=== PATIENT | female | born 1975 | race American Indian/Alaskan Native ===

== ENCOUNTER 2017-07-06 15:21 | Inpatient (IN) | payer OTHER ==
[2017-07-06] MEDS ORDERED: ZOFRAN IV ONE (17:05)
[2017-07-06] MEDS ORDERED: SUBLIMAZE IV ONE (17:05)
--- NOTE | 2017-07-06 17:13 | Emergency Department Report ---
HPI - General Chief Complaint: Chest Pain Time Seen by Provider: 07/06/17 16:54 - HPI HPI: Room 17 The patient is a 42-year-old female presenting with chief complaint chest pain. The patient states her symptoms began approximately 3 days ago with shortness of breath and dyspnea on exertion that has been worsening. The patient states yesterday she developed some anterior chest pain greatest in the left side feels as though she is being punched in the chest and is radiating to her back. Patient states she also developed pain. The patient states her chest pain is constant. Patient denies nausea/vomiting or diaphoresis. The patient does admit to pleuritic component. The patient gives her pain score 9-10/10. The patient was diagnosed with a PE in May 2016 states she only took her xarelto 3 months because she could not afford more medication. The patient states she's never had a stress test or cardiac catheterization Location: Chest Duration: 2-3 Days Quality: Punching pain Severity: 9-10/10 Modifying factors: [see above] Context: [see above] Mode of transportation: Unknown ED Past Medical Hx - Past Medical History Hx Deep Vein Thrombosis: Yes (PE 2017) Additional medical history: poor circulation to lower extremities CELLULITITS. anemia - Surgical History Past Surgical History?: No - Family History Family history: no significant - Social History Smoking Status: Never Smoker Substance Use Type: None (denies illicit drug use) - Medications Home Medications: Home Medications Medication Instructions Recorded Confirmed Last Taken Type Cephalexin [Keflex] 500 mg PO QID #40 capsule 11/19/13 Unknown Rx HYDROcodone/APAP 10-325 [[place] 1 each PO Q6HR PRN #14 tablet 11/19/13 Unknown Rx 10-325 mg TAB] Sulfamethoxazole/Trimethoprim 1 each PO BID #20 tablet 11/19/13 Unknown Rx [Bactrim DS TAB] Acetaminophen/Codeine 1 tab PO Q6H PRN #10 tab 04/05/14 Unknown Rx [Acetaminophen-Codeine #3 TAB] Cephalexin [Keflex] 500 mg PO BID #20 capsule 04/05/14 Unknown Rx Mupirocin [Bactroban 2% Oint] 1 applic TP TID #22 gram 04/05/14 Unknown Rx Sulfamethoxazole/Trimethoprim 1 each PO BID #20 tablet 04/05/14 Unknown Rx [Bactrim Ds] Tramadol HCl [traMADol] 50 mg PO Q8H PRN #10 tablet 04/05/14 Unknown Rx Acetaminophen with Codeine 1 tab PO Q6HR PRN #15 tab 03/08/15 Unknown Rx [Acetaminophen-Codeine #4 TAB] Cephalexin [Keflex] 500 mg PO Q12HR #20 cap 03/08/15 Unknown Rx Sulfamethoxazole/Trimethoprim 1 each PO BID #20 tablet 03/08/15 Unknown Rx [Bactrim DS TAB] Acetaminophen/Codeine [Tylenol #3] 1 tab PO Q6H PRN #12 tab 09/02/15 Unknown Rx Sulfamethoxazole/Trimethoprim 1 each PO BID #20 tablet 09/02/15 Unknown Rx [Bactrim DS TAB] ED Review of Systems ROS: Stated complaint: CP/SOB Other details as noted in HPI Constitutional: denies: diaphoresis Respiratory: shortness of breath, SOB with exertion Cardiovascular: chest pain Gastrointestinal: denies: nausea, vomiting Physical Exam - Physical Exam Vital Signs: Vital Signs 07/06/17 07/06/17 15:42 16:53 Temperature 98.2 F Pulse Rate 108 H 108 H Respiratory 26 H 22 Rate Blood Pressure 121/76 Blood Pressure 121/76 [Left] O2 Sat by Pulse 97 Oximetry Physical Exam: GENERAL: The patient is well-developed well-nourished female sitting on stretcher not appearing to be in acute distress. [] HEENT: Normocephalic. Atraumatic. Extraocular motions are intact. Patient has moist mucous membranes. NECK: Supple. Trachea midline CHEST/LUNGS: Clear to auscultation. There is no respiratory distress noted. HEART/CARDIOVASCULAR: Regular. There is no tachycardia. There is no gallop rub or murmur. ABDOMEN: Abdomen is soft, nontender. Patient has normal bowel sounds. There is no abdominal distention. SKIN: There is no rash. There is no diaphoresis. NEURO: The patient is awake, alert, and oriented. The patient is cooperative. The patient has normal speech MUSCULOSKELETAL: There is no evidence of acute injury. ED Course Vital Signs 07/06/17 07/06/17 15:42 16:53 Temperature 98.2 F Pulse Rate 108 H 108 H Respiratory 26 H 22 Rate Blood Pressure 121/76 Blood Pressure 121/76 [Left] O2 Sat by Pulse 97 Oximetry ED Medical Decision Making - Lab Data Result diagrams: 07/06/17 17:05 07/06/17 17:05 - EKG Data -: EKG Interpreted by Me EKG shows normal: sinus rhythm Rate: tachycardia (112 bpm) - EKG Data When compared to previous EKG there are: previous EKG unavailable Interpretation: other (no ischemic changes seen) - Differential Diagnosis PE, ACS, GERD, pericarditis Critical care attestation.: If time is entered above; I have spent that time in minutes in the direct care of this critically ill patient, excluding procedure time. ED Disposition Clinical Impression: Chest pain, Bilateral pulmonary embolism, Shortness of breath Disposition: OP ADMIT IP TO THIS HOSP Is pt being admited?: Yes Does the pt Need Aspirin: No Condition: Fair Instructions: Chest Pain (ED) Time of Disposition: 20:03 (hospitalist paged )
[2017-07-06 17:37] LABS: Basophils # (Auto) 0.1 K/mm3 (0.0-0.1); Basophils % (Auto) 0.5 % (0.0-1.8); Eosinophils # (Auto) 0.2 K/mm3 (0.0-0.4); Eosinophils % (Auto) 1.1 % (0.0-4.3); Hematocrit 38.9 % (30.3-42.9); Hemoglobin 12.2 gm/dl (10.1-14.3); Lymphocytes # (Auto) 3.6 K/mm3 (1.2-5.4); Mean Corpuscular HGB Conc 31 % (30-34); Mean Corpuscular Volume 80 fl (79-97); Monocytes # (Auto) 0.9 K/mm3 (0.0-0.8); Monocytes % (Auto) 6.9 % (0.0-7.3); Platelet Count 235 K/mm3 (140-440); Red Blood Count 4.85 M/mm3 (3.65-5.03); Red Cell Distribution Width 15.4 % (13.2-15.2)
[2017-07-06 17:44] LABS: Mean Corpuscular Hemoglobin 25 pg (28-32)
[2017-07-06 17:46] LABS: BUN/Creatinine Ratio 11; Blood Urea Nitrogen 9 mg/dL (7-17); Hemolysis Index 6
[2017-07-06 17:47] LABS: Creatine Kinase MB 1.4 ng/mL (0.0-4.0); INR 0.98 (0.87-1.13)
[2017-07-06] MEDS ORDERED: MORPHINE IV ONE (19:39)
[2017-07-06] MEDS ORDERED: NITRO-BID 2% TP ONE ×2 (19:39→19:41)
[2017-07-06] MEDS ORDERED: MORPHINE ONE ×2 (19:42→19:49)
--- NOTE | 2017-07-06 19:59 | Cat Scan Report ---
FINAL REPORT PROCEDURE: CT angiogram chest with contrast. TECHNIQUE: Computerized tomographic angiography of the chest was performed after the IV injection of iodinated nonionic contrast including image processing. The image data was postprocessed using 2-dimensional multiplanar reformatted (MPR) and 3-dimensional (MIP and/or volume rendered) techniques. HISTORY: chest pain, shortness of breath COMPARISON: No prior studies are available for comparison. FINDINGS: The trachea and central bronchi appear normal. The lungs are clear except for calcified granulomas. The thoracic aorta has a normal caliber without evidence of dissection. There are filling defects in the pulmonary arterial branches supplying both lower lobes. This represents pulmonary embolism. There is no mediastinal adenopathy. The heart size is mildly enlarged. There are no pleural effusions. The thoracic skeleton appears intact. IMPRESSION: Acute pulmonary emboli in both lower lobes.
[2017-07-06] MEDS ORDERED: HEPARIN 10,000 UNITS/10 ML IV ONE (20:00)
[2017-07-06] MEDS: HEPARIN/ 0.45% NACL-25,000 UNIT/500 ML 25,000 UNIT/500 ML BAG IV SCH (21:32)
[2017-07-06] MEDS ORDERED: TYLENOL PO PRN (22:37)
[2017-07-06] MEDS ORDERED: MILK OF MAGNESIA PO PRN (22:37)
[2017-07-06] MEDS ORDERED: DULCOLAX PR PRN (22:37)
[2017-07-06] MEDS ORDERED: ZOFRAN IV PRN (22:37)
--- NOTE | 2017-07-06 22:40 | History and Physical Report ---
History of Present Illness Date of examination: 07/06/17 History of present illness: Fluids 2-year-old man with a history of morbid obesity, rheumatoid arthritis, peripheral vascular disease comes emergency room with complaints of shortness of breath for 5 days. Also complaining of chest pain across her chest which she described as someone punched her in the chest, intermittent in nature, radiating to the back, intensity 4/10, radiating to the left arm worse with breathing. She denies alcohol or vomiting, diaphoresis or palpitation. She was diagnosed with pulmonary emboli on prior admission, she only took 3 months of xarelto due to financial constraints Review Of Systems: Constitutional: no weight loss Ears, eyes, nose, mouth and throat: no nasal congestion, no nasal discharge, no sinus pressure, blurry vision, diplopia Neck: No neck pain or rigidity. Cardiovascular: No palpitations Respiratory: No cough Gastrointestinal: No abdominal pain, hematochezia Genitourinary : no dysuria, frequency , hematuria Musculoskeletal: no muscle ache Integumentary: no rash, no pruritis Neurological: no parathesias, focal weakness Endocrine: no cold or heat intolerance, no polyuria or polydipsia Hematologic/Lymphatic: no easy bruising, no easy bleeding, no gland swelling Allergic/Immunologic: no urticaria, no angioedema. PAST MEDICAL HISTORY:morbid obesity, rheumatoid arthritis, peripheral vascular disease PAST SURGICAL HISTORY: None FAMILY HISTORY: Hypertension SOCIAL HISTORY: Denies alcohol, tobacco, drugs Medications and Allergies Allergies Allergy/AdvReac Type Severity Reaction Status Date / Time aspirin Allergy Mild Rash Verified 03/23/13 15:23 Home Medications Medication Instructions Recorded Confirmed Last Taken Type Acetaminophen [Tylenol Arthritis] 650 mg PO QDAY 07/07/17 07/07/17 Unknown History Morphine ER [Ms Contin ER] 30 mg PO BID 07/07/17 07/07/17 07/06/17 08:00 History Oxycodone HCl [Roxicodone] 5 mg PO TID 07/07/17 07/07/17 07/06/17 12:00 History Active Meds: Active Medications Heparin Sodium/Sodium Chloride (Heparin/ 0.45% Nacl-25,000 Unit/500 Ml) 25,000 unit in 500 mls @ 30 mls/hr IV TITR JOSE; 1,500 UNITS/HR PRN Reason: Protocol Last Admin: 07/06/17 21:32 Dose: 1,500 units/hr, 30 mls/hr Exam - Physical Exam Narrative exam: Gen. appearance: Patient lying in bed in no acute distress HEENT: Normocephalic/atraumatic, pupils equal round reactive to light, extra occular movement intact, no scleral icterus, no JVD or thyromegaly or nodule, neck is supple, mucous membrane moist, no erythema or exudate Heart: S1-S2, regular rate and rhythm Lungs: Clear to auscultation bilateral breathing comfortable Abdomen: Positive bowel sounds, nontender, nondistended, no organomegaly Extremities: No edema, cyanosis, clubbing Neuro:: Oriented 3 , cranial nerves II-12 intact, speech, motor intact Skin: No rash, nodules, warm dry - Constitutional Vitals: Temp Pulse Resp BP Pulse Ox 98.0 F 105 H 29 H 121/76 83 L 07/06/17 22:15 07/06/17 22:15 07/06/17 22:15 07/06/17 22:15 07/06/17 20:00 Results - Labs CBC & Chem 7: 07/07/17 04:28 07/07/17 04:28 Labs: Abnormal lab results 07/06/17 07/06/17 Range/Units 17:05 17:05 WBC 13.3 H (4.5-11.0) K/mm3 MCH 25 L (28-32) pg RDW 15.4 H (13.2-15.2) % [place] # 0.9 H (0.0-0.8) K/mm3 Seg Neutrophils # 8.5 H (1.8-7.7) K/mm3 Glucose 108 H (65-100) mg/dL NT-Pro-B Natriuret Pep 2787 H (0-450) pg/mL - Imaging and Cardiology EKG: image reviewed Chest x-ray: image reviewed CT scan - chest: report reviewed Assessment and Plan Assessment Bilateral pulmonary emboli Rheumatoid arthritis Peripheral vascular disease Morbid obesity Plan Admit to medicine Continue heparin drip, may need to switch to Coumadin due to financial constraints Check serial hemoglobin start IV morphin, Check Doppler of the lower extremity Continue appropriate outpatient medications DVT prophylaxis
[2017-07-07 05:00] LABS: Basophils # (Auto) 0.1 K/mm3 (0.0-0.1); Basophils % (Auto) 0.5 % (0.0-1.8); Eosinophils # (Auto) 0.2 K/mm3 (0.0-0.4); Eosinophils % (Auto) 1.8 % (0.0-4.3); Hematocrit 35.2 % (30.3-42.9); Hemoglobin 11.2 gm/dl (10.1-14.3); Lymphocytes # (Auto) 3.2 K/mm3 (1.2-5.4); Lymphocytes % (Auto) 28.2 % (13.4-35.0); Mean Corpuscular HGB Conc 32 % (30-34); Mean Corpuscular Volume 79 fl (79-97); Monocytes # (Auto) 0.9 K/mm3 (0.0-0.8); Monocytes % (Auto) 7.9 % (0.0-7.3); Platelet Count 205 K/mm3 (140-440); Red Blood Count 4.45 M/mm3 (3.65-5.03); Red Cell Distribution Width 15.4 % (13.2-15.2)
[2017-07-07 05:03] LABS: Mean Corpuscular Hemoglobin 25 pg (28-32)
[2017-07-07] MEDS: MORPHINE IV PRN ×3 (05:18→16:10)
[2017-07-07 05:38] LABS: BUN/Creatinine Ratio 11; Blood Urea Nitrogen 9 mg/dL (7-17); Calcium 8.5 mg/dL (8.4-10.2); Hemolysis Index 2
--- NOTE | 2017-07-07 11:44 | Progress Note ---
Assessment and Plan Assessment and plan: Bilateral pulmonary emboli. Check echocardiogram to evaluate right heart function. Vascular surgery consultation. Continue anticoagulation. Start Coumadin. Doppler ultrasound was negative. Rheumatoid arthritis. Supportive care. Peripheral vascular disease. Vesicle surgery consultation pending. Morbid obesity. History Interval history: No new issues overnight. Hospitalist Physical - Constitutional Vitals: Temp Pulse Resp BP Pulse Ox 97.9 F 91 H 16 129/75 98 07/07/17 09:00 07/07/17 10:15 07/07/17 10:21 07/07/17 10:15 07/07/17 09:00 General appearance: Present: no acute distress, well-nourished - EENT Eyes: Present: PERRL, EOM intact ENT: hearing intact, clear oral mucosa, dentition normal - Neck Neck: Present: supple, normal ROM - Respiratory Respiratory effort: normal Respiratory: bilateral: CTA - Cardiovascular Rhythm: regular Heart Sounds: Present: S1 & S2. Absent: gallop, rub - Extremities Extremities: no ischemia, No edema, Full ROM - Abdominal General gastrointestinal: soft, non-tender, non-distended, normal bowel sounds - Integumentary Integumentary: Present: clear, warm, dry - Neurologic Neurologic: CNII-XII intact, moves all extremities Results - Labs CBC & Chem 7: 07/07/17 04:28 07/07/17 04:28 Labs: Laboratory Last Values WBC 11.3 K/mm3 (4.5-11.0) H 07/07/17 04:28 RBC 4.45 M/mm3 (3.65-5.03) 07/07/17 04:28 Hgb 11.2 gm/dl (10.1-14.3) 07/07/17 04:28 Hct 35.2 % (30.3-42.9) 07/07/17 04:28 MCV 79 fl (79-97) 07/07/17 04:28 MCH 25 pg (28-32) L 07/07/17 04:28 MCHC 32 % (30-34) 07/07/17 04:28 RDW 15.4 % (13.2-15.2) H 07/07/17 04:28 Plt Count 205 K/mm3 (140-440) 07/07/17 04:28 Lymph % (Auto) 28.2 % (13.4-35.0) 07/07/17 04:28 [place] % (Auto) 7.9 % (0.0-7.3) H 07/07/17 04:28 Eos % (Auto) 1.8 % (0.0-4.3) 07/07/17 04:28 Baso % (Auto) 0.5 % (0.0-1.8) 07/07/17 04:28 Lymph # 3.2 K/mm3 (1.2-5.4) 07/07/17 04:28 [place] # 0.9 K/mm3 (0.0-0.8) H 07/07/17 04:28 Eos # 0.2 K/mm3 (0.0-0.4) 07/07/17 04:28 Baso # 0.1 K/mm3 (0.0-0.1) 07/07/17 04:28 Seg Neutrophils % 61.6 % (40.0-70.0) 07/07/17 04:28 Seg Neutrophils # 6.9 K/mm3 (1.8-7.7) 07/07/17 04:28 PT 13.5 Sec. (12.2-14.9) 07/06/17 17:05 INR 0.98 (0.87-1.13) 07/06/17 17:05 APTT 31.0 Sec. (24.2-36.6) 07/06/17 17:05 Heparin Anti-Xa Level 0.24 U.I./ml (0.3-0.7) L 07/07/17 10:48 Sodium 141 mmol/L (137-145) 07/07/17 04:28 Potassium 4.5 mmol/L (3.6-5.0) 07/07/17 04:28 Chloride 103.9 mmol/L (98-107) 07/07/17 04:28 Carbon Dioxide 23 mmol/L (22-30) 07/07/17 04:28 Anion Gap 19 mmol/L 07/07/17 04:28 BUN 9 mg/dL (7-17) 07/07/17 04:28 Creatinine 0.8 mg/dL (0.7-1.2) 07/07/17 04:28 Estimated GFR > 60 ml/min 07/07/17 04:28 BUN/Creatinine Ratio 11 % 02/10/18 04:28 Glucose 103 mg/dL (65-100) H 07/07/17 04:28 Calcium 8.5 mg/dL (8.4-10.2) 07/07/17 04:28 Total Creatine Kinase 52 units/L (30-135) 07/06/17 17:05 CK-MB (CK-2) 1.4 ng/mL (0.0-4.0) 07/06/17 17:05 CK-MB (CK-2) Rel Index 2.6 (0-4) 07/06/17 17:05 Troponin T 0.013 ng/mL (0.00-0.029) 07/06/17 17:05 NT-Pro-B Natriuret Pep 2787 pg/mL (0-450) H 07/06/17 17:05
--- NOTE | 2017-07-07 16:07 | Consultation ---
History of Present Illness - Reason for Consult Consult date: 07/07/17 Pulmonary embolism - History of Present Illness 42-year-old female who presented to the hospital with chief complaint of chest pain with past medical history of morbid obesity, rheumatoid arthritis, venous insufficiency, and right lower extremity lymphedema. The patient states yesterday she developed some anterior chest pain greatest in the left side feels as though she is being punched in the chest and is radiating to her back. Patient states she also developed pain. The patient states her chest pain is constant. The patient was diagnosed with a pulmonary embolism in May 2016 which was her first thromboembolic events, and appropriately had 3 months of anticoagulation therapy with Xarelto. She now presents with new pulmonary embolism in her bilateral lower lobe lobar pulmonary arteries with segmental extension. Although she does have some right heart strain on her CT scan (RV to LV ratio greater than 1.6), she has minimal symptoms on examination. She can converse without issue, she is not tachycardic, and I turned off her supplementary oxygen and her O2 sat was 95%. Her main pulmonary artery measures [address] scan which is CT criteria for pulmonary hypertension. She is incredibly morbidly obese, and I wonder if her right-sided heart strain on CT is secondary to chronic issues, such as sleep apnea. The patient was also telling me that she has boils under her armpits in her groin and has findings in her left axilla of hidradenitis suppurativa. She reports this is a chronic problem that she's had for many years. She also tells me that her right second digit sometimes turns blue and then returns back to normal and the suspect occurring in the last 2 months. I suspect this represents Reynaud's that she has palpable pulses in the right upper extremity. No ulcers of the digit. Past History Past Medical History: pulmonary embolism (06/13), other (venous insuffiency, morbid obesity, RLE lymphedema, ) Past Surgical History: No surgical history Social history: denies: smoking, alcohol abuse, IV drug use Family history: hypertension Medications and Allergies Allergies Allergy/AdvReac Type Severity Reaction Status Date / Time aspirin Allergy Mild Rash Verified 03/23/13 15:23 Home Medications Medication Instructions Recorded Confirmed Last Taken Type Acetaminophen [Tylenol Arthritis] 650 mg PO QDAY 07/07/17 07/07/17 Unknown History Morphine ER [Ms Contin ER] 30 mg PO BID 07/07/17 07/07/17 07/06/17 08:00 History Oxycodone HCl [Roxicodone] 5 mg PO TID 07/07/17 07/07/17 07/06/17 12:00 History Active Meds: Active Medications Acetaminophen (Tylenol) 650 mg PO Q4H PRN PRN Reason: Pain MILD(1-3)/Fever >100.5/CARTAGENA Bisacodyl (Dulcolax) 10 mg NC QDAY PRN PRN Reason: Constipation unrelieved by MOM Heparin Sodium/Sodium Chloride (Heparin/ 0.45% Nacl-25,000 Unit/500 Ml) 25,000 unit in 500 mls @ 30 mls/hr IV TITR JOSE; 1,500 UNITS/HR PRN Reason: Protocol Last Titration: 07/07/17 10:48 Dose: 1,650 units/hr, 33 mls/hr Magnesium Hydroxide (Milk Of Magnesia) 30 ml PO Q4H PRN PRN Reason: Constipation Morphine Sulfate (Morphine) 2 mg IV Q4H PRN PRN Reason: Pain, Moderate (4-6) Last Admin: 07/07/17 10:21 Dose: 2 mg Ondansetron HCl (Zofran) 4 mg IV Q8H PRN PRN Reason: N/V unrelieved by Reglan Review of Systems All systems: negative (see HPI) Exam - Constitutional Vitals: Temp Pulse Resp BP Pulse Ox 98.1 F 90 19 133/76 98 07/07/17 14:55 07/07/17 14:55 07/07/17 14:55 07/07/17 14:55 07/07/17 14:55 General appearance: Present: no acute distress - EENT Eyes: Present: EOM intact ENT: hearing intact - Respiratory Respiratory effort: normal - Extremities Extremities: pulses intact (RUE), normal temperature (RUE), normal color (RUE) Extremity abnormal: edema (RLE THIGH LYMPHEDEMA, stigmata of venous insuffiency with healed ulcers of her LE (lipodermatosclerosis)), other (ulcers draining of the LUE axilla) - Psychiatric Psychiatric: cooperative Results - Labs CBC & Chem 7: 07/07/17 04:28 07/07/17 04:28 Labs: Abnormal lab results 18 18 07/07/17 Range/Units 17:05 17:05 04:28 WBC 13.3 H (4.5-11.0) K/mm3 MCH 25 L (28-32) pg RDW 15.4 H (13.2-15.2) % [place] % (Auto) (0.0-7.3) % [place] # 0.9 H (0.0-0.8) K/mm3 Seg Neutrophils # 8.5 H (1.8-7.7) K/mm3 Heparin Anti-Xa Level < 0.10 L (0.3-0.7) U.I./ml Glucose 108 H (65-100) mg/dL NT-Pro-B Natriuret Pep 2787 H (0-450) pg/mL 07/07/1718 07/07/17 Range/Units 04:28 04:28 08:04 WBC 11.3 H (4.5-11.0) K/mm3 MCH 25 L (28-32) pg RDW 15.4 H (13.2-15.2) % [place] % (Auto) 7.9 H (0.0-7.3) % [place] # 0.9 H (0.0-0.8) K/mm3 Seg Neutrophils # (1.8-7.7) K/mm3 Heparin Anti-Xa Level 0.15 L (0.3-0.7) U.I./ml Glucose 103 H (65-100) mg/dL NT-Pro-B Natriuret Pep (0-450) pg/mL 07/07/17 Range/Units 10:48 WBC (4.5-11.0) K/mm3 MCH (28-32) pg RDW (13.2-15.2) % [place] % (Auto) (0.0-7.3) % [place] # (0.0-0.8) K/mm3 Seg Neutrophils # (1.8-7.7) K/mm3 Heparin Anti-Xa Level 0.24 L (0.3-0.7) U.I./ml Glucose (65-100) mg/dL NT-Pro-B Natriuret Pep (0-450) pg/mL - Imaging and Cardiology CT scan - chest: report reviewed, image reviewed Assessment and Plan 42-year-old female with severe morbid obesity, history of thromboembolic issues , rheumatoid arthritis, who presents with bilateral pulmonary embolism. The patient has bilateral lower lobe lobar pulmonary embolism with segmental extension. Although her BNP is elevated and she has CT evidence of right heart strain, I suspect this secondary to chronic issues as her physical exam and vital signs are not consistent with right heart strain. Her heart rate is normal and her O2 sat is normal off of supplementary oxygen. She can talk and laugh without issue. Given her severe morbid obesity, I'm concerned this may represent sequelae from sleep apnea. Echocardiogram pending, but recommend pulmonology consult. No need for thrombolytics. This is the patient's second thromboembolic event. She'll need to be anticoagulated for life. She is low risk of bleeding denying any bleeding issues such as GI, , or ENT issues. If patient will require Coumadin, then she will need a hematology oncology consult for follow-up of her Coumadin when she is discharged. The patient has hidradenitis suppurativa and will require wound care consult for management. The patient describes right second digit turning blue in the last few months. She has palpable pulses of the right upper extremity. I suspect this represents Raynaud phenomenon possibly secondary to her underlying rheumatoid arthritis. No tissue loss. Arterial ultrasound will be obtained to exclude blue digit syndrome given that she denies this occurring to her other hand or feet, but the events were short term in duration (a few hours) which is not compatible with embolism.
[2017-07-07] MEDS: HEPARIN/ 0.45% NACL-25,000 UNIT/500 ML 25,000 UNIT/500 ML BAG IV SCH (19:59)
[2017-07-08] MEDS: MORPHINE IV PRN ×3 (03:00→23:21)
[2017-07-08 06:53] LABS: Hematocrit 33.6 % (30.3-42.9); Hemoglobin 10.8 gm/dl (10.1-14.3)
[2017-07-08] MEDS: HEPARIN/ 0.45% NACL-25,000 UNIT/500 ML 25,000 UNIT/500 ML BAG IV SCH (10:57)
--- NOTE | 2017-07-08 12:28 | Progress Note ---
Assessment and Plan Assessment and plan: Bilateral pulmonary emboli. This is the patient's second thromboembolic event. Therefore, patient will need anticoagulation for life. Check echocardiogram to evaluate right heart function. Vascular surgery following. Continue heparin IV. Start Coumadin. Doppler ultrasound was negative. Hematology consultation. Rheumatoid arthritis. ? Raynaud's phenomenon. Follow-up lower extremity arterial Dopplers. Supportive care. Peripheral vascular disease. ? Raynaud's phenomenon. As above. Morbid obesity. hidradenitis suppurativa. Wound care consultation History Interval history: No new issues overnight. Hospitalist Physical - Constitutional Vitals: Temp Pulse Resp BP Pulse Ox 97.5 F L 76 16 114/56 97 07/08/17 09:44 07/08/17 09:51 07/08/17 09:44 07/08/17 09:44 07/08/17 09:44 General appearance: Present: no acute distress - EENT Eyes: Present: PERRL, EOM intact ENT: hearing intact, clear oral mucosa, dentition normal - Neck Neck: Present: supple, normal ROM - Respiratory Respiratory effort: normal Respiratory: bilateral: CTA - Cardiovascular Rhythm: regular Heart Sounds: Present: S1 & S2. Absent: gallop, rub - Extremities Extremities: no ischemia, No edema, Full ROM - Abdominal General gastrointestinal: soft, non-tender, non-distended, normal bowel sounds - Integumentary Integumentary: Present: clear, warm, dry - Neurologic Neurologic: CNII-XII intact, moves all extremities Results - Labs CBC & Chem 7: 07/08/17 05:18 07/07/17 04:28 Labs: Laboratory Last Values WBC 11.3 K/mm3 (4.5-11.0) H 07/07/17 04:28 RBC 4.45 M/mm3 (3.65-5.03) 07/07/17 04:28 Hgb 10.8 gm/dl (10.1-14.3) 07/08/17 05:18 Hct 33.6 % (30.3-42.9) 07/08/17 05:18 MCV 79 fl (79-97) 07/07/17 04:28 MCH 25 pg (28-32) L 07/07/17 04:28 MCHC 32 % (30-34) 07/07/17 04:28 RDW 15.4 % (13.2-15.2) H 07/07/17 04:28 Plt Count 192 K/mm3 (140-440) 07/08/17 05:18 Lymph % (Auto) 28.2 % (13.4-35.0) 07/07/17 04:28 [place] % (Auto) 7.9 % (0.0-7.3) H 07/07/17 04:28 Eos % (Auto) 1.8 % (0.0-4.3) 07/07/17 04:28 Baso % (Auto) 0.5 % (0.0-1.8) 07/07/17 04:28 Lymph # 3.2 K/mm3 (1.2-5.4) 07/07/17 04:28 [place] # 0.9 K/mm3 (0.0-0.8) H 07/07/17 04:28 Eos # 0.2 K/mm3 (0.0-0.4) 07/07/17 04:28 Baso # 0.1 K/mm3 (0.0-0.1) 07/07/17 04:28 Seg Neutrophils % 61.6 % (40.0-70.0) 07/07/17 04:28 Seg Neutrophils # 6.9 K/mm3 (1.8-7.7) 07/07/17 04:28 PT 13.5 Sec. (12.2-14.9) 07/06/17 17:05 INR 0.98 (0.87-1.13) 07/06/17 17:05 APTT 31.0 Sec. (24.2-36.6) 07/06/17 17:05 Heparin Anti-Xa Level 0.35 U.I./ml (0.3-0.7) 07/07/17 15:25 Sodium 141 mmol/L (137-145) 07/07/17 04:28 Potassium 4.5 mmol/L (3.6-5.0) 07/07/17 04:28 Chloride 103.9 mmol/L (98-107) 07/07/17 04:28 Carbon Dioxide 23 mmol/L (22-30) 07/07/17 04:28 Anion Gap 19 mmol/L 07/07/17 04:28 BUN 9 mg/dL (7-17) 07/07/17 04:28 Creatinine 0.8 mg/dL (0.7-1.2) 07/07/17 04:28 Estimated GFR > 60 ml/min 07/07/17 04:28 BUN/Creatinine Ratio 11 % 07/07/17 04:28 Glucose 103 mg/dL (65-100) H 07/07/17 04:28 Calcium 8.5 mg/dL (8.4-10.2) 07/07/17 04:28 Total Creatine Kinase 52 units/L (30-135) 07/06/17 17:05 CK-MB (CK-2) 1.4 ng/mL (0.0-4.0) 07/06/17 17:05 CK-MB (CK-2) Rel Index 2.6 (0-4) 07/06/17 17:05 Troponin T 0.013 ng/mL (0.00-0.029) 07/06/17 17:05 NT-Pro-B Natriuret Pep 2787 pg/mL (0-450) H 07/06/17 17:05
--- NOTE | 2017-07-08 12:44 | Event Note ---
Date: 07/08/17 No new recommendations. Awaiting RUE arterial ultrasound and echocardiography.
--- NOTE | 2017-07-08 17:21 | Consultation ---
History of Present Illness - Reason for Consult Consult date: 07/08/17 PE, recurrent. Requesting physician: GRECIA MARCUM - History of Present Illness Thank you for this consult, patient seen/examined, record reviewed, case d/w patient, and family.Patients account revealed hx of PE last year , in the hospital, given samples of xeralto at home, and once finished, patient became non compliant with her care.She is now back with another PE. She has other med issues including RA, Peripheral vas dz, and morbid obesity, and gross immobility due to rheumatoid pain, and body habitus. She denies any family hx of coag dz, her mom had Dvt, but it was following a major surgery.Will do a full w/up before coumadin is started.Also, upon, d/c ,she should be sent home with coumadin ,because it is cheaper.she reports what may have been a miscarriage in the past. Past History Past Medical History: pulmonary embolism (06/13), other (venous insuffiency, morbid obesity, RLE lymphedema, ) Past Surgical History: No surgical history Social history: single. denies: smoking, alcohol abuse, IV drug use Family history: hypertension Medications and Allergies Allergies Allergy/AdvReac Type Severity Reaction Status Date / Time aspirin Allergy Mild Rash Verified 03/23/13 15:23 Home Medications Medication Instructions Recorded Confirmed Last Taken Type Acetaminophen [Tylenol Arthritis] 650 mg PO QDAY 07/07/17 07/07/17 Unknown History Morphine ER [Ms Contin ER] 30 mg PO BID 07/07/17 07/07/17 07/06/17 08:00 History Oxycodone HCl [Roxicodone] 5 mg PO TID 07/07/17 07/07/17 07/06/17 12:00 History Active Meds: Active Medications Acetaminophen (Tylenol) 650 mg PO Q4H PRN PRN Reason: Pain MILD(1-3)/Fever >100.5/CARTAGENA Bisacodyl (Dulcolax) [address] QDAY PRN PRN Reason: Constipation unrelieved by MOM Heparin Sodium/Sodium Chloride (Heparin/ 0.45% Nacl-25,000 Unit/500 Ml) 25,000 unit in 500 mls @ 30 mls/hr IV TITR JOSE; 1,500 UNITS/HR PRN Reason: Protocol Last Admin: 07/08/17 10:57 Dose: 1,650 units/hr, 33 mls/hr Magnesium Hydroxide (Milk Of Magnesia) 30 ml PO Q4H PRN PRN Reason: Constipation Morphine Sulfate (Morphine) 2 mg IV Q4H PRN PRN Reason: Pain, Moderate (4-6) Last Admin: 07/08/17 10:56 Dose: 2 mg Ondansetron HCl (Zofran) 4 mg IV Q8H PRN PRN Reason: N/V unrelieved by Reglan Warfarin Sodium (Coumadin Pharmacy To Dose) 1 each PO PKCONSULT [facility] PRN Reason: Protocol Warfarin Sodium (Coumadin) 10 mg PO DAILY@1700 [facility] Review of Systems Constitutional: weight gain, chronic pain Breasts: deferred Exam - Constitutional Vitals: Temp Pulse Resp BP Pulse Ox 97.5 F L 76 16 114/56 97 07/08/17 09:44 07/08/17 09:51 07/08/17 09:44 07/08/17 09:44 07/08/17 09:44 General appearance: Present: no acute distress, well-nourished - EENT Eyes: Present: PERRL ENT: hearing intact, clear oral mucosa - Neck Neck: Present: supple, normal ROM - Respiratory Respiratory: bilateral: other (sob) - Cardiovascular Heart Sounds: Present: S1 & S2. Absent: rub, click - Extremities Extremities: pulses symmetrical, No edema Peripheral Pulses: within normal limits - Abdominal General gastrointestinal: Present: soft, non-tender, non-distended, normal bowel sounds Female genitourinary: Present: deferred - Rectal Rectal Exam: deferred - Integumentary Integumentary: Present: clear, warm, dry - Musculoskeletal Musculoskeletal: gait normal, strength equal bilaterally - Psychiatric Psychiatric: appropriate mood/affect, intact judgment & insight - Neurologic Neurologic: CNII-XII intact, moves all extremities Results - Labs CBC & Chem 7: 07/08/17 05:18 07/07/17 04:28 Assessment and Plan - Patient Problems (1) Bilateral pulmonary embolism Current Visit: Yes Status: Acute Plan to address problem: see below. (2) Shortness of breath Current Visit: Yes Status: Acute Plan to address problem: continue with anti coagulation (3) Cellulitis Current Visit: No Status: Acute Qualifiers: Site of cellulitis: extremity Site of cellulitis of extremity: lower extremity Laterality: right Qualified Code(s): L03.115 - Cellulitis of right lower limb Plan to address problem: complicated by stasis dermatitis. deffer to vasc. (4) Obesity Current Visit: Yes Status: Acute Plan to address problem: encourage wt loss.
[2017-07-08] MEDS: COUMADIN PO SCH (18:45)
--- NOTE | 2017-07-08 22:56 | Consultation ---
History of Present Illness Consult date: 07/08/17 Reason for consult: pulmonary embolism History of present illness: Dr. Caldera thank you for asking us to participate in the care of this patient. This 42 year old female , Morbidly Obese, came to the emergency room with shortness of breath and chest pain. Denies cough, fever or diaphoresis. Angio CT of chest obtained reported bilateral acute pulmonary emboli. Patient started on I/V Heparin . Patient has history of PE in the Past about a year ago. Patient did not complete her course of treatment at that time.Patient has history of rheumatoid arthritis and lymph edema. Denies other medical problems.Denies sleep problems at this time. No history of smoking, alcohol or drug abuse. Not . No children. Worked in [employer] service before stopped working.Allergic to aspirin. Past History Past Medical History: pulmonary embolism (06/13), other (venous insuffiency, morbid obesity, RLE lymphedema, ) Past Surgical History: No surgical history Social history: single. denies: smoking, alcohol abuse, IV drug use Family history: hypertension Medications and Allergies Allergies Allergy/AdvReac Type Severity Reaction Status Date / Time aspirin Allergy Mild Rash Verified 03/23/13 15:23 Home Medications Medication Instructions Recorded Confirmed Last Taken Type Acetaminophen [Tylenol Arthritis] 650 mg PO QDAY 07/07/17 07/07/17 Unknown History Morphine ER [Ms Contin ER] 30 mg PO BID 07/07/17 07/07/17 07/06/17 08:00 History Oxycodone HCl [Roxicodone] 5 mg PO TID 07/07/17 07/07/17 07/06/17 12:00 History Active Meds: Active Medications Acetaminophen (Tylenol) 650 mg PO Q4H PRN PRN Reason: Pain MILD(1-3)/Fever >100.5/CARTAGENA Bisacodyl (Dulcolax) 10 mg [place] QDAY PRN PRN Reason: Constipation unrelieved by MOM Heparin Sodium/Sodium Chloride (Heparin/ 0.45% Nacl-25,000 Unit/500 Ml) 25,000 unit in 500 mls @ 30 mls/hr IV TITR JOSE; 1,500 UNITS/HR PRN Reason: Protocol Last Titration: 07/08/17 18:44 Dose: 1,650 units/hr, 33 mls/hr Magnesium Hydroxide (Milk Of Magnesia) 30 ml PO Q4H PRN PRN Reason: Constipation Morphine Sulfate (Morphine) 2 mg IV Q4H PRN PRN Reason: Pain, Moderate (4-6) Last Admin: 07/08/17 10:56 Dose: 2 mg Ondansetron HCl (Zofran) 4 mg IV Q8H PRN PRN Reason: N/V unrelieved by Reglan Warfarin Sodium (Coumadin Pharmacy To Dose) 1 each PO PKCONSULT [facility] PRN Reason: Protocol Warfarin Sodium (Coumadin) 10 mg PO DAILY@1700 [facility] Last Admin: 07/08/17 18:45 Dose: 10 mg Review of Systems All systems: negative Physical Examination Vital signs: Vital Signs Temp Pulse Resp BP Pulse Ox 98.2 F 108 H 26 H 121/76 97 07/06/17 15:42 07/06/17 15:42 07/06/17 15:42 07/06/17 15:42 07/06/17 15:42 General appearance: no acute distress, alert, other (Morbidly obese.) Eyes: non-icteric ENT: oropharynx moist Neck: supple, no JVD Ascultation: Bilateral: diminished breath sounds Cardiovascular: regular rate and rhythm Gastrointestinal: normoactive bowel sounds, soft, non-tender Integumentary: other (stasis dermatitis and lymphedema.) Extremities: no cyanosis, edema Musculoskeletal: other (Patient morbidly obese,) Gait: other (Morbidly obese.) normal mental status, non-focal exam, pupils equal and round, CN II-XII normal mood appropriate Results - Laboratory Findings CBC and BMP: 07/08/17 05:18 07/07/17 04:28 PT/INR, D-dimer PT 13.5 Sec. (12.2-14.9) 07/06/17 17:05 INR 0.98 (0.87-1.13) 07/06/17 17:05 Abnormal lab findings: Abnormal Labs 07/06/17 07/06/17 07/07/17 17:05 17:05 04:28 WBC 13.3 H MCH 25 L RDW 15.4 H Powell % (Auto) Powell # 0.9 H Seg Neutrophils # 8.5 H Heparin Anti-Xa Level < 0.10 L Glucose 108 H NT-Pro-B Natriuret Pep 2787 H 07/07/17 07/07/17 07/07/17 04:28 04:28 08:04 WBC 11.3 H MCH 25 L RDW 15.4 H [place] % (Auto) 7.9 H Powell # 0.9 H Seg Neutrophils # Heparin Anti-Xa Level 0.15 L Glucose 103 H NT-Pro-B Natriuret Pep 07/07/17 10:48 WBC MCH RDW [place] % (Auto) Powell # Seg Neutrophils # Heparin Anti-Xa Level 0.24 L Glucose NT-Pro-B Natriuret Pep - Diagnostic Findings CT scan - chest: report reviewed (Bilateral acute pulmonary emboli.), image reviewed Assessment and Plan his 42 year old female , Morbidly Obese, came to the emergency room with shortness of breath and chest pain. Denies cough, fever or diaphoresis. Angio CT of chest obtained reported bilateral acute pulmonary emboli. Patient started on I/V Heparin . Patient has history of PE in the Past about a year ago. Patient did not complete her course of treatment at that time.Patient has history of rheumatoid arthritis and lymph edema. Denies other medical problems.Denies sleep problems at this time. No history of smoking, alcohol or drug abuse. Not . No children. Worked in [employer] service before stopped working.Allergic to aspirin. - Patient Problems (1) Bilateral pulmonary embolism Current Visit: Yes Status: Acute Plan to address problem: Patient started on I/V heparin and PO coumadin Recommend Protien C, Protein S and Anti thrombin levels. (2) Obesity Current Visit: Yes Status: Acute Plan to address problem: Counselled to loose weight. (3) Shortness of breath Current Visit: Yes Status: Acute Plan to address problem: Likely from pulmonary emboli. Continue O2 supplementation. Patient is on I/V Heparin and coumadin.
[2017-07-09] MEDS: HEPARIN/ 0.45% NACL-25,000 UNIT/500 ML 25,000 UNIT/500 ML BAG IV SCH ×2 (03:55→21:21)
[2017-07-09 06:10] LABS: Basophils % (Auto) 0.3 % (0.0-1.8); Eosinophils # (Auto) 0.2 K/mm3 (0.0-0.4); Eosinophils % (Auto) 1.9 % (0.0-4.3); Hemoglobin 10.5 gm/dl (10.1-14.3); Lymphocytes # (Auto) 2.8 K/mm3 (1.2-5.4); Lymphocytes % (Auto) 30.6 % (13.4-35.0); Mean Corpuscular HGB Conc 32 % (30-34); Mean Corpuscular Hemoglobin 25 pg (28-32); Mean Corpuscular Volume 80 fl (79-97); Monocytes # (Auto) 0.8 K/mm3 (0.0-0.8); Monocytes % (Auto) 8.3 % (0.0-7.3); Platelet Count 200 K/mm3 (140-440); Red Blood Count 4.12 M/mm3 (3.65-5.03); Red Cell Distribution Width 15.5 % (13.2-15.2)
[2017-07-09 06:21] LABS: INR 1.21 (0.87-1.13)
[2017-07-09 06:26] LABS: BUN/Creatinine Ratio 10; Blood Urea Nitrogen 7 mg/dL (7-17); Calcium 8.3 mg/dL (8.4-10.2); Hemolysis Index 10
--- NOTE | 2017-07-09 08:02 | Progress Note ---
Assessment and Plan Assessment and plan: Bilateral pulmonary emboli. This is the patient's second thromboembolic event. Therefore, patient will need anticoagulation for life. Check echocardiogram to evaluate right heart function. Vascular surgery following. Continue heparin IV. Start Coumadin. Doppler ultrasound was negative. Hematology consultation. Rheumatoid arthritis. ? Raynaud's phenomenon. Follow-up lower extremity arterial Dopplers. Supportive care. Peripheral vascular disease. ? Raynaud's phenomenon. As above. Morbid obesity. hidradenitis suppurativa. Wound care consultation History Interval history: No new issues overnight. Hospitalist Physical - Constitutional Vitals: Temp Pulse Resp BP Pulse Ox 98.1 F 82 16 112/56 100 07/09/17 05:38 07/09/17 05:38 07/09/17 05:38 07/09/17 05:38 07/09/17 05:38 General appearance: Present: no acute distress, well-nourished - EENT Eyes: Present: PERRL, EOM intact ENT: hearing intact, clear oral mucosa, dentition normal - Neck Neck: Present: supple, normal ROM - Respiratory Respiratory effort: normal Respiratory: bilateral: CTA - Cardiovascular Rhythm: regular Heart Sounds: Present: S1 & S2. Absent: gallop, rub - Extremities Extremities: no ischemia, No edema, Full ROM - Abdominal General gastrointestinal: soft, non-tender, non-distended, normal bowel sounds - Integumentary Integumentary: Present: clear, warm, dry - Neurologic Neurologic: CNII-XII intact, moves all extremities Results - Labs CBC & Chem 7: 07/09/17 05:27 07/09/17 05:27 Labs: Laboratory Last Values WBC 9.2 K/mm3 (4.5-11.0) 07/09/17 05:27 RBC 4.12 M/mm3 (3.65-5.03) 07/09/17 05:27 Hgb 10.5 gm/dl (10.1-14.3) 07/09/17 05:27 Hct 33.0 % (30.3-42.9) 07/09/17 05:27 MCV 80 fl (79-97) 07/09/17 05:27 MCH 25 pg (28-32) L 07/09/17 05:27 MCHC 32 % (30-34) 07/09/17 05:27 RDW 15.5 % (13.2-15.2) H 07/09/17 05:27 Plt Count 200 K/mm3 (140-440) 07/09/17 05:27 Lymph % (Auto) 30.6 % (13.4-35.0) 07/09/17 05:27 [place] % (Auto) 8.3 % (0.0-7.3) H 07/09/17 05:27 Eos % (Auto) 1.9 % (0.0-4.3) 07/09/17 05:27 Baso % (Auto) 0.3 % (0.0-1.8) 07/09/17 05:27 Lymph # 2.8 K/mm3 (1.2-5.4) 07/09/17 05:27 [place]bert # 0.8 K/mm3 (0.0-0.8) 07/09/17 05:27 Eos # 0.2 K/mm3 (0.0-0.4) 07/09/17 05:27 Baso # 0.0 K/mm3 (0.0-0.1) 07/09/17 05:27 Seg Neutrophils % 58.9 % (40.0-70.0) 07/09/17 05:27 Seg Neutrophils # 5.4 K/mm3 (1.8-7.7) 07/09/17 05:27 PT 16.0 Sec. (12.2-14.9) H 07/09/17 05:27 INR 1.21 (0.87-1.13) H 07/09/17 05:27 APTT 31.0 Sec. (24.2-36.6) 07/06/17 17:05 Heparin Anti-Xa Level 0.43 U.I./ml (0.3-0.7) 07/08/17 17:52 Sodium 139 mmol/L (137-145) 07/09/17 05:27 Potassium 3.7 mmol/L (3.6-5.0) 07/09/17 05:27 Chloride 102.4 mmol/L (98-107) 07/09/17 05:27 Carbon Dioxide 24 mmol/L (22-30) 07/09/17 05:27 Anion Gap 16 mmol/L 07/09/17 05:27 BUN 7 mg/dL (7-17) 07/09/17 05:27 Creatinine 0.7 mg/dL (0.7-1.2) 07/09/17 05:27 Estimated GFR > 60 ml/min 07/09/17 05:27 BUN/Creatinine Ratio 10 % 07/09/17 05:27 Glucose 104 mg/dL (65-100) H 07/09/17 05:27 Calcium 8.3 mg/dL (8.4-10.2) L 07/09/17 05:27 Total Creatine Kinase 52 units/L (30-135) 07/06/17 17:05 CK-MB (CK-2) 1.4 ng/mL (0.0-4.0) 07/06/17 17:05 CK-MB (CK-2) Rel Index 2.6 (0-4) 07/06/17 17:05 Troponin T 0.013 ng/mL (0.00-0.029) 07/06/17 17:05 NT-Pro-B Natriuret Pep 2787 pg/mL (0-450) H 07/06/17 17:05 Rheumatoid Factor < 10 IU/ml (0-13) 07/08/17 19:17
--- NOTE | 2017-07-09 09:09 | Progress Note ---
Assessment and Plan Arterial duplex of RUE was performed. There is phasic flow in the distal radial artery. The pulse is palpable as well. The rt index finger is currently not blue, and the pt is not complaining of pain. This could be related to Raynaud's disease. The patient is already being treating for RA, so a further rheumatology workup may be of value. In general, medications such as calcium channel blockers can be helpful; these can be given at the discretion of the primary medical team. No acute vascular intervention is required at this time. Please call with questions. Thank you. Subjective Date of service: 07/09/17 Interval history: Patient is complaining of "pain in every joint", related to RA. No SOB currently, although patient is lying in bed. No acute events otherwise Objective - Constitutional Vitals: Vital Signs - 12hr 07/08/17 07/09/17 07/09/17 22:00 01:35 05:38 Temperature 98.3 F 98.1 F Pulse Rate 86 82 Respiratory 18 16 Rate Blood Pressure 109/61 112/56 O2 Sat by Pulse 99 95 100 Oximetry 07/09/17 08:13 Temperature 98.2 F Pulse Rate 87 Respiratory 18 Rate Blood Pressure 119/66 O2 Sat by Pulse 97 Oximetry General appearance: Present: no acute distress - EENT Eyes: PERRL, EOM intact ENT: hearing intact, clear oral mucosa - Neck Neck: supple, normal ROM - Respiratory Respiratory effort: normal Extremities: no ischemia Extremity abnormal: other (Right rad pulse palpable. Normal color and temp right index finger) - Labs CBC & Chem 7: 07/09/17 05:27 07/09/17 05:27 Labs: Abnormal lab results 07/09/17 07/09/17 07/09/17 Range/Units 05:27 05:27 05:27 MCH 25 L (28-32) pg RDW 15.5 H (13.2-15.2) % [place] % (Auto) 8.3 H (0.0-7.3) % PT 16.0 H (12.2-14.9) Sec. INR 1.21 H (0.87-1.13) Glucose 104 H (65-100) mg/dL Calcium 8.3 L (8.4-10.2) mg/dL
[2017-07-09] MEDS: MORPHINE IV PRN (11:22)
--- NOTE | 2017-07-09 14:19 | Progress Note ---
Assessment and Plan Acute VTE (Bilateral P.E.'s) Morbid Obesity Shortness of Breath H/O Rheumatoid Athritis PVD Hidradenitis suppurativa - continue IV heparin - transition to p.o. anticoagulation (coumadin target INR 2.0 to 3.0) - supplemental oxygen to keep sats > 90% - weight loss counselled - prn analgesia - outpatient sleep clinic evaluation for DONNY - GI prophylaxis Subjective Date of service: 07/09/17 Principal diagnosis: VTE (Acute Pulmonary Embolism); Obesity Interval history: Patient is seen today for: Acute Bilateral Pulmonary Embolii Seen and examined at bedside; 24hour events reviewed; nursing and respiratory care staff consulted; no adverse overnight events reported to me; resting peacefully in bed; denies acute chest pains or increased SOB; no hemoptysis or other bleeding; Objective Vital Signs - 12hr 07/09/17 07/09/17 07/09/17 05:38 08:13 10:00 Temperature 98.1 F 98.2 F Pulse Rate 82 87 86 Respiratory 16 18 Rate Blood Pressure 112/56 119/66 O2 Sat by Pulse 100 97 97 Oximetry 07/09/17 07/09/17 11:22 12:11 Temperature 97.9 F Pulse Rate 86 Respiratory 20 18 Rate Blood Pressure 123/60 O2 Sat by Pulse 97 Oximetry Constitutional: no acute distress, alert, other (Morbidly obese.) Eyes: non-icteric ENT: oropharynx moist Neck: supple, no lymphadenopathy, no JVD Effort: normal Ascultation: Bilateral: clear, diminished breath sounds Percussion: Bilateral: not dull Cardiovascular: regular rate and rhythm Gastrointestinal: normoactive bowel sounds, soft, non-tender, non-distended Integumentary: other (stasis dermatitis and lymphedema.) Extremities: no cyanosis, pulses normal, no ischemia or petechiae, edema Neurologic: normal mental status, non-focal exam, pupils equal and round, CN II- XII normal Psychiatric: mood appropriate, affect normal CBC and BMP: 07/11/17 04:57 07/11/17 04:57 ABG, PT/INR, D-dimer: PT/INR, D-dimer PT 16.0 Sec. (12.2-14.9) H 07/09/17 05:27 INR 1.21 (0.87-1.13) H 07/09/17 05:27 Abnormal lab findings: Abnormal Labs 07/06/17 07/06/17 07/07/17 17:05 17:05 04:28 WBC 13.3 H MCH 25 L RDW 15.4 H Tyrrell % (Auto) Tyrrell # 0.9 H Seg Neutrophils # 8.5 H PT INR Heparin Anti-Xa Level < 0.10 L Glucose 108 H Calcium NT-Pro-B Natriuret Pep 2787 H 07/07/17 07/07/17 07/07/17 04:28 04:28 08:04 WBC 11.3 H MCH 25 L RDW 15.4 H [place] % (Auto) 7.9 H Tyrrell # 0.9 H Seg Neutrophils # PT INR Heparin Anti-Xa Level 0.15 L Glucose 103 H Calcium NT-Pro-B Natriuret Pep 07/07/17 07/09/17 07/09/17 10:48 05:27 05:27 WBC MCH 25 L RDW 15.5 H [place]rell % (Auto) 8.3 H Tyrrell # Seg Neutrophils # PT INR Heparin Anti-Xa Level 0.24 L Glucose 104 H Calcium 8.3 L NT-Pro-B Natriuret Pep 07/09/17 05:27 WBC MCH RDW [place] % (Auto) Tyrrell # Seg Neutrophils # PT 16.0 H INR 1.21 H Heparin Anti-Xa Level Glucose Calcium NT-Pro-B Natriuret Pep CT scan - chest: image reviewed
[2017-07-09] MEDS: COUMADIN PO SCH (17:23)
--- NOTE | 2017-07-09 20:37 | Progress Note ---
Assessment and Plan - Patient Problems (1) Bilateral pulmonary embolism Current Visit: Yes Status: Acute Plan to address problem: see below. (2) Shortness of breath Current Visit: Yes Status: Acute Plan to address problem: continue with anti coagulation (3) Cellulitis Current Visit: No Status: Acute Qualifiers: Site of cellulitis: extremity Site of cellulitis of extremity: lower extremity Laterality: right Qualified Code(s): L03.115 - Cellulitis of right lower limb Plan to address problem: complicated by stasis dermatitis. deffer to [facility]. (4) Obesity Current Visit: Yes Status: Acute Plan to address problem: encourage wt loss. Subjective Date of service: 07/09/17 Principal diagnosis: VTE (Acute Pulmonary Embolism) Interval history: patient seen/examined, resting in bed, notes reviewed, case d/w patient.labs reviewed. INR 1.22 on coumaDIN Objective - Constitutional Vitals: Vital Signs - 12hr 07/09/17 07/09/17 07/09/17 10:00 11:22 12:11 Temperature 97.9 F Pulse Rate 86 86 Respiratory 20 18 Rate Blood Pressure 123/60 O2 Sat by Pulse 97 97 Oximetry 07/09/17 07/09/17 15:25 19:51 Temperature 98.1 F Pulse Rate 89 Respiratory 18 Rate Blood Pressure 135/66 O2 Sat by Pulse 100 100 Oximetry General appearance: Present: mild distress, well-nourished - EENT Eyes: PERRL, EOM intact ENT: hearing intact, clear oral mucosa Ears: bilateral: normal - Neck Neck: supple, normal ROM - Respiratory Respiratory: bilateral: diminished - Breasts Breasts: deferred - Cardiovascular Rhythm: regular Heart Sounds: Present: S1 & S2. Absent: gallop, rub Extremities: pulses intact, No edema, normal color, Full ROM - Gastrointestinal General gastrointestinal: Present: soft, non-tender, non-distended, normal bowel sounds Rectal Exam: deferred - Genitourinary Female genitourinary: deferred - Integumentary Integumentary: clear, warm, dry - Musculoskeletal Musculoskeletal: 1, strength equal bilaterally - Neurologic Neurologic: moves all extremities - Psychiatric Psychiatric: memory intact, appropriate mood/affect, intact judgment & insight - Labs CBC & Chem 7: 07/09/17 05:27 07/09/17 05:27 Labs: Abnormal lab results 02/05/1407/09/17 07/09/17 Range/Units 05:27 05:27 05:27 MCH 25 L (28-32) pg RDW 15.5 H (13.2-15.2) % [place] % (Auto) 8.3 H (0.0-7.3) % PT 16.0 H (12.2-14.9) Sec. INR 1.21 H (0.87-1.13) Glucose 104 H (65-100) mg/dL Calcium 8.3 L (8.4-10.2) mg/dL
[2017-07-10] MEDS: MORPHINE IV PRN ×2 (00:22→20:01)
[2017-07-10 06:17] LABS: Hematocrit 32.7 % (30.3-42.9); Hemoglobin 10.6 gm/dl (10.1-14.3)
[2017-07-10 06:34] LABS: INR 1.28 (0.87-1.13)
--- NOTE | 2017-07-10 18:07 | Progress Note ---
Assessment and Plan Assessment and plan: Bilateral pulmonary emboli - Patient is heparin drip and Coumadin, patient didn't have insurance and is not able to afford Eliquis - Echo showed no thrombus, normal ejection fraction Rheumatoid arthritis. - ? Raynaud's phenomenon, patient is advised to have follow-up with dermatology as an outpatient - Lower extremity Doppler ultrasound negative for DVT Peripheral vascular disease. Morbid obesity. - Patient is counseled about weight loss and exercise hidradenitis suppurativa - Wound care consult Disposition - We'll discharge the patient went INR is between 2 and 3, current INR is 1.48. History Interval history: Patient was seen and evaluated this morning, complains right knee pain. No shortness of breath. Hospitalist Physical - Physical exam Narrative exam: Not in cardiopulmonary distress. The patient is morbidly obese. Vital signs as documented. Head exam is unremarkable. No scleral icterus . Neck is without jugular venous distension, thyromegaly, or carotid bruits. Lungs are clear to auscultation. Cardiac exam reveals regular rate and Rhythm. First and second heart sounds normal. No murmurs, rubs or gallops. Abdominal exam reveals normal bowel sounds, no masses, no organomegaly and no aortic enlargement. Extremities lymphedema. HEALTH SPECIALIST: Alert and oriented 3. No focal weakness. - Constitutional Vitals: Temp Pulse Resp BP Pulse Ox 98.6 F 86 20 134/58 98 07/10/17 06:12 07/10/17 10:00 07/10/17 06:12 07/10/17 06:12 07/10/17 17:16 General appearance: Present: mild distress, well-nourished Results - Labs CBC & Chem 7: 07/11/17 04:57 07/11/17 04:57 Labs: Laboratory Last Values WBC 9.2 K/mm3 (4.5-11.0) 07/09/17 05:27 RBC 4.12 M/mm3 (3.65-5.03) 07/09/17 05:27 Hgb 10.6 gm/dl (10.1-14.3) 07/10/17 05:49 Hct 32.7 % (30.3-42.9) 07/10/17 05:49 MCV 80 fl (79-97) 07/09/17 05:27 MCH 25 pg (28-32) L 07/09/17 05:27 MCHC 32 % (30-34) 07/09/17 05:27 RDW 15.5 % (13.2-15.2) H 07/09/17 05:27 Plt Count 192 K/mm3 (140-440) 07/10/17 05:49 Lymph % (Auto) 30.6 % (13.4-35.0) 07/09/17 05:27 [place] % (Auto) 8.3 % (0.0-7.3) H 07/09/17 05:27 Eos % (Auto) 1.9 % (0.0-4.3) 07/09/17 05:27 Baso % (Auto) 0.3 % (0.0-1.8) 07/09/17 05:27 Lymph # 2.8 K/mm3 (1.2-5.4) 07/09/17 05:27 [place] # 0.8 K/mm3 (0.0-0.8) 07/09/17 05:27 Eos # 0.2 K/mm3 (0.0-0.4) 07/09/17 05:27 Baso # 0.0 K/mm3 (0.0-0.1) 07/09/17 05:27 Seg Neutrophils % 58.9 % (40.0-70.0) 07/09/17 05:27 Seg Neutrophils # 5.4 K/mm3 (1.8-7.7) 07/09/17 05:27 PT 16.7 Sec. (12.2-14.9) H 07/10/17 05:47 INR 1.28 (0.87-1.13) H 07/10/17 05:47 APTT 31.0 Sec. (24.2-36.6) 07/06/17 17:05 Heparin Anti-Xa Level 0.64 U.I./ml (0.3-0.7) 07/09/17 17:17 Sodium 139 mmol/L (137-145) 07/09/17 05:27 Potassium 3.7 mmol/L (3.6-5.0) 07/09/17 05:27 Chloride 102.4 mmol/L (98-107) 07/09/17 05:27 Carbon Dioxide 24 mmol/L (22-30) 07/09/17 05:27 Anion Gap 16 mmol/L 07/09/17 05:27 BUN 7 mg/dL (7-17) 07/09/17 05:27 Creatinine 0.7 mg/dL (0.7-1.2) 07/09/17 05:27 Estimated GFR > 60 ml/min 07/09/17 05:27 BUN/Creatinine Ratio 10 % 07/09/17 05:27 Glucose 104 mg/dL (65-100) H 07/09/17 05:27 Calcium 8.3 mg/dL (8.4-10.2) L 07/09/17 05:27 Total Creatine Kinase 52 units/L (30-135) 07/06/17 17:05 CK-MB (CK-2) 1.4 ng/mL (0.0-4.0) 07/06/17 17:05 CK-MB (CK-2) Rel Index 2.6 (0-4) 07/06/17 17:05 Troponin T 0.013 ng/mL (0.00-0.029) 07/06/17 17:05 NT-Pro-B Natriuret Pep 2787 pg/mL (0-450) H 07/06/17 17:05 Rheumatoid Factor < 10 IU/ml (0-13) 07/08/17 19:17
[2017-07-10] MEDS: COUMADIN PO SCH (18:28)
--- NOTE | 2017-07-10 20:27 | Progress Note ---
Assessment and Plan - Patient Problems (1) Bilateral pulmonary embolism Current Visit: Yes Status: Acute Plan to address problem: see below. (2) Shortness of breath Current Visit: Yes Status: Acute Plan to address problem: continue with anti coagulation (3) Cellulitis Current Visit: No Status: Acute Qualifiers: Site of cellulitis: extremity Site of cellulitis of extremity: lower extremity Laterality: right Qualified Code(s): L03.115 - Cellulitis of right lower limb Plan to address problem: complicated by stasis dermatitis. deffer to vasc. (4) Obesity Current Visit: Yes Status: Acute Plan to address problem: encourage wt loss. Subjective Date of service: 07/10/17 Principal diagnosis: VTE (Acute Pulmonary Embolism) Interval history: patient seen/examined, resting in bed, notes reviewed, case d/w patient.labs reviewed. INR 1.22 on coumadin Patient resting in bed, labs reviewed, She is antithrombin 3 deff syndrome, still awaiting other w.up labs.inr 1.28, and once 2-3, disposition will be as per you. Objective - Constitutional Vitals: Vital Signs - 12hr 07/10/17 07/10/17 10:00 17:16 Pulse Rate 86 O2 Sat by Pulse 98 98 Oximetry General appearance: Present: mild distress, well-nourished - EENT Eyes: PERRL, EOM intact ENT: hearing intact, clear oral mucosa Ears: bilateral: normal - Neck Neck: supple, normal ROM - Respiratory Respiratory: bilateral: diminished - Breasts Breasts: deferred - Cardiovascular Rhythm: regular Heart Sounds: Present: S1 & S2. Absent: gallop, rub Extremities: pulses intact, No edema, normal color, Full ROM - Gastrointestinal General gastrointestinal: Present: soft, non-tender, non-distended, normal bowel sounds - Genitourinary Female genitourinary: deferred - Integumentary Integumentary: clear, warm, dry - Musculoskeletal Musculoskeletal: 1, strength equal bilaterally - Neurologic Neurologic: moves all extremities - Psychiatric Psychiatric: memory intact, appropriate mood/affect, intact judgment & insight - Labs CBC & Chem 7: 07/10/17 05:49 07/09/17 05:27 Labs: Abnormal lab results 07/08/17 07/10/17 07/10/17 Range/Units 19:17 05:47 17:55 PT 16.7 H (12.2-14.9) Sec. INR 1.28 H (0.87-1.13) Antithrombin III Ag 64 L (80-120) % Heparin Anti-Xa Level 0.10 L (0.3-0.7) U.I./ml
[2017-07-10] MEDS: BENADRYL IV SCH (23:35)
[2017-07-11 05:48] LABS: Basophils % (Auto) 0.4 % (0.0-1.8); Eosinophils # (Auto) 0.2 K/mm3 (0.0-0.4); Eosinophils % (Auto) 2.3 % (0.0-4.3); Hematocrit 34.2 % (30.3-42.9); Hemoglobin 10.7 gm/dl (10.1-14.3); Lymphocytes # (Auto) 2.7 K/mm3 (1.2-5.4); Lymphocytes % (Auto) 30.6 % (13.4-35.0); Mean Corpuscular HGB Conc 32 % (30-34); Mean Corpuscular Volume 80 fl (79-97); Monocytes # (Auto) 0.8 K/mm3 (0.0-0.8); Monocytes % (Auto) 9.3 % (0.0-7.3); Platelet Count 229 K/mm3 (140-440); Red Blood Count 4.29 M/mm3 (3.65-5.03); Red Cell Distribution Width 15.4 % (13.2-15.2)
[2017-07-11 05:55] LABS: Mean Corpuscular Hemoglobin 25 pg (28-32)
[2017-07-11 05:59] LABS: BUN/Creatinine Ratio 7; Blood Urea Nitrogen 5 mg/dL (7-17); Calcium 8.4 mg/dL (8.4-10.2); Hemolysis Index 17
[2017-07-11 06:00] LABS: INR 1.48 (0.87-1.13)
[2017-07-11] MEDS: MORPHINE IV PRN ×3 (09:04→19:04)
--- NOTE | 2017-07-11 09:42 | Vascular Lab Report ---
LOWER EXTREMITY VENOUS DUPLEX: REASON FOR EXAM: Pulmonary embolism and shortness of breath. COMMENTS ON THE RIGHT: All veins visualized are freely compressible without evidence of internal echogenicity. Flow is spontaneous and phasic throughout. COMMENTS ON THE LEFT: All veins visualized are freely compressible without evidence of internal echogenicity. Flow is spontaneous and phasic throughout. IMPRESSION: No evidence of acute or chronic deep venous thrombosis in either lower extremity.
--- NOTE | 2017-07-11 09:49 | Vascular Lab Report ---
Upper extremity arterial duplex Reason for exam: Cyanosis of the upper extremity digits on the right Comments on the right: All arterial vessels are patent. Mild elevations are noted in the subclavian artery. Flow velocities are adequate throughout the right upper extremity. Flow velocity in the palmar arch is 26 cm/s. Comments on the left: Limited study shows normal arterial flow at the level of the wrist. Impression: No evidence of significant arterial occlusive disease in the right upper extremity. No evidence of significant arterial occlusive disease in the left upper extremity.
[2017-07-11 11:57] LABS: Protein S, Free 97 % normal (50-147); Protein S, Total 135 % (70-140)
--- NOTE | 2017-07-11 12:52 | Progress Note ---
Assessment and Plan Acute VTE (Bilateral P.E.'s) Morbid Obesity Shortness of Breath H/O Rheumatoid Athritis PVD Hidradenitis suppurativa - continue IV heparin - transition to p.o. anticoagulation (coumadin target INR 2.0 to 3.0) - supplemental oxygen to keep sats > 90% - weight loss counselled - prn analgesia - outpatient sleep clinic evaluation for DONNY - GI prophylaxis Subjective Date of service: 07/11/17 Principal diagnosis: VTE (Acute Pulmonary Embolism); Obesity Interval history: Patient is seen today for: Acute Bilateral Pulmonary Embolii Seen and examined at bedside; 24hour events reviewed; nursing and respiratory care staff consulted; no adverse overnight events reported to me; resting peacefully in bed; denies acute chest pains or increased SOB; no hemoptysis or other bleeding; Objective - Exam Narrative Exam: Not in cardiopulmonary distress. The patient is morbidly obese. Vital signs as documented. Head exam is unremarkable. No scleral icterus . Neck is without jugular venous distension, thyromegaly, or carotid bruits. Lungs are clear to auscultation. Cardiac exam reveals regular rate and Rhythm. First and second heart sounds normal. No murmurs, rubs or gallops. Abdominal exam reveals normal bowel sounds, no masses, no organomegaly and no aortic enlargement. Extremities lymphedema. 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 No focal weakness. Vital Signs - 12hr 07/11/17 07/11/17 07/11/17 04:50 08:42 10:00 Temperature 98.2 F 98.6 F Pulse Rate 85 78 83 Respiratory 22 18 18 Rate Blood Pressure 128/74 Blood Pressure 140/80 [Left] O2 Sat by Pulse 95 100 98 Oximetry 07/11/17 07/11/17 10:51 11:28 Temperature 98.3 F Pulse Rate 86 75 Respiratory 18 Rate Blood Pressure 137/85 Blood Pressure [Left] O2 Sat by Pulse 99 Oximetry Constitutional: no acute distress, alert, other (Morbidly obese.) Eyes: non-icteric ENT: oropharynx moist Neck: supple, no lymphadenopathy, no JVD Effort: normal Ascultation: Bilateral: clear, diminished breath sounds Percussion: Bilateral: not dull Cardiovascular: regular rate and rhythm Gastrointestinal: normoactive bowel sounds, soft, non-tender, non-distended Integumentary: other (stasis dermatitis and lymphedema.) Extremities: no cyanosis, pulses normal, no ischemia or petechiae, edema Neurologic: normal mental status, non-focal exam, pupils equal and round, CN II- XII normal Psychiatric: mood appropriate, affect normal CBC and BMP: 07/11/17 04:57 07/11/17 04:57 ABG, PT/INR, D-dimer: PT/INR, D-dimer PT 18.8 Sec. (12.2-14.9) H 07/11/17 04:57 INR 1.48 (0.87-1.13) H 07/11/17 04:57 Abnormal lab findings: Abnormal Labs 07/06/17 07/06/17 07/07/17 17:05 17:05 04:28 WBC 13.3 H MCH 25 L RDW 15.4 H [place] % (Auto) [place] # 0.9 H Seg Neutrophils # 8.5 H PT INR LA PTT Baseline Antithrombin III Ag Heparin Anti-Xa Level < 0.10 L BUN Glucose 108 H Calcium NT-Pro-B Natriuret Pep 2787 H 07/07/17 07/07/17 07/07/17 04:28 04:28 08:04 WBC 11.3 H MCH 25 L RDW 15.4 H [place] % (Auto) 7.9 H [place] # 0.9 H Seg Neutrophils # PT INR LA PTT Baseline Antithrombin III Ag Heparin Anti-Xa Level 0.15 L BUN Glucose 103 H Calcium NT-Pro-B Natriuret Pep 07/07/17 07/08/17 07/08/17 10:48 19:17 19:17 WBC MCH RDW [place] % (Auto) [place] # Seg Neutrophils # PT INR LA PTT Baseline 113 H Antithrombin III Ag 64 L Heparin Anti-Xa Level 0.24 L BUN Glucose Calcium NT-Pro-B Natriuret Pep 07/09/17 07/09/17 07/09/17 05:27 05:27 05:27 WBC MCH 25 L RDW 15.5 H [place] % (Auto) 8.3 H [place] # Seg Neutrophils # PT 16.0 H INR 1.21 H LA PTT Baseline Antithrombin III Ag Heparin Anti-Xa Level BUN Glucose 104 H Calcium 8.3 L NT-Pro-B Natriuret Pep 07/10/17 07/10/17 07/11/17 05:47 17:55 04:57 WBC MCH RDW [place] % (Auto) [place] # Seg Neutrophils # PT 16.7 H 18.8 H INR 1.28 H 1.48 H LA PTT Baseline Antithrombin III Ag Heparin Anti-Xa Level 0.10 L BUN Glucose Calcium NT-Pro-B Natriuret Pep 07/11/17 07/11/17 04:57 04:57 WBC MCH 25 L RDW 15.4 H [place] % (Auto) 9.3 H [place] # Seg Neutrophils # PT INR LA PTT Baseline Antithrombin III Ag Heparin Anti-Xa Level BUN 5 L Glucose Calcium NT-Pro-B Natriuret Pep
[2017-07-11] MEDS: HEPARIN/ 0.45% NACL-25,000 UNIT/500 ML 25,000 UNIT/500 ML BAG IV SCH (13:25)
[2017-07-11] MEDS: PEPCID PO SCH (13:29)
[2017-07-11] MEDS: COUMADIN PO SCH (17:35)
--- NOTE | 2017-07-11 18:37 | Progress Note ---
Assessment and Plan Assessment and plan: Bilateral pulmonary emboli - Patient is heparin drip and Coumadin, patient didn't have insurance and is not able to afford Eliquis - Echo showed no thrombus, normal ejection fraction Rheumatoid arthritis. - ? Raynaud's phenomenon, patient is advised to have follow-up with dermatology as an outpatient - Lower extremity Doppler ultrasound negative for DVT Peripheral vascular disease. Morbid obesity. - Patient is counseled about weight loss and exercise hidradenitis suppurativa - Wound care consult Obstructive sleep apnea - Patient needs a sleep study as an outpatient Disposition - We'll discharge the patient went INR is between 2 and 3, current INR is 1.48. History Interval history: Patient was seen and evaluated this morning, complains right knee pain. No shortness of breath. Hospitalist Physical - Physical exam Narrative exam: Not in cardiopulmonary distress. The patient is morbidly obese. Vital signs as documented. Head exam is unremarkable. No scleral icterus . Neck is without jugular venous distension, thyromegaly, or carotid bruits. Lungs are clear to auscultation. Cardiac exam reveals regular rate and Rhythm. First and second heart sounds normal. No murmurs, rubs or gallops. Abdominal exam reveals normal bowel sounds, no masses, no organomegaly and no aortic enlargement. Extremities lymphedema. 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 No focal weakness. - Constitutional Vitals: Temp Pulse Resp BP Pulse Ox 98.3 F 79 18 138/83 99 07/11/17 17:40 07/11/17 17:40 07/11/17 17:40 07/11/17 17:40 07/11/17 17:40 General appearance: Present: mild distress, well-nourished Results - Labs CBC & Chem 7: 07/11/17 04:57 07/11/17 04:57 Labs: Laboratory Last Values WBC 8.9 K/mm3 (4.5-11.0) 07/11/17 04:57 RBC 4.29 M/mm3 (3.65-5.03) 07/11/17 04:57 Hgb 10.7 gm/dl (10.1-14.3) 07/11/17 04:57 Hct 34.2 % (30.3-42.9) 07/11/17 04:57 MCV 80 fl (79-97) 07/11/17 04:57 MCH 25 pg (28-32) L 07/11/17 04:57 MCHC 32 % (30-34) 07/11/17 04:57 RDW 15.4 % (13.2-15.2) H 07/11/17 04:57 Plt Count 229 K/mm3 (140-440) 07/11/17 04:57 Lymph % (Auto) 30.6 % (13.4-35.0) 07/11/17 04:57 [place] % (Auto) 9.3 % (0.0-7.3) H 07/11/17 04:57 Eos % (Auto) 2.3 % (0.0-4.3) 07/11/17 04:57 Baso % (Auto) 0.4 % (0.0-1.8) 07/11/17 04:57 Lymph # 2.7 K/mm3 (1.2-5.4) 07/11/17 04:57 [place] # 0.8 K/mm3 (0.0-0.8) 07/11/17 04:57 Eos # 0.2 K/mm3 (0.0-0.4) 07/11/17 04:57 Baso # 0.0 K/mm3 (0.0-0.1) 07/11/17 04:57 Seg Neutrophils % 57.4 % (40.0-70.0) 07/11/17 04:57 Seg Neutrophils # 5.1 K/mm3 (1.8-7.7) 07/11/17 04:57 PT 18.8 Sec. (12.2-14.9) H 07/11/17 04:57 INR 1.48 (0.87-1.13) H 07/11/17 04:57 APTT 31.0 Sec. (24.2-36.6) 07/06/17 17:05 Lupus Anticoagulant see below 07/08/17 19:17 LA PTT Baseline 113 sec (<=40) H 07/08/17 19:17 APC Resistance 4.3 ratio (>=2.1) 07/08/17 19:17 Free Protein S 97 % normal (50-147) 07/08/17 19:17 Total Protein S 135 % (70-140) 07/08/17 19:17 Antithrombin III Ag 64 % (80-120) L 07/08/17 19:17 Heparin Anti-Xa Level 0.31 U.I./ml (0.3-0.7) 07/11/17 01:36 Sodium 141 mmol/L (137-145) 07/11/17 04:57 Potassium 4.2 mmol/L (3.6-5.0) 07/11/17 04:57 Chloride 105.1 mmol/L (98-107) 07/11/17 04:57 Carbon Dioxide 23 mmol/L (22-30) 07/11/17 04:57 Anion Gap 17 mmol/L 07/11/17 04:57 BUN 5 mg/dL (7-17) L 07/11/17 04:57 Creatinine 0.7 mg/dL (0.7-1.2) 07/11/17 04:57 Estimated GFR > 60 ml/min 07/11/17 04:57 BUN/Creatinine Ratio 7 % 07/11/17 04:57 Glucose 99 mg/dL (65-100) 07/11/17 04:57 Calcium 8.4 mg/dL (8.4-10.2) 07/11/17 04:57 Total Creatine Kinase 52 units/L (30-135) 07/06/17 17:05 CK-MB (CK-2) 1.4 ng/mL (0.0-4.0) 07/06/17 17:05 CK-MB (CK-2) Rel Index 2.6 (0-4) 07/06/17 17:05 Troponin T 0.013 ng/mL (0.00-0.029) 07/06/17 17:05 NT-Pro-B Natriuret Pep 2787 pg/mL (0-450) H 07/06/17 17:05 Rheumatoid Factor < 10 IU/ml (0-13) 07/08/17 19:17
[2017-07-11] MEDS: BENADRYL IV SCH (21:41)
[2017-07-12] MEDS: HEPARIN/ 0.45% NACL-25,000 UNIT/500 ML 25,000 UNIT/500 ML BAG IV SCH ×2 (03:01→15:55)
[2017-07-12] MEDS: MORPHINE IV PRN ×3 (03:02→19:02)
[2017-07-12 06:10] LABS: Hematocrit 34.4 % (30.3-42.9); Hemoglobin 11.2 gm/dl (10.1-14.3)
[2017-07-12 06:35] LABS: INR 1.66 (0.87-1.13)
[2017-07-12] MEDS: PEPCID PO SCH (10:07)
[2017-07-12] MEDS: COUMADIN PO SCH (16:00)
[2017-07-12] MEDS ORDERED: COUMADIN PO SCH (17:00)
--- NOTE | 2017-07-12 17:41 | Progress Note ---
Assessment and Plan Assessment and plan: Bilateral pulmonary emboli - Patient is heparin drip and Coumadin, patient didn't have insurance and is not able to afford Eliquis - Echo showed no thrombus, normal ejection fraction Rheumatoid arthritis. - ? Raynaud's phenomenon, patient is advised to have follow-up with dermatology as an outpatient - Lower extremity Doppler ultrasound negative for DVT Peripheral vascular disease. Morbid obesity. - Patient is counseled about weight loss and exercise hidradenitis suppurativa - Wound care consult Obstructive sleep apnea - Patient needs a sleep study as an outpatient Disposition - We'll discharge the patient went INR is between 2 and 3, current INR is 1.68. History Interval history: Patient was seen and evaluated this morning, complains right knee pain. No shortness of breath. Hospitalist Physical - Physical exam Narrative exam: Not in cardiopulmonary distress. The patient is morbidly obese. Vital signs as documented. Head exam is unremarkable. No scleral icterus . Neck is without jugular venous distension, thyromegaly, or carotid bruits. Lungs are clear to auscultation. Cardiac exam reveals regular rate and Rhythm. First and second heart sounds normal. No murmurs, rubs or gallops. Abdominal exam reveals normal bowel sounds, no masses, no organomegaly and no aortic enlargement. Extremities lymphedema. 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 - Constitutional Vitals: Temp Pulse Resp BP Pulse Ox 98.6 F 77 20 132/59 97 07/12/17 16:34 07/12/17 16:34 07/12/17 16:34 07/12/17 16:34 07/12/17 16:34 General appearance: Present: mild distress, well-nourished Results - Labs CBC & Chem 7: 07/12/17 05:07 07/11/17 04:57 Labs: Laboratory Last Values WBC 8.9 K/mm3 (4.5-11.0) 07/11/17 04:57 RBC 4.29 M/mm3 (3.65-5.03) 07/11/17 04:57 Hgb 11.2 gm/dl (10.1-14.3) 07/12/17 05:07 Hct 34.4 % (30.3-42.9) 07/12/17 05:07 MCV 80 fl (79-97) 07/11/17 04:57 MCH 25 pg (28-32) L 07/11/17 04:57 MCHC 32 % (30-34) 07/11/17 04:57 RDW 15.4 % (13.2-15.2) H 07/11/17 04:57 Plt Count 218 K/mm3 (140-440) 07/12/17 05:07 Lymph % (Auto) 30.6 % (13.4-35.0) 07/11/17 04:57 [place] % (Auto) 9.3 % (0.0-7.3) H 07/11/17 04:57 Eos % (Auto) 2.3 % (0.0-4.3) 07/11/17 04:57 Baso % (Auto) 0.4 % (0.0-1.8) 07/11/17 04:57 Lymph # 2.7 K/mm3 (1.2-5.4) 07/11/17 04:57 [place] # 0.8 K/mm3 (0.0-0.8) 07/11/17 04:57 Eos # 0.2 K/mm3 (0.0-0.4) 07/11/17 04:57 Baso # 0.0 K/mm3 (0.0-0.1) 07/11/17 04:57 Seg Neutrophils % 57.4 % (40.0-70.0) 07/11/17 04:57 Seg Neutrophils # 5.1 K/mm3 (1.8-7.7) 07/11/17 04:57 PT 20.6 Sec. (12.2-14.9) H 07/12/17 05:05 INR 1.66 (0.87-1.13) H 07/12/17 05:05 APTT 31.0 Sec. (24.2-36.6) 07/06/17 17:05 Lupus Anticoagulant see below 07/08/17 19:17 LA PTT Baseline 113 sec (<=40) H 07/08/17 19:17 APC Resistance 4.3 ratio (>=2.1) 07/08/17 19:17 Free Protein S 97 % normal (50-147) 07/08/17 19:17 Total Protein S 135 % (70-140) 07/08/17 19:17 Antithrombin III Ag 64 % (80-120) L 07/08/17 19:17 Heparin Anti-Xa Level 0.59 U.I./ml (0.3-0.7) 07/12/17 01:53 Sodium 141 mmol/L (137-145) 07/11/17 04:57 Potassium 4.2 mmol/L (3.6-5.0) 07/11/17 04:57 Chloride 105.1 mmol/L (98-107) 07/11/17 04:57 Carbon Dioxide 23 mmol/L (22-30) 07/11/17 04:57 Anion Gap 17 mmol/L 07/11/17 04:57 BUN 5 mg/dL (7-17) L 07/11/17 04:57 Creatinine 0.7 mg/dL (0.7-1.2) 07/11/17 04:57 Estimated GFR > 60 ml/min 07/11/17 04:57 BUN/Creatinine Ratio 7 % 07/11/17 04:57 Glucose 99 mg/dL (65-100) 07/11/17 04:57 Calcium 8.4 mg/dL (8.4-10.2) 07/11/17 04:57 Total Creatine Kinase 52 units/L (30-135) 07/06/17 17:05 CK-MB (CK-2) 1.4 ng/mL (0.0-4.0) 07/06/17 17:05 CK-MB (CK-2) Rel Index 2.6 (0-4) 07/06/17 17:05 Troponin T 0.013 ng/mL (0.00-0.029) 07/06/17 17:05 NT-Pro-B Natriuret Pep 2787 pg/mL (0-450) H 07/06/17 17:05 Rheumatoid Factor < 10 IU/ml (0-13) 07/08/17 19:17 Miscellaneous Test Flexitest 1 07/09/17 08:40
[2017-07-12] MEDS: BENADRYL IV SCH (21:37)
--- NOTE | 2017-07-12 21:38 | Progress Note ---
Assessment and Plan his 42 year old female , Morbidly Obese, came to the emergency room with shortness of breath and chest pain. Denies cough, fever or diaphoresis. Angio CT of chest obtained reported bilateral acute pulmonary emboli. Patient started on I/V Heparin . Patient has history of PE in the Past about a year ago. Patient did not complete her course of treatment at that time.Patient has history of rheumatoid arthritis and lymph edema. Denies other medical problems.Denies sleep problems at this time. No history of smoking, alcohol or drug abuse. Not . No children. Worked in [employer] service before stopped working.Allergic to aspirin. 07/12/17 Patient alert, awake. Resting on room air. O2 saturation 100%. No complaint of chest pain or shortness of breath. - Patient Problems (1) Bilateral pulmonary embolism Current Visit: Yes Status: Acute Plan to address problem: Patient started on I/V heparin and PO coumadin Recommend Protien C, Protein S and Anti thrombin levels. (2) Obesity Current Visit: Yes Status: Acute Plan to address problem: Counselled to loose weight. (3) Shortness of breath Current Visit: Yes Status: Acute Plan to address problem: Improved.. Patient is on I/V Heparin and PO coumadin. Subjective Date of service: 07/12/17 Principal diagnosis: VTE (Acute Pulmonary Embolism); Obesity Interval history: Patient alert, awake. Resting on room air. O2 saturation 100%. No complaint of chest pain or shortness of breath. Objective Vital Signs - 12hr 07/12/17 07/12/17 07/12/17 11:30 16:34 19:39 Temperature 98.3 F 98.6 F 97.8 F Pulse Rate 83 77 75 Respiratory 20 20 18 Rate Blood Pressure 134/70 132/59 128/74 O2 Sat by Pulse 97 97 100 Oximetry Constitutional: no acute distress, alert, other (Morbidly obese.) Eyes: non-icteric ENT: oropharynx moist Neck: supple, no lymphadenopathy, no JVD Effort: normal Ascultation: Bilateral: diminished breath sounds Percussion: Bilateral: not dull Cardiovascular: regular rate and rhythm Gastrointestinal: normoactive bowel sounds, soft, non-tender, non-distended Integumentary: other (stasis dermatitis and lymphedema.) Extremities: no cyanosis, pulses normal, no ischemia or petechiae, edema Neurologic: normal mental status, non-focal exam, pupils equal and round, CN II- XII normal Psychiatric: mood appropriate, affect normal CBC and BMP: 07/12/17 05:07 07/11/17 04:57 ABG, PT/INR, D-dimer: PT/INR, D-dimer PT 20.6 Sec. (12.2-14.9) H 07/12/17 05:05 INR 1.66 (0.87-1.13) H 07/12/17 05:05 Abnormal lab findings: Abnormal Labs 07/06/17 07/06/17 07/07/17 17:05 17:05 04:28 WBC 13.3 H MCH 25 L RDW 15.4 H [place] % (Auto) [place] # 0.9 H Seg Neutrophils # 8.5 H PT INR LA PTT Baseline Antithrombin III Ag Heparin Anti-Xa Level < 0.10 L BUN Glucose 108 H Calcium NT-Pro-B Natriuret Pep 2787 H 07/07/17 07/07/17 07/07/17 04:28 04:28 08:04 WBC 11.3 H MCH 25 L RDW 15.4 H [place] % (Auto) 7.9 H [place] # 0.9 H Seg Neutrophils # PT INR LA PTT Baseline Antithrombin III Ag Heparin Anti-Xa Level 0.15 L BUN Glucose 103 H Calcium NT-Pro-B Natriuret Pep 07/07/17 07/08/17 07/08/17 10:48 19:17 19:17 WBC MCH RDW [place] % (Auto) [place] # Seg Neutrophils # PT INR LA PTT Baseline 113 H Antithrombin III Ag 64 L Heparin Anti-Xa Level 0.24 L BUN Glucose Calcium NT-Pro-B Natriuret Pep 07/09/17 07/09/17 07/09/17 05:27 05:27 05:27 WBC MCH 25 L RDW 15.5 H [place] % (Auto) 8.3 H [place] # Seg Neutrophils # PT 16.0 H INR 1.21 H LA PTT Baseline Antithrombin III Ag Heparin Anti-Xa Level BUN Glucose 104 H Calcium 8.3 L NT-Pro-B Natriuret Pep 07/10/17 07/10/17 07/11/17 05:47 17:55 04:57 WBC MCH RDW [place] % (Auto) [place] # Seg Neutrophils # PT 16.7 H 18.8 H INR 1.28 H 1.48 H LA PTT Baseline Antithrombin III Ag Heparin Anti-Xa Level 0.10 L BUN Glucose Calcium NT-Pro-B Natriuret Pep 07/11/17 07/11/17 07/12/17 04:57 04:57 05:05 WBC MCH 25 L RDW 15.4 H [place] % (Auto) 9.3 H [place] # Seg Neutrophils # PT 20.6 H INR 1.66 H LA PTT Baseline Antithrombin III Ag Heparin Anti-Xa Level BUN 5 L Glucose Calcium NT-Pro-B Natriuret Pep CT scan - chest: report reviewed (Acute pulmonary emboli both lungs.), image reviewed Additional Studies: Venous doppler studies reported negative.
[2017-07-13] MEDS: MORPHINE IV PRN ×2 (05:19→09:21)
[2017-07-13 06:02] LABS: INR 2.22 (0.87-1.13)
[2017-07-13] MEDS: HEPARIN/ 0.45% NACL-25,000 UNIT/500 ML 25,000 UNIT/500 ML BAG IV SCH (07:33)
[2017-07-13] MEDS: PEPCID PO SCH (09:16)
--- NOTE | 2017-07-13 11:06 | Discharge Summary ---
Providers - Providers Date of Admission: 07/06/17 22:37 Date of discharge: 07/13/17 Attending physician: TRENT VILLANUEVA MD 07/07/17 09:36 Consult to Physician [CONS] Routine Consulting Provider: SALIMA SHETH Reason For Exam: Allan PE Place consult to:: [facility]ASC SURG Notified:: Y If yes, spoke with:: Jadon/S YAMILE Time called:: 09:45 07/07/17 16:28 Consult to Wound/ET Nurse [CONS] Routine Reason For Exam: LUE axilla hiradenitis suppurativa 07/08/17 08:35 Consult to Physician [CONS] Routine Consulting Provider: SHAWNA FLORES Reason For Exam: PE Place consult to:: Dr. Flores Notified:: Danya RN Phone number called:: Was contact made?: Yes If yes, spoke with:: Dr. Flores Time called:: 10:21 07/08/17 08:36 Consult to Physician [CONS] Routine Consulting Provider: KAYLYNN FALLON Reason For Exam: PE Place consult to:: Dr. Fallon Notified:: Danya RN Phone number called:: Was contact made?: Yes If yes, spoke with:: Emely-answering service Time called:: 10:17 Primary care physician: LEATHER TANNER Hospitalization Reason for admission: bilateral PE Condition: Fair Pertinent studies: CTA bilateral PE Hospital course: 42-year-old female who presented to the hospital with chief complaint of chest pain with past medical history of morbid obesity, rheumatoid arthritis, venous insufficiency, and right lower extremity lymphedema. The patient states yesterday she developed some anterior chest pain greatest in the left side feels as though she is being punched in the chest and is radiating to her back. Patient states she also developed pain. The patient states her chest pain is constant. The patient was diagnosed with a pulmonary embolism in May 2016 which was her first thromboembolic events, and appropriately had 3 months of anticoagulation therapy with Xarelto. She now presents with new pulmonary embolism in her bilateral lower lobe lobar pulmonary arteries with segmental extension. Although she does have some right heart strain on her CT scan (RV to LV ratio greater than 1.6), she has minimal symptoms on examination. She can converse without issue, she is not tachycardic. Her main pulmonary artery measures [address] scan which is CT criteria for pulmonary hypertension. She is incredibly morbidly obese, and I wonder if her right-sided heart strain on CT is secondary to chronic issues, such as sleep apnea. Patient was treated with heparin drip and warfarin until INR is greater than 2. INR of 2.6 at the time of discharge and discharged home to follow-up with his [place] [facility] within 1 week to check INR and adjust warfarin. Patient was given a prescription for warfarin. Patient is advised to have follow-up with pulmonary to have sleep study test. Patient was hemodynamically stable at the time discharge and saturating in the mid 90s. Disposition: DC-01 TO HOME OR SELFCARE Time spent for discharge: 31 minutes - Discharge Diagnoses (1) Bilateral pulmonary embolism Status: Acute (2) Chest pain Status: Acute (3) Obesity Status: Acute (4) Shortness of breath Status: Acute Core Measure Documentation - Palliative Care Palliative Care/ Comfort Measures: Not Applicable - Core Measures Any of the following diagnoses?: DVT/PE - VTE Discharge Requirements Deep Vein Thrombosis/Pulmonary Embolism Present on Admission: Yes Has pt received <5 days of overlap therapy or INR<2.0: No Anticoagulant overlap therapy prescribed at discharge: Yes Exam - Physical Exam Narrative exam: Not in cardiopulmonary distress. The patient is morbidly obese. Vital signs as documented. Head exam is unremarkable. No scleral icterus . Neck is without jugular venous distension, thyromegaly, or carotid bruits. Lungs are clear to auscultation. Cardiac exam reveals regular rate and Rhythm. First and second heart sounds normal. No murmurs, rubs or gallops. Abdominal exam reveals normal bowel sounds, no masses, no organomegaly and no aortic enlargement. Extremities lymphedema. TECHNICAL REPORT WRITER: Alert and oriented 3. No focal weakness. - Constitutional Vitals: Temp Pulse Resp BP Pulse Ox 98.3 F 79 20 118/64 98 07/13/17 09:19 07/13/17 09:19 07/13/17 09:19 07/13/17 09:19 07/13/17 09:19 Plan Activity: no restrictions Weight Bearing Status: Full Weight Bearing Diet: low fat, low cholesterol, low salt Additional Instructions: Patient is scheduled with [facility] for follow up of her INR. Patient needs O/p sleep study and bariatric surgery evaluation. Follow up with: PRIMARY CARE, [Primary Care Provider] - 7 Days Forms: Warfarin Discharge Instruction Prescriptions: traMADol [Ultram 50 MG tab] 50 mg PO Q6HR PRN #20 tablet PRN Reason: Pain Warfarin [Coumadin] 10 mg PO DAILY@1700 #30 tablet Warfarin [Coumadin] 2.5 mg PO DAILY@1700 #30 tablet
[2017-07-13 12:23] VITALS: BP 138/77
== END 2017-07-13 14:32 | disposition home or self-care (01) | DRG 176 ==
LOC: ED 15:21 → 4A 22:37
PROVIDERS: ADMIT Internal Medicine; ATTEND Internal Medicine
DX: I26.99 Other pulmonary embolism without acute cor pulmonale (principal); Z68.44 Body mass index [BMI] 60.0-69.9, adult; L03.90 Cellulitis, unspecified; E66.01 Morbid (severe) obesity due to excess calories; M06.9 Rheumatoid arthritis, unspecified; I73.9 Peripheral vascular disease, unspecified; I87.2 Venous insufficiency (chronic) (peripheral); L73.2 Hidradenitis suppurativa; G47.33 Obstructive sleep apnea (adult) (pediatric); Z86.711 Personal history of pulmonary embolism; Z86.718 Personal history of other venous thrombosis and embolism; Z79.899 Other long term (current) drug therapy; Z79.1 Long term (current) use of non-steroidal anti-inflammatories (NSAID); Z82.49 Family history of ischemic heart disease and other diseases of the circulatory system; Z88.6 Allergy status to analgesic agent
CPT/HCPCS: 36415; 71275; 80048; 82550; 82553; 83516; 83880; 84484; 85014; 85018; 85025; 85049; 85220; 85301; 85305; 85307; 85520; 85610; 85613; 85730; 86618; 93005; 93010; 93306; 93970; 94760; 96374; 96375; J1200; J1644; J2270; J2405; J3010; Q9967

== ENCOUNTER 2017-09-11 21:35 | Emergency (ER) | payer SELFPAY | END 2017-09-12 00:49 | disposition left against medical advice (07) | LOC: ED 21:35 | DX: R21 Rash and other nonspecific skin eruption (principal); Z53.21 Procedure and treatment not carried out due to patient leaving prior to being seen by health care provider ==

== ENCOUNTER 2017-09-12 16:56 | Emergency (ER) | payer SELFPAY ==
[2017-09-12 17:08] VITALS: BP 120/53
--- NOTE | 2017-09-12 19:25 | Emergency Department Report ---
ED Rash HPI - HPI Chief Complaint: Skin Rash Stated Complaint: ANXIETY, RASH Time Seen by Provider: 09/12/17 19:17 Duration: 2 Days Location: Chest, Back, Upper Extremities, Lower Extremities Suspected Cause: Unknown Rash Symptoms: Yes Itching, No Facial Swelling, No Tongue/Oral Swelling, No Breathing Difficulties, No Choking Sensation, No Wheezing/Dyspnea, No Peeling, No Blistering, No Fever, No Lightheaded, No Malaise, No Myalgias Severity: mild Other History: This is a 42-year-old female nontoxic, well nourished in appearance, no acute signs of distress presents to the ED with c/o of acute on chronic anxiety x1 week. Patient stated that recently she lost her job and started to have anxiety again. Patient denies following with a PCP as she has no insurance but stated that right now she does not have it. Patient denies any suicidal or homicidal medications. Patient stated that anxiety cause her to have a rash. Patient stated the rash developed 2 days ago and is itching. Patient deneis any contact with allergen. PAtient denies any chest pain, shortness of breathe, fever, chills, headache, nausea, vomiting, numbness or tingling. Patient stated allergies to aspirin. PMH includes anxiety and DVT, and artheritis. ED Review of Systems ROS: Stated complaint: ANXIETY, RASH Other details as noted in HPI Constitutional: denies: chills, fever Eyes: denies: eye pain, eye discharge, vision change ENT: denies: ear pain, throat pain Respiratory: denies: cough, shortness of breath, wheezing Cardiovascular: denies: chest pain, palpitations Endocrine: no symptoms reported Gastrointestinal: denies: abdominal pain, nausea, diarrhea Genitourinary: denies: urgency, dysuria, discharge Musculoskeletal: denies: back pain, joint swelling, arthralgia Skin: rash. denies: lesions Neurological: denies: headache, weakness, paresthesias Psychiatric: denies: anxiety, depression Hematological/Lymphatic: denies: easy bleeding, easy bruising ED Past Medical Hx - Past Medical History Hx Deep Vein Thrombosis: Yes (PE 2017) Hx Arthritis: Yes (RA) Additional medical history: poor circulation to lower extremities CELLULITITS. anemia - Social History Smoking Status: Never Smoker Substance Use Type: None - Medications Home Medications: Home Medications Medication Instructions Recorded Confirmed Last Taken Type Acetaminophen [Tylenol Arthritis] 650 mg PO QDAY 07/07/17 07/07/17 Unknown History Morphine ER [Ms Contin ER] 30 mg PO BID 07/07/17 07/07/17 07/06/17 08:00 History Oxycodone HCl [Roxicodone] 5 mg PO TID 07/07/17 07/07/17 07/06/17 12:00 History Warfarin [Coumadin] 2.5 mg PO DAILY@1700 #30 tablet 07/13/17 Unknown Rx Warfarin [Coumadin] 10 mg PO DAILY@1700 #30 tablet 07/13/17 Unknown Rx traMADol [Ultram 50 MG tab] 50 mg PO Q6HR PRN #20 tablet 07/13/17 Unknown Rx Prednisone [predniSONE 10 mg 10 mg PO .TAPER #1 tab.ds.pk 09/12/17 Unknown Rx (6-Day Pack, 21 Tabs)] diphenhydrAMINE [Benadryl CAP] 25 mg PO Q6HR PRN #20 capsule 09/12/17 Unknown Rx Rash Exam - Exam General: Vital signs noted. No distress. Alert and acting appropriately. GENERAL: The patient is a well-developed, well-nourished in no apparent distress. Patient is alert and acting appropriately for age. Alert and oriented 3, no apparent distress, normal gait, atraumatic. HEENT: Head is normocephalic and atraumatic. PERRL, Extraocular muscles are intact. Pupils are equal, round, and reactive to light and accommodation. Nares appeared normal. Mouth is well hydrated and without lesions. Mucous membranes are moist. Posterior pharynx clear of any exudate or lesions. Mouth is well hydrated and without lesions. Tonsils not erythematous or swollen. Uvula midline. Tongue elevated. Mucous members are moist. Posterior pharynx clear, no exudate or lesions. Patent airways. NECK: Supple. No carotid bruits. No lymphadenopathy or thyromegaly.nontender. No meningitic signs are noted. LUNGS: Clear to auscultation. Non labor breathing. No intercostal retractions. Symmetrical with respiration, no wheezing, no rales, or crackles. HEART: Regular rate and rhythm without murmur, rubs or gallops. No reproducible. S1, S2 present, regular rate and rhythm without murmur, no rubs, no gallops. ABDOMEN: Soft, nontender, and nondistended. Positive bowel sounds. No hepatosplenomegaly was noted. No guarding or rebound tenderness, negative epigastric bruit. Negative psoas sign, negative abel sign, negative McBurneys sign EXTREMITIES: Without any cyanosis, clubbing, rash, lesions or edema. Peripheral pulses intact. Capillary refill less than 2 seconds. Full range of motion bilaterally. NEUROLOGIC: Cranial nerves II through XII are grossly intact. Alert and oriented x 3. Normal gait. Symmetrical strength and sensation. Reflexes 2+ throughout. Cerebellar testing normal. GCS score of 15. PSYCHIATRIC: Normal affect with no suicidal or homicidal ideations. HEENT: No Periorbital Edema, No Conjuctival Injection, No Chemosis, No Perioral Edema, No Tongue Edema, No Uvular Edema, No Compromised Airway, No Drooling Lungs: Yes Good Air Exchange (Normal Breath Sounds), No Wheezes, No Ronchi, No Stridor, No Cough, No Labored Respirations, No Retractions, No Use of Accessory Muscles, No Other Abnormal Lung Sounds Heart: Yes Regular, No Murmur Skin: Yes Urticarial Rash, No Maculopapular Rash, No Morbilliform rash, No Bulla (e), No Excoriations, No Weeping, No Tenderness, No Erythema, No Edema, No Encrustations Other: Positive: Abdomen Normal, Neurologic Normal, Musculoskeletal Normal ED Course Vital Signs 09/12/17 17:05 Temperature 98.5 F Pulse Rate 97 H Respiratory 18 Rate Blood Pressure 120/53 O2 Sat by Pulse 97 Oximetry - Reevaluation(s) Reevaluation #1: 09/12/17 19:25 Patient is speaking in full sentences with no signs of distress noted. ED Medical Decision Making - Medical Decision Making this is a 42-year-old female who presents with allergic reaction. Patient is febrile and was was examined by me. There is no angioedema. No facial swelling or tongue swelling. No drooling or difficulty breathing. Patient is discharged with prednisone and Benadryl. Patient currently denies any anxiety but I referred her to primary care, and [facility]. At time of discharge, the patient does not seem toxic or ill in appearance. No acute signs of distress noted. Patient agrees to discharge treatment plan of care. No further questions noted by the patient. Critical care attestation.: If time is entered above; I have spent that time in minutes in the direct care of this critically ill patient, excluding procedure time. ED Disposition Clinical Impression: Allergic reaction Qualifiers: Encounter type: initial encounter Qualified Code(s): T78.40XA - Allergy, unspecified, initial encounter Disposition: TO HOME OR SELFCARE Is pt being admited?: No Does the pt Need Aspirin: No Condition: Stable Instructions: Prednisone (By mouth), Diphenhydramine (By mouth) Additional Instructions: Follow-up with a primary care doctor in 3-5 days or if symptoms worsen and continue return to emergency room as soon as possible. Prescriptions: diphenhydrAMINE [Benadryl CAP] 25 mg PO Q6HR PRN #20 capsule PRN Reason: Itching Prednisone [predniSONE 10 mg (6-Day Pack, 21 Tabs)] 10 mg PO .TAPER #1 tab.ds.pk Referrals: PRIMARY CAREMD [Referring] - 3-5 Days RK WALSH MD [Staff Physician] - 3-5 Days [facility] [Outside] - 3-[address] [facility] [Outside] - 3-5 Days Forms: Work/School Release Form(ED)
== END 2017-09-12 19:30 | disposition home or self-care (01) ==
LOC: ED 16:56
DX: T78.40XA Allergy, unspecified, initial encounter (principal); M06.9 Rheumatoid arthritis, unspecified; Z86.718 Personal history of other venous thrombosis and embolism
CPT/HCPCS: 99282

== ENCOUNTER 2017-10-27 20:39 | Inpatient (IN) | payer OTHER ==
[2017-10-27 22:34] LABS: Basophils % (Auto) 0.4 % (0.0-1.8); Eosinophils # (Auto) 0.2 K/mm3 (0.0-0.4); Eosinophils % (Auto) 1.4 % (0.0-4.3); Hematocrit 33.6 % (30.3-42.9); Hemoglobin 10.3 gm/dl (10.1-14.3); Lymphocytes # (Auto) 3.3 K/mm3 (1.2-5.4); Lymphocytes % (Auto) 29.4 % (13.4-35.0); Mean Corpuscular HGB Conc 31 % (30-34); Mean Corpuscular Volume 75 fl (79-97); Monocytes # (Auto) 0.6 K/mm3 (0.0-0.8); Monocytes % (Auto) 5.6 % (0.0-7.3); Platelet Count 283 K/mm3 (140-440); Red Blood Count 4.47 M/mm3 (3.65-5.03); Red Cell Distribution Width 17.3 % (13.2-15.2)
[2017-10-27 22:38] LABS: Mean Corpuscular Hemoglobin 23 pg (28-32)
[2017-10-27 22:48] LABS: BUN/Creatinine Ratio 8; Blood Urea Nitrogen 7 mg/dL (7-17); Calcium 8.5 mg/dL (8.4-10.2); Hemolysis Index 96
[2017-10-27] MEDS ORDERED: SUBLIMAZE IV ONE (22:51)
[2017-10-27] MEDS ORDERED: ZOFRAN IV ONE (22:51)
--- NOTE | 2017-10-27 22:56 | Emergency Department Report ---
HPI - General Chief Complaint: Dyspnea/Respdistress Time Seen by Provider: 10/27/17 22:37 - HPI HPI: Room 18 The patient is a 42-year-old female presenting with chief complaint of chest pain and shortness of breath. The patient states she was diagnosed with a PE last year but states she did not complete her course of anticoagulation with Xarelto secondary to cost. The patient states in June of this year she was again diagnosed with a PE and started on Coumadin. The patient states she stopped taking the Coumadin in August and never got it refilled. The patient stated for the past 5 days she's had similar symptoms to her previous presentation of PE which included dyspnea on exertion and left-sided chest pain. The patient states for the past 5 days she's had constant and worsening left-sided chest and back pain. Patient describes the pain as dull and punching in nature. Patient admits to some shortness of breath at rest. Patient denies nausea/vomiting or diaphoresis. The patient does admit to pleurisy. The patient currently gets her pain score of 10/10. The patient states she's never had a stress test or cardiac catheterization Location: [See above] Duration: [See above] Quality: Dull/punching Severity: 10/10 Modifying factors: [see above] Context: [see above] Mode of transportation: [not driving] ED Past Medical Hx - Past Medical History Hx Deep Vein Thrombosis: Yes (PE 2017) Hx Arthritis: Yes (RA) Additional medical history: poor circulation to lower extremities CELLULITIS. anemia - Surgical History Past Surgical History?: No - Family History Family history: no significant - Social History Smoking Status: Never Smoker Substance Use Type: None (denies illicit drug use) - Medications Home Medications: Home Medications Medication Instructions Recorded Confirmed Last Taken Type Acetaminophen [Tylenol Arthritis] 650 mg PO QDAY 07/07/17 07/07/17 Unknown History Morphine ER [Ms Contin ER] 30 mg PO BID 07/07/17 07/07/17 07/06/17 08:00 History Oxycodone HCl [Roxicodone] 5 mg PO TID 07/07/17 07/07/17 07/06/17 12:00 History Warfarin [Coumadin] 2.5 mg PO DAILY@1700 #30 tablet 07/13/17 Unknown Rx Warfarin [Coumadin] 10 mg PO DAILY@1700 #30 tablet 07/13/17 Unknown Rx traMADol [Ultram 50 MG tab] 50 mg PO Q6HR PRN #20 tablet 07/13/17 Unknown Rx Prednisone [predniSONE 10 mg 10 mg PO .TAPER #1 tab.ds.pk 09/12/17 Unknown Rx (6-Day Pack, 21 Tabs)] diphenhydrAMINE [Benadryl CAP] 25 mg PO Q6HR PRN #20 capsule 09/12/17 Unknown Rx ED Review of Systems ROS: Stated complaint: SHORTNESS OF BREATH Other details as noted in HPI Constitutional: denies: diaphoresis Eyes: denies: eye pain ENT: denies: throat pain Respiratory: shortness of breath, SOB with exertion Cardiovascular: chest pain Gastrointestinal: denies: abdominal pain, nausea, vomiting Genitourinary: denies: dysuria Musculoskeletal: back pain Neurological: denies: headache Physical Exam - Physical Exam Vital Signs: Vital Signs 10/27/17 10/27/17 10/27/17 21:40 22:12 22:15 Temperature 98.2 F Pulse Rate 111 H 102 H 100 H Respiratory 26 H 22 Rate Blood Pressure 159/92 139/88 O2 Sat by Pulse 96 97 Oximetry 10/27/17 10/27/17 10/27/17 22:21 22:25 22:30 Temperature Pulse Rate 99 H 97 H 97 H Respiratory 16 33 H 29 H Rate Blood Pressure 139/88 139/88 146/85 O2 Sat by Pulse 96 92 97 Oximetry 10/27/17 22:34 Temperature 97.8 F Pulse Rate Respiratory 16 Rate Blood Pressure O2 Sat by Pulse 98 Oximetry Physical Exam: GENERAL: The patient is well-developed well-nourished female lying on stretcher appearing to be in mild discomfort. [] HEENT: Normocephalic. Atraumatic. Extraocular motions are intact. Patient has moist mucous membranes. NECK: Supple. Trachea midline CHEST/LUNGS: Clear to auscultation. There is no respiratory distress noted. HEART/CARDIOVASCULAR: Regular. There is no tachycardia. There is no gallop rub or murmur. ABDOMEN: Abdomen is soft, nontender. Patient has normal bowel sounds. There is no abdominal distention. SKIN: There is no rash. There is no diaphoresis. NEURO: The patient is awake, alert, and oriented. The patient is cooperative. The patient has normal speech MUSCULOSKELETAL: There is no evidence of acute injury. ED Course Vital Signs 10/27/17 10/27/17 10/27/17 21:40 22:12 22:15 Temperature 98.2 F Pulse Rate 111 H 102 H 100 H Respiratory 26 H 22 Rate Blood Pressure 159/92 139/88 O2 Sat by Pulse 96 97 Oximetry 10/27/17 10/27/17 10/27/17 22:21 22:25 22:30 Temperature Pulse Rate 99 H 97 H 97 H Respiratory 16 33 H 29 H Rate Blood Pressure 139/88 139/88 146/85 O2 Sat by Pulse 96 92 97 Oximetry 10/27/17 22:34 Temperature 97.8 F Pulse Rate Respiratory 16 Rate Blood Pressure O2 Sat by Pulse 98 Oximetry ED Medical Decision Making - Lab Data Result diagrams: 10/27/17 22:15 10/27/17 22:15 Laboratory Tests 10/27/17 10/27/17 10/27/17 22:15 22:15 22:15 WBC 11.4 H RBC 4.47 Hgb 10.3 Hct 33.6 MCV 75 L MCH 23 L MCHC 31 RDW 17.3 H Plt Count 283 Lymph % (Auto) 29.4 [place] % (Auto) 5.6 Eos % (Auto) 1.4 Baso % (Auto) 0.4 Lymph # 3.3 [place] # 0.6 Eos # 0.2 Baso # 0.0 Seg Neutrophils % 63.2 Seg Neutrophils # 7.2 D-Dimer Sodium 137 Potassium 4.8 Chloride 96.3 L Carbon Dioxide 25 Anion Gap 21 BUN 7 Creatinine 0.9 Estimated GFR > 60 BUN/Creatinine Ratio 8 Glucose 90 Calcium 8.5 Troponin T < 0.010 HCG, Qual Negative 10/27/17 22:15 WBC RBC Hgb Hct MCV MCH MCHC RDW Plt Count Lymph % (Auto) [place] % (Auto) Eos % (Auto) Baso % (Auto) Lymph # [place] # Eos # Baso # Seg Neutrophils % Seg Neutrophils # D-Dimer 775.04 H Sodium Potassium Chloride Carbon Dioxide Anion Gap BUN Creatinine Estimated GFR BUN/Creatinine Ratio Glucose Calcium Troponin T HCG, Qual - EKG Data -: EKG Interpreted by Nh EKG shows normal: sinus rhythm Rate: tachycardia (104 bpm) - EKG Data When compared to previous EKG there are: changes noted Interpretation: no acute changes (chest x-ray), nonspecific ST-T wave jayne (new T -wave inversions in leads V3, V4 when compared to previous EKG dated 07/06/2017) - Radiology Data Radiology results: report reviewed (chest x-ray, CT chest), image reviewed ( chest x-ray) interpreted by me: Chest x-ray-no focal infiltrates, no pneumothorax CT chest (read by radiologist)- majority pulmonary emboli are stable to slightly improved from prior study. There is nonocclusive emboli involving the bilateral lower lobes, right upper lobe and right middle lobe. There appears to be a new primary emboli involving segmental branches at the medial margin of the left upper lobe. No evidence of right ventricular strain. Lungs remain clear - Differential Diagnosis PE, ACS, pericarditis, GERD Critical care attestation.: If time is entered above; I have spent that time in minutes in the direct care of this critically ill patient, excluding procedure time. ED Disposition Clinical Impression: Chest pain, Pulmonary emboli, Shortness of breath Disposition: -09 OP ADMIT IP TO THIS HOSP Is pt being admited?: Yes Does the pt Need Aspirin: No Condition: Fair Instructions: Chest Pain (ED) Referrals: PRIMARY CARE, [Primary Care Provider] - 3-5 Days Time of Disposition: 01:29 (hospitalist paged (Dr. Evonne Mejia))
[2017-10-28] MEDS ORDERED: HEPARIN 10,000 UNITS/10 ML IV ONE (01:20)
[2017-10-28] MEDS ORDERED: SUBLIMAZE IV ONE (01:21)
[2017-10-28] MEDS: HEPARIN/ 0.45% NACL-25,000 UNIT/500 ML 25,000 UNIT/500 ML BAG IV SCH ×2 (01:50→18:25)
[2017-10-28 02:06] LABS: Hematocrit 35.4 % (30.3-42.9); Hemoglobin 11.4 gm/dl (10.1-14.3)
[2017-10-28 02:20] LABS: INR 1.22 (0.87-1.13)
[2017-10-28 02:40] LABS: Partial Thromboplastin Time 123.7 Sec. (24.2-36.6)
[2017-10-28] MEDS ORDERED: TYLENOL PO PRN (02:50)
[2017-10-28] MEDS ORDERED: ZOFRAN IV PRN (02:50)
[2017-10-28] MEDS ORDERED: SODIUM CHLORIDE FLUSH SYRINGE 10 ML IV PRN (02:50)
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
[2017-10-28] MEDS: MORPHINE IV PRN ×3 (06:40→18:19)
[2017-10-28] MEDS: SODIUM CHLORIDE FLUSH SYRINGE 10 ML IV SCH ×2 (09:41→22:00)
--- NOTE | 2017-10-28 12:06 | Event Note ---
Date: 10/28/17 Patient seen and examined, remains with mild respiratory distress but reports improvement in chest pain. Continue current management, will add Hematology eval and also advised patient about weight loss. Age appropriate cancer screening also discussed with the patient and she verbalized understanding.
[2017-10-29] MEDS: MORPHINE IV PRN ×4 (00:28→23:26)
[2017-10-29] MEDS ORDERED: MORPHINE IV PRN (04:07)
[2017-10-29 06:17] LABS: Basophils % (Auto) 0.3 % (0.0-1.8); Eosinophils # (Auto) 0.2 K/mm3 (0.0-0.4); Eosinophils % (Auto) 1.8 % (0.0-4.3); Hematocrit 32.8 % (30.3-42.9); Hemoglobin 10.1 gm/dl (10.1-14.3); Lymphocytes # (Auto) 3.8 K/mm3 (1.2-5.4); Lymphocytes % (Auto) 36.7 % (13.4-35.0); Mean Corpuscular HGB Conc 31 % (30-34); Mean Corpuscular Volume 76 fl (79-97); Monocytes # (Auto) 0.8 K/mm3 (0.0-0.8); Platelet Count 297 K/mm3 (140-440); Red Blood Count 4.32 M/mm3 (3.65-5.03)
[2017-10-29 06:18] LABS: Mean Corpuscular Hemoglobin 24 pg (28-32)
[2017-10-29 06:37] LABS: BUN/Creatinine Ratio 7; Blood Urea Nitrogen 7 mg/dL (7-17); Hemolysis Index 6
[2017-10-29] MEDS: HEPARIN/ 0.45% NACL-25,000 UNIT/500 ML 25,000 UNIT/500 ML BAG IV SCH (10:55)
[2017-10-29] MEDS: SODIUM CHLORIDE FLUSH SYRINGE 10 ML IV SCH ×2 (10:58→21:36)
--- NOTE | 2017-10-29 14:28 | XRay Report ---
FINAL REPORT EXAM: XR CHEST ROUTINE 2V HISTORY: Shortness of breath COMPARISON: Chest CT from June 2017. FINDINGS: Frontal view(s) of the chest obtained. Stable mild cardiac enlargement. Shallow inspiration.. No gross consolidation or effusion. No pneumothorax. IMPRESSION: Mild cardiac enlargement. Shallow inspiration. Lungs are grossly clear.
--- NOTE | 2017-10-29 14:29 | Cat Scan Report ---
FINAL REPORT EXAM: CT ANGIO CHEST HISTORY: left chest pain, shortness of breath COMPARISON: CT chest June 2017. Chest x-ray from today. TECHNIQUE: Contiguous axial images were obtained. Additional sagittal and coronal reformatted images were obtained. Administration of IV contrast given per institution protocol. Images submitted for interpretation. FINDINGS: Appear to be new pulmonary emboli involving the segmental branches at the medial margin of the left upper lobe. (Series 3, images 354 through 372). There nonocclusive emboli involving the segmental branches of the bilateral lower lobes as well as the lobar branches. Nonocclusive embolus right upper lobe appears to be stable. Heart borderline enlarged. Thoracic aorta normal in caliber. Right ventricle measures 5.8 centimeters in thickness in the left ventricle 6.4 centimeters. No pathologically enlarged intrathoracic or axillary lymph nodes. Mild linear atelectasis or scarring at the lung bases. No large consolidation or pleural effusion. IMPRESSION: Majority pulmonary emboli are stable to slightly improved from prior study. There nonocclusive emboli involving the bilateral lower lobes, right upper lobe and right middle lobe. There appear to be new pulmonary emboli involving segmental branches at the medial margin of the left upper lobe. No evidence of right ventricular strain. Lungs remain clear.
[2017-10-29] MEDS ORDERED: COUMADIN 10 MG, COUMADIN 2.5 MG PO SCH (17:00)
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
--- NOTE | 2017-10-29 21:15 | Consultation ---
History of Present Illness - Reason for Consult Consult date: 10/29/17 acute/chronic DVT, hx of PE. Requesting physician: GRECIA MARCUM - History of Present Illness Thank you for this consult, patient seen/examined, record reviewed, case d/w patient. This patient was here few months ago for same thing d/c home on oral anticoagulation. She was grossly non compliant with both her treatment, and office follow up.I gave her my card before.Full w/up was done the last hospital visit, does not need repeating again.I have spoken to her again the importance of compliance, and the seriousness of her disease.will follow you. REc is anticoag as you are doing, and again out patient oral therapy .She will need some help with out patient management. Medications and Allergies Allergies Allergy/AdvReac Type Severity Reaction Status Date / Time aspirin Allergy Mild Rash Verified 09/12/17 17:05 Home Medications Medication Instructions Recorded Confirmed Last Taken Type Acetaminophen [Tylenol Arthritis] 650 mg PO PRN 10/28/17 10/28/17 10/27/17 History diphenhydrAMINE [Benadryl CAP] 25 mg PO QHS PRN 10/28/17 10/28/17 10/26/17 History Active Meds: Active Medications Acetaminophen (Tylenol) 650 mg PO Q4H PRN PRN Reason: Pain MILD(1-3)/Fever >100.5/CARTAGENA Heparin Sodium/Sodium Chloride (Heparin/ 0.45% Nacl-25,000 Unit/500 Ml) 25,000 unit in 500 mls @ 30 mls/hr IV TITR JOSE; Protocol Last Titration: 10/29/17 20:52 Dose: 1,500 units/hr, 30 mls/hr Morphine Sulfate (Morphine) 2 mg IV Q4H PRN PRN Reason: Pain, Moderate (4-6) Last Admin: 10/29/17 13:01 Dose: 2 mg Ondansetron HCl (Zofran) 4 mg IV Q4H PRN PRN Reason: Nausea And Vomiting Sodium Chloride (Sodium Chloride Flush Syringe 10 Ml) 10 ml IV BID JOSE Last Admin: 10/29/17 10:58 Dose: 10 ml Sodium Chloride (Sodium Chloride Flush Syringe 10 Ml) 10 ml IV PRN PRN PRN Reason: LINE FLUSH Warfarin Sodium 10 mg/ (Warfarin Sodium 2.5 mg) 12.5 mg PO 1700 [facility]; Protocol Last Admin: 10/29/17 17:53 Dose: 12.5 mg Warfarin Sodium (Coumadin Pharmacy To Dose) 1 each PO PKCONSULT [facility]; Protocol Exam - Constitutional Vitals: Temp Pulse Resp BP Pulse Ox 97.8 F 89 18 124/74 98 10/29/17 19:43 10/29/17 19:43 10/29/17 19:43 10/29/17 19:43 10/29/17 19:43 General appearance: Present: no acute distress, well-nourished - EENT Eyes: Present: PERRL ENT: hearing intact, clear oral mucosa - Neck Neck: Present: supple, normal ROM - Respiratory Respiratory effort: normal Respiratory: bilateral: CTA - Cardiovascular Heart Sounds: Present: S1 & S2. Absent: rub, click - Extremities Extremities: pulses symmetrical, No edema Peripheral Pulses: within normal limits - Abdominal General gastrointestinal: Present: soft, non-tender, non-distended, normal bowel sounds Female genitourinary: Present: deferred - Rectal Rectal Exam: deferred - Integumentary Integumentary: Present: clear, warm, dry - Musculoskeletal Musculoskeletal: gait normal, strength equal bilaterally - Psychiatric Psychiatric: appropriate mood/affect, intact judgment & insight - Neurologic Neurologic: CNII-XII intact, moves all extremities Results - Labs CBC & Chem 7: 10/29/17 05:45 10/29/17 05:46 Labs: Abnormal lab results 10/29/17 10/29/17 Range/Units 05:45 05:46 MCV 76 L (79-97) fl MCH 24 L (28-32) pg RDW 17.0 H (13.2-15.2) % Lymph % (Auto) 36.7 H (13.4-35.0) % Andrew % (Auto) 8.0 H (0.0-7.3) % Calcium 8.0 L (8.4-10.2) mg/dL Assessment and Plan - Patient Problems (1) Pulmonary emboli Current Visit: Yes Status: Acute Plan to address problem: See notes. (2) Shortness of breath Current Visit: Yes Status: Acute Plan to address problem: supportive care. (3) Bilateral pulmonary embolism Current Visit: No Status: Acute Plan to address problem: See notes. (4) Obesity Current Visit: No Status: Acute Plan to address problem: encourage wt loss.
[2017-10-30] MEDS: HEPARIN/ 0.45% NACL-25,000 UNIT/500 ML 25,000 UNIT/500 ML BAG IV SCH (05:42)
[2017-10-30 08:43] LABS: INR 1.07 (0.87-1.13)
[2017-10-30] MEDS: MORPHINE IV PRN (10:47)
[2017-10-30] MEDS: SODIUM CHLORIDE FLUSH SYRINGE 10 ML IV SCH (10:47)
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
[2017-10-30 13:18] VITALS: BP 116/65
[2017-10-30] MEDS ORDERED: LOVENOX SUB-Q SCH (16:00)
[2017-10-30] MEDS ORDERED: COUMADIN PO SCH ×2 (17:00)
--- NOTE | 2017-10-30 17:57 | Vascular Lab Report ---
LOWER EXTREMITY VENOUS DUPLEX: REASON FOR EXAM: Deep venous thrombosis. COMMENTS ON THE RIGHT: All veins visualized are freely compressible without evidence of internal echogenicity. Flow is spontaneous and phasic throughout. COMMENTS ON THE LEFT: All veins visualized are freely compressible without evidence of internal echogenicity. Flow is spontaneous and phasic throughout. IMPRESSION: No evidence of acute or chronic deep venous thrombosis in either lower extremity.
== END 2017-10-30 15:28 | disposition home or self-care (01) | DRG 176 ==
LOC: ED 20:39 → 4A 10-28 02:50
PROVIDERS: ADMIT Internal Medicine; ATTEND Internal Medicine
DX: I26.99 Other pulmonary embolism without acute cor pulmonale (principal); Z68.44 Body mass index [BMI] 60.0-69.9, adult; D68.59 Other primary thrombophilia; Z88.6 Allergy status to analgesic agent; M06.9 Rheumatoid arthritis, unspecified; I73.9 Peripheral vascular disease, unspecified; E66.01 Morbid (severe) obesity due to excess calories; Z82.49 Family history of ischemic heart disease and other diseases of the circulatory system
CPT/HCPCS: 36415; 71046; 71275; 80048; 84484; 84703; 85014; 85018; 85025; 85049; 85379; 85520; 85610; 85730; 87116; 93005; 93010; 93970; 94760; 96374; 96375; 96376; J1644; J2270; J2405; J3010; Q9967

== ENCOUNTER 2017-11-17 18:49 | Inpatient (IN) | payer OTHER ==
[2017-11-17] MEDS ORDERED: NACL 0.9% 1000 ML 1,000 ML IV ONE (19:12)
--- NOTE | 2017-11-17 19:22 | Emergency Department Report ---
ED Chest Pain HPI - General Chief Complaint: Dyspnea/Respdistress Stated Complaint: RINKU Time Seen by Provider: 11/17/17 19:03 Source: EMS Mode of arrival: Stretcher Limitations: Physical Limitation - History of Present Illness Initial Comments: Ms Ortiz is a 42 year-old woman with hx of antithomrbin III deficiency and recurrent PEs who presents from home with chest pain, shortness of breath. has had two PEs in the last few months. Was just discharged from the hospital on 10/30 aafter PE and sent home on warfarin and lovenox. has not been taking either due to cost. Onset of shortness of breath and left sided chest pain that radiates to her back this morning. Severe. No relieving symptoms. Worse with breathing. MD Complaint: chest pain -: Sudden, days(s) Onset: during rest Pain Location: left chest Pain Radiation: back Severity: severe Severity scale (0 -10): 10 Consistency: constant Improves With: nothing Worsens With: inspiration Context: other (previous PEs) Treatments Prior to Arrival: aspirin - Related Data Home Medications Medication Instructions Recorded Confirmed Last Taken Acetaminophen [Tylenol Arthritis] 650 mg PO PRN 10/28/17 10/28/17 10/27/17 diphenhydrAMINE [Benadryl CAP] 25 mg PO QHS PRN 10/28/17 10/28/17 10/26/17 Previous Rx's Medication Instructions Recorded Last Taken Type Enoxaparin [Lovenox] 120 mg SQ Q12HR #10 syringe 10/30/17 Unknown Rx Warfarin Sodium [Coumadin] 12 mg PO DAILY #60 tablet 10/30/17 Unknown Rx Allergies Allergy/AdvReac Type Severity Reaction Status Date / Time aspirin Allergy Mild Rash Verified 09/12/17 17:05 Heart Score - HEART Score History: Moderately suspicious EKG: Non-specific Age: < 45 Risk factors: > 3 risk factors or hx of atherosclerotic disease Troponin: 1-3x normal limit HEART Score: 5 ED Review of Systems ROS: Stated complaint: RINKU Other details as noted in HPI Comment: All other systems reviewed and negative Respiratory: no symptoms reported, shortness of breath Cardiovascular: as per HPI, chest pain Hematological/Lymphatic: as per HPI ED Past Medical Hx - Past Medical History Hx Deep Vein Thrombosis: Yes (PE 2016) Hx Pulmonary Embolism: Yes Hx Arthritis: Yes (RA) Additional medical history: poor circulation to lower extremities CELLULITIS. anemia - Social History Smoking Status: Never Smoker Substance Use Type: None - Medications Home Medications: Home Medications Medication Instructions Recorded Confirmed Last Taken Type Acetaminophen [Tylenol Arthritis] 650 mg PO PRN 10/28/17 10/28/17 10/27/17 History diphenhydrAMINE [Benadryl CAP] 25 mg PO QHS PRN 10/28/17 10/28/17 10/26/17 History Enoxaparin [Lovenox] 120 mg SQ Q12HR #10 syringe 10/30/17 Unknown Rx Warfarin Sodium [Coumadin] 12 mg PO DAILY #60 tablet 10/30/17 Unknown Rx ED Physical Exam - General Limitations: Physical Limitation (dyspnea) General appearance: alert, other (dyspnea) - Head Head exam: Present: atraumatic, normal inspection - Eye Eye exam: Present: normal appearance, PERRL. Absent: scleral icterus, conjunctival injection - ENT ENT exam: Present: normal exam - Neck Neck exam: Present: normal inspection. Absent: tenderness, lymphadenopathy - Respiratory Respiratory exam: Present: normal lung sounds bilaterally, accessory muscle use , other (increased work of breathing). Absent: wheezes, rales - Cardiovascular Cardiovascular Exam: Present: normal rhythm, tachycardia, other (warm well perfused extremities) - GI/Abdominal GI/Abdominal exam: Present: soft, other (obese). Absent: tenderness, guarding - Rectal Rectal exam: Present: deferred - Extremities Exam Extremities exam: Present: normal inspection. Absent: tenderness - Neurological Exam Neurological exam: Present: alert, oriented X3. Absent: motor sensory deficit - Skin Skin exam: Present: warm, dry, intact ED Course Vital Signs 11/17/17 11/17/17 11/17/17 19:06 19:14 19:19 Temperature 97.9 F Pulse Rate 126 H 126 H 119 H Respiratory 39 H 45 H 35 H Rate Blood Pressure 137/79 137/79 Blood Pressure 137/79 [Right] O2 Sat by Pulse 89 84 100 Oximetry 11/17/17 11/17/17 11/17/17 19:41 19:45 20:10 Temperature Pulse Rate 117 H 122 H 114 H Respiratory 31 H 43 H 38 H Rate Blood Pressure 189/107 189/109 Blood Pressure [Right] O2 Sat by Pulse 100 99 100 Oximetry 11/17/17 11/17/17 11/17/17 20:14 20:15 20:31 Temperature Pulse Rate 112 H 112 H 113 H Respiratory 30 H 27 H 33 H Rate Blood Pressure 133/86 138/93 Blood Pressure 133/86 [Right] O2 Sat by Pulse 100 100 100 Oximetry 11/17/17 11/17/17 11/17/17 21:01 21:31 22:01 Temperature Pulse Rate 113 H 108 H 107 H Respiratory 31 H 24 21 Rate Blood Pressure 146/87 144/82 144/82 Blood Pressure [Right] O2 Sat by Pulse 100 100 100 Oximetry ED Medical Decision Making - Lab Data Result diagrams: 11/17/17 19:34 11/17/17 19:34 - EKG Data -: EKG Interpreted by [facility] EKG shows normal: sinus rhythm, axis (right), intervals (wnl), ST-T waves (TWI III) Rate: tachycardia - Radiology Data Radiology results: report reviewed FINAL REPORT EXAM: XR CHEST 1V AP HISTORY: Chest Pain COMPARISON: October 27, 2017. FINDINGS: Frontal view(s) of the chest obtained. Stable borderline to mild cardiac enlargement. No gross consolidation or effusion. No pneumothorax. IMPRESSION: No grossly acute findings. 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 Has been non-compliant with lovenox and warfarin. Exam with increased work of breathing. Decent air movement in all [place]. Initial SpO2 low 80s on non-rebreather. Placed on BiPAP. HR elevated in 120s. BP normal. Suspect this is PE. Will eval for ACS, PNA. Labs reveal normal WBC, mildly elevated troponin. EKG S1Q3T3 without STEMI. CXR without mediastinal widening. Ordering low intensity heparin drip. CTA reveals persistent PE in all lung lobes but with increase in RLL. ABG on BiPAP wnl. Admit to inpatient for PE Critical Care Time: Yes Critical care time in (mins) excluding proc time.: 30 Critical care attestation.: If time is entered above; I have spent that time in minutes in the direct care of this critically ill patient, excluding procedure time. ED Disposition Clinical Impression: Pulmonary emboli Qualifiers: Pulmonary embolism type: other Chronicity: acute Acute cor pulmonale presence: without acute cor pulmonale Qualified Code(s): I26.99 - Other pulmonary embolism without acute cor pulmonale Disposition: -09 OP ADMIT IP TO THIS HOSP Is pt being admited?: Yes Does the pt Need Aspirin: No Condition: Fair Referrals: PRIMARY CARE, [Primary Care Provider] - 3-5 Days
--- NOTE | 2017-11-17 19:41 | XRay Report ---
FINAL REPORT EXAM: XR CHEST 1V AP HISTORY: Chest Pain COMPARISON: October 27, 2017. FINDINGS: Frontal view(s) of the chest obtained. Stable borderline to mild cardiac enlargement. No gross consolidation or effusion. No pneumothorax. IMPRESSION: No grossly acute findings.
[2017-11-17 19:49] LABS: Basophils # (Auto) 0.1 K/mm3 (0.0-0.1); Basophils % (Auto) 0.5 % (0.0-1.8); Eosinophils % (Auto) 0.4 % (0.0-4.3); Hematocrit 36.4 % (30.3-42.9); Hemoglobin 11.5 gm/dl (10.1-14.3); Lymphocytes # (Auto) 2.6 K/mm3 (1.2-5.4); Lymphocytes % (Auto) 22.5 % (13.4-35.0); Mean Corpuscular HGB Conc 32 % (30-34); Mean Corpuscular Volume 74 fl (79-97); Monocytes # (Auto) 0.7 K/mm3 (0.0-0.8); Monocytes % (Auto) 5.9 % (0.0-7.3); Platelet Count 302 K/mm3 (140-440); Red Blood Count 4.91 M/mm3 (3.65-5.03); Red Cell Distribution Width 17.6 % (13.2-15.2)
[2017-11-17 19:58] LABS: Mean Corpuscular Hemoglobin 23 pg (28-32)
[2017-11-17 20:03] LABS: Alanine Aminotransferase 10 units/L (7-56); Albumin 3.4 g/dL (3.9-5); BUN/Creatinine Ratio 13; Blood Urea Nitrogen 12 mg/dL (7-17); Calcium 9.2 mg/dL (8.4-10.2); Hemolysis Index 2
[2017-11-17 20:04] LABS: INR 1.03 (0.87-1.13); Partial Thromboplastin Time 31.7 Sec. (24.2-36.6)
[2017-11-17 20:19] LABS: Bilirubin,Urine NEG (Negative); Color,Urine Straw (Yellow)
[2017-11-17 20:20] LABS: Blood,Urine MOD (Negative); Protein,Urine <15 mg/dL mg/dL (Negative); Urobilinogen,Urine < 2.0 mg/dL (<2.0)
[2017-11-17 20:22] LABS: Amphetamine Screen,Urine PRESUMPTIVE NEGATIVE; Cannabinoid Screen,Urine PRESUMPTIVE NEGATIVE; Cocaine Screen,Urine PRESUMPTIVE NEGATIVE; Methadone Screen,Urine PRESUMPTIVE NEGATIVE
[2017-11-17] MEDS ORDERED: HEPARIN 10,000 UNITS/10 ML IV ONE (20:32)
[2017-11-17 20:41] LABS: Benzodiazepines Screen,Urine PRESUMPTIVE POSITIVE; Opiate Screen,Urine PRESUMPTIVE POSITIVE
[2017-11-17 20:44] LABS: Chol/HDL Ratio 2.9 %
[2017-11-17] MEDS: HEPARIN/ 0.45% NACL-25,000 UNIT/500 ML 25,000 UNIT/500 ML BAG IV SCH (20:51)
[2017-11-17 21:13] LABS: INR 1.03 (0.87-1.13)
[2017-11-17 21:14] LABS: Partial Thromboplastin Time 33.9 Sec. (24.2-36.6)
[2017-11-17] MEDS ORDERED: SUBLIMAZE IV ONE (21:38)
--- NOTE | 2017-11-17 22:08 | Cat Scan Report ---
FINAL REPORT PROCEDURE: CT ANGIO CHEST TECHNIQUE: Computerized tomographic angiography of the chest was performed after the IV injection of iodinated nonionic contrast including image processing. The image data was postprocessed using 2-dimensional multiplanar reformatted (MPR) and 3-dimensional (MIP and/or volume rendered) techniques. HISTORY: Chest Pain COMPARISON: 10/28/2017 FINDINGS: Heart and pericardium: Normal. Thoracic aorta: Normal. Pulmonary vasculature: There is no significant interval change in the pulmonary arterial filling defects involving left upper lobe and left lower lobe. There is interval increase in the filling defects of right lower lobe pulmonary artery and its branches. Filling defects involving right middle lobe pulmonary arterial branches and right upper lobe pulmonary arterial branches are not significantly changed.. Lymph nodes: No enlarged thoracic lymph nodes. Lungs: Clear. Pleural space: No effusion, thickening, or pneumothorax. Musculoskeletal structures: Large marginal osteophyte formation is noted involving the lower thoracic spine.. Upper abdominal structures: No significant abnormality. IMPRESSION: Interval increase in right lower lobe pulmonary emboli and stable appearance of a emboli and a remaining lobes. No acute pulmonary infiltrates.
[2017-11-17] MEDS ORDERED: ZOFRAN IV PRN (22:53)
[2017-11-17] MEDS ORDERED: TYLENOL PO PRN (22:53)
[2017-11-17] MEDS ORDERED: SODIUM CHLORIDE FLUSH SYRINGE 10 ML IV PRN (22:53)
--- NOTE | 2017-11-17 22:53 | History and Physical Report ---
History of Present Illness Date of examination: 11/17/17 History of present illness: 42-year-old man with a history of recurrent PEs, anti-thrombin 3 deficiency comes emergency room for evaluation of shortness of breath and chest pain that started this morning. chest pain is in the epigastric area, described as someone punched her in the chest, constant, radiating to the back, intensity 10/ 10, she cannot identify exacerbating or relieving factors. She was discharged on October 30, diagnosed with he 2nd pulmonary emboli. Her INR was subtherapeutic and she was discharged on lovenox and coumadin. She stated that she developed vaginal bleed on coumadin, discontinued the medication. She could not afford the lovenox. She also vaginal bleed on xarelto Review Of Systems: Constitutional: no weight loss Ears, eyes, nose, mouth and throat: no nasal congestion, no nasal discharge, no sinus pressure, blurry vision, diplopia Neck: No neck pain or rigidity. Cardiovascular: No palpitations Respiratory: No cough Gastrointestinal: No abdominal pain, hematochezia Genitourinary : no dysuria, frequency , hematuria Musculoskeletal: no muscle ache Integumentary: no rash, no pruritis Neurological: no parathesias, focal weakness Endocrine: no cold or heat intolerance, no polyuria or polydipsia Hematologic/Lymphatic: no easy bruising, no easy bleeding, no gland swelling Allergic/Immunologic: no urticaria, no angioedema. PAST MEDICAL HISTORY:morbid obesity, rheumatoid arthritis, peripheral vascular disease PAST SURGICAL HISTORY: None FAMILY HISTORY: Hypertension Medications and Allergies Allergies Allergy/AdvReac Type Severity Reaction Status Date / Time aspirin Allergy Mild Rash Verified 09/12/17 17:05 Home Medications Medication Instructions Recorded Confirmed Last Taken Type Acetaminophen [Tylenol Arthritis] 650 mg PO PRN 10/28/17 11/18/17 11/16/17 History diphenhydrAMINE [Benadryl CAP] 25 mg PO QHS PRN 10/28/17 11/18/17 11/16/17 History Enoxaparin [Lovenox] 120 mg SQ Q12HR #10 syringe 10/30/17 11/18/17 Unknown Rx Warfarin Sodium [Coumadin] 12 mg PO DAILY #60 tablet 10/30/17 11/18/17 Unknown Rx Active Meds: Active Medications Heparin Sodium/Sodium Chloride (Heparin/ 0.45% Nacl-25,000 Unit/500 Ml) 25,000 unit in 500 mls @ 30 mls/hr IV TITR JOSE; Protocol Last Admin: 11/17/17 20:51 Dose: 1,500 units/hr, 30 mls/hr Exam - Physical Exam Narrative exam: Gen. appearance: Patient lying in bed, no apparent distress HEENT: Normocephalic, atraumatic, pupils equally round and reactive to light, extraocular movement intact, and no sclericterus,. No JVD or thyromegaly or nodule,neck supple, no carotid bruit ,mucous membranes moist, no exudate or erythema Heart: S1, S2, regular rate and rhythm Lungs: Clear to auscultation bilaterally, breathing comfortable Abdomen: Positive bowel sounds, nontender, nondistended, no organomegaly Extremity: No edema, cyanosis, clubbing Skin: No rash, nodules, warm, dry Neuro: Oriented 3, cranial nerves II-12 intact, speech is fluent, motor and sensory intact - Constitutional Vitals: Temp Pulse Resp BP Pulse Ox 97.9 F 105 H 16 146/87 100 11/17/17 19:14 11/17/17 22:31 11/17/17 22:31 11/17/17 22:31 11/17/17 22:31 Results - Labs CBC & Chem 7: 11/21/17 05:44 11/19/17 04:42 Labs: Abnormal lab results 11/17/17 11/17/17 11/17/17 Range/Units 19:34 19:34 19:34 WBC 11.7 H (4.5-11.0) K/mm3 MCV 74 L (79-97) fl MCH 23 L (28-32) pg RDW 17.6 H (13.2-15.2) % Seg Neutrophils % 70.7 H (40.0-70.0) % Seg Neutrophils # 8.2 H (1.8-7.7) K/mm3 Glucose 108 H (65-100) mg/dL Troponin T 0.078 H (0.00-0.029) ng/mL Albumin 3.4 L (3.9-5) g/dL HDL Cholesterol 62 H (40-59) mg/dL Assessment and Plan Assessment Acute respiratory Failure Bilateral pulmonary emboli, acute on chronic Antithrombin III deficiency Rheumatoid arthritis Peripheral vascular disease Morbid obesity Plan Admit to medicine Continue heparin drip,consult hematology, continue BIPAP Consult case management Check serial hemoglobin start IV morphin, DVT prophylaxis
[2017-11-18] MEDS: MORPHINE IV PRN ×3 (01:51→17:35)
[2017-11-18] MEDS: SODIUM CHLORIDE FLUSH SYRINGE 10 ML IV SCH ×3 (01:51→22:55)
[2017-11-18 02:21] LABS: Basophils # (Auto) 0.1 K/mm3 (0.0-0.1); Basophils % (Auto) 0.6 % (0.0-1.8); Eosinophils # (Auto) 0.1 K/mm3 (0.0-0.4); Eosinophils % (Auto) 0.7 % (0.0-4.3); Hematocrit 33.9 % (30.3-42.9); Hemoglobin 10.8 gm/dl (10.1-14.3); Lymphocytes # (Auto) 2.4 K/mm3 (1.2-5.4); Lymphocytes % (Auto) 22.2 % (13.4-35.0); Mean Corpuscular HGB Conc 32 % (30-34); Mean Corpuscular Volume 74 fl (79-97); Monocytes # (Auto) 0.8 K/mm3 (0.0-0.8); Monocytes % (Auto) 7.3 % (0.0-7.3); Platelet Count 273 K/mm3 (140-440); Red Blood Count 4.56 M/mm3 (3.65-5.03); Red Cell Distribution Width 17.5 % (13.2-15.2)
[2017-11-18 02:22] LABS: Mean Corpuscular Hemoglobin 24 pg (28-32)
[2017-11-18 03:10] LABS: BUN/Creatinine Ratio 13; Blood Urea Nitrogen 9 mg/dL (7-17); Calcium 8.3 mg/dL (8.4-10.2); Hemolysis Index 4
[2017-11-18] MEDS ORDERED: XANAX PO ONE (04:31)
--- NOTE | 2017-11-18 08:52 | Progress Note ---
Assessment and Plan Assessment and plan: Patient is 42 yo woman with a history of recurrent PE, Antithrombin III deficiency, Morbid obese, RA and PVD who was discharged on 10/30/17 with lovenox ( she did not get because of cost) and warfarin, who now pw SOB after not taking her Coumadin due to vaginal bleeding, Xarelto also caused vaginal bleeding. Regarding Last pap smear; pt states, "it's been awhile." * CTA chest IMPRESSION: Interval increase in right lower lobe pulmonary emboli and stable appearance of a emboli and a remaining lobes. No acute pulmonary infiltrates. -Acute hypoxic respiratory Failure on fio2 100% NRB mask: continue o2 therapy -Bilateral pulmonary emboli, acute on chronic, worsening due to noncompliance: i sat down w/patient, explained the risk, benefits and seriousness of her noncompliance; her main excuses are no health insurance and no income, continue heparin drip -Antithrombin III deficiency: treat with a/c, consult heme/onc for management -Rheumatoid arthritis: supportative care -Peripheral vascular disease; a/c -Morbid obesity, bmi 61.4: consult [employer] -DVT prophylaxis: on heparin drip -Noncompliance: counseling done. -Vaginal bleeding with anticoagulation: consult commodity specialist History Interval history: Patient was seen and examined. Follow-up on current diagnosis of sob and cp, slightly better. Overnight uneventful. Patient denies any nausea/vomiting or severe headaches. Imaging, nursing note, chart, labs and old chart reviewed. Discussed with patient. Hospitalist Physical - Physical exam Narrative exam: GEN: WDWN, NAD, Awake, Alert, Orientated x 3, morbid obese bmi 61.4 HEENT: NCAT, EOMI, PERRL, OP Clear NECK: supple, no adenopathy, no thyromegaly, no JVD CVS/HEART: RRR, normal S1S2, pulses present bilaterally CHEST/LUNGS: diminished bilateral, Symmetrical chest expansion, good air entry bilaterally GI/Abdomen: soft, NTND, good bowel sounds, no guarding or rebound /Bladder: no suprapubic tenderness, no CVA or paraspinal tenderness EXT/Skin: no c/c/e, no obvious rash MSK: FROM x 4 Neuro: CN 2-12 grossly intact, no new focal deficits Psych: calm - Constitutional Vitals: Temp Pulse Resp BP Pulse Ox 97.4 F L 98 H 24 147/87 92 11/18/17 04:17 11/18/17 08:30 11/18/17 04:17 11/18/17 04:17 11/18/17 04:17 Results - Labs CBC & Chem 7: 11/18/17 02:06 11/18/17 02:06 Labs: Laboratory Last Values WBC 10.9 K/mm3 (4.5-11.0) 11/18/17 02:06 RBC 4.56 M/mm3 (3.65-5.03) 11/18/17 02:06 Hgb 10.8 gm/dl (10.1-14.3) 11/18/17 02:06 Hct 33.9 % (30.3-42.9) 11/18/17 02:06 MCV 74 fl (79-97) L 11/18/17 02:06 MCH 24 pg (28-32) L 11/18/17 02:06 MCHC 32 % (30-34) 11/18/17 02:06 RDW 17.5 % (13.2-15.2) H 11/18/17 02:06 Plt Count 273 K/mm3 (140-440) 11/18/17 02:06 Lymph % (Auto) 22.2 % (13.4-35.0) 11/18/17 02:06 [place] % (Auto) 7.3 % (0.0-7.3) 11/18/17 02:06 Eos % (Auto) 0.7 % (0.0-4.3) 11/18/17 02:06 Baso % (Auto) 0.6 % (0.0-1.8) 11/18/17 02:06 Lymph # 2.4 K/mm3 (1.2-5.4) 11/18/17 02:06 [place] # 0.8 K/mm3 (0.0-0.8) 11/18/17 02:06 Eos # 0.1 K/mm3 (0.0-0.4) 11/18/17 02:06 Baso # 0.1 K/mm3 (0.0-0.1) 11/18/17 02:06 Seg Neutrophils % 69.2 % (40.0-70.0) 11/18/17 02:06 Seg Neutrophils # 7.5 K/mm3 (1.8-7.7) 11/18/17 02:06 PT 14.0 Sec. (12.2-14.9) 11/17/17 20:51 INR 1.03 (0.87-1.13) 11/17/17 20:51 APTT 33.9 Sec. (24.2-36.6) 11/17/17 20:51 Heparin Anti-Xa Level 0.93 U.I./ml (0.3-0.7) H 11/18/17 02:06 POC ABG pH 7.412 (7.35-7.45) 11/17/17 20:10 POC ABG pCO2 36.3 (35-45) 11/17/17 20:10 POC ABG pO2 86 (80-105) 11/17/17 20:10 POC ABG HCO3 23.2 11/17/17 20:10 POC ABG Total CO2 24 11/17/17 20:10 POC ABG O2 Sat 97 11/17/17 20:10 POC ABG Base Excess -1 11/17/17 20:10 FiO2 60 % 11/17/17 20:10 Sodium 141 mmol/L (137-145) 11/18/17 02:06 Potassium 4.0 mmol/L (3.6-5.0) 11/18/17 02:06 Chloride 105.9 mmol/L (98-107) 11/18/17 02:06 Carbon Dioxide 24 mmol/L (22-30) 11/18/17 02:06 Anion Gap 15 mmol/L 11/18/17 02:06 BUN 9 mg/dL (7-17) 11/18/17 02:06 Creatinine 0.7 mg/dL (0.7-1.2) 11/18/17 02:06 Estimated GFR > 60 ml/min 11/18/17 02:06 BUN/Creatinine Ratio 13 % 11/18/17 02:06 Glucose 106 mg/dL (65-100) H 11/18/17 02:06 Calcium 8.3 mg/dL (8.4-10.2) L 11/18/17 02:06 Total Bilirubin 0.30 mg/dL (0.1-1.2) 11/17/17 19:34 AST 18 units/L (5-40) 11/17/17 19:34 ALT 10 units/L (7-56) 11/17/17 19:34 Alkaline Phosphatase 73 units/L (35-129) 11/17/17 19:34 Troponin T 0.078 ng/mL (0.00-0.029) H 11/17/17 19:34 Total Protein 7.7 g/dL (6.3-8.2) 11/17/17 19:34 Albumin 3.4 g/dL (3.9-5) L 11/17/17 19:34 Albumin/Globulin Ratio 0.8 % 11/17/17 19:34 Triglycerides 88 mg/dL (2-149) 11/17/17 19:34 Cholesterol 180 mg/dL (50-199) 11/17/17 19:34 LDL Cholesterol Direct 124 mg/dL (50-130) 11/17/17 19:34 HDL Cholesterol 62 mg/dL (40-59) H 11/17/17 19:34 Cholesterol/HDL Ratio 2.90 % 11/17/17 19:34 HCG, Qual Negative (Negative) 11/17/17 19:34 Urine Color Straw (Yellow) 11/17/17 19:45 Urine Turbidity Clear (Clear) 11/17/17 19:45 Urine pH 6.0 (5.0-7.0) 11/17/17 19:45 Ur Specific [place] 1.004 (1.003-1.030) 11/17/17 19:45 Urine Protein <15 mg/dl mg/dL (Negative) 11/17/17 19:45 Urine Glucose (UA) Neg mg/dL (Negative) 11/17/17 19:45 Urine Ketones Neg mg/dL (Negative) 11/17/17 19:45 Urine Blood Mod (Negative) 11/17/17 19:45 Urine Nitrite Neg (Negative) 11/17/17 19:45 Urine Bilirubin Neg (Negative) 11/17/17 19:45 Urine Urobilinogen < 2.0 mg/dL (<2.0) 11/17/17 19:45 Ur Leukocyte Esterase Neg (Negative) 11/17/17 19:45 Urine WBC (Auto) 0.0 /HPF (0.0-6.0) 11/17/17 19:45 Urine RBC (Auto) 3.0 /HPF (0.0-6.0) 11/17/17 19:45 Urine Opiates Screen Presumptive positive 11/17/17 19:45 Urine Methadone Screen Presumptive negative 11/17/17 19:45 Ur Barbiturates Screen Presumptive negative 11/17/17 19:45 Ur Phencyclidine Scrn Presumptive negative 11/17/17 19:45 Ur Amphetamines Screen Presumptive negative 11/17/17 19:45 U Benzodiazepines Scrn Presumptive positive 11/17/17 19:45 Urine Cocaine Screen Presumptive negative 11/17/17 19:45 U Marijuana (THC) Screen Presumptive negative 11/17/17 19:45 Drugs of Abuse Note Disclamer 11/17/17 19:45 Blood Type O POSITIVE 11/17/17 19:26 Antibody Screen Negative 11/17/17 19:26
[2017-11-18] MEDS: NORCO 5/325 PO PRN (14:16)
--- NOTE | 2017-11-18 15:45 | Hem/Onc Consultation ---
History of Present Illness - Reason for Consult Consult date: 11/18/17 - History of Present Illness Ms Ortiz is a very pleasant 42 yof with a history of obesity and multiple VTE who presents with progression of pulmonary embolism. She states that her first PE was in 2016, treated at [facility], she was discharged with samples for Xarelto but could not afford the prescription and did not follow up. She had heavy periods while on Xarelto. She was hospitalized in June with PE and discharged on coumadin but did not have transportation to have INR checked so she stopped taking. She has menorrhagia on Coumadin as well. In October she was hospitalized a 3rd time for PE and discharged on lovenox and coumadin but due to financial issues she did not take them. Recently she was admitted again with severe chest pain and SOB and found to have progression of RLL PE. She is on heparin. She also has rheumatoid arthritis, not on and DMARDs. Denies recent travel. Has a history of LE lymphedema and vascular disease. No exogenous estrogen. Past History Past Medical History: other (lymphedema, peripheral arterial disease, rheumatoid arthritis) Social history: denies: smoking, alcohol abuse Family history: other (mother with DVT, cousin with "blood clot in brain") Medications and Allergies Allergies Allergy/AdvReac Type Severity Reaction Status Date / Time aspirin Allergy Mild Rash Verified 09/12/17 17:05 Home Medications Medication Instructions Recorded Confirmed Last Taken Type Acetaminophen [Tylenol Arthritis] 650 mg PO PRN 10/28/17 11/18/17 11/16/17 History diphenhydrAMINE [Benadryl CAP] 25 mg PO QHS PRN 10/28/17 11/18/17 11/16/17 History Enoxaparin [Lovenox] 120 mg SQ Q12HR #10 syringe 10/30/17 11/18/17 Unknown Rx Warfarin Sodium [Coumadin] 12 mg PO DAILY #60 tablet 10/30/17 11/18/17 Unknown Rx Active Meds: Active Medications Acetaminophen (Tylenol) 650 mg PO Q4H PRN PRN Reason: Pain MILD(1-3)/Fever >100.5/CARTAGENA Acetaminophen/Hydrocodone Bitart ([place] 5/325) 1 each PO Q4H PRN PRN Reason: Pain, Moderate (4-6) Last Admin: 11/18/17 14:16 Dose: 1 each Albuterol/Ipratropium (Duoneb *Not For Prn Use*) 1 ampul IH BIDRT [facility] Heparin Sodium/Sodium Chloride (Heparin/ 0.45% Nacl-25,000 Unit/500 Ml) 25,000 unit in 500 mls @ 30 mls/hr IV TITR [facility]SE; Protocol Last Titration: 11/18/17 14:50 Dose: 1,000 units/hr, 20 mls/hr Morphine Sulfate (Morphine) 2 mg IV Q4H PRN PRN Reason: Pain, Moderate (4-6) Last Admin: 11/18/17 10:57 Dose: 2 mg Ondansetron HCl (Zofran) 4 mg IV Q8H PRN PRN Reason: Nausea And Vomiting Sodium Chloride (Sodium Chloride Flush Syringe 10 Ml) 10 ml IV BID [facility] Last Admin: 11/18/17 10:57 Dose: 10 ml Sodium Chloride (Sodium Chloride Flush Syringe 10 Ml) 10 ml IV PRN PRN PRN Reason: LINE FLUSH Review of Systems Constitutional: weakness Ears, nose, mouth and throat: no ear pain Cardiovascular: chest pain Respiratory: shortness of breath Gastrointestinal: no abdominal pain Menstruation: period heavy Musculoskeletal: no neck pain Integumentary: no rash Hematologic/Lymphatic: thrombophilia Exam - Constitutional Vitals: Last Vital Signs Temp 97.5 F L 11/18/17 08:14 Pulse 98 H 11/18/17 08:30 Resp 22 11/18/17 10:00 BP 142/77 11/18/17 08:14 Pulse Ox 100 11/18/17 09:47 General appearance: no acute distress - Neck Neck: supple - Respiratory Respiratory effort: Positive: normal Respiratory: bilateral: CTA - Cardiovascular Rhythm: regular - Gastrointestinal General gastrointestinal: Present: soft - Integumentary Integumentary: warm, dry Results - Labs lab Results: Laboratory Results - last 24 hr 11/17/17 11/17/17 11/17/17 19:26 19:34 19:34 WBC 11.7 H RBC 4.91 Hgb 11.5 Hct 36.4 MCV 74 L MCH 23 L MCHC 32 RDW 17.6 H Plt Count 302 Lymph % (Auto) 22.5 [place] % (Auto) 5.9 Eos % (Auto) 0.4 Baso % (Auto) 0.5 Lymph # 2.6 [place] # 0.7 Eos # 0.0 Baso # 0.1 Seg Neutrophils % 70.7 H Seg Neutrophils # 8.2 H PT INR APTT Heparin Anti-Xa Level POC ABG pH POC ABG pCO2 POC ABG pO2 POC ABG HCO3 POC ABG Total CO2 POC ABG O2 Sat POC ABG Base Excess FiO2 Sodium 142 Potassium 4.2 Chloride 104.3 Carbon Dioxide 25 Anion Gap 17 BUN 12 Creatinine 0.9 Estimated GFR > 60 BUN/Creatinine Ratio 13 Glucose 108 H Calcium 9.2 Total Bilirubin 0.30 AST 18 ALT 10 Alkaline Phosphatase 73 Troponin T Total Protein 7.7 Albumin 3.4 L Albumin/Globulin Ratio 0.8 Triglycerides Cholesterol LDL Cholesterol Direct HDL Cholesterol Cholesterol/HDL Ratio HCG, Qual Urine Color Urine Turbidity Urine pH Ur Specific Mart Urine Protein Urine Glucose (UA) Urine Ketones Urine Blood Urine Nitrite Urine Bilirubin Urine Urobilinogen Ur Leukocyte Esterase Urine WBC (Auto) Urine RBC (Auto) Urine Opiates Screen Urine Methadone Screen Ur Barbiturates Screen Ur Phencyclidine Scrn Ur Amphetamines Screen U Benzodiazepines Scrn Urine Cocaine Screen U Marijuana (THC) Screen Drugs of Abuse Note Blood Type O POSITIVE Antibody Screen Negative 11/17/17 11/17/17 11/17/17 19:34 19:34 19:34 WBC RBC Hgb Hct MCV MCH MCHC RDW Plt Count Lymph % (Auto) [place] % (Auto) Eos % (Auto) Baso % (Auto) Lymph # [place] # Eos # Baso # Seg Neutrophils % Seg Neutrophils # PT 14.0 INR 1.03 APTT 31.7 Heparin Anti-Xa Level POC ABG pH POC ABG pCO2 POC ABG pO2 POC ABG HCO3 POC ABG Total CO2 POC ABG O2 Sat POC ABG Base Excess FiO2 Sodium Potassium Chloride Carbon Dioxide Anion Gap BUN Creatinine Estimated GFR BUN/Creatinine Ratio Glucose Calcium Total Bilirubin AST ALT Alkaline Phosphatase Troponin T 0.078 H Total Protein Albumin Albumin/Globulin Ratio Triglycerides 88 Cholesterol 180 LDL Cholesterol Direct 124 HDL Cholesterol 62 H Cholesterol/HDL Ratio 2.90 HCG, Qual Negative Urine Color Urine Turbidity Urine pH Ur Specific Mart Urine Protein Urine Glucose (UA) Urine Ketones Urine Blood Urine Nitrite Urine Bilirubin Urine Urobilinogen Ur Leukocyte Esterase Urine WBC (Auto) Urine RBC (Auto) Urine Opiates Screen Urine Methadone Screen Ur Barbiturates Screen Ur Phencyclidine Scrn Ur Amphetamines Screen U Benzodiazepines Scrn Urine Cocaine Screen U Marijuana (THC) Screen Drugs of Abuse Note Blood Type Antibody Screen 11/17/17 11/17/17 11/17/17 19:45 19:45 20:10 WBC RBC Hgb Hct MCV MCH MCHC RDW Plt Count Lymph % (Auto) [place] % (Auto) Eos % (Auto) Baso % (Auto) Lymph # [place] # Eos # Baso # Seg Neutrophils % Seg Neutrophils # PT INR APTT Heparin Anti-Xa Level POC ABG pH 7.412 POC ABG pCO2 36.3 POC ABG pO2 86 POC ABG HCO3 23.2 POC ABG Total CO2 24 POC ABG O2 Sat 97 POC ABG Base Excess -1 FiO2 60 Sodium Potassium Chloride Carbon Dioxide Anion Gap BUN Creatinine Estimated GFR BUN/Creatinine Ratio Glucose Calcium Total Bilirubin AST ALT Alkaline Phosphatase Troponin T Total Protein Albumin Albumin/Globulin Ratio Triglycerides Cholesterol LDL Cholesterol Direct HDL Cholesterol Cholesterol/HDL Ratio HCG, Qual Urine Color Straw Urine Turbidity Clear Urine pH 6.0 Ur Specific Mart 1.004 Urine Protein <15 mg/dl Urine Glucose (UA) Neg Urine Ketones Neg Urine Blood Mod Urine Nitrite Neg Urine Bilirubin Neg Urine Urobilinogen < 2.0 Ur Leukocyte Esterase Neg Urine WBC (Auto) 0.0 Urine RBC (Auto) 3.0 Urine Opiates Screen Presumptive positive Urine Methadone Screen Presumptive negative Ur Barbiturates Screen Presumptive negative Ur Phencyclidine Scrn Presumptive negative Ur Amphetamines Screen Presumptive negative U Benzodiazepines Scrn Presumptive positive Urine Cocaine Screen Presumptive negative U Marijuana (THC) Screen Presumptive negative Drugs of Abuse Note Disclamer Blood Type Antibody Screen 11/17/17 11/18/17 11/18/17 20:51 02:06 02:06 WBC 10.9 RBC 4.56 Hgb 10.8 Hct 33.9 MCV 74 L MCH 24 L MCHC 32 RDW 17.5 H Plt Count 273 Lymph % (Auto) 22.2 [place] % (Auto) 7.3 Eos % (Auto) 0.7 Baso % (Auto) 0.6 Lymph # 2.4 [place] # 0.8 Eos # 0.1 Baso # 0.1 Seg Neutrophils % 69.2 Seg Neutrophils # 7.5 PT 14.0 INR 1.03 APTT 33.9 Heparin Anti-Xa Level POC ABG pH POC ABG pCO2 POC ABG pO2 POC ABG HCO3 POC ABG Total CO2 POC ABG O2 Sat POC ABG Base Excess FiO2 Sodium 141 Potassium 4.0 Chloride 105.9 Carbon Dioxide 24 Anion Gap 15 BUN 9 Creatinine 0.7 Estimated GFR > 60 BUN/Creatinine Ratio 13 Glucose 106 H Calcium 8.3 L Total Bilirubin AST ALT Alkaline Phosphatase Troponin T Total Protein Albumin Albumin/Globulin Ratio Triglycerides Cholesterol LDL Cholesterol Direct HDL Cholesterol Cholesterol/HDL Ratio HCG, Qual Urine Color Urine Turbidity Urine pH Ur Specific Mart Urine Protein Urine Glucose (UA) Urine Ketones Urine Blood Urine Nitrite Urine Bilirubin Urine Urobilinogen Ur Leukocyte Esterase Urine WBC (Auto) Urine RBC (Auto) Urine Opiates Screen Urine Methadone Screen Ur Barbiturates Screen Ur Phencyclidine Scrn Ur Amphetamines Screen U Benzodiazepines Scrn Urine Cocaine Screen U Marijuana (THC) Screen Drugs of Abuse Note Blood Type Antibody Screen 11/18/17 11/18/17 02:06 12:19 WBC RBC Hgb Hct MCV MCH MCHC RDW Plt Count Lymph % (Auto) [place] % (Auto) Eos % (Auto) Baso % (Auto) Lymph # [place] # Eos # Baso # Seg Neutrophils % Seg Neutrophils # PT INR APTT Heparin Anti-Xa Level 0.93 H 0.24 L POC ABG pH POC ABG pCO2 POC ABG pO2 POC ABG HCO3 POC ABG Total CO2 POC ABG O2 Sat POC ABG Base Excess FiO2 Sodium Potassium Chloride Carbon Dioxide Anion Gap BUN Creatinine Estimated GFR BUN/Creatinine Ratio Glucose Calcium Total Bilirubin AST ALT Alkaline Phosphatase Troponin T Total Protein Albumin Albumin/Globulin Ratio Triglycerides Cholesterol LDL Cholesterol Direct HDL Cholesterol Cholesterol/HDL Ratio HCG, Qual Urine Color Urine Turbidity Urine pH Ur Specific Mart Urine Protein Urine Glucose (UA) Urine Ketones Urine Blood Urine Nitrite Urine Bilirubin Urine Urobilinogen Ur Leukocyte Esterase Urine WBC (Auto) Urine RBC (Auto) Urine Opiates Screen Urine Methadone Screen Ur Barbiturates Screen Ur Phencyclidine Scrn Ur Amphetamines Screen U Benzodiazepines Scrn Urine Cocaine Screen U Marijuana (THC) Screen Drugs of Abuse Note Blood Type Antibody Screen - Imaging and cardiology CT scan - chest: report reviewed Assessment and Plan 1. recurrent VTE, noncompliant with anticoagulation - stressed the importance of compliance with anticoagulation and life- threatening nature of this disorder - discussed options, she would like to try coumadin again and states she will follow up for INR checks - f/u with Dr Guzman in clinic 2. menorrhagia - will check iron studies 3. low antithrombin level - recheck in clinic when not on heparin
[2017-11-18 16:50] LABS: % Iron Saturation 14.81 %
[2017-11-18] MEDS ORDERED: COUMADIN PO SCH (17:00)
[2017-11-18] MEDS: HEPARIN/ 0.45% NACL-25,000 UNIT/500 ML 25,000 UNIT/500 ML BAG IV SCH (18:09)
[2017-11-18] MEDS: DUONEB *Not for PRN Use IH SCH (20:39)
[2017-11-19 05:32] LABS: Hematocrit 31.3 % (30.3-42.9); Hemoglobin 10.1 gm/dl (10.1-14.3); Mean Corpuscular HGB Conc 32 % (30-34); Mean Corpuscular Volume 74 fl (79-97); Platelet Count 239 K/mm3 (140-440); Red Blood Count 4.26 M/mm3 (3.65-5.03); Red Cell Distribution Width 17.9 % (13.2-15.2)
[2017-11-19 05:33] LABS: Mean Corpuscular Hemoglobin 24 pg (28-32)
[2017-11-19 05:37] LABS: INR 1.08 (0.87-1.13)
[2017-11-19 06:42] LABS: BUN/Creatinine Ratio 10; Blood Urea Nitrogen 8 mg/dL (7-17); Calcium 8.7 mg/dL (8.4-10.2); Hemolysis Index 10
--- NOTE | 2017-11-19 07:47 | Consultation ---
History of Present Illness Consult date: 11/19/17 Requesting physician: RADHA CHEN Reason for consult: menorrhagia History of present illness: 42y/o presents with vaginal bleeding with anti-coagulation therapy. The patient has multiple co-morbidities that is contributing to her current condition. Non-compliance with her anti-coagulation secondary to dysfunctional uterine bleeding. She reports passage of large clots and flooding. Generally the patient is oligomenorrheic and may have 6-12 months without a menses. She has not been evaluated in the past for her amenorrhea. Past History Past Medical History: other (Rheumatoid arthritis, Anti-thrombin III def, pulmonary embolism, peripheral vascular insufficiency, lymphedema, hidradenitis , morbid obesity) Past Surgical History: no surgical history Social history: single - Obstetrical History : 1 Para: 0 Hx # Term Pregnancies: 0 Number of Pregnancies: 0 Spontaneous Abortions: 1 Induced : 0 Number of Living Children: 0 Medications and Allergies Allergies Allergy/AdvReac Type Severity Reaction Status Date / Time aspirin Allergy Mild Rash Verified 09/12/17 17:05 Home Medications Medication Instructions Recorded Confirmed Last Taken Type Acetaminophen [Tylenol Arthritis] 650 mg PO PRN 10/28/17 11/18/17 11/16/17 History diphenhydrAMINE [Benadryl CAP] 25 mg PO QHS PRN 10/28/17 11/18/17 11/16/17 History Enoxaparin [Lovenox] 120 mg SQ Q12HR #10 syringe 10/30/17 11/18/17 Unknown Rx Warfarin Sodium [Coumadin] 12 mg PO DAILY #60 tablet 10/30/17 11/18/17 Unknown Rx Active Meds: Active Medications Acetaminophen (Tylenol) 650 mg PO Q4H PRN PRN Reason: Pain MILD(1-3)/Fever >100.5/CARTAGENA Acetaminophen/Hydrocodone Bitart ([place] 5/325) 1 each PO Q4H PRN PRN Reason: Pain, Moderate (4-6) Last Admin: 11/18/17 14:16 Dose: 1 each Albuterol/Ipratropium (Duoneb *Not For Prn Use*) 1 ampul IH BIDRT JOSE Last Admin: 11/18/17 20:39 Dose: 1 ampul Heparin Sodium/Sodium Chloride (Heparin/ 0.45% Nacl-25,000 Unit/500 Ml) 25,000 unit in 500 mls @ 30 mls/hr IV TITR [facility]; Protocol Last Admin: 11/18/17 18:09 Dose: 1,000 units/hr, 20 mls/hr Morphine Sulfate (Morphine) 2 mg IV Q4H PRN PRN Reason: Pain, Moderate (4-6) Last Admin: 11/19/17 00:00 Dose: 2 mg Ondansetron HCl (Zofran) 4 mg IV Q8H PRN PRN Reason: Nausea And Vomiting Sodium Chloride (Sodium Chloride Flush Syringe 10 Ml) 10 ml IV BID [facility] Last Admin: 11/18/17 22:55 Dose: 10 ml Sodium Chloride (Sodium Chloride Flush Syringe 10 Ml) 10 ml IV PRN PRN PRN Reason: LINE FLUSH Warfarin Sodium (Coumadin Pharmacy To Dose) 1 each PO PKCONSULT [facility]; Protocol Warfarin Sodium (Coumadin) 10 mg PO DAILY@1700 [facility] Last Admin: 11/18/17 17:34 Dose: 10 mg Review of Systems Respiratory: shortness of breath, dyspnea on exertion Genitourinary: vaginal bleeding - Vital Signs Vital signs: Vital Signs Pulse Resp BP Pulse Ox 126 H 39 H 137/79 89 11/17/17 19:06 11/17/17 19:06 11/17/17 19:06 11/17/17 19:06 Temp Pulse Resp BP Pulse Ox 98.5 F 100 H 20 122/78 98 11/19/17 00:40 11/19/17 00:40 11/19/17 00:40 11/19/17 00:40 11/19/17 00:40 Results Result Diagrams: 11/19/17 04:42 11/19/17 04:42 Abnormal lab results 11/18/17 11/18/17 11/19/17 Range/Units 12:19 16:06 04:42 MCV 74 L (79-97) fl MCH 24 L (28-32) pg RDW 17.9 H (13.2-15.2) % Heparin Anti-Xa Level 0.24 L (0.3-0.7) U.I./ml Chloride (98-107) mmol/L Glucose (65-100) mg/dL Iron 36 L (37-170) ug/dL TIBC 243 L (250-450) mcg/dL 11/19/17 Range/Units 04:42 MCV (79-97) fl MCH (28-32) pg RDW (13.2-15.2) % Heparin Anti-Xa Level (0.3-0.7) U.I./ml Chloride 107.2 H (98-107) mmol/L Glucose 116 H (65-100) mg/dL Iron (37-170) ug/dL TIBC (250-450) mcg/dL All other labs normal. Assessment and Plan - Patient Problems (1) Dysfunctional uterine bleeding Current Visit: Yes Status: Acute Plan to address problem: this patient is at considerable risk for endometrial hyperplasia and potentially endometrial carcinoma secondary to anovulation and endogenous estrogen from her morbid obesity discussion held with patient that she is not a candidate for expressed the importance of her continuing her anti-coagulation outpatient will order a pelvic ultrasound Novasure( endometrial ablation) discussed will need to obtain a sampling of the endometrium prior to the procedure (2) Anovulation Current Visit: Yes Status: Acute (3) Bilateral pulmonary embolism Current Visit: No Status: Acute
[2017-11-19] MEDS: SODIUM CHLORIDE FLUSH SYRINGE 10 ML IV SCH ×2 (09:34→22:59)
[2017-11-19] MEDS: NORCO 5/325 PO PRN (09:52)
--- NOTE | 2017-11-19 09:56 | Hem/Onc Progress Note ---
Assessment and Plan At this time patient may need LINING PRINTER procedure/ bx/ ablation and we will hold off Coumadin until all the potential procedures are done. Continue heparin. Patient understands that she will need to be on anticoagulation indefinitely and upon discharge, we will try to help her in any way we can. Discussed with Dr. Garcia Subjective Date of service: 11/19/17 Interval history: Patient feels fair. Appreciate be LINING PRINTER evaluation. 4 ultrasound today. Tolerating heparin. Objective - Constitutional Vitals: Last Vital Signs Temp 98.5 F 11/19/17 08:42 Pulse 99 H 11/19/17 08:54 Resp 22 11/19/17 08:42 BP 154/77 11/19/17 08:42 Pulse Ox 96 11/19/17 08:42 Pain Intensity (0-10): denies any pain General appearance: mild distress Performance status: 3-limited selfcare - Neck Neck: supple - Respiratory Respiratory effort: Positive: other Respiratory: bilateral: diminished (on face mask) - Cardiovascular Rhythm: regular - Gastrointestinal General gastrointestinal: Present: other (obese) - Labs Lab Results: Laboratory Results - last 24 hr 11/18/17 11/18/17 11/18/17 12:19 16:06 16:06 WBC RBC Hgb Hct MCV MCH MCHC RDW Plt Count PT INR Heparin Anti-Xa Level 0.24 L Sodium Potassium Chloride Carbon Dioxide Anion Gap BUN Creatinine Estimated GFR BUN/Creatinine Ratio Glucose Calcium Iron 36 L TIBC 243 L % Saturation 14.81 Transferrin 211 Ferritin 49.1 11/19/17 11/19/17 11/19/17 04:42 04:42 04:42 WBC 10.2 RBC 4.26 Hgb 10.1 Hct 31.3 MCV 74 L MCH 24 L MCHC 32 RDW 17.9 H Plt Count 239 PT 14.6 INR 1.08 Heparin Anti-Xa Level Sodium 145 Potassium 3.7 Chloride 107.2 H Carbon Dioxide 22 Anion Gap 20 BUN 8 Creatinine 0.8 Estimated GFR > 60 BUN/Creatinine Ratio 10 Glucose 116 H Calcium 8.7 Iron TIBC % Saturation Transferrin Ferritin
[2017-11-19] MEDS: MORPHINE IV PRN ×4 (10:02→22:59)
[2017-11-19] MEDS: DUONEB *Not for PRN Use IH SCH ×2 (10:30→19:40)
--- NOTE | 2017-11-19 14:58 | Progress Note ---
Assessment and Plan Assessment and plan: Patient is 42 yo woman with a history of recurrent PE, Antithrombin III deficiency, Morbid obese, RA and PVD who was discharged on 10/30/17 with lovenox ( she did not get because of cost) and warfarin, who now pw SOB after not taking her Coumadin due to vaginal bleeding, Xarelto also caused vaginal bleeding. Regarding Last pap smear; pt states, "it's been awhile." * CTA chest IMPRESSION: Interval increase in right lower lobe pulmonary emboli and stable appearance of a emboli and a remaining lobes. No acute pulmonary infiltrates. -Acute hypoxic respiratory Failure, vm 35% continue o2 therapy -Bilateral pulmonary emboli, acute on chronic, worsening due to noncompliance: i sat down w/patient, explained the risk, benefits and seriousness of her noncompliance; her main excuses are no health insurance and no income, continue heparin drip -Antithrombin III deficiency: treat with a/c, consult heme/onc for management -Rheumatoid arthritis: supportative care -Peripheral vascular disease; a/c -Morbid obesity, bmi 61.4: consult [facility] -DVT prophylaxis: on heparin drip -Noncompliance: counseling done. -Vaginal bleeding with anticoagulation: consult residential mental health worker History Interval history: Patient was seen and examined. Follow-up on current diagnosis of sob and cp, slightly better. Overnight uneventful. Patient denies any nausea/vomiting or severe headaches. Imaging, nursing note, chart, labs and old chart reviewed. Discussed with patient. Hospitalist Physical - Physical exam Narrative exam: GEN: ill appearing, NAD, Awake, Alert, Orientated x 3, morbid obese bmi 61.4 HEENT: NCAT, EOMI, PERRL, OP Clear NECK: supple, no adenopathy, no thyromegaly, no JVD CVS/HEART: RRR, normal S1S2, pulses present bilaterally CHEST/LUNGS: diminished bilateral, Symmetrical chest expansion, good air entry bilaterally GI/Abdomen: soft, NTND, good bowel sounds, no guarding or rebound /Bladder: no suprapubic tenderness, no CVA or paraspinal tenderness EXT/Skin: no c/c/e, no obvious rash MSK: FROM x 4 Neuro: CN 2-12 grossly intact, no new focal deficits Psych: calm - Constitutional Vitals: Temp Pulse Resp BP Pulse Ox 97.5 F L 101 H 20 171/80 98 11/19/17 12:52 11/19/17 12:52 11/19/17 12:52 11/19/17 12:52 11/19/17 12:52 Results - Labs CBC & Chem 7: 11/19/17 04:42 11/19/17 04:42 Labs: Laboratory Last Values WBC 10.2 K/mm3 (4.5-11.0) 11/19/17 04:42 RBC 4.26 M/mm3 (3.65-5.03) 11/19/17 04:42 Hgb 10.1 gm/dl (10.1-14.3) 11/19/17 04:42 Hct 31.3 % (30.3-42.9) 11/19/17 04:42 MCV 74 fl (79-97) L 11/19/17 04:42 MCH 24 pg (28-32) L 11/19/17 04:42 MCHC 32 % (30-34) 11/19/17 04:42 RDW 17.9 % (13.2-15.2) H 11/19/17 04:42 Plt Count 239 K/mm3 (140-440) 11/19/17 04:42 Lymph % (Auto) 22.2 % (13.4-35.0) 11/18/17 02:06 [place] % (Auto) 7.3 % (0.0-7.3) 11/18/17 02:06 Eos % (Auto) 0.7 % (0.0-4.3) 11/18/17 02:06 Baso % (Auto) 0.6 % (0.0-1.8) 11/18/17 02:06 Lymph # 2.4 K/mm3 (1.2-5.4) 11/18/17 02:06 [place] # 0.8 K/mm3 (0.0-0.8) 11/18/17 02:06 Eos # 0.1 K/mm3 (0.0-0.4) 11/18/17 02:06 Baso # 0.1 K/mm3 (0.0-0.1) 11/18/17 02:06 Seg Neutrophils % 69.2 % (40.0-70.0) 11/18/17 02:06 Seg Neutrophils # 7.5 K/mm3 (1.8-7.7) 11/18/17 02:06 PT 14.6 Sec. (12.2-14.9) 11/19/17 04:42 INR 1.08 (0.87-1.13) 11/19/17 04:42 APTT 33.9 Sec. (24.2-36.6) 11/17/17 20:51 Heparin Anti-Xa Level < 0.10 U.I./ml (0.3-0.7) L 11/19/17 13:27 POC ABG pH 7.412 (7.35-7.45) 11/17/17 20:10 POC ABG pCO2 36.3 (35-45) 11/17/17 20:10 POC ABG pO2 86 (80-105) 11/17/17 20:10 POC ABG HCO3 23.2 11/17/17 20:10 POC ABG Total CO2 24 11/17/17 20:10 POC ABG O2 Sat 97 11/17/17 20:10 POC ABG Base Excess -1 11/17/17 20:10 FiO2 60 % 11/17/17 20:10 Sodium 145 mmol/L (137-145) 11/19/17 04:42 Potassium 3.7 mmol/L (3.6-5.0) 11/19/17 04:42 Chloride 107.2 mmol/L (98-107) H 11/19/17 04:42 Carbon Dioxide 22 mmol/L (22-30) 11/19/17 04:42 Anion Gap 20 mmol/L 11/19/17 04:42 BUN 8 mg/dL (7-17) 11/19/17 04:42 Creatinine 0.8 mg/dL (0.7-1.2) 11/19/17 04:42 Estimated GFR > 60 ml/min 11/19/17 04:42 BUN/Creatinine Ratio 10 % 11/19/17 04:42 Glucose 116 mg/dL (65-100) H 11/19/17 04:42 Calcium 8.7 mg/dL (8.4-10.2) 11/19/17 04:42 Iron 36 ug/dL (37-170) L 11/18/17 16:06 TIBC 243 mcg/dL (250-450) L 11/18/17 16:06 % Saturation 14.81 % 11/18/17 16:06 Transferrin 211 mg/dl (192-382) 11/18/17 16:06 Ferritin 49.1 ng/mL (13.0-400.0) 11/18/17 16:06 Total Bilirubin 0.30 mg/dL (0.1-1.2) 11/17/17 19:34 AST 18 units/L (5-40) 11/17/17 19:34 ALT 10 units/L (7-56) 11/17/17 19:34 Alkaline Phosphatase 73 units/L (35-129) 11/17/17 19:34 Troponin T 0.078 ng/mL (0.00-0.029) H 11/17/17 19:34 Total Protein 7.7 g/dL (6.3-8.2) 11/17/17 19:34 Albumin 3.4 g/dL (3.9-5) L 11/17/17 19:34 Albumin/Globulin Ratio 0.8 % 11/17/17 19:34 Triglycerides 88 mg/dL (2-149) 11/17/17 19:34 Cholesterol 180 mg/dL (50-199) 11/17/17 19:34 LDL Cholesterol Direct 124 mg/dL (50-130) 11/17/17 19:34 HDL Cholesterol 62 mg/dL (40-59) H 11/17/17 19:34 Cholesterol/HDL Ratio 2.90 % 11/17/17 19:34 HCG, Qual Negative (Negative) 11/17/17 19:34 Urine Color Straw (Yellow) 11/17/17 19:45 Urine Turbidity Clear (Clear) 11/17/17 19:45 Urine pH 6.0 (5.0-7.0) 11/17/17 19:45 Ur Specific [place] 1.004 (1.003-1.030) 11/17/17 19:45 Urine Protein <15 mg/dl mg/dL (Negative) 11/17/17 19:45 Urine Glucose (UA) Neg mg/dL (Negative) 11/17/17 19:45 Urine Ketones Neg mg/dL (Negative) 11/17/17 19:45 Urine Blood Mod (Negative) 11/17/17 19:45 Urine Nitrite Neg (Negative) 11/17/17 19:45 Urine Bilirubin Neg (Negative) 11/17/17 19:45 Urine Urobilinogen < 2.0 mg/dL (<2.0) 11/17/17 19:45 Ur Leukocyte Esterase Neg (Negative) 11/17/17 19:45 Urine WBC (Auto) 0.0 /HPF (0.0-6.0) 11/17/17 19:45 Urine RBC (Auto) 3.0 /HPF (0.0-6.0) 11/17/17 19:45 Urine Opiates Screen Presumptive positive 11/17/17 19:45 Urine Methadone Screen Presumptive negative 11/17/17 19:45 Ur Barbiturates Screen Presumptive negative 11/17/17 19:45 Ur Phencyclidine Scrn Presumptive negative 11/17/17 19:45 Ur Amphetamines Screen Presumptive negative 11/17/17 19:45 U Benzodiazepines Scrn Presumptive positive 11/17/17 19:45 Urine Cocaine Screen Presumptive negative 11/17/17 19:45 U Marijuana (THC) Screen Presumptive negative 11/17/17 19:45 Drugs of Abuse Note Disclamer 11/17/17 19:45 Blood Type O POSITIVE 11/17/17 19:26 Antibody Screen Negative 11/17/17 19:26
--- NOTE | 2017-11-19 17:51 | Ultrasound Report ---
FINAL REPORT EXAM: US PELVIC COMPLETE HISTORY: abnormal uterine bleeding TECHNIQUE: Ultrasound imaging of the pelvis was performed transabdominally. PRIORS: Pelvic ultrasound from 09/02/2015. FINDINGS: Uterus: The uterus is homogeneous in echogenicity without focal mass. The uterus measures 10.0 x 3.1 x 3.9 centimeters. Endometrium: The endometrium is normal in echogenicity. The endometrium measures 7.8 millimeters. Ovaries: The ovaries were not visualized. Free fluid: None. IMPRESSION: Normal uterus. Ovaries not visualized.
--- NOTE | 2017-11-19 17:53 | Ultrasound Report ---
FINAL REPORT EXAM: US TRANSVAGINAL HISTORY: abd pain TECHNIQUE: Ultrasound imaging of the pelvis was performed transvaginally. PRIORS: 09/02/2015. FINDINGS: Uterus: The uterus is homogeneous in echogenicity without focal mass. The uterus measures 0.0 x 3.1 x 3.9 centimeters. Endometrium: The endometrium is normal in echogenicity. The endometrium measures 7.8 millimeters. Ovaries: The ovaries were not visualized. Free fluid: None. IMPRESSION: Normal uterus. Ovaries not visualized.
[2017-11-19] MEDS: HEPARIN/ 0.45% NACL-25,000 UNIT/500 ML 25,000 UNIT/500 ML BAG IV SCH (22:58)
[2017-11-20 08:03] LABS: Hematocrit 33.3 % (30.3-42.9); Hemoglobin 10.1 gm/dl (10.1-14.3); Mean Corpuscular HGB Conc 31 % (30-34); Mean Corpuscular Volume 74 fl (79-97); Platelet Count 239 K/mm3 (140-440); Red Cell Distribution Width 18.1 % (13.2-15.2)
[2017-11-20 08:07] LABS: Mean Corpuscular Hemoglobin 23 pg (28-32)
[2017-11-20 08:17] LABS: INR 1.11 (0.87-1.13)
[2017-11-20] MEDS: SODIUM CHLORIDE FLUSH SYRINGE 10 ML IV SCH ×2 (09:15→21:44)
[2017-11-20] MEDS: MORPHINE IV PRN ×3 (09:15→23:22)
[2017-11-20] MEDS: DUONEB *Not for PRN Use IH SCH ×2 (09:41→19:27)
--- NOTE | 2017-11-20 09:58 | Hem/Onc Progress Note ---
Assessment and Plan At this time patient may need CORPORATE COMMUNICATIONS ASSOCIATE procedure/ bx/ ablation and we will hold off Coumadin until all the potential procedures are done. Continue heparin. Patient understands that she will need to be on anticoagulation indefinitely and upon discharge, we will try to help her in any way we can. cbc stable Subjective Date of service: 11/20/17 Interval history: Patient feels fair. Appreciate be CORPORATE COMMUNICATIONS ASSOCIATE evaluation. . Tolerating heparin. u/ Sound showing uterus to be normal in size. Ovaries not visualized Objective - Exam Narrative Exam: Feels better - Constitutional Vitals: Last Vital Signs Temp 97.9 F 11/20/17 08:00 Pulse 90 11/20/17 09:50 Resp 18 11/20/17 09:50 BP 138/71 11/20/17 08:01 Pulse Ox 100 11/20/17 09:45 - Respiratory Respiratory effort: Positive: normal Respiratory: bilateral: diminished - Cardiovascular Rhythm: regular - Gastrointestinal General gastrointestinal: Present: soft - Labs Lab Results: Laboratory Results - last 24 hr 11/19/17 11/19/17 11/20/17 13:27 23:00 06:39 WBC 11.2 H RBC 4.50 Hgb 10.1 Hct 33.3 MCV 74 L MCH 23 L MCHC 31 RDW 18.1 H Plt Count 239 PT INR Heparin Anti-Xa Level < 0.10 L 0.18 L 11/20/17 06:43 WBC RBC Hgb Hct MCV MCH MCHC RDW Plt Count PT 14.9 INR 1.11 Heparin Anti-Xa Level
--- NOTE | 2017-11-20 13:09 | Progress Note ---
Assessment and Plan - Patient Problems (1) Dysfunctional uterine bleeding Current Visit: Yes Status: Acute Plan to address problem: Will schedule dilatation and curettage along with endometrial ablation for tomorrow Patient will need to be nothing by mouth after midnight Will prescribe Cytotec for placement in the vagina tonight to facilitate softening of the cervix (2) Anovulation Current Visit: Yes Status: Acute (3) Bilateral pulmonary embolism Current Visit: No Status: Acute Subjective - Subjective Date of service: 11/20/17 Interval history: Ultrasound findings discussed with patient. Ultrasound demonstrated a normal myometrium and endometrium. No uterine masses or adnexal lesions seen. Had an extensive discussion with the patient about proceeding with an endometrial ablation to control her abnormal bleeding while on anticoagulation therapy. As noted by the dispensing optician apprentice the patient will need to remain on anticoagulation indefinitely. The patient was counseled that the endometrial ablation will effect any further childbearing ability in the future. It is highly discouraged for the patient to ever attempt to conceive in the future. The patient has a considerable risk for morbidity and mortality if she attempted to conceive. The NovaSure procedure was explained to the patient. Currently awaiting medical clearance to proceed with surgery. Patient reports: appetite normal, voiding normally, pain well controlled Objective - Vital Signs Latest vital signs: Vital Signs Temp Pulse Pulse Resp Resp BP BP 11/20/17 11:00 95 H 11/20/17 09:50 90 18 11/20/17 09:45 11/20/17 09:41 92 H 18 11/20/17 08:01 95 H 20 138/71 11/20/17 08:00 97.9 F 94 H 20 138/71 11/20/17 06:15 98.0 F 96 H 18 140/73 11/20/17 05:55 20 140/73 11/20/17 00:18 77 11/20/17 00:05 99.0 F 94 H 20 146/95 11/19/17 23:48 94 H 20 146/95 11/19/17 20:35 98.2 F 101 H 20 153/91 11/19/17 20:29 101 H 11/19/17 19:55 100 H 11/19/17 19:50 95 H 15 11/19/17 19:45 11/19/17 19:41 96 H 16 11/19/17 15:30 97.5 F L 100 H 20 156/105 Pulse Ox 11/20/17 11:00 11/20/17 09:50 11/20/17 09:45 100 11/20/17 09:41 11/20/17 08:01 96 11/20/17 08:00 95 11/20/17 06:15 98 11/20/17 05:55 11/20/17 00:18 100 11/20/17 00:05 95 11/19/17 23:48 96 11/19/17 20:35 99 11/19/17 20:29 98 11/19/17 19:55 11/19/17 19:50 11/19/17 19:45 99 11/19/17 19:41 11/19/17 15:30 100 Intake and Output 11/19/17 11/20/17 11/20/17 22:59 06:59 14:59 Intake Total 560.000 24.15 10 Balance 560.000 24.15 10 Intake: IV 510.000 24.15 10 HEPARIN/ 0.45% NACL-25, 500.000 24.15 000 UNIT/500 ML 25,000 unit In 500 ml @ 1,500 UNITS/HR 30 mls/hr IV TITR JSOE Rx#:[id number] Left Antecubital 10 10 Oral 50 Other: Total, Intake Amount 50 Voiding Method Toilet Bedside Commode - Labs Labs: Abnormal lab results 11/19/17 11/19/17 11/20/17 Range/Units 13:27 23:00 06:39 WBC 11.2 H (4.5-11.0) K/mm3 MCV 74 L (79-97) fl MCH 23 L (28-32) pg RDW 18.1 H (13.2-15.2) % Heparin Anti-Xa Level < 0.10 L 0.18 L (0.3-0.7) U.I./ml
--- NOTE | 2017-11-20 13:22 | Progress Note ---
Assessment and Plan -Acute hypoxic respiratory Failure, on oxygen via nasal cannula at 2 L with O2 saturation 100% -Bilateral pulmonary emboli, acute on chronic, worsening due to noncompliance: Patient has not been compliant with her anti-coagulation because of bleeding greater than emesis. Therefore has been having recurrent PE. Discussed at length with the thread roller suggested an agree that the patient will be on heparin so as to go ahead and do an endometrial ablation and prevents menorrhagia thereby assisting the patient compliance with anticoagulation on outpatient basis - -Vaginal bleeding with anticoagulation: consult yard warehouse worker For endometrial ablation tomorrow Screen 2 Units of Blood. 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 Consulted heme/onc for management -Rheumatoid arthritis: supportative care -Peripheral vascular disease; anticoagulation -Morbid obesity, bmi 61.4: consult Manager Financial Reporting -DVT prophylaxis: on heparin drip -Noncompliance: counseling done. Subjective Date of service: 11/20/17 Principal diagnosis: acute hypoxic respiratory failure, acute on chronic DVT Interval history: Patient seen and examined. She denies any shortness of breath. No fever. The vagina bleeding. Reviewed Laboratory and radiological data. Objective - Exam Narrative Exam: Constitutional: On oxygen via nasal cannula Well-nourished well-developed. In no distress Head: Normocephalic atraumatic Eyes: Pupils are equal round and reactive to light Nose: No enlarged turbinates, no septal deviation. Mouth: Moist mucous membranes. Neck: Supple no thyromegaly. No bruit. No JVD Heart: Regular rate and rhythm, S1-S2 abnormal. No rubs murmurs or gallop Lungs: Clear to auscultation bilaterally no rales or rhonchi Abdomen: Soft, nontender. Bowel sound are present. Extremities: No edema no cyanosis and no clubbing. Neuro: Alert oriented Oriented x3. No focal sensory or motor deficit. Skin: No rashes no hyperemic spots Psychiatry: Euthymic. Calm. - Constitutional Vitals: Vital Signs - 12hr 11/20/17 11/20/17 11/20/17 05:55 06:15 08:00 Temperature 98.0 F 97.9 F Pulse Rate 96 H 94 H Pulse Rate [ Anterior Bilateral Throughout] Respiratory 20 18 20 Rate Respiratory Rate [Anterior Bilateral Throughout] Blood Pressure 140/73 Blood Pressure 140/73 138/71 [Right] O2 Sat by Pulse 98 95 Oximetry 11/20/17 11/20/17 11/20/17 08:01 09:41 09:45 Temperature Pulse Rate 95 H Pulse Rate [ 92 H Anterior Bilateral Throughout] Respiratory 20 Rate Respiratory 18 Rate [Anterior Bilateral Throughout] Blood Pressure 138/71 Blood Pressure [Right] O2 Sat by Pulse 96 100 Oximetry 11/20/17 11/20/17 09:50 11:00 Temperature Pulse Rate 95 H Pulse Rate [ 90 Anterior Bilateral Throughout] Respiratory Rate Respiratory 18 Rate [Anterior Bilateral Throughout] Blood Pressure Blood Pressure [Right] O2 Sat by Pulse Oximetry - Labs CBC & Chem 7: 11/20/17 06:39 11/19/17 04:42 Labs: Abnormal lab results 11/19/17 11/19/17 11/20/17 Range/Units 13:27 23:00 06:39 WBC 11.2 H (4.5-11.0) K/mm3 MCV 74 L (79-97) fl MCH 23 L (28-32) pg RDW 18.1 H (13.2-15.2) % Heparin Anti-Xa Level < 0.10 L 0.18 L (0.3-0.7) U.I./ml
[2017-11-20] MEDS ORDERED: CYTOTEC VG ONE (20:00)
[2017-11-20] MEDS: HEPARIN/ 0.45% NACL-25,000 UNIT/500 ML 25,000 UNIT/500 ML BAG IV SCH (20:04)
[2017-11-21] MEDS: MORPHINE IV PRN ×2 (04:10→08:25)
[2017-11-21 06:08] LABS: Hemoglobin 10.6 gm/dl (10.1-14.3); Mean Corpuscular HGB Conc 31 % (30-34); Mean Corpuscular Volume 74 fl (79-97); Platelet Count 252 K/mm3 (140-440); Red Cell Distribution Width 18.5 % (13.2-15.2)
[2017-11-21 06:09] LABS: Mean Corpuscular Hemoglobin 23 pg (28-32)
[2017-11-21 06:19] LABS: INR 1.05 (0.87-1.13)
[2017-11-21] MEDS: DUONEB *Not for PRN Use IH SCH ×2 (08:03→20:53)
[2017-11-21] MEDS: SODIUM CHLORIDE FLUSH SYRINGE 10 ML IV SCH (09:12)
--- NOTE | 2017-11-21 09:17 | Hem/Onc Progress Note ---
Assessment and Plan At this time patient SAAS ARCHITECT to do ablation ablation and we will hold off Coumadin until all the potential procedures are done. Continue heparin. Patient understands that she will need to be on anticoagulation indefinitely and upon discharge, we will try to help her in any way we can. cbc stable Subjective Date of service: 11/21/17 Interval history: Patient feels fair. Appreciate be SAAS ARCHITECT evaluation. . Tolerating heparin. u/ Sound showing uterus to be normal in size. Ovaries not visualized. for ablation Objective - Exam Narrative Exam: on a stretcher - Constitutional Vitals: Last Vital Signs Temp 98.6 F 11/21/17 07:18 Pulse 98 H 11/21/17 08:19 Resp 20 11/21/17 08:25 BP 155/88 11/21/17 07:18 Pulse Ox 96 11/21/17 07:43 - Labs Lab Results: Laboratory Results - last 24 hr 11/20/17 11/21/17 11/21/17 23:38 05:42 05:44 WBC 11.4 H RBC 4.60 Hgb 10.6 Hct 34.0 MCV 74 L MCH 23 L MCHC 31 RDW 18.5 H Plt Count 252 PT 14.2 INR 1.05 Heparin Anti-Xa Level 0.10 L 11/21/17 07:53 WBC RBC Hgb Hct MCV MCH MCHC RDW Plt Count PT INR Heparin Anti-Xa Level 0.14 L
--- NOTE | 2017-11-21 11:30 | Anesthesia Consultation ---
Anesthesia Consult and Med Hx Date of service: 11/21/17 - Airway Anesthetic Teeth Evaluation: Good ROM Head & Neck: Adequate Mental/Hyoid Distance: Adequate Mallampati Class: Class III Intubation Access Assessment: Probably Good - Pulmonary Exam CTA: Yes - Cardiac Exam Cardiac Exam: RRR - Pre-Operative Health Status ASA Pre-Surgery Classification: ASA3 Proposed Anesthetic Plan: General - Pre-Anesthesia Comment Pre-Anesthesia Comments: 42y F with h/o morbid obesity and aTIII deficiency who presented with recurrent PE's with intermittent compliance on anticoagulation. Pt has also noted sig vag bleeding while on anticoagulation, now for hysteroscopy with novasure. She has been on a hep gtt on the floor. 10/2017 EKG - SR, tachycardic, RAD, poss LAE. 06/2017 TTE - LVEF 50-55%, no sig valvular abnormalities - Pulmonary Hx Smoking: No Hx Asthma: No COPD: No Hx Sleep Apnea: No - Cardiovascular System Hx Hypertension: No Hx Coronary Artery Disease: No - Central Nervous System Hx Seizures: No CVA: No - Gastrointestinal Hx Gastroesophageal Reflux Disease: No - Endocrine Hx Renal Disease: No Hx Liver Disease: No Hx Insulin Dependent Diabetes: No Hx Thyroid Disease: No - Hematic Hx Anemia: Yes (per HPI) - Other Systems Hx Alcohol Use: No Hx Cancer: No - Additional Comments Anesthesia Medical History Comments: no prev anes
--- NOTE | 2017-11-21 11:31 | Anesthesia Day of Surgery ---
Anesthesia Day of Surgery - Day of Surgery Patient Examined: Yes Patient H&P Reviewed: Yes Patient is NPO: Yes Beta Blockers: No Cardiac Clearance: Yes Pulmonary Clearance: Yes Dwayne's Test: N/A
[2017-11-21] MEDS ORDERED: XYLOCAINE MPF 2% ONE (11:38)
[2017-11-21] MEDS ORDERED: DIPRIVAN 10 MG/ML IV ONE (11:38)
[2017-11-21] MEDS ORDERED: DILAUDID ONE ×2 (11:39→13:34)
[2017-11-21] MEDS ORDERED: VERSED IV NR (12:00)
[2017-11-21] MEDS ORDERED: LACTATED RINGERS 1,000 ML IV SCH (12:00)
[2017-11-21] MEDS ORDERED: PEPCID PO NR (12:00)
[2017-11-21] MEDS ORDERED: DECADRON ONE (12:36)
[2017-11-21] MEDS ORDERED: ZOFRAN ONE (12:36)
[2017-11-21] MEDS ORDERED: NACL 0.9% IR ONE (13:00)
--- NOTE | 2017-11-21 13:19 | Operative Report ---
Operative Report Operative Report: Date of procedure: 11/21/2017 Pre-operative diagnosis: Dysfunctional uterine bleeding Post-operative diagnosis: Same as above Procedure name(s): Hysteroscopy; endometrial ablation via NovaSure; dilatation and curettage Surgeon: Rubina Fernandez M.D. Bleach Liquor Maker: None Anesthesia: General endotracheal anesthesia Pathology: Endometrial curettings Findings thickened lush endometrium; pathology consistent with proliferative endometrium no evidence of carcinoma Indication: 42-year-old 010 with a history of significant abnormal bleeding secondary to her anticoagulation therapy. Procedure The patient was taken to the operating room and given general tracheal anesthesia without complication. The patient was prepped and draped in a normal sterile fashion. A bivalve speculum was placed in the patient's vagina single-tooth tenaculums placed on the anterior lip of the cervix. The cervical os was dilated with graduated dilators. A uterine sound was inserted. The hysteroscope was then placed. Insufflation of the uterine cavity was performed with normal saline. Gen. survey of the uterine cavity revealed thickened lush endometrium; no intracavitary lesions were identified. The hysteroscope was then removed. A sharp curettage of the endometrial surface was performed. While the patient remained intubated, the endometrial specimen was sent to pathology for review with findings of proliferative endometrium and no evidence of carcinoma. The NovaSure device was then inserted. The endometrial length was 5.0 cm and the uterine width was 3.3 cm. The device was engaged and it passed the surveillance of the uterine cavity. The NovaSure device was then deployed with a energy of 91 W that lasted for 1 minute 15 seconds. The NovaSure device was then removed. The hysteroscope was again reinserted. There was evidence of charring of the endometrial surface. The remainder of the vaginal instruments were then removed atraumatically. The patient was then successfully extubated taken to the recovery room. All sponge laps and needle counts were correct 2.
[2017-11-21] MEDS: DILAUDID IV PRN ×4 (13:32→14:30)
[2017-11-21] MEDS ORDERED: NARCAN 0.4 MG/1 ML IV PRN (13:37)
[2017-11-21] MEDS ORDERED: DEMEROL IV PRN (13:37)
[2017-11-21] MEDS ORDERED: TORADOL IV PRN (13:42)
--- NOTE | 2017-11-21 14:15 | Post Anesthesia Evaluation ---
- Post Anesthesia Evaluation Patient Participated: Yes Airway Patent: Yes Stable Respiratory Function: Yes Nausea/Vomiting: No Temp > 96.8F: Yes Pain Manageable: Yes Adequeate Hydration: Yes Anesthesia Complications: No Block Receding Appropriately: Not Applicable Patient on Ventilator: No
--- NOTE | 2017-11-21 14:18 | Progress Note ---
Assessment and Plan Assessment and plan: Patient is 42 yo woman with a history of recurrent PE, Antithrombin III deficiency, Morbid obese, RA and PVD who was discharged on 10/30/17 with lovenox ( she did not get because of cost) and warfarin, who now pw SOB after not taking her Coumadin due to vaginal bleeding, Xarelto also caused vaginal bleeding. Regarding Last pap smear; pt states, "it's been awhile." * CTA chest IMPRESSION: Interval increase in right lower lobe pulmonary emboli and stable appearance of a emboli and a remaining lobes. No acute pulmonary infiltrates. -Acute hypoxic respiratory Failure, vm 35% continue o2 therapy -Bilateral pulmonary emboli, acute on chronic, worsening due to noncompliance: i sat down w/patient, explained the risk, benefits and seriousness of her noncompliance; her main excuses are no health insurance and no income, continue heparin drip -Antithrombin III deficiency: treat with a/c, consult heme/onc for management -Rheumatoid arthritis: supportative care -Peripheral vascular disease; a/c -Morbid obesity, bmi 61.4: consult Grid Inspector -DVT prophylaxis: on heparin drip -Noncompliance: counseling done. -Vaginal bleeding with anticoagulation: consult copy preparer Going to OR today. Start a/c bridge tomorrow History Interval history: Patient was seen and examined. Follow-up on current diagnosis of sob and cp, slightly better. Overnight uneventful. Patient denies any nausea/vomiting or severe headaches. Imaging, nursing note, chart, labs and old chart reviewed. Discussed with patient. Hospitalist Physical - Physical exam Narrative exam: GEN: ill appearing, NAD, Awake, Alert, Orientated x 3, morbid obese bmi 61.4 HEENT: NCAT, EOMI, PERRL, OP Clear NECK: supple, no adenopathy, no thyromegaly, no JVD CVS/HEART: RRR, normal S1S2, pulses present bilaterally CHEST/LUNGS: diminished bilateral, Symmetrical chest expansion, good air entry bilaterally GI/Abdomen: soft, NTND, good bowel sounds, no guarding or rebound /Bladder: no suprapubic tenderness, no CVA or paraspinal tenderness EXT/Skin: no c/c/e, no obvious rash MSK: FROM x 4 Neuro: CN 2-12 grossly intact, no new focal deficits Psych: calm - Constitutional Vitals: Temp Pulse Resp BP Pulse Ox 97.6 F 91 H 15 128/80 98 11/21/17 13:20 11/21/17 14:00 11/21/17 14:10 11/21/17 14:00 11/21/17 14:00 Results - Labs CBC & Chem 7: 11/21/17 05:44 11/19/17 04:42 Labs: Laboratory Last Values WBC 11.4 K/mm3 (4.5-11.0) H 11/21/17 05:44 RBC 4.60 M/mm3 (3.65-5.03) 11/21/17 05:44 Hgb 10.6 gm/dl (10.1-14.3) 11/21/17 05:44 Hct 34.0 % (30.3-42.9) 11/21/17 05:44 MCV 74 fl (79-97) L 11/21/17 05:44 MCH 23 pg (28-32) L 11/21/17 05:44 MCHC 31 % (30-34) 11/21/17 05:44 RDW 18.5 % (13.2-15.2) H 11/21/17 05:44 Plt Count 252 K/mm3 (140-440) 11/21/17 05:44 Lymph % (Auto) 22.2 % (13.4-35.0) 11/18/17 02:06 [place] % (Auto) 7.3 % (0.0-7.3) 11/18/17 02:06 Eos % (Auto) 0.7 % (0.0-4.3) 11/18/17 02:06 Baso % (Auto) 0.6 % (0.0-1.8) 11/18/17 02:06 Lymph # 2.4 K/mm3 (1.2-5.4) 11/18/17 02:06 [place] # 0.8 K/mm3 (0.0-0.8) 11/18/17 02:06 Eos # 0.1 K/mm3 (0.0-0.4) 11/18/17 02:06 Baso # 0.1 K/mm3 (0.0-0.1) 11/18/17 02:06 Seg Neutrophils % 69.2 % (40.0-70.0) 11/18/17 02:06 Seg Neutrophils # 7.5 K/mm3 (1.8-7.7) 11/18/17 02:06 PT 14.2 Sec. (12.2-14.9) 11/21/17 05:42 INR 1.05 (0.87-1.13) 11/21/17 05:42 APTT 33.9 Sec. (24.2-36.6) 11/17/17 20:51 Heparin Anti-Xa Level 0.14 U.I./ml (0.3-0.7) L 11/21/17 07:53 POC ABG pH 7.412 (7.35-7.45) 11/17/17 20:10 POC ABG pCO2 36.3 (35-45) 11/17/17 20:10 POC ABG pO2 86 (80-105) 11/17/17 20:10 POC ABG HCO3 23.2 11/17/17 20:10 POC ABG Total CO2 24 11/17/17 20:10 POC ABG O2 Sat 97 11/17/17 20:10 POC ABG Base Excess -1 11/17/17 20:10 FiO2 60 % 11/17/17 20:10 Sodium 145 mmol/L (137-145) 11/19/17 04:42 Potassium 3.7 mmol/L (3.6-5.0) 11/19/17 04:42 Chloride 107.2 mmol/L (98-107) H 11/19/17 04:42 Carbon Dioxide 22 mmol/L (22-30) 11/19/17 04:42 Anion Gap 20 mmol/L 11/19/17 04:42 BUN 8 mg/dL (7-17) 11/19/17 04:42 Creatinine 0.8 mg/dL (0.7-1.2) 11/19/17 04:42 Estimated GFR > 60 ml/min 11/19/17 04:42 BUN/Creatinine Ratio 10 % 11/19/17 04:42 Glucose 116 mg/dL (65-100) H 11/19/17 04:42 Calcium 8.7 mg/dL (8.4-10.2) 11/19/17 04:42 Iron 36 ug/dL (37-170) L 11/18/17 16:06 TIBC 243 mcg/dL (250-450) L 11/18/17 16:06 % Saturation 14.81 % 11/18/17 16:06 Transferrin 211 mg/dl (192-382) 11/18/17 16:06 Ferritin 49.1 ng/mL (13.0-400.0) 11/18/17 16:06 Total Bilirubin 0.30 mg/dL (0.1-1.2) 11/17/17 19:34 AST 18 units/L (5-40) 11/17/17 19:34 ALT 10 units/L (7-56) 11/17/17 19:34 Alkaline Phosphatase 73 units/L (35-129) 11/17/17 19:34 Troponin T 0.078 ng/mL (0.00-0.029) H 11/17/17 19:34 Total Protein 7.7 g/dL (6.3-8.2) 11/17/17 19:34 Albumin 3.4 g/dL (3.9-5) L 11/17/17 19:34 Albumin/Globulin Ratio 0.8 % 11/17/17 19:34 Triglycerides 88 mg/dL (2-149) 11/17/17 19:34 Cholesterol 180 mg/dL (50-199) 11/17/17 19:34 LDL Cholesterol Direct 124 mg/dL (50-130) 11/17/17 19:34 HDL Cholesterol 62 mg/dL (40-59) H 11/17/17 19:34 Cholesterol/HDL Ratio 2.90 % 11/17/17 19:34 HCG, Qual Negative (Negative) 11/17/17 19:34 Urine Color Straw (Yellow) 11/17/17 19:45 Urine Turbidity Clear (Clear) 11/17/17 19:45 Urine pH 6.0 (5.0-7.0) 11/17/17 19:45 Ur Specific [place] 1.004 (1.003-1.030) 11/17/17 19:45 Urine Protein <15 mg/dl mg/dL (Negative) 11/17/17 19:45 Urine Glucose (UA) Neg mg/dL (Negative) 11/17/17 19:45 Urine Ketones Neg mg/dL (Negative) 11/17/17 19:45 Urine Blood Mod (Negative) 11/17/17 19:45 Urine Nitrite Neg (Negative) 11/17/17 19:45 Urine Bilirubin Neg (Negative) 11/17/17 19:45 Urine Urobilinogen < 2.0 mg/dL (<2.0) 11/17/17 19:45 Ur Leukocyte Esterase Neg (Negative) 11/17/17 19:45 Urine WBC (Auto) 0.0 /HPF (0.0-6.0) 11/17/17 19:45 Urine RBC (Auto) 3.0 /HPF (0.0-6.0) 11/17/17 19:45 Urine Opiates Screen Presumptive positive 11/17/17 19:45 Urine Methadone Screen Presumptive negative 11/17/17 19:45 Ur Barbiturates Screen Presumptive negative 11/17/17 19:45 Ur Phencyclidine Scrn Presumptive negative 11/17/17 19:45 Ur Amphetamines Screen Presumptive negative 11/17/17 19:45 U Benzodiazepines Scrn Presumptive positive 11/17/17 19:45 Urine Cocaine Screen Presumptive negative 11/17/17 19:45 U Marijuana (THC) Screen Presumptive negative 11/17/17 19:45 Drugs of Abuse Note Disclamer 11/17/17 19:45 Blood Type O POSITIVE 11/21/17 11:50 Antibody Screen Negative 11/21/17 11:50
[2017-11-22] MEDS: HEPARIN/ 0.45% NACL-25,000 UNIT/500 ML 25,000 UNIT/500 ML BAG IV SCH (00:18)
[2017-11-22] MEDS: MORPHINE IV PRN ×2 (00:46→10:04)
[2017-11-22] MEDS: SODIUM CHLORIDE FLUSH SYRINGE 10 ML IV SCH ×3 (00:47→22:33)
[2017-11-22 08:11] LABS: INR 1.11 (0.87-1.13)
--- NOTE | 2017-11-22 08:49 | Progress Note ---
Assessment and Plan - Patient Problems (1) Dysfunctional uterine bleeding Current Visit: Yes Status: Acute Plan to address problem: Status post endometrial ablation Patient is doing well Patient is instructed to follow-up in [address] Sung (2) Anovulation Current Visit: Yes Status: Acute (3) Bilateral pulmonary embolism Current Visit: No Status: Acute Subjective - Subjective Date of service: 11/22/17 Principal diagnosis: acute hypoxic respiratory failure, acute on chronic DVT Interval history: Patient is without any significant complaints. She scars currently postoperative day #1 status post an endometrial ablation and dilatation and curettage. Intraoperative review of the pathology revealed evidence of proliferative endometrium and no evidence of carcinoma. Postoperative expectations were discussed with the patient. Patient reports: appetite normal, voiding normally, pain well controlled Objective - Vital Signs Latest vital signs: Vital Signs Temp Pulse Pulse Pulse Resp Resp Resp 11/22/17 07:29 97.9 F 94 H 22 11/22/17 04:37 92 H 11/22/17 04:35 98.1 F 93 H 20 11/22/17 04:10 90 11/22/17 04:07 90 11/21/17 23:57 97.8 F 92 H 11/21/17 21:00 11/21/17 20:54 91 H 16 11/21/17 19:45 98.7 F 90 20 11/21/17 19:44 90 11/21/17 15:00 98.6 F 82 16 11/21/17 14:45 86 13 11/21/17 14:30 88 12 11/21/17 14:15 88 15 11/21/17 14:10 15 11/21/17 14:00 91 H 14 11/21/17 13:52 15 11/21/17 13:45 92 H 13 11/21/17 13:32 14 11/21/17 13:30 92 H 17 11/21/17 13:25 94 H 23 11/21/17 13:20 97.6 F 92 H 12 11/21/17 11:00 98.6 F 87 16 11/21/17 10:00 99 H 11/21/17 09:58 20 11/21/17 08:55 20 BP BP Pulse Ox 11/22/17 07:29 139/67 94 11/22/17 04:37 95 11/22/17 04:35 127/66 96 11/22/17 04:10 11/22/17 04:07 11/21/17 23:57 105/61 96 11/21/17 21:00 98 11/21/17 20:54 11/21/17 19:45 145/68 93 11/21/17 19:44 94 11/21/17 15:00 118/75 96 11/21/17 14:45 122/76 97 11/21/17 14:30 133/69 98 11/21/17 14:15 138/74 96 11/21/17 14:10 11/21/17 14:00 128/80 98 11/21/17 13:52 11/21/17 13:45 120/79 93 11/21/17 13:32 11/21/17 13:30 135/78 95 11/21/17 13:25 129/63 87 11/21/17 13:20 123/90 88 11/21/17 11:00 123/76 95 11/21/17 10:00 11/21/17 09:58 11/21/17 08:55 Intake and Output 11/21/17 11/22/17 11/22/17 22:59 06:59 14:59 Intake Total 178.95 10 Balance 178.95 10 Intake: IV 178.95 10 HEPARIN/ 0.45% NACL-25, 178.95 000 UNIT/500 ML 25,000 unit In 500 ml @ 1,500 UNITS/HR 30 mls/hr IV TITR JOSE Rx#:[id number] Left Antecubital 10 Other: Voiding Method Toilet # Voids Void 1 - Labs Labs: Abnormal lab results 11/21/17 11/21/17 Range/Units 07:53 21:53 Heparin Anti-Xa Level 0.14 L 0.25 L (0.3-0.7) U.I./ml
[2017-11-22] MEDS: DUONEB *Not for PRN Use IH SCH ×2 (09:07→20:49)
--- NOTE | 2017-11-22 10:25 | Hem/Onc Progress Note ---
Assessment and Plan start coumadin Continue heparin till inr2-3. Patient understands that she will need to be on anticoagulation indefinitely and upon discharge, we will try to help her in any way we can. cbc stable Subjective Date of service: 11/22/17 Interval history: Patient feels fair. Appreciate be WELDING PRODUCTION SUPERVISOR evaluation. . Tolerating heparin. u/ Sound showing uterus to be normal in size. Ovaries not visualized. s/p ablation- tali well Objective - Constitutional Vitals: Last Vital Signs Temp 97.9 F 11/22/17 07:29 Pulse 89 11/22/17 09:18 Resp 18 11/22/17 09:18 BP 139/67 11/22/17 07:29 Pulse Ox 98 11/22/17 09:07 Pain Intensity (0-10): denies any pain General appearance: no acute distress Performance status: 2- selfcare, ambulatory - Neck Neck: supple - Respiratory Respiratory: bilateral: diminished - Cardiovascular Rhythm: regular - Labs Lab Results: Laboratory Results - last 24 hr 11/21/17 11/21/17 11/22/17 11:50 21:53 07:44 PT 14.9 INR 1.11 Heparin Anti-Xa Level 0.25 L Blood Type O POSITIVE Antibody Screen Negative 11/22/17 07:44 PT INR Heparin Anti-Xa Level 0.34 Blood Type Antibody Screen
--- NOTE | 2017-11-22 10:57 | Progress Note ---
Assessment and Plan Assessment and plan: Patient is 42 yo woman with a history of recurrent PE, Antithrombin III deficiency, Morbid obese, RA and PVD who was discharged on 10/30/17 with lovenox ( she did not get because of cost) and warfarin, who now pw SOB after not taking her Coumadin due to vaginal bleeding, Xarelto also caused vaginal bleeding. Regarding Last pap smear; pt states, "it's been awhile." * CTA chest IMPRESSION: Interval increase in right lower lobe pulmonary emboli and stable appearance of a emboli and a remaining lobes. No acute pulmonary infiltrates. -Acute hypoxic respiratory Failure, vm 35% continue o2 therapy -Bilateral pulmonary emboli, acute on chronic, worsening due to noncompliance: i sat down w/patient, explained the risk, benefits and seriousness of her noncompliance; her main excuses are no health insurance and no income, continue heparin drip -Antithrombin III deficiency: treat with a/c, consult heme/onc for management -Rheumatoid arthritis: supportative care -Peripheral vascular disease; a/c -Morbid obesity, bmi 61.4: consult Submarine Advisory Team Watch Officer -DVT prophylaxis: on heparin drip -Noncompliance: counseling done. -Vaginal bleeding with anticoagulation: consult custodial supervisor s/p Hysteroscopy, endometrial ablation via Novasure, d-n-c 11/21/17 Re-start a/c bridge today. She did receive one dose of Warfarin 10mg on . Patient will need to be therapeutic prior to discharge, she should not be sent home on lovenox bridge again. patient asking to resume home morphine er 30mg bid and roxicodone 5mg tid for RA and hidradrentitis History Interval history: Patient was seen and examined. Follow-up on current diagnosis of sob and cp, slightly better. Overnight uneventful. Patient denies any nausea/vomiting or severe headaches. Imaging, nursing note, chart, labs and old chart reviewed. Discussed with patient. Hospitalist Physical - Physical exam Narrative exam: GEN: ill appearing, NAD, Awake, Alert, Orientated x 3, morbid obese bmi 61.4 HEENT: NCAT, EOMI, PERRL, OP Clear NECK: supple, no adenopathy, no thyromegaly, no JVD CVS/HEART: RRR, normal S1S2, pulses present bilaterally CHEST/LUNGS: diminished bilateral, Symmetrical chest expansion, good air entry bilaterally GI/Abdomen: soft, NTND, good bowel sounds, no guarding or rebound /Bladder: no suprapubic tenderness, no CVA or paraspinal tenderness EXT/Skin: no c/c/e, no obvious rash MSK: FROM x 4 Neuro: CN 2-12 grossly intact, no new focal deficits Psych: calm - Constitutional Vitals: Temp Pulse Resp BP Pulse Ox 97.9 F 89 18 139/67 98 11/22/17 07:29 11/22/17 09:18 11/22/17 09:18 11/22/17 07:29 11/22/17 09:07 Results - Labs CBC & Chem 7: 11/21/17 05:44 11/19/17 04:42 Labs: Laboratory Last Values WBC 11.4 K/mm3 (4.5-11.0) H 11/21/17 05:44 RBC 4.60 M/mm3 (3.65-5.03) 11/21/17 05:44 Hgb 10.6 gm/dl (10.1-14.3) 11/21/17 05:44 Hct 34.0 % (30.3-42.9) 11/21/17 05:44 MCV 74 fl (79-97) L 11/21/17 05:44 MCH 23 pg (28-32) L 11/21/17 05:44 MCHC 31 % (30-34) 11/21/17 05:44 RDW 18.5 % (13.2-15.2) H 11/21/17 05:44 Plt Count 252 K/mm3 (140-440) 11/21/17 05:44 Lymph % (Auto) 22.2 % (13.4-35.0) 11/18/17 02:06 [place] % (Auto) 7.3 % (0.0-7.3) 11/18/17 02:06 Eos % (Auto) 0.7 % (0.0-4.3) 11/18/17 02:06 Baso % (Auto) 0.6 % (0.0-1.8) 11/18/17 02:06 Lymph # 2.4 K/mm3 (1.2-5.4) 11/18/17 02:06 [place] # 0.8 K/mm3 (0.0-0.8) 11/18/17 02:06 Eos # 0.1 K/mm3 (0.0-0.4) 11/18/17 02:06 Baso # 0.1 K/mm3 (0.0-0.1) 11/18/17 02:06 Seg Neutrophils % 69.2 % (40.0-70.0) 11/18/17 02:06 Seg Neutrophils # 7.5 K/mm3 (1.8-7.7) 11/18/17 02:06 PT 14.9 Sec. (12.2-14.9) 11/22/17 07:44 INR 1.11 (0.87-1.13) 11/22/17 07:44 APTT 33.9 Sec. (24.2-36.6) 11/17/17 20:51 Heparin Anti-Xa Level 0.34 U.I./ml (0.3-0.7) 11/22/17 07:44 POC ABG pH 7.412 (7.35-7.45) 11/17/17 20:10 POC ABG pCO2 36.3 (35-45) 11/17/17 20:10 POC ABG pO2 86 (80-105) 11/17/17 20:10 POC ABG HCO3 23.2 11/17/17 20:10 POC ABG Total CO2 24 11/17/17 20:10 POC ABG O2 Sat 97 11/17/17 20:10 POC ABG Base Excess -1 11/17/17 20:10 FiO2 60 % 11/17/17 20:10 Sodium 145 mmol/L (137-145) 11/19/17 04:42 Potassium 3.7 mmol/L (3.6-5.0) 11/19/17 04:42 Chloride 107.2 mmol/L (98-107) H 11/19/17 04:42 Carbon Dioxide 22 mmol/L (22-30) 11/19/17 04:42 Anion Gap 20 mmol/L 11/19/17 04:42 BUN 8 mg/dL (7-17) 11/19/17 04:42 Creatinine 0.8 mg/dL (0.7-1.2) 11/19/17 04:42 Estimated GFR > 60 ml/min 11/19/17 04:42 BUN/Creatinine Ratio 10 % 11/19/17 04:42 Glucose 116 mg/dL (65-100) H 11/19/17 04:42 Calcium 8.7 mg/dL (8.4-10.2) 11/19/17 04:42 Iron 36 ug/dL (37-170) L 11/18/17 16:06 TIBC 243 mcg/dL (250-450) L 11/18/17 16:06 % Saturation 14.81 % 11/18/17 16:06 Transferrin 211 mg/dl (192-382) 11/18/17 16:06 Ferritin 49.1 ng/mL (13.0-400.0) 11/18/17 16:06 Total Bilirubin 0.30 mg/dL (0.1-1.2) 11/17/17 19:34 AST 18 units/L (5-40) 11/17/17 19:34 ALT 10 units/L (7-56) 11/17/17 19:34 Alkaline Phosphatase 73 units/L (35-129) 11/17/17 19:34 Troponin T 0.078 ng/mL (0.00-0.029) H 11/17/17 19:34 Total Protein 7.7 g/dL (6.3-8.2) 11/17/17 19:34 Albumin 3.4 g/dL (3.9-5) L 11/17/17 19:34 Albumin/Globulin Ratio 0.8 % 11/17/17 19:34 Triglycerides 88 mg/dL (2-149) 11/17/17 19:34 Cholesterol 180 mg/dL (50-199) 11/17/17 19:34 LDL Cholesterol Direct 124 mg/dL (50-130) 11/17/17 19:34 HDL Cholesterol 62 mg/dL (40-59) H 11/17/17 19:34 Cholesterol/HDL Ratio 2.90 % 11/17/17 19:34 HCG, Qual Negative (Negative) 11/17/17 19:34 Urine Color Straw (Yellow) 11/17/17 19:45 Urine Turbidity Clear (Clear) 11/17/17 19:45 Urine pH 6.0 (5.0-7.0) 11/17/17 19:45 Ur Specific [place] 1.004 (1.003-1.030) 11/17/17 19:45 Urine Protein <15 mg/dl mg/dL (Negative) 11/17/17 19:45 Urine Glucose (UA) Neg mg/dL (Negative) 11/17/17 19:45 Urine Ketones Neg mg/dL (Negative) 11/17/17 19:45 Urine Blood Mod (Negative) 11/17/17 19:45 Urine Nitrite Neg (Negative) 11/17/17 19:45 Urine Bilirubin Neg (Negative) 11/17/17 19:45 Urine Urobilinogen < 2.0 mg/dL (<2.0) 11/17/17 19:45 Ur Leukocyte Esterase Neg (Negative) 11/17/17 19:45 Urine WBC (Auto) 0.0 /HPF (0.0-6.0) 11/17/17 19:45 Urine RBC (Auto) 3.0 /HPF (0.0-6.0) 11/17/17 19:45 Urine Opiates Screen Presumptive positive 11/17/17 19:45 Urine Methadone Screen Presumptive negative 11/17/17 19:45 Ur Barbiturates Screen Presumptive negative 11/17/17 19:45 Ur Phencyclidine Scrn Presumptive negative 11/17/17 19:45 Ur Amphetamines Screen Presumptive negative 11/17/17 19:45 U Benzodiazepines Scrn Presumptive positive 11/17/17 19:45 Urine Cocaine Screen Presumptive negative 11/17/17 19:45 U Marijuana (THC) Screen Presumptive negative 11/17/17 19:45 Drugs of Abuse Note Disclamer 11/17/17 19:45 Blood Type O POSITIVE 11/21/17 11:50 Antibody Screen Negative 11/21/17 11:50
[2017-11-22] MEDS: COUMADIN PO SCH (17:56)
[2017-11-22] MEDS: ROXICODONE PO PRN (17:56)
[2017-11-22] MEDS: MS CONTIN ER PO SCH (22:32)
[2017-11-23 07:33] LABS: Hematocrit 30.9 % (30.3-42.9); Hemoglobin 9.8 gm/dl (10.1-14.3); Mean Corpuscular HGB Conc 32 % (30-34); Mean Corpuscular Volume 74 fl (79-97); Platelet Count 229 K/mm3 (140-440); Red Cell Distribution Width 18.1 % (13.2-15.2)
[2017-11-23 07:39] LABS: BUN/Creatinine Ratio 17; Blood Urea Nitrogen 17 mg/dL (7-17); Calcium 8.4 mg/dL (8.4-10.2); Hemolysis Index 2
[2017-11-23 07:42] LABS: INR 1.11 (0.87-1.13)
[2017-11-23 07:45] LABS: Mean Corpuscular Hemoglobin 23 pg (28-32)
[2017-11-23] MEDS: DUONEB *Not for PRN Use IH SCH ×2 (08:51→19:23)
--- NOTE | 2017-11-23 09:12 | Hem/Onc Progress Note ---
Assessment and Plan on coumadin Continue heparin till inr2-3. Patient understands that she will need to be on anticoagulation indefinitely and upon discharge, we will try to help her in any way we can. cbc stable-slight drop in hemoglobin today Subjective Date of service: 11/23/17 Interval history: Patient feels fair. 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 . Tolerating heparin. u/ Sound showing uterus to be normal in size. Ovaries not visualized. s/p ablation- tali well c/o abd achiness No active bleeding Objective - Constitutional Vitals: Last Vital Signs Temp 98.3 F 11/23/17 04:17 Pulse 84 11/23/17 04:33 Resp 18 11/23/17 04:17 BP 122/65 11/23/17 04:17 Pulse Ox 95 11/23/17 04:17 General appearance: no acute distress Performance status: 2- selfcare, ambulatory - Neck Neck: supple - Respiratory Respiratory effort: Positive: normal - Cardiovascular Rhythm: regular Extremity abnormal: other (SCDs) - Gastrointestinal General gastrointestinal: Present: soft - Labs Lab Results: Laboratory Results - last 24 hr 11/22/17 11/23/17 11/23/17 19:30 07:02 07:02 WBC 11.5 H RBC 4.20 Hgb 9.8 L Hct 30.9 MCV 74 L MCH 23 L MCHC 32 RDW 18.1 H Plt Count 229 PT 14.9 INR 1.11 Heparin Anti-Xa Level 0.26 L Sodium Potassium Chloride Carbon Dioxide Anion Gap BUN Creatinine Estimated GFR BUN/Creatinine Ratio Glucose Calcium 11/23/17 07:02 WBC RBC Hgb Hct MCV MCH MCHC RDW Plt Count PT INR Heparin Anti-Xa Level Sodium 139 Potassium 3.8 Chloride 104.9 Carbon Dioxide 23 Anion Gap 15 BUN 17 Creatinine 1.0 Estimated GFR > 60 BUN/Creatinine Ratio 17 Glucose 99 Calcium 8.4
--- NOTE | 2017-11-23 09:37 | Progress Note ---
Assessment and Plan Assessment and plan: Patient is 42 yo woman with a history of recurrent PE, Antithrombin III deficiency, Morbid obese, RA and PVD who was discharged on 10/30/17 with lovenox ( she did not get because of cost) and warfarin, who now pw SOB after not taking her Coumadin due to vaginal bleeding, Xarelto also caused vaginal bleeding. Regarding Last pap smear; pt states, "it's been awhile." * CTA chest IMPRESSION: Interval increase in right lower lobe pulmonary emboli and stable appearance of a emboli and a remaining lobes. No acute pulmonary infiltrates. -Acute hypoxic respiratory Failure, vm 35% continue o2 therapy -Bilateral pulmonary emboli, acute on chronic, worsening due to noncompliance: i sat down w/patient, explained the risk, benefits and seriousness of her noncompliance; her main excuses are no health insurance and no income, continue heparin drip -Antithrombin III deficiency: treat with a/c, consult heme/onc for management -DUB s/p Hysteroscopy, endometrial ablation via Novasure, d-n-c on 11/21/17 -Rheumatoid arthritis: supportative care -Peripheral vascular disease; a/c -Morbid obesity, bmi 61.4: consult Manager Management -DVT prophylaxis: on heparin drip -Noncompliance: counseling done. Re-started anticoagulation bridge on 11/23/17. She did receive one dose of Warfarin 10mg on 11/18/17. Patient will need to be therapeutic prior to discharge , she should not be sent home on lovenox bridge again. Patient is asking to resume home morphine er 30mg bid and roxicodone 5mg tid for RA and hidradrentitis Day 07/30 anticoagulation overlap History Interval history: Patient was seen and examined. Follow-up on current diagnosis of sob and cp, slightly better. Overnight uneventful. Patient denies any nausea/vomiting or severe headaches. Imaging, nursing note, chart, labs and old chart reviewed. Discussed with patient. Hospitalist Physical - Physical exam Narrative exam: GEN: ill appearing, NAD, Awake, Alert, Orientated x 3, morbid obese bmi 61.4 HEENT: NCAT, EOMI, PERRL, OP Clear NECK: supple, no adenopathy, no thyromegaly, no JVD CVS/HEART: RRR, normal S1S2, pulses present bilaterally CHEST/LUNGS: diminished bilateral, Symmetrical chest expansion, good air entry bilaterally GI/Abdomen: soft, NTND, good bowel sounds, no guarding or rebound /Bladder: no suprapubic tenderness, no CVA or paraspinal tenderness EXT/Skin: no c/c/e, no obvious rash MSK: FROM x 4 Neuro: CN 2-12 grossly intact, no new focal deficits Psych: calm - Constitutional Vitals: Temp Pulse Resp BP Pulse Ox 98.3 F 84 18 122/65 95 11/23/17 04:17 11/23/17 04:33 11/23/17 04:17 11/23/17 04:17 11/23/17 04:17 Results - Labs CBC & Chem 7: 11/23/17 07:02 11/23/17 07:02 Labs: Laboratory Last Values WBC 11.5 K/mm3 (4.5-11.0) H 11/23/17 07:02 RBC 4.20 M/mm3 (3.65-5.03) 11/23/17 07:02 Hgb 9.8 gm/dl (10.1-14.3) L 11/23/17 07:02 Hct 30.9 % (30.3-42.9) 11/23/17 07:02 MCV 74 fl (79-97) L 11/23/17 07:02 MCH 23 pg (28-32) L 11/23/17 07:02 MCHC 32 % (30-34) 11/23/17 07:02 RDW 18.1 % (13.2-15.2) H 11/23/17 07:02 Plt Count 229 K/mm3 (140-440) 11/23/17 07:02 Lymph % (Auto) 22.2 % (13.4-35.0) 11/18/17 02:06 [place] % (Auto) 7.3 % (0.0-7.3) 11/18/17 02:06 Eos % (Auto) 0.7 % (0.0-4.3) 11/18/17 02:06 Baso % (Auto) 0.6 % (0.0-1.8) 11/18/17 02:06 Lymph # 2.4 K/mm3 (1.2-5.4) 11/18/17 02:06 [place] # 0.8 K/mm3 (0.0-0.8) 11/18/17 02:06 Eos # 0.1 K/mm3 (0.0-0.4) 11/18/17 02:06 Baso # 0.1 K/mm3 (0.0-0.1) 11/18/17 02:06 Seg Neutrophils % 69.2 % (40.0-70.0) 11/18/17 02:06 Seg Neutrophils # 7.5 K/mm3 (1.8-7.7) 11/18/17 02:06 PT 14.9 Sec. (12.2-14.9) 11/23/17 07:02 INR 1.11 (0.87-1.13) 11/23/17 07:02 APTT 33.9 Sec. (24.2-36.6) 11/17/17 20:51 Heparin Anti-Xa Level 0.26 U.I./ml (0.3-0.7) L 11/22/17 19:30 POC ABG pH 7.412 (7.35-7.45) 11/17/17 20:10 POC ABG pCO2 36.3 (35-45) 11/17/17 20:10 POC ABG pO2 86 (80-105) 11/17/17 20:10 POC ABG HCO3 23.2 11/17/17 20:10 POC ABG Total CO2 24 11/17/17 20:10 POC ABG O2 Sat 97 11/17/17 20:10 POC ABG Base Excess -1 11/17/17 20:10 FiO2 60 % 11/17/17 20:10 Sodium 139 mmol/L (137-145) 11/23/17 07:02 Potassium 3.8 mmol/L (3.6-5.0) 11/23/17 07:02 Chloride 104.9 mmol/L (98-107) 11/23/17 07:02 Carbon Dioxide 23 mmol/L (22-30) 11/23/17 07:02 Anion Gap 15 mmol/L 11/23/17 07:02 BUN 17 mg/dL (7-17) 11/23/17 07:02 Creatinine 1.0 mg/dL (0.7-1.2) 11/23/17 07:02 Estimated GFR > 60 ml/min 11/23/17 07:02 BUN/Creatinine Ratio 17 % 11/23/17 07:02 Glucose 99 mg/dL (65-100) 11/23/17 07:02 Calcium 8.4 mg/dL (8.4-10.2) 11/23/17 07:02 Iron 36 ug/dL (37-170) L 11/18/17 16:06 TIBC 243 mcg/dL (250-450) L 11/18/17 16:06 % Saturation 14.81 % 11/18/17 16:06 Transferrin 211 mg/dl (192-382) 11/18/17 16:06 Ferritin 49.1 ng/mL (13.0-400.0) 11/18/17 16:06 Total Bilirubin 0.30 mg/dL (0.1-1.2) 11/17/17 19:34 AST 18 units/L (5-40) 11/17/17 19:34 ALT 10 units/L (7-56) 11/17/17 19:34 Alkaline Phosphatase 73 units/L (35-129) 11/17/17 19:34 Troponin T 0.078 ng/mL (0.00-0.029) H 11/17/17 19:34 Total Protein 7.7 g/dL (6.3-8.2) 11/17/17 19:34 Albumin 3.4 g/dL (3.9-5) L 11/17/17 19:34 Albumin/Globulin Ratio 0.8 % 11/17/17 19:34 Triglycerides 88 mg/dL (2-149) 11/17/17 19:34 Cholesterol 180 mg/dL (50-199) 11/17/17 19:34 LDL Cholesterol Direct 124 mg/dL (50-130) 11/17/17 19:34 HDL Cholesterol 62 mg/dL (40-59) H 11/17/17 19:34 Cholesterol/HDL Ratio 2.90 % 11/17/17 19:34 HCG, Qual Negative (Negative) 11/17/17 19:34 Urine Color Straw (Yellow) 11/17/17 19:45 Urine Turbidity Clear (Clear) 11/17/17 19:45 Urine pH 6.0 (5.0-7.0) 11/17/17 19:45 Ur Specific [place] 1.004 (1.003-1.030) 11/17/17 19:45 Urine Protein <15 mg/dl mg/dL (Negative) 11/17/17 19:45 Urine Glucose (UA) Neg mg/dL (Negative) 11/17/17 19:45 Urine Ketones Neg mg/dL (Negative) 11/17/17 19:45 Urine Blood Mod (Negative) 11/17/17 19:45 Urine Nitrite Neg (Negative) 11/17/17 19:45 Urine Bilirubin Neg (Negative) 11/17/17 19:45 Urine Urobilinogen < 2.0 mg/dL (<2.0) 11/17/17 19:45 Ur Leukocyte Esterase Neg (Negative) 11/17/17 19:45 Urine WBC (Auto) 0.0 /HPF (0.0-6.0) 11/17/17 19:45 Urine RBC (Auto) 3.0 /HPF (0.0-6.0) 11/17/17 19:45 Urine Opiates Screen Presumptive positive 11/17/17 19:45 Urine Methadone Screen Presumptive negative 11/17/17 19:45 Ur Barbiturates Screen Presumptive negative 11/17/17 19:45 Ur Phencyclidine Scrn Presumptive negative 11/17/17 19:45 Ur Amphetamines Screen Presumptive negative 11/17/17 19:45 U Benzodiazepines Scrn Presumptive positive 11/17/17 19:45 Urine Cocaine Screen Presumptive negative 11/17/17 19:45 U Marijuana (THC) Screen Presumptive negative 11/17/17 19:45 Drugs of Abuse Note Disclamer 11/17/17 19:45 Blood Type O POSITIVE 11/21/17 11:50 Antibody Screen Negative 11/21/17 11:50
[2017-11-23] MEDS: ROXICODONE PO PRN (14:17)
[2017-11-23] MEDS: MS CONTIN ER PO SCH ×2 (14:19→22:21)
[2017-11-23] MEDS: SODIUM CHLORIDE FLUSH SYRINGE 10 ML IV SCH ×2 (14:20→22:22)
[2017-11-23] MEDS: HEPARIN/ 0.45% NACL-25,000 UNIT/500 ML 25,000 UNIT/500 ML BAG IV SCH (14:26)
[2017-11-23] MEDS: COUMADIN PO SCH (17:50)
[2017-11-24 04:35] LABS: Hematocrit 32.9 % (30.3-42.9); Hemoglobin 10.3 gm/dl (10.1-14.3); Mean Corpuscular HGB Conc 31 % (30-34); Mean Corpuscular Volume 74 fl (79-97); Platelet Count 239 K/mm3 (140-440); Red Blood Count 4.46 M/mm3 (3.65-5.03); Red Cell Distribution Width 18.1 % (13.2-15.2)
[2017-11-24 04:55] LABS: Mean Corpuscular Hemoglobin 23 pg (28-32)
[2017-11-24 04:56] LABS: INR 1.17 (0.87-1.13)
[2017-11-24 04:58] LABS: Heparin anti-factor XA 0.28 U.I./ml (0.3-0.7)
[2017-11-24 04:59] LABS: BUN/Creatinine Ratio 20; Blood Urea Nitrogen 14 mg/dL (7-17); Calcium 8.3 mg/dL (8.4-10.2); Hemolysis Index 0
[2017-11-24] MEDS: ROXICODONE PO PRN ×2 (05:20→16:41)
[2017-11-24] MEDS: DUONEB *Not for PRN Use IH SCH ×2 (07:12→20:06)
--- NOTE | 2017-11-24 08:35 | Progress Note ---
Assessment and Plan Assessment and plan: Patient is 42 yo woman with a history of recurrent PE, Antithrombin III deficiency, Morbid obese, RA and PVD who was discharged on 10/30/17 with lovenox ( she did not get because of cost) and warfarin, who now pw SOB after not taking her Coumadin due to vaginal bleeding, Xarelto also caused vaginal bleeding. Regarding Last pap smear; pt states, "it's been awhile." * CTA chest IMPRESSION: Interval increase in right lower lobe pulmonary emboli and stable appearance of a emboli and a remaining lobes. No acute pulmonary infiltrates. -Acute hypoxic respiratory Failure, vm 35% continue o2 therapy -Bilateral pulmonary emboli, acute on chronic, worsening due to noncompliance: I sat down w/patient, explained the risk, benefits and seriousness of her noncompliance; her main excuses are no health insurance and no income, continue heparin drip -Antithrombin III deficiency: treat with a/c, consult heme/onc for management -DUB s/p Hysteroscopy, endometrial ablation via Novasure, d-n-c on 11/21/17 -Rheumatoid arthritis: supportative care -Peripheral vascular disease; a/c -Morbid obesity, bmi 61.4: consult Radiology Rn -DVT prophylaxis: on heparin drip -Noncompliance: counseling done. Re-started anticoagulation bridge on 11/23/17. She did receive one dose of Warfarin 10mg on 11/18/17. Patient will need to be therapeutic prior to discharge , she should not be sent home on lovenox bridge again. Patient is asking to resume home morphine er 30mg bid and roxicodone 5mg tid for RA and hidradrentitis Day 4/5 anticoagulation overlap- INR still 1.17 May need longer stay to get Therapeutic. History Interval history: Patient seen and examined, in no acute distress at this time. Hospitalist Physical - Physical exam Narrative exam: GEN: ill appearing, NAD, Awake, Alert, Orientated x 3, morbid obese bmi 61.4 HEENT: NCAT, EOMI, PERRL, OP Clear NECK: supple, no adenopathy, no thyromegaly, no JVD CVS/HEART: RRR, normal S1S2, pulses present bilaterally CHEST/LUNGS: diminished bilateral, Symmetrical chest expansion, good air entry bilaterally GI/Abdomen: soft, NTND, good bowel sounds, no guarding or rebound /Bladder: no suprapubic tenderness, no CVA or paraspinal tenderness EXT/Skin: no c/c/e, no obvious rash MSK: FROM x 4 Neuro: CN 2-12 grossly intact, no new focal deficits Psych: calm - Constitutional Vitals: Temp Pulse Resp BP Pulse Ox 97.4 F L 80 19 108/59 97 11/24/17 07:33 11/24/17 07:33 11/24/17 07:33 11/24/17 07:33 11/24/17 07:33 Results - Labs CBC & Chem 7: 11/24/17 03:29 11/24/17 03:29 Labs: Laboratory Last Values WBC 11.2 K/mm3 (4.5-11.0) H 11/24/17 03:29 RBC 4.46 M/mm3 (3.65-5.03) 11/24/17 03:29 Hgb 10.3 gm/dl (10.1-14.3) 11/24/17 03:29 Hct 32.9 % (30.3-42.9) 11/24/17 03:29 MCV 74 fl (79-97) L 11/24/17 03:29 MCH 23 pg (28-32) L 11/24/17 03:29 MCHC 31 % (30-34) 11/24/17 03:29 RDW 18.1 % (13.2-15.2) H 11/24/17 03:29 Plt Count 239 K/mm3 (140-440) 11/24/17 03:29 Lymph % (Auto) 22.2 % (13.4-35.0) 11/18/17 02:06 [place] % (Auto) 7.3 % (0.0-7.3) 11/18/17 02:06 Eos % (Auto) 0.7 % (0.0-4.3) 11/18/17 02:06 Baso % (Auto) 0.6 % (0.0-1.8) 11/18/17 02:06 Lymph # 2.4 K/mm3 (1.2-5.4) 11/18/17 02:06 [place] # 0.8 K/mm3 (0.0-0.8) 11/18/17 02:06 Eos # 0.1 K/mm3 (0.0-0.4) 11/18/17 02:06 Baso # 0.1 K/mm3 (0.0-0.1) 11/18/17 02:06 Seg Neutrophils % 69.2 % (40.0-70.0) 11/18/17 02:06 Seg Neutrophils # 7.5 K/mm3 (1.8-7.7) 11/18/17 02:06 PT 15.5 Sec. (12.2-14.9) H 11/24/17 03:29 INR 1.17 (0.87-1.13) H 11/24/17 03:29 APTT 33.9 Sec. (24.2-36.6) 11/17/17 20:51 Heparin Anti-Xa Level 0.28 U.I./ml (0.3-0.7) L 11/24/17 03:29 POC ABG pH 7.412 (7.35-7.45) 11/17/17 20:10 POC ABG pCO2 36.3 (35-45) 11/17/17 20:10 POC ABG pO2 86 (80-105) 11/17/17 20:10 POC ABG HCO3 23.2 11/17/17 20:10 POC ABG Total CO2 24 11/17/17 20:10 POC ABG O2 Sat 97 11/17/17 20:10 POC ABG Base Excess -1 11/17/17 20:10 FiO2 60 % 11/17/17 20:10 Sodium 141 mmol/L (137-145) 11/24/17 03:29 Potassium 4.0 mmol/L (3.6-5.0) 11/24/17 03:29 Chloride 106.7 mmol/L (98-107) 11/24/17 03:29 Carbon Dioxide 22 mmol/L (22-30) 11/24/17 03:29 Anion Gap 16 mmol/L 11/24/17 03:29 BUN 14 mg/dL (7-17) 11/24/17 03:29 Creatinine 0.7 mg/dL (0.7-1.2) 11/24/17 03:29 Estimated GFR > 60 ml/min 11/24/17 03:29 BUN/Creatinine Ratio 20 % 11/24/17 03:29 Glucose 102 mg/dL (65-100) H 11/24/17 03:29 Calcium 8.3 mg/dL (8.4-10.2) L 11/24/17 03:29 Iron 36 ug/dL (37-170) L 11/18/17 16:06 TIBC 243 mcg/dL (250-450) L 11/18/17 16:06 % Saturation 14.81 % 11/18/17 16:06 Transferrin 211 mg/dl (192-382) 11/18/17 16:06 Ferritin 49.1 ng/mL (13.0-400.0) 11/18/17 16:06 Total Bilirubin 0.30 mg/dL (0.1-1.2) 11/17/17 19:34 AST 18 units/L (5-40) 11/17/17 19:34 ALT 10 units/L (7-56) 11/17/17 19:34 Alkaline Phosphatase 73 units/L (35-129) 11/17/17 19:34 Troponin T 0.078 ng/mL (0.00-0.029) H 11/17/17 19:34 Total Protein 7.7 g/dL (6.3-8.2) 11/17/17 19:34 Albumin 3.4 g/dL (3.9-5) L 11/17/17 19:34 Albumin/Globulin Ratio 0.8 % 11/17/17 19:34 Triglycerides 88 mg/dL (2-149) 11/17/17 19:34 Cholesterol 180 mg/dL (50-199) 11/17/17 19:34 LDL Cholesterol Direct 124 mg/dL (50-130) 11/17/17 19:34 HDL Cholesterol 62 mg/dL (40-59) H 11/17/17 19:34 Cholesterol/HDL Ratio 2.90 % 11/17/17 19:34 HCG, Qual Negative (Negative) 11/17/17 19:34 Urine Color Straw (Yellow) 11/17/17 19:45 Urine Turbidity Clear (Clear) 11/17/17 19:45 Urine pH 6.0 (5.0-7.0) 11/17/17 19:45 Ur Specific [place] 1.004 (1.003-1.030) 11/17/17 19:45 Urine Protein <15 mg/dl mg/dL (Negative) 11/17/17 19:45 Urine Glucose (UA) Neg mg/dL (Negative) 11/17/17 19:45 Urine Ketones Neg mg/dL (Negative) 11/17/17 19:45 Urine Blood Mod (Negative) 11/17/17 19:45 Urine Nitrite Neg (Negative) 11/17/17 19:45 Urine Bilirubin Neg (Negative) 11/17/17 19:45 Urine Urobilinogen < 2.0 mg/dL (<2.0) 11/17/17 19:45 Ur Leukocyte Esterase Neg (Negative) 11/17/17 19:45 Urine WBC (Auto) 0.0 /HPF (0.0-6.0) 11/17/17 19:45 Urine RBC (Auto) 3.0 /HPF (0.0-6.0) 11/17/17 19:45 Urine Opiates Screen Presumptive positive 11/17/17 19:45 Urine Methadone Screen Presumptive negative 11/17/17 19:45 Ur Barbiturates Screen Presumptive negative 11/17/17 19:45 Ur Phencyclidine Scrn Presumptive negative 11/17/17 19:45 Ur Amphetamines Screen Presumptive negative 11/17/17 19:45 U Benzodiazepines Scrn Presumptive positive 11/17/17 19:45 Urine Cocaine Screen Presumptive negative 11/17/17 19:45 U Marijuana (THC) Screen Presumptive negative 11/17/17 19:45 Drugs of Abuse Note Disclamer 11/17/17 19:45 Blood Type O POSITIVE 11/21/17 11:50 Antibody Screen Negative 11/21/17 11:50
[2017-11-24] MEDS: MS CONTIN ER PO SCH ×2 (10:19→21:24)
[2017-11-24] MEDS: SODIUM CHLORIDE FLUSH SYRINGE 10 ML IV SCH ×2 (10:20→21:29)
--- NOTE | 2017-11-24 11:55 | Hem/Onc Progress Note ---
Assessment and Plan on coumadin Continue heparin till inr2-3. Patient understands that she will need to be on anticoagulation indefinitely and upon discharge, we will try to help her in any way we can. will increase coumadin t 12.5. d/w pharmacist cbc stable Subjective Date of service: 11/24/17 Interval history: Patient feels fair. Appreciate be [employer] evaluation. . Tolerating heparin. u/ Sound showing uterus to be normal in size. Ovaries not visualized. s/p ablation- tali well c/o abd achiness on coumadin 10 Objective - Constitutional Vitals: Last Vital Signs Temp 97.4 F L 11/24/17 07:33 Pulse 80 11/24/17 07:33 Resp 19 11/24/17 07:33 BP 108/59 11/24/17 07:33 Pulse Ox 97 11/24/17 07:33 Pain Intensity (0-10): denies any pain General appearance: no acute distress Performance status: 2- selfcare, ambulatory - Neck Neck: supple - Respiratory Respiratory effort: Positive: normal - Labs Lab Results: Laboratory Results - last 24 hr 11/23/17 11/24/17 11/24/17 22:24 03:29 03:29 WBC 11.2 H RBC 4.46 Hgb 10.3 Hct 32.9 MCV 74 L MCH 23 L MCHC 31 RDW 18.1 H Plt Count 239 PT 15.5 H INR 1.17 H Heparin Anti-Xa Level 0.50 0.28 L Sodium Potassium Chloride Carbon Dioxide Anion Gap BUN Creatinine Estimated GFR BUN/Creatinine Ratio Glucose Calcium 11/24/17 03:29 WBC RBC Hgb Hct MCV MCH MCHC RDW Plt Count PT INR Heparin Anti-Xa Level Sodium 141 Potassium 4.0 Chloride 106.7 Carbon Dioxide 22 Anion Gap 16 BUN 14 Creatinine 0.7 Estimated GFR > 60 BUN/Creatinine Ratio 20 Glucose 102 H Calcium 8.3 L
[2017-11-24] MEDS: COUMADIN PO SCH ×2 (16:41)
[2017-11-25 05:27] LABS: Hematocrit 31.9 % (30.3-42.9); Hemoglobin 10.2 gm/dl (10.1-14.3); Mean Corpuscular HGB Conc 32 % (30-34); Mean Corpuscular Volume 73 fl (79-97); Platelet Count 247 K/mm3 (140-440); Red Cell Distribution Width 17.7 % (13.2-15.2)
[2017-11-25 05:28] LABS: Mean Corpuscular Hemoglobin 23 pg (28-32)
[2017-11-25 05:35] LABS: INR 1.43 (0.87-1.13)
[2017-11-25 05:36] LABS: Heparin anti-factor XA 0.15 U.I./ml (0.3-0.7)
[2017-11-25 05:47] LABS: BUN/Creatinine Ratio 17; Blood Urea Nitrogen 12 mg/dL (7-17); Calcium 8.3 mg/dL (8.4-10.2); Hemolysis Index 1
[2017-11-25] MEDS: ROXICODONE PO PRN ×2 (06:01→14:32)
[2017-11-25] MEDS: HEPARIN/ 0.45% NACL-25,000 UNIT/500 ML 25,000 UNIT/500 ML BAG IV SCH (06:02)
[2017-11-25] MEDS: DUONEB *Not for PRN Use IH SCH ×2 (07:43→20:18)
[2017-11-25] MEDS: MS CONTIN ER PO SCH ×2 (09:37→21:44)
[2017-11-25] MEDS: SODIUM CHLORIDE FLUSH SYRINGE 10 ML IV SCH ×2 (09:37→21:37)
--- NOTE | 2017-11-25 11:19 | Hem/Onc Progress Note ---
Assessment and Plan on coumadin Continue heparin till inr2-3. Patient understands that she will need to be on anticoagulation indefinitely and upon discharge, we will try to help her in any way we can. cont coumadin t 12.5. cbc stable inr 1.43 Subjective Date of service: 11/25/17 Interval history: Patient feels fair. Appreciate be CONCRETE PAVEMENT INSTALLER evaluation. . Tolerating heparin. u/ Sound showing uterus to be normal in size. Ovaries not visualized. s/p ablation- tali well c/o abd achiness tired today on coumadin 12.5 Objective - Exam Narrative Exam: no distress - Constitutional Vitals: Last Vital Signs Temp 97.3 F L 11/25/17 07:54 Pulse 77 11/25/17 10:00 Resp 22 11/25/17 07:54 BP 137/72 11/25/17 07:54 Pulse Ox 97 11/25/17 07:54 General appearance: obese Performance status: 2- selfcare, ambulatory - Neck Neck: supple - Respiratory Respiratory: bilateral: diminished - Cardiovascular Rhythm: regular - Gastrointestinal General gastrointestinal: Present: soft - Labs Lab Results: Laboratory Results - last 24 hr 11/25/17 11/25/17 11/25/17 04:19 04:19 04:19 WBC 9.8 RBC 4.40 Hgb 10.2 Hct 31.9 MCV 73 L MCH 23 L MCHC 32 RDW 17.7 H Plt Count 247 PT 18.3 H INR 1.43 H Heparin Anti-Xa Level 0.15 L Sodium 139 Potassium 4.4 Chloride 104.5 Carbon Dioxide 25 Anion Gap 14 BUN 12 Creatinine 0.7 Estimated GFR > 60 BUN/Creatinine Ratio 17 Glucose 91 Calcium 8.3 L
--- NOTE | 2017-11-25 12:29 | Progress Note ---
Assessment and Plan Patient is 42 yo woman with a history of recurrent PE, Antithrombin III deficiency, Morbid obese, RA and PVD who was discharged on 10/30/17 with lovenox ( she did not get because of cost) and warfarin, who now presented with SOB after she stopped taking her Coumadin due to vaginal bleeding, Xarelto also caused vaginal bleeding. * CTA chest IMPRESSION: Interval increase in right lower lobe pulmonary emboli and stable appearance of a emboli and a remaining lobes. No acute pulmonary infiltrates. * 11/21, endometrial ablation by load out person -Acute hypoxic respiratory Failure, on oxygen via nasal cannula at 2 L with O2 saturation 100% -Bilateral pulmonary emboli, acute on chronic, worsening due to noncompliance: Anticoagulation commenced. Would decide on when patient can arrange for breech and Lovenox. 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 Consulted heme/onc for management -Rheumatoid arthritis: supportative care -Peripheral vascular disease; anticoagulation -Morbid obesity, bmi 61.4: consult Surveillance Systems Engineer -DVT prophylaxis: on heparin drip Subjective Date of service: 11/25/17 Principal diagnosis: acute hypoxic respiratory failure, acute on chronic DVT Interval history: Patient seen and examined. She denies any shortness of breath. No fever. no more. Reviewed Laboratory and radiological data. Objective - Exam Narrative Exam: Constitutional: On oxygen via nasal cannula Well-nourished well-developed. Obese Head: Normocephalic atraumatic Eyes: Pupils are equal round and reactive to light Nose: No enlarged turbinates, no septal deviation. Mouth: Moist mucous membranes. Neck: Supple no thyromegaly. No bruit. No JVD Heart: Regular rate and rhythm, S1-S2 abnormal. No rubs murmurs or gallop Lungs: Clear to auscultation bilaterally no rales or rhonchi Abdomen: Soft, nontender. Bowel sound are present. Extremities: No edema no cyanosis and no clubbing. Neuro: Alert oriented Oriented x3. No focal sensory or motor deficit. Skin: No rashes no hyperemic spots Psychiatry: Euthymic. Calm. - Constitutional Vitals: Vital Signs - 12hr 11/25/17 11/25/17 11/25/17 05:23 07:43 07:53 Temperature 98.6 F Pulse Rate 73 Pulse Rate [ 84 82 Anterior Bilateral Throughout] Respiratory 20 Rate Respiratory 18 18 Rate [Anterior Bilateral Throughout] Blood Pressure 142/77 O2 Sat by Pulse 98 Oximetry 11/25/17 11/25/17 11/25/17 07:54 10:00 11:38 Temperature 97.3 F L 97.5 F L Pulse Rate 77 77 79 Pulse Rate [ Anterior Bilateral Throughout] Respiratory 22 20 Rate Respiratory Rate [Anterior Bilateral Throughout] Blood Pressure 137/72 123/66 O2 Sat by Pulse 97 96 Oximetry - Labs CBC & Chem 7: 11/25/17 04:19 11/25/17 04:19 Labs: Abnormal lab results 11/25/17 11/25/17 11/25/17 Range/Units 04:19 04:19 04:19 MCV 73 L (79-97) fl MCH 23 L (28-32) pg RDW 17.7 H (13.2-15.2) % PT 18.3 H (12.2-14.9) Sec. INR 1.43 H (0.87-1.13) Heparin Anti-Xa Level 0.15 L (0.3-0.7) U.I./ml Calcium 8.3 L (8.4-10.2) mg/dL
[2017-11-25] MEDS: COUMADIN PO SCH ×2 (17:19)
[2017-11-26] MEDS: HEPARIN/ 0.45% NACL-25,000 UNIT/500 ML 25,000 UNIT/500 ML BAG IV SCH (04:15)
[2017-11-26 06:11] LABS: INR 1.7 (0.87-1.13)
[2017-11-26 06:12] LABS: Heparin anti-factor XA 0.18 U.I./ml (0.3-0.7)
[2017-11-26 06:16] LABS: Basophils % (Auto) 0.5 % (0.0-1.8); Eosinophils # (Auto) 0.2 K/mm3 (0.0-0.4); Eosinophils % (Auto) 2.5 % (0.0-4.3); Hematocrit 32.8 % (30.3-42.9); Hemoglobin 10.2 gm/dl (10.1-14.3); Lymphocytes # (Auto) 3.4 K/mm3 (1.2-5.4); Lymphocytes % (Auto) 36.7 % (13.4-35.0); Mean Corpuscular HGB Conc 31 % (30-34); Mean Corpuscular Volume 74 fl (79-97); Monocytes # (Auto) 0.8 K/mm3 (0.0-0.8); Monocytes % (Auto) 8.5 % (0.0-7.3); Platelet Count 263 K/mm3 (140-440); Red Blood Count 4.46 M/mm3 (3.65-5.03)
[2017-11-26 06:21] LABS: Mean Corpuscular Hemoglobin 23 pg (28-32)
[2017-11-26 06:26] LABS: Alanine Aminotransferase 11 units/L (7-56); Albumin 3.1 g/dL (3.9-5); BUN/Creatinine Ratio 18; Blood Urea Nitrogen 11 mg/dL (7-17); Calcium 8.3 mg/dL (8.4-10.2); Hemolysis Index 25
[2017-11-26] MEDS: DUONEB *Not for PRN Use IH SCH ×2 (07:38→20:40)
--- NOTE | 2017-11-26 09:02 | Hem/Onc Progress Note ---
Assessment and Plan INR up to 1.7. Hopefully by tomorrow she'll be therapeutic and we can discontinue heparin and she can be discharged on Coumadin 12.5 mg. Patient will also be following up with me. Subjective Date of service: 11/26/17 Interval history: Patient feels fair. Appreciate be TARIFF COMPILER evaluation. . Tolerating heparin. u/ Sound showing uterus to be normal in size. Ovaries not visualized. s/p ablation- tali well. No active bleeding c/o abd achiness on coumadin 12.5 Objective - Constitutional Vitals: Last Vital Signs Temp 97.7 F 11/26/17 07:48 Pulse 85 11/26/17 07:48 Resp 18 11/26/17 07:48 BP 116/60 11/26/17 07:48 Pulse Ox 96 11/26/17 07:48 Pain Intensity (0-10): denies any pain General appearance: no acute distress, obese Performance status: 2- selfcare, ambulatory - Neck Neck: supple - Respiratory Respiratory effort: Positive: normal - Cardiovascular Rhythm: regular - Gastrointestinal General gastrointestinal: Present: soft - Labs Lab Results: Laboratory Results - last 24 hr 11/26/17 11/26/17 11/26/17 05:15 05:15 05:15 WBC 9.1 RBC 4.46 Hgb 10.2 Hct 32.8 MCV 74 L MCH 23 L MCHC 31 RDW 18.0 H Plt Count 263 Lymph % (Auto) 36.7 H [place] % (Auto) 8.5 H Eos % (Auto) 2.5 Baso % (Auto) 0.5 Lymph # 3.4 [place] # 0.8 Eos # 0.2 Baso # 0.0 Seg Neutrophils % 51.8 Seg Neutrophils # 4.7 PT 21.0 H INR 1.70 H Heparin Anti-Xa Level 0.18 L Sodium 142 Potassium 4.2 Chloride 107.6 H Carbon Dioxide 23 Anion Gap 16 BUN 11 Creatinine 0.6 L Estimated GFR > 60 BUN/Creatinine Ratio 18 Glucose 105 H Calcium 8.3 L Total Bilirubin < 0.20 AST 13 ALT 11 Alkaline Phosphatase 53 Total Protein 6.5 Albumin 3.1 L Albumin/Globulin Ratio 0.9
[2017-11-26] MEDS: MS CONTIN ER PO SCH ×2 (09:16→21:40)
[2017-11-26] MEDS: SODIUM CHLORIDE FLUSH SYRINGE 10 ML IV SCH (09:56)
--- NOTE | 2017-11-26 12:17 | Progress Note ---
Assessment and Plan Patient is 42 yo woman with a history of recurrent PE, Antithrombin III deficiency, Morbid obese, RA and PVD who was discharged on 10/30/17 with lovenox ( she did not get because of cost) and warfarin, who now presented with SOB after she stopped taking her Coumadin due to vaginal bleeding, Xarelto also caused vaginal bleeding. * CTA chest IMPRESSION: Interval increase in right lower lobe pulmonary emboli and stable appearance of a emboli and a remaining lobes. No acute pulmonary infiltrates. * 11/21, endometrial ablation by cut off saw operator -Acute hypoxic respiratory Failure, on oxygen via nasal cannula at 2 L with O2 saturation 100% -Bilateral pulmonary emboli, acute on chronic, worsening due to noncompliance: Anticoagulation commenced. Would decide on when patient can arrange for breech and Lovenox. 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 Consulted heme/onc for management -Rheumatoid arthritis: supportative care -Peripheral vascular disease; anticoagulation -Morbid obesity, bmi 61.4: consult Inverted Block Operator -DVT prophylaxis: on heparin drip - Disposition: discussed with Case management who said that pt has exhausted her free Eliquis and Lovenox vauchers. Willhterefore discharge whdn optimal on INR, hopefully tomorrow. INR today is 1.7 Subjective Date of service: 11/26/17 Principal diagnosis: acute hypoxic respiratory failure, acute on chronic DVT Interval history: Patient seen and examined. She denies any shortness of breath. No fever. no more. Reviewed Laboratory and radiological data. Objective - Exam Narrative Exam: Constitutional: On oxygen via nasal cannula Well-nourished well-developed. Obese Head: Normocephalic atraumatic Eyes: Pupils are equal round and reactive to light Nose: No enlarged turbinates, no septal deviation. Mouth: Moist mucous membranes. Neck: Supple no thyromegaly. No bruit. No JVD Heart: Regular rate and rhythm, S1-S2 abnormal. No rubs murmurs or gallop Lungs: Clear to auscultation bilaterally no rales or rhonchi Abdomen: Soft, nontender. Bowel sound are present. Extremities: No edema no cyanosis and no clubbing. Neuro: Alert oriented Oriented x3. No focal sensory or motor deficit. Skin: No rashes no hyperemic spots Psychiatry: Euthymic. Calm. - Constitutional Vitals: Vital Signs - 12hr 11/26/17 11/26/17 11/26/17 00:27 04:31 07:38 Temperature 97.6 F 97.9 F Pulse Rate 75 85 Pulse Rate [ 88 Anterior Bilateral Throughout] Respiratory 20 22 Rate Respiratory 18 Rate [Anterior Bilateral Throughout] Respiratory Rate [Anterior Medial Chest] Blood Pressure 111/60 136/81 O2 Sat by Pulse 96 96 Oximetry 11/26/17 11/26/17 11/26/17 07:48 09:16 10:00 Temperature 97.7 F Pulse Rate 85 Pulse Rate [ 89 Anterior Bilateral Throughout] Respiratory 18 17 17 Rate Respiratory 18 Rate [Anterior Bilateral Throughout] Respiratory 17 Rate [Anterior Medial Chest] Blood Pressure 116/60 O2 Sat by Pulse 96 Oximetry - Labs CBC & Chem 7: 11/26/17 05:15 11/26/17 05:15 Labs: Abnormal lab results 11/26/17 11/26/17 11/26/17 Range/Units 05:15 05:15 05:15 MCV 74 L (79-97) fl MCH 23 L (28-32) pg RDW 18.0 H (13.2-15.2) % Lymph % (Auto) 36.7 H (13.4-35.0) % [place] % (Auto) 8.5 H (0.0-7.3) % PT 21.0 H (12.2-14.9) Sec. INR 1.70 H (0.87-1.13) Heparin Anti-Xa Level 0.18 L (0.3-0.7) U.I./ml Chloride 107.6 H (98-107) mmol/L Creatinine 0.6 L (0.7-1.2) mg/dL Glucose 105 H (65-100) mg/dL Calcium 8.3 L (8.4-10.2) mg/dL Albumin 3.1 L (3.9-5) g/dL
[2017-11-26] MEDS: ROXICODONE PO PRN (12:39)
[2017-11-26] MEDS: COUMADIN PO SCH ×2 (17:25)
[2017-11-27] MEDS: SODIUM CHLORIDE FLUSH SYRINGE 10 ML IV SCH ×2 (00:15→09:32)
[2017-11-27] MEDS: HEPARIN/ 0.45% NACL-25,000 UNIT/500 ML 25,000 UNIT/500 ML BAG IV SCH (00:36)
[2017-11-27] MEDS: ROXICODONE PO PRN ×2 (01:41→12:26)
[2017-11-27 05:32] LABS: INR 2.05 (0.87-1.13)
[2017-11-27 05:33] LABS: Heparin anti-factor XA 0.22 U.I./ml (0.3-0.7)
[2017-11-27] MEDS: MS CONTIN ER PO SCH (09:30)
--- NOTE | 2017-11-27 09:30 | Hem/Onc Progress Note ---
Assessment and Plan INR up to 2.05. she can be discharged on Coumadin 12.5 mg. Patient will also be following up with me.early next week. pt aware Subjective Date of service: 11/27/17 Interval history: Patient feels fair. Appreciate be FUNCTIONAL ARCHITECT evaluation. . Tolerating heparin. u/ Sound showing uterus to be normal in size. Ovaries not visualized. s/p ablation- tali well. No active bleeding c/o abd achiness on coumadin 12.5 Feels fair. Anxious to go home Objective - Constitutional Vitals: Last Vital Signs Temp 98.6 F 11/27/17 08:04 Pulse 84 11/27/17 08:04 Resp 20 11/27/17 08:04 BP 132/73 11/27/17 08:04 Pulse Ox 96 11/27/17 08:04 Pain Intensity (0-10): denies any pain General appearance: no acute distress Performance status: 2- selfcare, ambulatory - Neck Neck: supple - Respiratory Respiratory effort: Positive: normal - Cardiovascular Rhythm: regular - Labs Lab Results: Laboratory Results - last 24 hr 11/27/17 04:56 PT 24.4 H INR 2.05 H Heparin Anti-Xa Level 0.22 L
[2017-11-27] MEDS: COUMADIN PO SCH ×2 (16:45)
--- NOTE | 2017-11-27 16:54 | Discharge Summary ---
Providers - Providers Date of Admission: 11/17/17 22:53 Date of discharge: 11/27/17 Attending physician: ANUSHKA BUI 11/17/17 22:53 Consult to Physician [CONS] Routine Comment: called at 0904 spoke with johana at a service Consulting Provider: MIMI MANUEL Physician Instructions: Reason For Exam: A111 def, PE, vaginal bleed 11/18/17 13:15 Consult to Physician [CONS] Routine Comment: DR arauz control area operator per Dr Mercado Consulting Provider: RADHA CHEN Physician Instructions: Reason For Exam: vaginal bleeding 11/18/17 13:16 Consult to Dietitian/Nutrition [CONS] Routine Physician Instructions: bmi 61 Reason For Exam: Reason for Consult: Diet education Primary care physician: CONSTRUCTION MANAGEMENT INSTRUCTOR Hospitalization Condition: Fair Disposition: DC-01 TO HOME OR SELFCARE Time spent for discharge: 32 min Core Measure Documentation - Palliative Care Palliative Care/ Comfort Measures: Not Applicable - Core Measures Any of the following diagnoses?: DVT/PE - VTE Discharge Requirements Deep Vein Thrombosis/Pulmonary Embolism Present on Admission: Yes Has pt received <5 days of overlap therapy or INR<2.0: Yes Anticoagulant overlap therapy prescribed at discharge: No Contraindication No Overlap Therapy order at DC: Not Indicated Exam - Constitutional Vitals: Temp Pulse Resp BP Pulse Ox 98.0 F 61 20 117/58 98 11/27/17 11:21 11/27/17 11:21 11/27/17 12:26 11/27/17 11:21 11/27/17 11:21 General appearance: Present: no acute distress, well-nourished Plan Activity: advance as tolerated Diet: regular Additional Instructions: Next INR checked in 2days-[11/29/17] at PMD office. Target INR 2-3. If you notice any bleeding, stop Coumadin and contact M.D. Follow up with: SAUL BASS MD [Staff Physician] - 3 Days FIDEL SEPULVEDA MD [Primary Care Provider] - 3-5 Days RADHA CHEN MD [Staff Physician] - 7 Days Forms: Warfarin Discharge Instruction Prescriptions: Warfarin [Coumadin] 2.5 mg PO QDAY #30 tablet Warfarin Sodium [Coumadin] 12 mg PO DAILY #60 tablet
[2017-11-27 17:18] VITALS: BP 114/66
== END 2017-11-27 18:20 | disposition home or self-care (01) | DRG 742 ==
LOC: ED 18:49 → 4A 22:53
PROVIDERS: ADMIT Internal Medicine; ATTEND Internal Medicine
PROC: 4A033R1 Measurement of Arterial Saturation, Peripheral, Percutaneous Approach (ICD-10-PCS; principal; 2017-11-17)
PROC: 5A09357 Assistance with Respiratory Ventilation, Less than 24 Consecutive Hours, Continuous Positive Airway Pressure (ICD-10-PCS; 2017-11-17)
PROC: 5A09357 Assistance with Respiratory Ventilation, Less than 24 Consecutive Hours, Continuous Positive Airway Pressure (ICD-10-PCS; 2017-11-18)
PROC: 0U5B7ZZ Destruction of Endometrium, Via Natural or Artificial Opening (ICD-10-PCS; 2017-11-21)
PROC: 0UDB7ZZ Extraction of Endometrium, Via Natural or Artificial Opening (ICD-10-PCS; 2017-11-21)
PROC: 0UJD8ZZ Inspection of Uterus and Cervix, Via Natural or Artificial Opening Endoscopic (ICD-10-PCS; 2017-11-21)
DX: N93.8 Other specified abnormal uterine and vaginal bleeding (principal); I26.99 Other pulmonary embolism without acute cor pulmonale; J96.01 Acute respiratory failure with hypoxia; D68.59 Other primary thrombophilia; Z68.44 Body mass index [BMI] 60.0-69.9, adult; E66.01 Morbid (severe) obesity due to excess calories; N97.0 Female infertility associated with anovulation; M06.9 Rheumatoid arthritis, unspecified; I73.9 Peripheral vascular disease, unspecified; T45.515A Adverse effect of anticoagulants, initial encounter; Z82.49 Family history of ischemic heart disease and other diseases of the circulatory system; Z88.6 Allergy status to analgesic agent; Z86.718 Personal history of other venous thrombosis and embolism; Z79.01 Long term (current) use of anticoagulants; Z71.89 Other specified counseling; Y92.89 Other specified places as the place of occurrence of the external cause
CPT/HCPCS: 36415; 71045; 71275; 76830; 76856; 80048; 80053; 80061; 80307; 81001; 82728; 82803; 82962; 83550; 84484; 84703; 85014; 85018; 85025; 85027; 85520; 85610; 85730; 86850; 86900; 86901; 87116; 88305; 88331; 93005; 93010; 94640; 94660; 94760; 96361; 96374; 96375; A4217; J1100; J1170; J1644; J1885; J2175; J2250; J2270; J2405; J2704; J3010; J7030; J7120; Q9967

== ENCOUNTER 2018-08-28 09:46 | Outpatient (CLI) | payer OTHER ==
--- NOTE | 2018-08-28 11:36 | XRay Report ---
Right knee 2 views: History: Rheumatoid arthritis. Findings: Narrowing of the medial, lateral and patellofemoral compartment knee joint. Sclerotic articular surfaces with peripheral osteophytes suggestive degenerative changes. Most prominent changes at the patellofemoral compartment. No soft tissue calcification. No fracture. Impression: Tricompartmental degenerative changes.
--- NOTE | 2018-08-28 11:37 | XRay Report ---
Right hip 2 views: History: Rheumatoid arthritis. The proximal. Findings: Severe arthritic changes are noted of the superior lateral aspect of hip joint. No fracture dislocation or periosteal reaction. No soft tissue calcification. Impression: Severe degenerative changes right hip.
== END 2018-08-28 09:47 | disposition home or self-care (01) ==
LOC: XRAY 09:46
PROVIDERS: ATTEND Internal Medicine
DX: Z02.71 Encounter for disability determination (principal); M16.11 Unilateral primary osteoarthritis, right hip; M17.11 Unilateral primary osteoarthritis, right knee; E66.9 Obesity, unspecified; M19.90 Unspecified osteoarthritis, unspecified site

== ENCOUNTER 2019-03-24 20:00 | Emergency (ER) | payer MEDICAID, OTHER ==
--- NOTE | 2019-03-24 20:25 | Emergency Department Report ---
Blank Doc - Documentation Documentation: 44-year-old female that presents with URI symptoms. This initial assessment/diagnostic orders/clinical plan/treatment(s) is/are subject to change based on patient's health status, clinical progression and re- assessment by fellow clinical providers in the ED. Further treatment and workup at subsequent clinical providers discretion. Patient/guardians urged not to elope from the ED as their condition may be serious if not clinically assessed and managed. Initial orders include: 1- Patient sent to [facility] for further evaluation and treatment 2- CXR
--- NOTE | 2019-03-24 21:10 | XRay Report ---
CHEST PA AND LATERAL VIEWS INDICATION: cough. COMPARISON: 11/17/2017 FINDINGS: Support devices: None Heart: Normal and unchanged Lungs/Pleura: No acute pulmonary or pleural findings. IMPRESSION: 1. No acute disease and no interval change. Signer Name: Clyde Byres MD Signed: 03/24/2019 9:05 PM Workstation Name: [id number]
[2019-03-24] MEDS ORDERED: ACETAMINOPHEN 325 MG TAB PO ONE (22:57)
--- NOTE | 2019-03-24 22:58 | Emergency Department Report ---
ED General Adult HPI - General Chief complaint: Upper Respiratory Infection Stated complaint: UPPER RESPIRATORY INFECTION Time Seen by Provider: 03/24/19 20:24 Source: patient, RN notes reviewed, old records reviewed Mode of arrival: Ambulatory Limitations: No Limitations - History of Present Illness Initial comments: Primary care Dr.: Dr Buitrago Past medical history: Pulmonary embolism, on chronic Coumadin therapy, anti- throbin 3 deficiency, obesity, rheumatoid arthritis, peripheral vascular disease This is a 44-year-old female. The patient presents to the ER today with complaint of nasal irritation, frontal sinus pain, chest wall pain with coughing, cough. The symptoms have been going on for a few weeks. She endorses compliance with her Coumadin therapy. She denies recent travel, surgeries or immobilization. She denies fever. She indicates that she is not . She reports worsening shortness of breath at night, however, this is now resolved. She does not have sleep apnea as far she is concerned. -: Gradual Location: head, face Radiation: other Consistency: intermittent Improves with: rest Worsens with: movement - Related Data Home Medications Medication Instructions Recorded Confirmed Last Taken Acetaminophen [Tylenol Arthritis] 650 mg PO PRN 10/28/17 11/18/17 11/16/17 diphenhydrAMINE [Benadryl CAP] 25 mg PO QHS PRN 10/28/17 11/18/17 11/16/17 Previous Rx's Medication Instructions Recorded Last Taken Type Warfarin [Coumadin] 2.5 mg PO QDAY #30 tablet 11/27/17 Unknown Rx Warfarin [Coumadin] 10 mg PO QDAY #30 tablet 11/27/17 Unknown Rx Acetaminophen [Non-Aspirin Extra 500 mg PO Q6HR PRN #30 tablet 03/24/19 Unknown Rx Strength] Albuterol Sulfate [Proair 90 mcg IH Q4HR PRN #2 aer.[email or web address] 03/24/19 Unknown Rx Respiclick] Benzonatate [Tessalon Perles] 100 mg PO Q8HR PRN #30 capsule 03/24/19 Unknown Rx Fluticasone [Flonase] 1 spray NS QDAY #1 bottle 03/24/19 Unknown Rx Allergies Allergy/AdvReac Type Severity Reaction Status Date / Time aspirin Allergy Mild Rash Verified 09/12/17 17:05 ED Review of Systems ROS: Stated complaint: UPPER RESPIRATORY INFECTION Other details as noted in HPI Constitutional: malaise. denies: fever Eyes: denies: eye discharge ENT: congestion Respiratory: cough Cardiovascular: denies: syncope Gastrointestinal: denies: abdominal pain Musculoskeletal: arthralgia, myalgia Skin: denies: lesions Neurological: headache (frontal sinus headache) Hematological/Lymphatic: denies: easy bleeding ED Past Medical Hx - Past Medical History Hx Hypertension: No Hx Deep Vein Thrombosis: Yes (BILATERAL WITH PE 2017,2018) Hx Pulmonary Embolism: Yes Hx Liver Disease: No Hx Renal Disease: No Hx Arthritis: Yes (RA) Hx Seizures: No Hx Asthma: No Hx COPD: No Additional medical history: poor circulation to lower extremities CELLULITIS. anemia, MORBID OBESITY - Surgical History Past Surgical History?: Yes Hx Coronary Stent: Yes (STENTS) - Social History Smoking Status: Never Smoker Substance Use Type: None - Medications Home Medications: Home Medications Medication Instructions Recorded Confirmed Last Taken Type Acetaminophen [Tylenol Arthritis] 650 mg PO PRN 10/28/17 11/18/17 11/16/17 History diphenhydrAMINE [Benadryl CAP] 25 mg PO QHS PRN 10/28/17 11/18/17 11/16/17 History Warfarin [Coumadin] 2.5 mg PO QDAY #30 tablet 11/27/17 Unknown Rx Warfarin [Coumadin] 10 mg PO QDAY #30 tablet 11/27/17 Unknown Rx Acetaminophen [Non-Aspirin Extra 500 mg PO Q6HR PRN #30 tablet 03/24/19 Unknown Rx Strength] Albuterol Sulfate [Proair 90 mcg IH Q4HR PRN #2 aer.pow.ba 03/24/19 Unknown Rx Respiclick] Benzonatate [Tessalon Perles] 100 mg PO Q8HR PRN #30 capsule 03/24/19 Unknown Rx Fluticasone [Flonase] 1 spray NS QDAY #1 bottle 03/24/19 Unknown Rx ED Physical Exam - General Limitations: No Limitations General appearance: alert, in no apparent distress, obese - Head Head exam: Present: atraumatic, normocephalic - Eye Eye exam: Present: normal appearance, EOMI - ENT ENT exam: Present: normal exam, normal orophraynx, mucous membranes moist, normal external ear exam, other (there is reproducible sinus tenderness.) - Neck Neck exam: Present: normal inspection, full ROM. Absent: tenderness, meningismus - Respiratory Respiratory exam: Present: normal lung sounds bilaterally, chest wall tenderness. Absent: respiratory distress - Cardiovascular Cardiovascular Exam: Present: regular rate, normal rhythm, normal heart sounds. Absent: bradycardia, tachycardia, irregular rhythm, systolic murmur, diastolic murmur, rubs, gallop - GI/Abdominal GI/Abdominal exam: Present: soft. Absent: distended, tenderness, guarding, rebound, rigid, pulsatile mass - Extremities Exam Extremities exam: Present: normal inspection, full ROM, pedal edema (chronic appearing lower extremity venous stasis and edema), other (2+ pulses noted in the bilateral upper, lower extremities. There is no long bone tenderness. Musculoskeletal compartments are soft. The pelvis is stable.). Absent: calf tenderness - Back Exam Back exam: Present: normal inspection, full ROM. Absent: tenderness, CVA tenderness (R), CVA tenderness (L), paraspinal tenderness, vertebral tenderness - Neurological Exam Neurological exam: Present: alert, oriented X3, other (there is no facial droop. The tongue is midline. Extraocular movements are intact bilaterally. Patient speaking in full complete sentences. Shoulder shrug is intact bilaterally. Hearing is grossly intact bilaterally. Visual acuity intact to finger counting and color perception at a close distance. 5/5 strength 4 extremities. Sensation intact to light touch in 4 extremities.) - Psychiatric Psychiatric exam: Present: normal affect, normal mood - Skin Skin exam: Present: warm, dry, intact, normal color. Absent: rash ED Course Vital Signs 03/24/19 03/24/19 20:08 23:16 Temperature 97.7 F Pulse Rate 89 Respiratory 22 18 Rate Blood Pressure 143/84 O2 Sat by Pulse 96 Oximetry ED Medical Decision Making - Lab Data Vital Signs 03/24/19 03/24/19 20:08 23:16 Temperature 97.7 F Pulse Rate 89 Respiratory 22 18 Rate Blood Pressure 143/84 O2 Sat by Pulse 96 Oximetry - EKG Data 03/24/19 23:32 EKG today is unchanged when compared to prior. The EKG today shows a sinus rhythm, 81 bpm, rightward axis deviation, QTC is 480 ms, the EKG is abnormal, it is unchanged from prior EKG from 11/20/2017. The EKG is not consistent with ST elevation myocardial infarction. - Radiology Data Radiology results: report reviewed, image reviewed X-ray the chest is negative for acute disease - Medical Decision Making Differential diagnosis, including not limited to: Bronchitis, costochondritis, sinusitis, allergies, viral infection Assessment and plan: 44-year-old female with nasal congestion, sinus pressure, cough, chest wall tenderness, likely experiencing a viral infection and/or bronchitis. She is afebrile with reassuring vital signs. Her physical exam is unremarkable. EKG is unchanged when compared to prior. X-ray the chest is unremarkable. Patient counseled regarding expectant management and precautions. The patient does not appear to have an emergent condition at this time. She is counseled that symptoms may take a few days to a few weeks to a few months to improve. Critical care attestation.: If time is entered above; I have spent that time in minutes in the direct care of this critically ill patient, excluding procedure time. ED Disposition Clinical Impression: Bronchitis Disposition: DC-01 TO HOME OR SELFCARE Is pt being admited?: No Does the pt Need Aspirin: No Condition: Stable Instructions: Chronic Bronchitis (ED) Additional Instructions: As we discussed, patient likely has bronchitis. Bronchitis symptoms may last anywhere from 3 days to 3 weeks to 3 months. Symptoms not typically dangerous or life threatening. Take the medications as needed and directed for supportive control, symptomatic relief. Recommend weight loss as we discussed. Patient may have a component of sleep apnea at night, and she should follow-up with the primary care doctor or sleep specialist, such as doctor Santoyo, for formal outpatient evaluation for possible sleep apnea. Recommend follow-up within the next 4-6 weeks. Recommend follow-up with her primary care doctor within 2-4 weeks. Continue current outpatient medications. Return to the emergency room right away with new, worsened, different symptoms, or symptoms not present on the initial emergency room evaluation. Referrals: LANIE BUITRAGO MD [Referring] - as needed JOSE ALBERTO SANTOYO MD [Staff Physician] - as needed
[2019-03-25 01:50] VITALS: BP 128/73
== END 2019-03-24 23:40 | disposition home or self-care (01) ==
LOC: ED 20:00
DX: J40 Bronchitis, not specified as acute or chronic (principal); M06.9 Rheumatoid arthritis, unspecified; I73.9 Peripheral vascular disease, unspecified; Z86.711 Personal history of pulmonary embolism; Z79.899 Other long term (current) drug therapy; Z79.02 Long term (current) use of antithrombotics/antiplatelets; Z86.718 Personal history of other venous thrombosis and embolism; E66.01 Morbid (severe) obesity due to excess calories; Z68.43 Body mass index [BMI] 50.0-59.9, adult; Z95.1 Presence of aortocoronary bypass graft; Z88.6 Allergy status to analgesic agent
CPT/HCPCS: 71046; 93005; 93010; 99283

== ENCOUNTER 2020-11-08 15:35 | Inpatient (IN) | payer MEDICAID ==
--- NOTE | 2020-11-08 16:44 | Emergency Department Report ---
ED Shortness of Breath HPI - General Chief Complaint: Dyspnea/Respdistress Stated Complaint: RINKU Time Seen by Provider: 11/08/20 16:28 Source: patient Mode of arrival: Ambulatory Limitations: No Limitations - History of Present Illness Initial Comments: 45-year-old female, history of PE, peripheral vascular disease, lymphedema, COVID-19, morbid obesity, chronic respiratory failure on 2 L home O2, pulmonary hypertension, rheumatoid arthritis, Antithrombin III deficiency, medication noncompliance, presents to ED with complaint of difficulty breathing. Patient states she was first diagnosed with PE approximately 4 years ago. Patient states she has been on and off of anticoagulation since then. Patient reports approximately 12 days ago she was admitted to [facility] with chest pain or shortness of breath. Patient states she was diagnosed with PE. It is unclear if this was a new or stable PE. Patient states she had been on Coumadin. She states she was told that her INR was therapeutic. Patient states doctors are unsure why she had developed another PE. Patient states she was placed on a heparin drip and then transitioned to Xarelto. Patient states no IVC filter was placed. Patient was discharged 1 week ago from [facility] with a prescription for Xarelto. She states when she went to milk pickup driver her prescription, she was told that the prescribing physician was not in network. Therefore, patient has not been on any anticoagulation for 1 week. Over the last 3 days patient reports that she has been having chest pain and shortness of breath again. Today became much worse and EMS was called. EMS reports patient's O2 sats were in the 80s upon their arrival. Patient denies any fever or cough. Patient was placed on BiPAP upon ED arrival. In April 2020, patient underwent EKOS, thrombolysis, thrombectomy for submassive bilateral PE. Complaint: shortness of breath -: days(s) (3) Severity: severe Quality: sharp Consistency: constant Improves With: nothing Worsens With: nothing Known History Of: other (PE) Associated Symptoms: chest pain Treatments Prior to Arrival: oxygen - Related Data Home Oxygen Therapy: Yes Home Oxygen Amount: 2 Liters Home Medications Medication Instructions Recorded Confirmed Last Taken Escitalopram [Lexapro] 10 mg PO DAILY 04/26/20 09/08/20 04/25/20 10 mg clonazePAM [Klonopin] 1 mg PO DAILY 04/26/20 09/08/20 04/25/20 1 mg risperiDONE [RisperDAL] 0.5 mg PO DAILY 04/26/20 09/08/20 04/25/20 0.5mg Previous Rx's Medication Instructions Recorded Last Taken Type Furosemide [Lasix TAB] 20 mg PO QDAY #30 tablet 04/29/20 Unknown Rx HYDROcodone/APAP 5-325 [Lamy 1 each PO BID PRN #10 tablet 04/29/20 Unknown Rx 5-325 mg TAB] dilTIAZem CD [Cardizem CD] 180 mg PO QDAY #30 capsule 04/29/20 Unknown Rx Dexamethasone 6 mg PO DAILY #2 tablet 09/09/20 Unknown Rx Morphine ER [Ms Contin ER] 30 mg PO Q12HR tablet 09/09/20 Unknown Rx Warfarin [Coumadin] 5 mg PO QDAY #30 tablet 09/09/20 Unknown Rx guaiFENesin ER [Mucinex ER] 600 mg PO BID #14 tablet 09/09/20 Unknown Rx Allergies Allergy/AdvReac Type Severity Reaction Status Date / Time aspirin Allergy Mild Rash Verified 09/12/17 17:05 ED Review of Systems ROS: Stated complaint: RINKU Other details as noted in HPI Comment: All other systems reviewed and negative Constitutional: denies: chills, fever Respiratory: shortness of breath. denies: cough Cardiovascular: chest pain ED Past Medical Hx - Past Medical History Previous Medical History?: Yes Hx Hypertension: No Hx Congestive Heart Failure: No Hx Diabetes: No Hx Deep Vein Thrombosis: Yes (BILATERAL WITH PE 2016,2017) Hx Pulmonary Embolism: Yes Hx Liver Disease: No Hx Renal Disease: No Hx Arthritis: Yes (RA) Hx Seizures: No Hx Asthma: No Hx COPD: No Additional medical history: poor circulation to lower extremities CELLULITIS. anemia, MORBID OBESITY - Surgical History Past Surgical History?: Yes Hx Coronary Stent: Yes (STENTS) Additional Surgical History: stents in legs - Social History Smoking Status: Never Smoker Substance Use Type: None - Medications Home Medications: Home Medications Medication Instructions Recorded Confirmed Last Taken Type Escitalopram [Lexapro] 10 mg PO DAILY 04/26/20 09/08/20 04/25/20 History 10 mg clonazePAM [Klonopin] 1 mg PO DAILY 04/26/20 09/08/20 04/25/20 History 1 mg risperiDONE [RisperDAL] 0.5 mg PO DAILY 04/26/20 09/08/20 04/25/20 History 0.5mg Furosemide [Lasix TAB] 20 mg PO QDAY #30 tablet 04/29/20 09/08/20 Unknown Rx HYDROcodone/APAP 5-325 [Lamy 1 each PO BID PRN #10 tablet 04/29/20 09/08/20 Unknown Rx 5-325 mg TAB] dilTIAZem CD [Cardizem CD] 180 mg PO QDAY #30 capsule 04/29/20 09/08/20 Unknown Rx Dexamethasone 6 mg PO DAILY #2 tablet 09/09/20 Unknown Rx Morphine ER [Ms Contin ER] 30 mg PO Q12HR tablet 09/09/20 Unknown Rx Warfarin [Coumadin] 5 mg PO QDAY #30 tablet 09/09/20 Unknown Rx guaiFENesin ER [Mucinex ER] 600 mg PO BID #14 tablet 09/09/20 Unknown Rx ED Physical Exam - General Limitations: No Limitations General appearance: alert, obese - Head Head exam: Present: atraumatic, normocephalic - Eye Eye exam: Present: EOMI - ENT ENT exam: Present: normal exam - Neck Neck exam: Present: normal inspection - Respiratory Respiratory exam: Present: normal lung sounds bilaterally, respiratory distress - Cardiovascular Cardiovascular Exam: Present: normal rhythm, tachycardia - GI/Abdominal GI/Abdominal exam: Present: soft. Absent: distended, tenderness - Extremities Exam Extremities exam: Present: other (Lymphedema present bilateral lower extremity) - Neurological Exam Neurological exam: Present: alert, oriented X3 - Psychiatric Psychiatric exam: Present: normal affect, normal mood - Skin Skin exam: Present: warm, dry, intact, normal color ED Course Vital Signs 11/08/20 11/08/20 11/08/20 15:47 15:50 15:52 Temperature 98 F Pulse Rate 121 H 121 H 122 H Respiratory 54 H 51 H 54 H Rate Blood Pressure 124/104 145/94 Blood Pressure [Right] O2 Sat by Pulse 97 96 82 L Oximetry 11/08/20 11/08/20 11/08/20 15:55 16:01 16:31 Temperature Pulse Rate 118 H 116 H Respiratory 35 H 24 Rate Blood Pressure 71/45 90/51 Blood Pressure [Right] O2 Sat by Pulse 93 100 99 Oximetry 11/08/20 11/08/20 11/08/20 16:45 17:01 17:15 Temperature Pulse Rate 115 H 114 H 111 H Respiratory 37 H 42 H 36 H Rate Blood Pressure 90/51 90/51 94/61 Blood Pressure [Right] O2 Sat by Pulse 99 Oximetry 11/08/20 11/08/20 11/08/20 17:45 17:55 18:01 Temperature Pulse Rate 109 H 108 H 107 H Respiratory 34 H 28 H 28 H Rate Blood Pressure 113/83 113/83 Blood Pressure 113/83 [Right] O2 Sat by Pulse Oximetry 11/08/20 11/08/20 11/08/20 19:48 20:01 21:00 Temperature Pulse Rate 105 H 106 H 108 H Respiratory 32 H 22 22 Rate Blood Pressure 125/72 151/131 Blood Pressure [Right] O2 Sat by Pulse 97 Oximetry 11/08/20 11/08/20 11/08/20 21:49 22:01 22:15 Temperature Pulse Rate 97 H 101 H 100 H Respiratory 32 H 37 H 33 H Rate Blood Pressure 112/77 112/77 Blood Pressure 122/78 [Right] O2 Sat by Pulse 100 100 100 Oximetry 11/08/20 11/08/20 11/09/20 23:00 23:49 00:00 Temperature Pulse Rate 102 H 97 H 95 H Respiratory 29 H 24 33 H Rate Blood Pressure 134/70 156/84 121/81 Blood Pressure [Right] O2 Sat by Pulse 100 100 100 Oximetry - Reevaluation(s) Reevaluation #1: 11/08/20 19:00 CTs are unable to perform the scan. Patient unable to tolerate CT due to chest pain. Will medicate with pain management and then attempt CT again. - Consultations Consultation #1: 11/08/20 22:05 Spoke w/ Dr Bass, vascular surgeon. Will review CT and consult on pt. 11/08/20 22:19 Received call back from Dr Bass. States will likely try EKOS tomorrow. States pt refused any intervention during last admission. Consultation #2: 11/08/20 22:[address] Ding. He is aware and will consult on the patient. ED Medical Decision Making - Lab Data Result diagrams: 11/08/20 17:25 11/08/20 19:10 - EKG Data -: EKG Interpreted by Ri EKG shows normal: sinus rhythm, intervals, QRS complexes Rate: tachycardia (rate 112) - EKG Data Interpretation: nonspecific ST-T wave jayne - Radiology Data Radiology results: report reviewed, image reviewed - Medical Decision Making 45-year-old female with saddle PE with right heart strain. Currently on BiPAP. Vital signs are stable. Patient was started on heparin drip prior to CTA results. I have spoken with Dr. Dr. Bass, vascular and Dr. Ding, pulmonology/ICU. They are both aware of the patient. She will be admitted by hospitalist, Dr. Sylvester, for further management. - Differential Diagnosis PE, ACS, pneumonia Critical Care Time: Yes Critical care time in (mins) excluding proc time.: 35 Critical care attestation.: If time is entered above; I have spent that time in minutes in the direct care of this critically ill patient, excluding procedure time. Critical Care Time: 35 min ED Disposition Clinical Impression: Acute saddle pulmonary embolism, Acute on chronic respiratory failure with hypoxia Disposition: 09 OP ADMIT IP TO THIS HOSP Is pt being admited?: Yes Condition: Stable Time of Disposition: 22:07
--- NOTE | 2020-11-08 17:16 | XRay Report ---
CHEST 1 VIEW INDICATION / CLINICAL INFORMATION: sob. COMPARISON: 08/30/2020 FINDINGS: SUPPORT DEVICES: None. HEART / MEDIASTINUM: No significant abnormality. LUNGS / PLEURA: No significant pulmonary or pleural abnormality. No pneumothorax. ADDITIONAL FINDINGS: No significant additional findings. IMPRESSION: No acute pulmonary or pleural abnormality Signer Name: Zeeshan Martinez MD FACR Signed: 11/08/2020 5:12 PM Workstation Name: [id number]
[2020-11-08] MEDS ORDERED: SODIUM CHLORIDE 0.9% 1000 ML 1,000 ML IV ONE (17:22)
[2020-11-08] MEDS ORDERED: HEPARIN 10,000 UNITS/10 ML VIAL IV ONE (17:36)
[2020-11-08] MEDS ORDERED: HEPARIN 10,000 UNITS/10 ML VIAL IV PRN (17:36)
[2020-11-08 17:48] LABS: Basophils # (Auto) 0.1 K/mm3 (0.0-0.1); Basophils % (Auto) 0.6 % (0.0-1.8); Eosinophils % (Auto) 0.2 % (0.0-4.3); Hematocrit 38.8 % (30.3-42.9); Hemoglobin 12.3 gm/dl (10.1-14.3); Lymphocytes # (Auto) 1.2 K/mm3 (1.2-5.4); Lymphocytes % (Auto) 9.7 % (13.4-35.0); Mean Corpuscular HGB Conc 32 % (30-34); Mean Corpuscular Volume 80 fl (79-97); Monocytes # (Auto) 0.8 K/mm3 (0.0-0.8); Monocytes % (Auto) 6.9 % (0.0-7.3); Platelet Count 257 K/mm3 (140-440); Red Blood Count 4.86 M/mm3 (3.65-5.03)
[2020-11-08 18:03] LABS: INR 1.1 (0.87-1.13)
[2020-11-08 18:04] LABS: Partial Thromboplastin Time 32.1 Sec. (24.2-36.6)
[2020-11-08 18:10] LABS: BUN/Creatinine Ratio 11; Blood Urea Nitrogen 12 mg/dL (7-17); Calcium 9.1 mg/dL (8.4-10.2); Hemolysis Index 296
[2020-11-08] MEDS ORDERED: fentaNYL 100 MCG/2 ML INJ IV ONE (19:19)
[2020-11-08] MEDS: HEPARIN/ 0.45% NACL DRIP 25,000 UNIT/500 ML BAG IV SCH (20:18)
--- NOTE | 2020-11-08 21:54 | Cat Scan Report ---
CTA CHEST WITH CONTRAST INDICATION / CLINICAL INFORMATION: Pt complains of chest pains with S.O.B., Hx of previous PE's. TECHNIQUE: Axial CT images were obtained through the chest after injection of IV contrast. 3 plane MIP and/or 3D reconstructions were produced. All CT scans at this location are performed using CT dose reduction f or ALARA by means of automated exposure control. COMPARISON: CTA chest 08/30/2020. Recent chest radiograph 11/08/2020 FINDINGS: PULMONARY ARTERIES: Significant worsening of previously noted right-sided pulmonary embolus now invol ving bilateral pulmonary arterial circulation (saddle embolus). There is extensive involvement of the pulmonary embolus with and bilateral upper and lower lobes. THORACIC AORTA: No significant abnormality. HEART: Right heart strain is noted with straightening of interventricular septum and reflux of contra st into the IVC. CORONARY ARTERIES: No significant calcification. MEDIASTINUM / DIVINA: No significant abnormality. PLEURA: No pleural effusion. No pneumothorax. LUNGS: Interval improvement of previously noted bilateral groundglass opacities. ADDITIONAL FINDINGS: None. UPPER ABDOMEN: No acute findings. SKELETAL STRUCTURES: No significant osseous abnormality. No aggressive osseous lesions. IMPRESSION: 1. Significant interval worsening of previously noted pulmonary embolic burden, now a saddle submassi ve pulmonary embolus as described above. 2. There is evidence of right heart strain with straightening of the interventricular septum and refl ux of contrast into the IVC. 3. Interval resolution of previously noted infectious/inflammatory process. CRITICAL RESULT: Time of Discovery (FEED MILL LAB TECHNICIAN/CDT): 2044 Time of Communication (FEED MILL LAB TECHNICIAN/CDT): 2048 Licensed Practitioner Receiving Report: Dr. Stanley ([facility]) Read-Back Performed: Yes. Signer Name: Ye Drew MD Signed: 11/08/2020 9:49 PM Workstation Name: [id number]
[2020-11-08] MEDS ORDERED: ALBUTEROL 2.5 MG/3 ML NEBU IH PRN (22:32)
[2020-11-08] MEDS ORDERED: ACETAMINOPHEN 325 MG TAB PO PRN (22:32)
[2020-11-08] MEDS ORDERED: ONDANSETRON 4 MG/2 ML INJ IV PRN (22:32)
[2020-11-08] MEDS ORDERED: hydrALAZINE 20 MG/1 ML INJ IV PRN (22:37)
--- NOTE | 2020-11-08 22:38 | Event Note ---
Date: 11/08/20 Patient with a history of multiple prior Pulmonary Embolism requiring admission now presents with a new PE after discharge from [facility] approximately 1 week ago with a PE and failure to take her outpatient anti-coagulation. Significant medical non-compliance. She has CTEPH with chronic PE. Additionally, during her last admission at [facility] for PE, she refused all inteventions stating that having interventions to remove her thrombus was the worst exprerience ever and she would not repeat them. Her last admission at [facility] had a similar presentation as this one and she was discharged after a stay in the ICU and floor. We will attempt to schedule the patient for possible embolectomy/EKOS placement in the morning.
--- NOTE | 2020-11-08 22:42 | History and Physical Report ---
History of Present Illness Date of examination: 11/08/20 Date of admission: 11/08/20 22:17 Chief complaint: Shortness of breath Pulmonary embolism History of present illness: 45-year-old female, history of PE, peripheral vascular disease, lymphedema, COVID-19, morbid obesity, chronic respiratory failure on 2 L home O2, pulmonary hypertension, rheumatoid arthritis, Antithrombin III deficiency, medication noncompliance, presents to ED with complaint of difficulty breathing and chest pain for the last 3 days. patient states she was first diagnosed with PE approximately 4 years ago. Patient states she has been on and off of anticoagulation since then. Patient reports approximately 12 days ago she was admitted to [facility] [place] with chest pain or shortness of breath. Patient states she was diagnosed with PE. It is unclear if this was a new or stable PE. Patient states she had been on Coumadin. She states she was told that her INR was therapeutic. Patient states doctors are unsure why she had developed another PE. Patient states she was placed on a heparin drip and then transitioned to Xarelto. Patient states no IVC filter was placed. Patient was discharged 1 week ago from [facility] [place] with a prescription for Xarelto. She states when she went to rock picker her prescription, she was told that the prescribing physician was not in network. Therefore, patient has not been on any anticoagulation for 1 week. Over the last 3 days patient reports that she has been having chest pain and shortness of breath again. Today became much worse and EMS was called. EMS reports patient's O2 sats were in the 80s upon their arrival. Patient denies any fever or cough. Patient was placed on BiPAP upon ED arrival. In April 2020, patient underwent EKOS, thrombolysis, thrombectomy for submassive bilateral PE. Past History Past Medical History: arthritis, hypertension (Morbid obesity COVID-19 lymphedema antithrombin 3 deficiency), PVD, pulmonary embolism, other Medications and Allergies Allergies Allergy/AdvReac Type Severity Reaction Status Date / Time aspirin Allergy Mild Rash Verified 09/12/17 17:05 Home Medications Medication Instructions Recorded Confirmed Last Taken Type Escitalopram [Lexapro] 10 mg PO DAILY 04/26/20 09/08/20 04/25/20 History 10 mg clonazePAM [Klonopin] 1 mg PO DAILY 04/26/20 09/08/20 04/25/20 History 1 mg risperiDONE [RisperDAL] 0.5 mg PO DAILY 04/26/20 09/08/20 04/25/20 History 0.5mg Furosemide [Lasix TAB] 20 mg PO QDAY #30 tablet 04/29/20 09/08/20 Unknown Rx HYDROcodone/APAP 5-325 [[place] 1 each PO BID PRN #10 tablet 04/29/20 09/08/20 Unknown Rx 5-325 mg TAB] dilTIAZem CD [Cardizem CD] 180 mg PO QDAY #30 capsule 04/29/20 09/08/20 Unknown Rx Dexamethasone 6 mg PO DAILY #2 tablet 09/09/20 Unknown Rx Morphine ER [Ms Contin ER] 30 mg PO Q12HR tablet 09/09/20 Unknown Rx Warfarin [Coumadin] 5 mg PO QDAY #30 tablet 09/09/20 Unknown Rx guaiFENesin ER [Mucinex ER] 600 mg PO BID #14 tablet 09/09/20 Unknown Rx Active Meds: Active Medications Acetaminophen (Acetaminophen 325 Mg Tab) 650 mg PO Q4H PRN PRN Reason: Pain MILD(1-3)/Fever >100.5/CARTAGENA Hydrocodone Bitart/Acetaminophen (Hydrocodone/Acetaminophen 5-325 Mg Tab) 1 each PO BID PRN PRN Reason: Pain, Moderate (4-6) Albuterol (Albuterol 2.5 Mg/3 Ml Nebu) 2.5 mg IH Q4HRT PRN PRN Reason: Shortness Of Breath Albuterol/Ipratropium (Ipratropium/Albuterol Sulfate 3 Ml Ampul.Neb) 1 ampul IH Q6HRT [facility] Diltiazem HCl (Diltiazem Cd 180 Mg Cap) 180 mg PO QDAY [facility] Escitalopram Oxalate (Escitalopram 10 Mg/10 Ml Oral Liqd) 10 mg PO DAILY JOSE Famotidine (Famotidine 20 Mg Tab) 20 mg PO BID JOSE Furosemide (Furosemide 20 Mg Tab) 20 mg PO QDAY JOSE Guaifenesin (Guaifenesin Er 600 Mg Tab) 600 mg PO BID JOSE Heparin Sodium (Porcine) (Heparin 10,000 Units/10 Ml Vial) 7,100 unit 40 unit/kg (7100 unit) IV Q6H PRN PRN Reason: Anti-Xa Assay < 0.1 units/ml Hydralazine HCl (Hydralazine 20 Mg/1 Ml Inj) 10 mg IV Q6H PRN PRN Reason: htn Heparin Sodium/Sodium Chloride (Heparin/ 0.45% Nacl-25,000 Unit/500 Ml) 25,000 unit in 500 mls @ 30 mls/hr IV TITR [facility]; Protocol Last Admin: 11/08/20 20:18 Dose: 1,500 units/hr, 30 mls/hr Documented by: Miscellaneous Medication (Clonazepam [Klonopin]) 1 mg PO DAILY [facility] Miscellaneous Medication (Dexamethasone [Dexamethasone]) 6 mg PO DAILY [facility] Miscellaneous Medication (Risperidone [Risperdal]) 0.5 mg PO DAILY [facility] Morphine Sulfate (Morphine 30 Mg Er Tab) 30 mg PO Q12HR JOSE Ondansetron HCl (Ondansetron 4 Mg/2 Ml Inj) 4 mg IV Q8H PRN PRN Reason: Nausea And Vomiting Sodium Chloride (Sodium Chloride 0.9% 10 Ml Flush Syringe) 10 ml IV BID JOSE Sodium Chloride (Sodium Chloride 0.9% 10 Ml Flush Syringe) 10 ml IV PRN PRN PRN Reason: LINE FLUSH Warfarin Sodium (Warfarin 5 Mg Tab) 5 mg PO QDAY [facility]; Protocol Review of Systems Cardiovascular: chest pain, shortness of breath, dyspnea on exertion Respiratory: shortness of breath, dyspnea on exertion Exam - Constitutional Vitals: Temp Pulse Resp BP Pulse Ox 98 F 101 H 37 H 112/77 100 11/08/20 15:52 11/08/20 22:01 11/08/20 22:01 11/08/20 22:01 11/08/20 22:01 General appearance: Present: mild distress, well-nourished - EENT Eyes: Present: PERRL ENT: hearing intact, clear oral mucosa - Neck Neck: Present: supple, normal ROM - Respiratory Respiratory effort: normal Respiratory: bilateral: diminished - Cardiovascular Heart Sounds: Present: S1 & S2. Absent: rub, click - Extremities Extremities: pulses symmetrical, No edema Peripheral Pulses: within normal limits - Abdominal General gastrointestinal: Present: soft, non-tender, non-distended, normal bowel sounds Female genitourinary: Present: normal - Integumentary Integumentary: Present: clear, warm, dry - Musculoskeletal Musculoskeletal: gait normal, strength equal bilaterally - Psychiatric Psychiatric: appropriate mood/affect, intact judgment & insight - Neurologic Neurologic: CNII-XII intact, moves all extremities HEART Score - HEART Score Troponin: Troponin T 0.018 ng/mL (0.00-0.029) 11/08/20 17:25 Results - Labs CBC & Chem 7: 11/08/20 17:25 11/08/20 19:10 Labs: Laboratory Last Values WBC 12.2 K/mm3 (4.5-11.0) H 11/08/20 17:25 RBC 4.86 M/mm3 (3.65-5.03) 11/08/20 17:25 Hgb 12.3 gm/dl (10.1-14.3) 11/08/20 17:25 Hct 38.8 % (30.3-42.9) 11/08/20 17:25 MCV 80 fl (79-97) 11/08/20 17:25 MCH 25 pg (28-32) L 11/08/20 17:25 MCHC 32 % (30-34) 11/08/20 17:25 RDW 19.0 % (13.2-15.2) H 11/08/20 17:25 Plt Count 257 K/mm3 (140-440) 11/08/20 17:25 Lymph % (Auto) 9.7 % (13.4-35.0) L 11/08/20 17:25 Barry % (Auto) 6.9 % (0.0-7.3) 11/08/20 17:25 Eos % (Auto) 0.2 % (0.0-4.3) 11/08/20:25 Baso % (Auto) 0.6 % (0.0-1.8) 11/08/20 17:25 Lymph # (Auto) 1.2 K/mm3 (1.2-5.4) 11/08/20 17:25 Barry # (Auto) 0.8 K/mm3 (0.0-0.8) 11/08/20 17:25 Eos # (Auto) 0.0 K/mm3 (0.0-0.4) 11/08/20 17:25 Baso # (Auto) 0.1 K/mm3 (0.0-0.1) 11/08/20 17:25 Seg Neutrophils % 82.6 % (40.0-70.0) H 11/08/20 17:25 Seg Neutrophils # 10.1 K/mm3 (1.8-7.7) H 11/08/20 17:25 PT 14.8 Sec. (12.2-14.9) 11/08/20 17:25 INR 1.10 (0.87-1.13) 11/08/20 17:25 APTT 32.1 Sec. (24.2-36.6) 11/08/20 17:25 Sodium 141 mmol/L (137-145) 11/08/20 17:25 Potassium 4.8 mmol/L (3.6-5.0) 11/08/20 19:10 Chloride 106.8 mmol/L (98-107) 11/08/20 17:25 Carbon Dioxide 23 mmol/L (22-30) 11/08/20 17:25 Anion Gap 17 mmol/L 11/08/20 17:25 BUN 12 mg/dL (7-17) 11/08/20 17:25 Creatinine 1.1 mg/dL (0.6-1.2) 11/08/20 17:25 Estimated GFR > 60 ml/min 11/08/20 17:25 BUN/Creatinine Ratio 11 % 11/08/20 17:25 Glucose 89 mg/dL (65-100) 11/08/20 17:25 Calcium 9.1 mg/dL (8.4-10.2) 11/08/20 17:25 Troponin T 0.018 ng/mL (0.00-0.029) 11/08/20 17:25 NT-Pro-B Natriuret Pep 7232 pg/mL (0-450) H 11/08/20 17:25 HCG, Qual Negative (Negative) 11/08/20 17:25 - Imaging and Cardiology CT scan - chest: report reviewed Assessment and Plan VTE prophylaxis?: Chemical Plan of care discussed with patient/family: Yes - Patient Problems (1) Acute saddle pulmonary embolism Current Visit: Yes Status: Acute Plan to address problem: Admit the patient to the medical telemetry. Put the patient on heparin drip. We will continue the Coumadin 5 mg p.o. daily. We also do echocardiogram. Will consult vascular surgeon as well as pulmonary to see the patient for further treatment and management (2) Acute on chronic respiratory failure with hypoxia Current Visit: Yes Status: Acute Plan to address problem: Put the patient on BiPAP. DuoNeb by nebulizer every 4 hours as needed. Albuterol via nebulizer every 4 hours as needed. Put the patient on heparin drip. Dexamethasone 6 mg p.o. daily. Will consult pulmonary to see the patient for further treatment and management (3) Hypertension Current Visit: Yes Status: Acute Plan to address problem: Hydralazine 10 mg IV every 6 hours as needed. We will monitor the blood pressure closely. We continue the home medication (4) PVD (peripheral vascular disease) Current Visit: Yes Status: Acute Plan to address problem: Put the patient on heparin drip. We will continue the Coumadin 5 mg p.o. daily. We also do echocardiogram. Will consult vascular surgeon to see the patient for further treatment and management (5) Antithrombin III deficiency Current Visit: Yes Status: Acute Plan to address problem: Put the patient on heparin drip. We will continue the Coumadin 5 mg p.o. daily. Consult hematology oncology if needed in the morning (6) Morbid obesity Current Visit: No Status: Chronic Plan to address problem: We counseled regarding weight reduction. Outpatient follow-up with bariatric surgery (7) Rheumatoid arthritis Current Visit: No Status: Chronic Plan to address problem: Tylenol 650 mg p.o. every 6 hours as needed. We will continue the home medication. Outpatient follow-up with primary care and ux visual designer (8) DVT prophylaxis Current Visit: No Status: Acute Plan to address problem: We will put the patient on heparin drip for DVT prophylaxis. Pepcid 20 mg p.o. twice daily for GI prophylaxis. Patient is a full code
[2020-11-08] MEDS ORDERED: LORazepam 2 MG/ML VIAL IV ONE (23:45)
[2020-11-09 03:18] LABS: Basophils # (Auto) 0.1 K/mm3 (0.0-0.1); Basophils % (Auto) 0.5 % (0.0-1.8); Eosinophils % (Auto) 0.2 % (0.0-4.3); Hematocrit 41.2 % (30.3-42.9); Hemoglobin 12.6 gm/dl (10.1-14.3); Lymphocytes # (Auto) 2.1 K/mm3 (1.2-5.4); Lymphocytes % (Auto) 16.9 % (13.4-35.0); Mean Corpuscular HGB Conc 31 % (30-34); Mean Corpuscular Volume 81 fl (79-97); Monocytes # (Auto) 0.8 K/mm3 (0.0-0.8); Monocytes % (Auto) 6.9 % (0.0-7.3); Platelet Count 301 K/mm3 (140-440); Red Blood Count 5.09 M/mm3 (3.65-5.03); Red Cell Distribution Width 19.6 % (13.2-15.2)
--- NOTE | 2020-11-09 03:57 | Consultation ---
History of Present Illness Consult date: 11/09/20 Requesting physician: CONNIE GANDHI Reason for consult: hypoxemia, pulmonary embolism History of present illness: 45 y/o morbidly obese NIKITA, well known to me, as she has been admitted here several times for the same complaints presents with shortness of breath and chest pain. She was just here last month and apparently was just discharged from [facility] last Sunday. Per ED records she has not been on any antico agulation since then. She is known for being noncompliant with outpatient therapy and on her last admit here she refused ekos therapy after several ploys from myself and the vascular team. Past History Past Medical History: arthritis, hypertension (Morbid obesity COVID-19 lymphedema antithrombin 3 deficiency), PVD, pulmonary embolism, other Medications and Allergies Allergies Allergy/AdvReac Type Severity Reaction Status Date / Time aspirin Allergy Mild Rash Verified 09/12/17 17:05 Home Medications Medication Instructions Recorded Confirmed Last Taken Type Escitalopram [Lexapro] 10 mg PO DAILY 04/26/20 09/08/20 04/25/20 History 10 mg clonazePAM [Klonopin] 1 mg PO DAILY 04/26/20 09/08/20 04/25/20 History 1 mg risperiDONE [RisperDAL] 0.5 mg PO DAILY 04/26/20 09/08/20 04/25/20 History 0.5mg Furosemide [Lasix TAB] 20 mg PO QDAY #30 tablet 04/29/20 09/08/20 Unknown Rx HYDROcodone/APAP 5-325 [Paia 1 each PO BID PRN #10 tablet 04/29/20 09/08/20 Unknown Rx 5-325 mg TAB] dilTIAZem CD [Cardizem CD] 180 mg PO QDAY #30 capsule 04/29/20 09/08/20 Unknown Rx Dexamethasone 6 mg PO DAILY #2 tablet 09/09/20 Unknown Rx Morphine ER [Ms Contin ER] 30 mg PO Q12HR tablet 09/09/20 Unknown Rx Warfarin [Coumadin] 5 mg PO QDAY #30 tablet 09/09/20 Unknown Rx guaiFENesin ER [Mucinex ER] 600 mg PO BID #14 tablet 09/09/20 Unknown Rx Active Meds: Active Medications Acetaminophen (Acetaminophen 325 Mg Tab) 650 mg PO Q4H PRN PRN Reason: Pain MILD(1-3)/Fever >100.5/CARTAGENA Hydrocodone Bitart/Acetaminophen (Hydrocodone/Acetaminophen 5-325 Mg Tab) 1 each PO BID PRN PRN Reason: Pain, Moderate (4-6) Albuterol (Albuterol 2.5 Mg/3 Ml Nebu) 2.5 mg IH Q4HRT PRN PRN Reason: Shortness Of Breath Albuterol/Ipratropium (Ipratropium/Albuterol Sulfate 3 Ml Ampul.Neb) 1 ampul IH Q6HRT [facility] Clonazepam (Clonazepam 0.5 Mg Tab) 1 mg PO DAILY [facility] Dexamethasone (Dexamethasone 4 Mg Tab) 6 mg PO DAILY [facility] Diltiazem HCl (Diltiazem Cd 180 Mg Cap) 180 mg PO QDAY [facility] Escitalopram Oxalate (Escitalopram 10 Mg Tab) 10 mg PO DAILY [facility] Famotidine (Famotidine 20 Mg Tab) 20 mg PO BID [facility] Furosemide (Furosemide 20 Mg Tab) 20 mg PO QDAY [facility] Guaifenesin (Guaifenesin Er 600 Mg Tab) 600 mg PO BID [facility] Heparin Sodium (Porcine) (Heparin 10,000 Units/10 Ml Vial) 7,100 unit 40 unit/kg (7100 unit) IV Q6H PRN PRN Reason: Anti-Xa Assay < 0.1 units/ml Hydralazine HCl (Hydralazine 20 Mg/1 Ml Inj) 10 mg IV Q6H PRN PRN Reason: htn Heparin Sodium/Sodium Chloride (Heparin/ 0.45% Nacl-25,000 Unit/500 Ml) 25,000 unit in 500 mls @ 30 mls/hr IV TITR [facility]; Protocol Last Admin: 11/08/20 20:18 Dose: 1,500 units/hr, 30 mls/hr Documented by: Morphine Sulfate (Morphine 30 Mg Er Tab) 30 mg PO Q12HR [facility] Ondansetron HCl (Ondansetron 4 Mg/2 Ml Inj) 4 mg IV Q8H PRN PRN Reason: Nausea And Vomiting Risperidone (Risperidone 0.25 Mg Tab) 0.5 mg PO DAILY [facility] Sodium Chloride (Sodium Chloride 0.9% 10 Ml Flush Syringe) 10 ml IV BID [facility] Sodium Chloride (Sodium Chloride 0.9% 10 Ml Flush Syringe) 10 ml IV PRN PRN PRN Reason: LINE FLUSH Warfarin Sodium (Warfarin 5 Mg Tab) 5 mg PO QDAY@1700 [facility]; Protocol Review of Systems All systems: negative Physical Examination Vital signs: Vital Signs Pulse Resp BP Pulse Ox 121 H 54 H 124/104 97 11/08/20 15:47 11/08/20 15:47 11/08/20 15:47 11/08/20 15:47 General appearance: other (on bipap, mild respiratory distress) Eyes: non-icteric ENT: other (full face mask bipap) Neck: supple, other (large in circumference) Effort: mildly labored Ascultation: Bilateral: diminished breath sounds Percussion: Bilateral: not dull Cardiovascular: regular rate and rhythm Gastrointestinal: soft, other (obese) Results - Laboratory Findings CBC and BMP: 11/09/20 02:55 11/08/20 19:10 PT/INR, D-dimer PT 14.8 Sec. (12.2-14.9) 11/08/20 17:25 INR 1.10 (0.87-1.13) 11/08/20 17:25 Abnormal lab findings: Abnormal Labs 11/08/20 11/08/20 11/09/20 17:25 17:25 02:55 WBC 12.2 H 12.2 H RBC 5.09 H MCH 25 L 25 L RDW 19.0 H 19.6 H Lymph % (Auto) 9.7 L Seg Neutrophils % 82.6 H 75.5 H Seg Neutrophils # 10.1 H 9.2 H Potassium 5.8 H NT-Pro-B Natriuret Pep 7232 H - Diagnostic Findings CT scan - chest: image reviewed Assessment and Plan 45 y/o female with bilateral pulmonary emboli 1. Same presentations as past. Reviewed IR note. Likely patient will refuse. AGree with heparin drip. I spoke with the patient about palliative care and hospice at last admit. Will do again. Maybe if on hospice she will be able to at least get her coumadin and have someone follow up on it regularly. She would be a candidate for CTEPH. 2. Wean bipap as tolerated.
[2020-11-09 04:00] LABS: BUN/Creatinine Ratio 12; Blood Urea Nitrogen 11 mg/dL (7-17); Calcium 8.7 mg/dL (8.4-10.2); Hemolysis Index 41
[2020-11-09] MEDS: IPRATROPIUM/ALBUTEROL SULFATE 3 ML AMPUL.NEB IH SCH ×4 (08:07→20:35)
[2020-11-09] MEDS: MORPHINE 30 MG ER TAB PO SCH ×2 (09:31→21:13)
[2020-11-09] MEDS ORDERED: dilTIAZem CD 180 MG CAP PO SCH (10:00)
--- NOTE | 2020-11-09 10:54 | Consultation ---
History of Present Illness - Reason for Consult Consult date: 11/09/20 pulmonary embolism Requesting physician: CONNIE GANDHI - History of Present Illness 45-year-old female, history of PE, peripheral vascular disease, lymphedema, COVID-19, morbid obesity, chronic respiratory failure on 2 L home O2, pulmonary hypertension, rheumatoid arthritis, Antithrombin III deficiency, medication noncompliance, presents to ED with complaint of difficulty breathing and chest pain for the last 3 days. Patient states she was first diagnosed with PE approximately 4 years ago. Patient states she has been on and off of anticoagulation since then. Patient reports approximately 12 days ago she was admitted to [facility] with chest pain or shortness of breath. Patient states she was diagnosed with PE. It is unclear if this was a new or stable PE. Patient states she had been on Coumadin. Patient states doctors are unsure why she had developed another PE. Patient states she was placed on a heparin drip and then transitioned to Xarelto. Patient states no IVC filter was placed. Patient was discharged 1 week ago [address] [facility] with a prescription for Xarelto. 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 Therefore, patient has not been on any anticoagulation for 1 week. Over the last 3 days patient reports that she has been having chest pain and shortness of breath again. Today became much worse and EMS was called. EMS reports patient's O2 sats were in the 80s upon their arrival. Patient denies any fever or cough. Patient was placed on BiPAP upon ED arrival. In April 2020, patient underwent EKOS, thrombolysis, thrombectomy for submassive bilateral PE. Vascular consulted for pulmonary embolism evaluation. Patient is tachypneic on BiPAP. Heart rate in the 80s. Blood pressure stable. Reviewed CT scan and BNP greater than 7000 and right ventricle greater than left ventricle size noted compatible with right heart strain on CT. Past History Past Medical History: arthritis, hypertension (Morbid obesity COVID-19 lymphedema antithrombin 3 deficiency), PVD, pulmonary embolism, other Medications and Allergies Allergies Allergy/AdvReac Type Severity Reaction Status Date / Time aspirin Allergy Mild Rash Verified 09/12/17 17:05 Home Medications Medication Instructions Recorded Confirmed Last Taken Type Escitalopram [Lexapro] 10 mg PO DAILY 04/26/20 09/08/20 04/25/20 History 10 mg clonazePAM [Klonopin] 1 mg PO DAILY 04/26/20 09/08/20 04/25/20 History 1 mg risperiDONE [RisperDAL] 0.5 mg PO DAILY 04/26/20 09/08/20 04/25/20 History 0.5mg Furosemide [Lasix TAB] 20 mg PO QDAY #30 tablet 04/29/20 09/08/20 Unknown Rx HYDROcodone/APAP 5-325 [Laurens 1 each PO BID PRN #10 tablet 04/29/20 09/08/20 Unknown Rx 5-325 mg TAB] dilTIAZem CD [Cardizem CD] 180 mg PO QDAY #30 capsule 04/29/20 09/08/20 Unknown Rx Dexamethasone 6 mg PO DAILY #2 tablet 09/09/20 Unknown Rx Morphine ER [Ms Contin ER] 30 mg PO Q12HR tablet 09/09/20 Unknown Rx Warfarin [Coumadin] 5 mg PO QDAY #30 tablet 09/09/20 Unknown Rx guaiFENesin ER [Mucinex ER] 600 mg PO BID #14 tablet 09/09/20 Unknown Rx Active Meds: Active Medications Acetaminophen (Acetaminophen 325 Mg Tab) 650 mg PO Q4H PRN PRN Reason: Pain MILD(1-3)/Fever >100.5/CARTAGENA Hydrocodone Bitart/Acetaminophen (Hydrocodone/Acetaminophen 5-325 Mg Tab) 1 each PO BID PRN PRN Reason: Pain, Moderate (4-6) Albuterol (Albuterol 2.5 Mg/3 Ml Nebu) 2.5 mg IH Q4HRT PRN PRN Reason: Shortness Of Breath Albuterol/Ipratropium (Ipratropium/Albuterol Sulfate 3 Ml Ampul.Neb) 1 ampul IH Q6HRT [facility] Last Admin: 11/09/20 08:09 Dose: 1 ampul Documented by: Clonazepam (Clonazepam 0.5 Mg Tab) 1 mg PO DAILY [facility] Dexamethasone (Dexamethasone 4 Mg Tab) 6 mg PO DAILY [facility] Diltiazem HCl (Diltiazem Cd 120 Mg Cap) 120 mg PO QDAY [facility] Escitalopram Oxalate (Escitalopram 10 Mg Tab) 10 mg PO DAILY [facility] Famotidine (Famotidine 20 Mg Tab) 20 mg PO BID [facility] Furosemide (Furosemide 20 Mg Tab) 20 mg PO QDAY [facility] Guaifenesin (Guaifenesin Er 600 Mg Tab) 600 mg PO BID [facility] Heparin Sodium (Porcine) (Heparin 10,000 Units/10 Ml Vial) 7,100 unit 40 unit/kg (7100 unit) IV Q6H PRN PRN Reason: Anti-Xa Assay < 0.1 units/ml Hydralazine HCl (Hydralazine 20 Mg/1 Ml Inj) 10 mg IV Q6H PRN PRN Reason: htn Heparin Sodium/Sodium Chloride (Heparin/ 0.45% Nacl-25,000 Unit/500 Ml) 25,000 unit in 500 mls @ 30 mls/hr IV TITR [facility]; Protocol Last Admin: 11/08/20 20:18 Dose: 1,500 units/hr, 30 mls/hr Documented by: Morphine Sulfate (Morphine 30 Mg Er Tab) 30 mg PO Q12HR [facility] Last Admin: 11/09/20 09:31 Dose: 30 mg Documented by: Ondansetron HCl (Ondansetron 4 Mg/2 Ml Inj) 4 mg IV Q8H PRN PRN Reason: Nausea And Vomiting Risperidone (Risperidone 0.25 Mg Tab) 0.5 mg PO DAILY [facility] Sodium Chloride (Sodium Chloride 0.9% 10 Ml Flush Syringe) 10 ml IV BID [facility] Sodium Chloride (Sodium Chloride 0.9% 10 Ml Flush Syringe) 10 ml IV PRN PRN PRN Reason: LINE FLUSH Warfarin Sodium (Warfarin 10 Mg Tab) 10 mg PO DAILY@1700 [facility]; Protocol Review of Systems All systems: negative (see HPI) Exam - Constitutional Vitals: Temp Pulse Resp BP Pulse Ox 98 F 88 18 112/71 100 11/08/20 15:52 11/09/20 08:09 11/09/20 09:31 11/09/20 08:09 11/09/20 08:09 General appearance: Present: mild distress (On BiPAP) - EENT Eyes: Present: EOM intact ENT: hearing intact - Respiratory Respiratory effort: other (Tachypneic) - Extremities Extremities: abnormal (Lymphedema) Extremity abnormal: edema - Abdominal General gastrointestinal: Present: distended (Obese) - Psychiatric Psychiatric: appropriate mood/affect, cooperative Results - Labs CBC & Chem 7: 11/09/20 02:55 11/09/20 02:55 Labs: Abnormal lab results 11/08/20 11/08/20 11/09/20 Range/Units 17:25 17:25 02:55 WBC 12.2 H 12.2 H (4.5-11.0) K/mm3 RBC 5.09 H (3.65-5.03) M/mm3 MCH 25 L 25 L (28-32) pg RDW 19.0 H 19.6 H (13.2-15.2) % Lymph % (Auto) 9.7 L (13.4-35.0) % Seg Neutrophils % 82.6 H 75.5 H (40.0-70.0) % Seg Neutrophils # 10.1 H 9.2 H (1.8-7.7) K/mm3 Potassium 5.8 H (3.6-5.0) mmol/L Carbon Dioxide (22-30) mmol/L NT-Pro-B Natriuret Pep 7232 H (0-450) pg/mL 11/09/20 Range/Units 02:55 WBC (4.5-11.0) K/mm3 RBC (3.65-5.03) M/mm3 MCH (28-32) pg RDW (13.2-15.2) % Lymph % (Auto) (13.4-35.0) % Seg Neutrophils % (40.0-70.0) % Seg Neutrophils # (1.8-7.7) K/mm3 Potassium (3.6-5.0) mmol/L Carbon Dioxide 20 L (22-30) mmol/L NT-Pro-B Natriuret Pep (0-450) pg/mL - Imaging and Cardiology CT scan - chest: report reviewed, image reviewed Assessment and Plan 45-year-old female with past medical history of extensive thromboembolic events status post thrombolytic therapy in the past with thrombectomy performed in improvement of her symptoms. Since then, she has been highly noncompliant with her medication and has had numerous recurrent pulmonary embolism episodes. She has right-sided heart strain on CT, extensive thrombus burden, at least some of which is chronic, and elevated biomarkers. She is intermediate high risk on risk stratification for pulmonary embolism. Offered patient options of thrombolytic therapy. Risks, benefits, and alternatives discussed, and patient declined procedure, again. Discussed with patient that she needs to be on anticoagulation for life. Xarelto is unaffordable for the patient. Options include warfarin and Eliquis. Both options have issues as warfarin may be difficult to manage given her severe morbid obesity, and DOAC's have a relative contraindication in severe morbid obesity.
[2020-11-09] MEDS: guaiFENesin ER 600 MG TAB PO SCH ×2 (14:05→22:41)
[2020-11-09] MEDS: clonazePAM 0.5 MG TAB PO SCH (14:06)
[2020-11-09] MEDS: FUROSEMIDE 20 MG TAB PO SCH (14:06)
[2020-11-09] MEDS: HYDROcodone/ACETAMINOPHEN 5-325 MG TAB PO PRN (14:07)
[2020-11-09] MEDS: risperiDONE 0.25 MG TAB PO SCH (14:07)
[2020-11-09] MEDS: FAMOTIDINE 20 MG TAB PO SCH ×2 (14:08→21:15)
[2020-11-09] MEDS: dilTIAZem CD 120 MG CAP PO SCH (14:15)
[2020-11-09] MEDS: DEXAMETHASONE 4 MG TAB PO SCH (14:46)
[2020-11-09] MEDS: ESCITALOPRAM 10 MG TAB PO SCH (14:46)
[2020-11-09] MEDS: HEPARIN/ 0.45% NACL DRIP 25,000 UNIT/500 ML BAG IV SCH (18:36)
[2020-11-09] MEDS: WARFARIN 10 MG TAB PO SCH (20:02)
--- NOTE | 2020-11-09 20:20 | Progress Note ---
<IVYENIDLinda - Last Filed: 11/09/20 20:17> Assessment and Plan Assessment and plan: This is a 45-year-old female with a history of pulmonary embolism s/p EKOS, thrombolysis, thrombectomy for submassive bilateral PE in April 2020, PVD, RA, chronic respiratory failure, pulmonary hypertension, morbid obesity, lymp hedema, Antithrombin III deficiency, medical noncompliance who is admitted for bilateral pulmonary emboli, leukocytosis, elevated proBNP, and COVID 19 PUI Saddle submassive pulmonary embolism Right heart strain Acute on chronic respiratory failure with hypoxia Leukocytosis Metabolic acidosis PVD Antithrombin III deficiency Rheumatoid arthritis Morbid obesity Medical noncompliance Lymphedema History of pulmonary embolism s/p EKOS, thrombolysis and thrombectomy in April 2020 Pulmonary hypertension COVID 19 PUI, ruled out Chornic pain syndrome/chornic opiate dependent Reoccurent PE -[facility], vascular surgery consulted, patient recommendations -11/08 CTA chest shows significant interval worsening of previously noted pulmonary embolic burden, now subtle submassive pulmonary embolus, evidence of right heart strain with straightening of the intraventricular septum and reflux of contrast into the IVC, interval resolution of previously noted infectious/inflammatory process -11/08 echocardiogram pending -11/08 CXR shows no acute pulmonary or pleural abnormality -Heparin drip -Warfarin, PAS to dose -Cardiac diet -Resume home Klonopin, Decadron, diltiazem, Lexapro, respiratory, MS Contin and warfarin DuoNeb -Trend CBC, BMP, INR -Pulmonary hygiene -Stressed medical compliance DVT/GI prophylaxis: PPI, systemic anticoagulation with heparin drip, SCDs to bilateral actions while in bed Disposition: Downgraded to IMCU today The high probability of a clinically significant, sudden or life threatening deterioration of the [respiratory] system(s) required my full and direct attention, intervention and personal management. The aggregate critical care time was [35] minutes. This time is in addition to time spent performing reported procedures but includes the following: [x] Data Review and interpretation [x] Patient assessment and monitoring of vital signs [x] Documentation [x] Medication orders and management History Interval history: This is a this is a 45-year-old female with a history of pulmonary embolism and underwent EKOS, thrombolysis and thrombectomy for submassive bilateral pulmonary embolism in April 2020, PVD, lymphedema, COVID-19 infection, morbid obesity, chronic respiratory failure on 2 L of home oxygen via nasal cannula, pulmonary hypertension, rheumatoid arthritis, morbid obesity, Antithrombin III deficiency, medical noncompliance who presented to emergency department with complaints of difficulty breathing and chest pain which status which has been ongoing for 3 days prior to arrival on 11/08. Upon arrival of EMS patient SPO2 was in the 80s upon on room air. 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 Patient upon arrival to the emergency room patient was tachycardic, tachypneic and hypotensive. Had been on anticoagulation for 1 week prior to arrival. Upon arrival to the emergency department patient was hypotensive, tachycardic and tachypneic. Patient was initiated on BiPAP therapy due to increased work of breathing. Patient underwent a CTA chest which showed a saddle pulmonary embolism with right heart strain. Patient was started on a heparin drip prior to CTA results. Patient was admitted to the hospitalist service with acute on chronic hypoxic respiratory failure and saddle pulmonary embolism with consults to vascular surgery and [facility]. 11/09: Patient was able to be downgraded to IMCU but remains on continuous BiPAP therapy. At the time my examination patient was on 100% BiPAP therapy and stated that her work of breathing is better. Patient was again presented with EKOS as an option however she declined the procedure. Hospitalist Physical - Constitutional Vitals: Temp Pulse Resp BP Pulse Ox 98 F 91 H 27 H 127/62 92 11/08/20 15:52 11/09/20 17:00 11/09/20 17:00 11/09/20 17:00 11/09/20 17:00 General appearance: Present: mild distress (On BiPAP) HEART Score - HEART Score Troponin: Troponin T 0.018 ng/mL (0.00-0.029) 11/08/20 17:25 Results - Labs CBC & Chem 7: 11/09/20 02:55 11/09/20 02:55 Labs: Laboratory Last Values WBC 12.2 K/mm3 (4.5-11.0) H 11/09/20 02:55 RBC 5.09 M/mm3 (3.65-5.03) H 11/09/20 02:55 Hgb 12.6 gm/dl (10.1-14.3) 11/09/20 02:55 Hct 41.2 % (30.3-42.9) 11/09/20 02:55 MCV 81 fl (79-97) 11/09/20 02:55 MCH 25 pg (28-32) L 11/09/20 02:55 MCHC 31 % (30-34) 11/09/20 02:55 RDW 19.6 % (13.2-15.2) H 11/09/20 02:55 Plt Count 301 K/mm3 (140-440) 11/09/20 02:55 Lymph % (Auto) 16.9 % (13.4-35.0) 11/09/20 02:55 Geary % (Auto) 6.9 % (0.0-7.3) 11/09/20 02:55 Eos % (Auto) 0.2 % (0.0-4.3) 11/09/20 02:55 Baso % (Auto) 0.5 % (0.0-1.8) 11/09/20 02:55 Lymph # (Auto) 2.1 K/mm3 (1.2-5.4) 11/09/20 02:55 Geary # (Auto) 0.8 K/mm3 (0.0-0.8) 11/09/20 02:55 Eos # (Auto) 0.0 K/mm3 (0.0-0.4) 11/09/20 02:55 Baso # (Auto) 0.1 K/mm3 (0.0-0.1) 11/09/20 02:55 Seg Neutrophils % 75.5 % (40.0-70.0) H 11/09/20 02:55 Seg Neutrophils # 9.2 K/mm3 (1.8-7.7) H 11/09/20 02:55 PT 14.8 Sec. (12.2-14.9) 11/08/20 17:25 INR 1.10 (0.87-1.13) 11/08/20 17:25 APTT 32.1 Sec. (24.2-36.6) 11/08/20 17:25 Heparin Anti-Xa Level 0.66 U.I./ml (0.3-0.7) 11/09/20 08:30 Sodium 140 mmol/L (137-145) 11/09/20 02:55 Potassium 4.8 mmol/L (3.6-5.0) 11/09/20 02:55 Chloride 105.0 mmol/L (98-107) 11/09/20 02:55 Carbon Dioxide 20 mmol/L (22-30) L 11/09/20 02:55 Anion Gap 20 mmol/L 11/09/20 02:55 BUN 11 mg/dL (7-17) 11/09/20 02:55 Creatinine 0.9 mg/dL (0.6-1.2) 11/09/20 02:55 Estimated GFR > 60 ml/min 11/09/20 02:55 BUN/Creatinine Ratio 12 % 11/09/20 02:55 Glucose 87 mg/dL (65-100) 11/09/20 02:55 Calcium 8.7 mg/dL (8.4-10.2) 11/09/20 02:55 Troponin T 0.018 ng/mL (0.00-0.029) 11/08/20 17:25 NT-Pro-B Natriuret Pep 7232 pg/mL (0-450) H 11/08/20 17:25 HCG, Qual Negative (Negative) 11/08/20 17:25 Coronavirus (PCR) Negative (Negative) 11/09/20 Unknown Active Medications - Current Medications Current Medications: Generic Name Dose Route Start Last Admin Trade Name Freq PRN Reason Stop Dose Admin Acetaminophen 650 mg 11/08/20 22:32 Acetaminophen 325 Mg Tab PO Q4H PRN Pain MILD(1-3)/Fever >100.5/CARTAGENA Hydrocodone Bitart/Acetaminophen 1 each 11/08/20 22:34 11/09/20 14:07 Hydrocodone/Acetaminophen 5-325 Mg Tab PO 1 each BID PRN Administration Pain, Moderate (4-6) Albuterol 2.5 mg 11/08/20 22:32 Albuterol 2.5 Mg/3 Ml Nebu IH Q4HRT PRN Shortness Of Breath Albuterol/Ipratropium 1 ampul 11/09/20 02:00 11/09/20 14:30 Ipratropium/Albuterol Sulfate 3 Ml Ampul.Neb IH 1 ampul Q6HRT JOSE Administration Clonazepam 1 mg 11/09/20 10:00 11/09/20 14:06 Clonazepam 0.5 Mg Tab PO 1 mg DAILY JOSE Administration Dexamethasone 6 mg 11/09/20 10:00 11/09/20 14:46 Dexamethasone 4 Mg Tab PO 6 mg DAILY JOSE Administration Diltiazem HCl 120 mg 11/09/20 10:00 11/09/20 14:15 Diltiazem Cd 120 Mg Cap PO Not Given QDAY JOSE Escitalopram Oxalate 10 mg 11/09/20 10:00 11/09/20 14:46 Escitalopram 10 Mg Tab PO 10 mg DAILY JOSE Administration Famotidine 20 mg 11/09/20 10:00 11/09/20 14:08 Famotidine 20 Mg Tab PO 20 mg BID JOSE Administration Furosemide 20 mg 11/09/20 10:00 11/09/20 14:06 Furosemide 20 Mg Tab PO 20 mg QDAY JOSE Administration Guaifenesin 600 mg 11/09/20 10:00 11/09/20 14:05 Guaifenesin Er 600 Mg Tab PO 600 mg BID JOSE Administration Heparin Sodium (Porcine) 7,100 unit 11/08/20 17:36 Heparin 10,000 Units/10 Ml Vial 40 unit/kg (7100 unit) IV Q6H PRN Anti-Xa Assay < 0.1 units/ml Hydralazine HCl 10 mg 11/08/20 22:37 Hydralazine 20 Mg/1 Ml Inj IV Q6H PRN htn Heparin Sodium/Sodium Chloride 25,000 unit in 500 mls @ 30 mls/hr 11/08/20 18:00 11/09/20 18:36 Heparin/ 0.45% Nacl-25,000 Unit/500 Ml IV 1,500 units/hr TITR JOSE 30 mls/hr Administration Protocol 1,500 UNITS/HR Morphine Sulfate 30 mg 11/09/20 10:00 11/09/20 09:31 Morphine 30 Mg Er Tab PO 30 mg Q12HR JOSE Administration Ondansetron HCl 4 mg 11/08/20 22:32 Ondansetron 4 Mg/2 Ml Inj IV Q8H PRN Nausea And Vomiting Risperidone 0.5 mg 11/09/20 10:00 11/09/20 14:07 Risperidone 0.25 Mg Tab PO 0.5 mg DAILY JOSE Administration Sodium Chloride 10 ml 11/09/20 10:00 11/09/20 14:08 Sodium Chloride 0.9% 10 Ml Flush Syringe IV 10 ml BID JOSE Administration Sodium Chloride 10 ml 11/08/20 22:32 Sodium Chloride 0.9% 10 Ml Flush Syringe IV PRN PRN LINE FLUSH Warfarin Sodium 10 mg 11/09/20 17:00 11/09/20 20:02 Warfarin 10 Mg Tab PO 10 mg DAILY@1700 JOSE Administration Protocol Nutrition/Malnutrition Assess - Dietary Evaluation Nutrition/Malnutrition Findings: Nutrition Notes Start: 11/09/20 10:00 Freq: Status: Active Protocol: Document 11/09/20 10:00 (Rec: 11/09/20 10:01 [id number]) Nutrition Notes Initial or Follow up Brief Note Current Diagnosis Hypertension,Respiratory Failure Other Pertinent Diagnosis PVD, pulmonary embolism Current Diet Cardiac Subjective/Other Information Screen for Coumadin education. Pt on hold in ED. Nutrition Intervention Follow-Up By: 11/10/20 Additional Comments FU for education <MARLIN GARCIA - Last Filed: 11/10/20 07:06> History Interval history: Agree with assessment and plan as outlined by the above provider. Spoke with the patient about obtaining EKOS therapy, however patient declines. We will continue heparin drip with Coumadin. Spoke with the family pertaining to patient's prognosis. Hospitalist Physical - Constitutional Vitals: Temp Pulse Resp BP Pulse Ox 98.0 F 88 22 107/62 95 11/10/20 03:27 11/10/20 05:10 11/10/20 05:10 11/10/20 05:10 11/10/20 05:10 HEART Score - HEART Score Troponin: Troponin T 0.018 ng/mL (0.00-0.029) 11/08/20 17:25 Results - Labs CBC & Chem 7: 11/10/20 03:16 11/09/20 02:55 Labs: Laboratory Last Values WBC 12.2 K/mm3 (4.5-11.0) H 11/09/20 02:55 RBC 5.09 M/mm3 (3.65-5.03) H 11/09/20 02:55 Hgb 11.2 gm/dl (10.1-14.3) 11/10/20 03:16 Hct 34.3 % (30.3-42.9) D 11/10/20 03:16 MCV 81 fl (79-97) 11/09/20 02:55 MCH 25 pg (28-32) L 11/09/20 02:55 MCHC 31 % (30-34) 11/09/20 02:55 RDW 19.6 % (13.2-15.2) H 11/09/20 02:55 Plt Count 216 K/mm3 (140-440) 11/10/20 03:16 Lymph % (Auto) 16.9 % (13.4-35.0) 11/09/20 02:55 Geary % (Auto) 6.9 % (0.0-7.3) 11/09/20 02:55 Eos % (Auto) 0.2 % (0.0-4.3) 11/09/20 02:55 Baso % (Auto) 0.5 % (0.0-1.8) 11/09/20 02:55 Lymph # (Auto) 2.1 K/mm3 (1.2-5.4) 11/09/20 02:55 Geary # (Auto) 0.8 K/mm3 (0.0-0.8) 11/09/20 02:55 Eos # (Auto) 0.0 K/mm3 (0.0-0.4) 11/09/20 02:55 Baso # (Auto) 0.1 K/mm3 (0.0-0.1) 11/09/20 02:55 Seg Neutrophils % 75.5 % (40.0-70.0) H 11/09/20 02:55 Seg Neutrophils # 9.2 K/mm3 (1.8-7.7) H 11/09/20 02:55 PT 16.1 Sec. (12.2-14.9) H 11/10/20 03:16 INR 1.23 (0.87-1.13) H 11/10/20 03:16 APTT 32.1 Sec. (24.2-36.6) 11/08/20 17:25 Heparin Anti-Xa Level 0.98 U.I./ml (0.3-0.7) H 11/10/20 03:16 Sodium 140 mmol/L (137-145) 11/09/20 02:55 Potassium 4.8 mmol/L (3.6-5.0) 11/09/20 02:55 Chloride 105.0 mmol/L (98-107) 11/09/20 02:55 Carbon Dioxide 20 mmol/L (22-30) L 11/09/20 02:55 Anion Gap 20 mmol/L 11/09/20 02:55 BUN 11 mg/dL (7-17) 11/09/20 02:55 Creatinine 0.9 mg/dL (0.6-1.2) 11/09/20 02:55 Estimated GFR > 60 ml/min 11/09/20 02:55 BUN/Creatinine Ratio 12 % 11/09/20 02:55 Glucose 87 mg/dL (65-100) 11/09/20 02:55 Calcium 8.7 mg/dL (8.4-10.2) 11/09/20 02:55 Troponin T 0.018 ng/mL (0.00-0.029) 11/08/20 17:25 NT-Pro-B Natriuret Pep 7232 pg/mL (0-450) H 11/08/20 17:25 HCG, Qual Negative (Negative) 11/08/20 17:25 Coronavirus (PCR) Negative (Negative) 11/09/20 Unknown Mak/IV: Voiding Method External Female Catheter Active Medications - Current Medications Current Medications: Generic Name Dose Route Start Last Admin Trade Name Freq PRN Reason Stop Dose Admin Acetaminophen 650 mg 11/08/20 22:32 Acetaminophen 325 Mg Tab PO Q4H PRN Pain MILD(1-3)/Fever >100.5/CARTAGENA Hydrocodone Bitart/Acetaminophen 1 each 11/08/20 22:34 11/09/20 14:07 Hydrocodone/Acetaminophen 5-325 Mg Tab PO 1 each BID PRN Administration Pain, Moderate (4-6) Albuterol 2.5 mg 11/08/20 22:32 Albuterol 2.5 Mg/3 Ml Nebu IH Q4HRT PRN Shortness Of Breath Albuterol/Ipratropium 1 ampul 11/09/20 02:00 11/10/20 05:34 Ipratropium/Albuterol Sulfate 3 Ml Ampul.Neb IH Not Given Q6HRT JOSE Clonazepam 1 mg 11/09/20 10:00 11/09/20 14:06 Clonazepam 0.5 Mg Tab PO 1 mg DAILY JOSE Administration Dexamethasone 6 mg 11/09/20 10:00 11/09/20 14:46 Dexamethasone 4 Mg Tab PO 6 mg DAILY JOSE Administration Diltiazem HCl 120 mg 11/09/20 10:00 11/09/20 14:15 Diltiazem Cd 120 Mg Cap PO Not Given QDAY JOSE Escitalopram Oxalate 10 mg 11/09/20 10:00 11/09/20 14:46 Escitalopram 10 Mg Tab PO 10 mg DAILY JOSE Administration Famotidine 20 mg 11/09/20 10:00 11/09/20 21:15 Famotidine 20 Mg Tab PO 20 mg BID JOSE Administration Furosemide 20 mg 11/09/20 10:00 11/09/20 14:06 Furosemide 20 Mg Tab PO 20 mg QDAY JOSE Administration Guaifenesin 600 mg 11/09/20 10:00 11/09/20 22:41 Guaifenesin Er 600 Mg Tab PO 600 mg BID JOSE Administration Heparin Sodium (Porcine) 7,100 unit 11/08/20 17:36 Heparin 10,000 Units/10 Ml Vial 40 unit/kg (7100 unit) IV Q6H PRN Anti-Xa Assay < 0.1 units/ml Hydralazine HCl 10 mg 11/08/20 22:37 Hydralazine 20 Mg/1 Ml Inj IV Q6H PRN htn Heparin Sodium/Sodium Chloride 25,000 unit in 500 mls @ 30 mls/hr 11/08/20 18:00 11/10/20 06:06 Heparin/ 0.45% Nacl-25,000 Unit/500 Ml IV 1,150 units/hr TITR JOSE 23 mls/hr Titration Protocol 1,500 UNITS/HR Morphine Sulfate 30 mg 11/09/20 10:00 11/09/20 21:13 Morphine 30 Mg Er Tab PO 30 mg Q12HR JOSE Administration Ondansetron HCl 4 mg 11/08/20 22:32 Ondansetron 4 Mg/2 Ml Inj IV Q8H PRN Nausea And Vomiting Risperidone 0.5 mg 11/09/20 10:00 11/09/20 14:07 Risperidone 0.25 Mg Tab PO 0.5 mg DAILY JOSE Administration Sodium Chloride 10 ml 11/09/20 10:00 11/09/20 21:15 Sodium Chloride 0.9% 10 Ml Flush Syringe IV 10 ml BID JOSE Administration Sodium Chloride 10 ml 11/08/20 22:32 Sodium Chloride 0.9% 10 Ml Flush Syringe IV PRN PRN LINE FLUSH Warfarin Sodium 10 mg 11/09/20 17:00 11/09/20 20:02 Warfarin 10 Mg Tab PO 10 mg DAILY@1700 JOSE Administration Protocol Nutrition/Malnutrition Assess - Dietary Evaluation Nutrition/Malnutrition Findings: Nutrition Notes Start: 11/09/20 10:00 Freq: Status: Active Protocol: Document 11/09/20 10:00 (Rec: 11/09/20 10:01 [id number]) Nutrition Notes Initial or Follow up Brief Note Current Diagnosis Hypertension,Respiratory Failure Other Pertinent Diagnosis PVD, pulmonary embolism Current Diet Cardiac Subjective/Other Information Screen for Coumadin education. Pt on hold in ED. Nutrition Intervention Follow-Up By: 11/10/20 Additional Comments FU for education
[2020-11-09] MEDS ORDERED: LORazepam 0.5 MG TAB PO ONE (23:50)
[2020-11-10 03:39] LABS: Hematocrit 34.3 % (30.3-42.9); Hemoglobin 11.2 gm/dl (10.1-14.3)
[2020-11-10 03:51] LABS: INR 1.23 (0.87-1.13)
[2020-11-10] MEDS: IPRATROPIUM/ALBUTEROL SULFATE 3 ML AMPUL.NEB IH SCH ×4 (05:34→19:40)
[2020-11-10] MEDS: dilTIAZem CD 120 MG CAP PO SCH (10:08)
[2020-11-10] MEDS: guaiFENesin ER 600 MG TAB PO SCH ×2 (10:09→21:07)
[2020-11-10] MEDS: FUROSEMIDE 20 MG TAB PO SCH (10:15)
[2020-11-10] MEDS: DEXAMETHASONE 4 MG TAB PO SCH (10:15)
[2020-11-10] MEDS: FAMOTIDINE 20 MG TAB PO SCH ×2 (10:16→21:07)
[2020-11-10] MEDS: clonazePAM 0.5 MG TAB PO SCH (10:16)
[2020-11-10] MEDS: risperiDONE 0.25 MG TAB PO SCH (10:16)
[2020-11-10] MEDS: MORPHINE 30 MG ER TAB PO SCH ×2 (10:20→21:06)
[2020-11-10] MEDS: ESCITALOPRAM 10 MG TAB PO SCH (10:37)
--- NOTE | 2020-11-10 11:46 | Progress Note ---
Assessment and Plan 45 y/o female with bilateral pulmonary emboli 11/10/20: Patient again, refuses much needed therapy. she will likely from this disease and should be hospice/palliative care. Continue to wean FiO2 as tolerated and hopefully she an improve enough to be discharged. Suggest transfer to [facility]. Will sign off as with her noncompliance, there is nothing more I can offer this patient. 1. Same presentations as past. Reviewed IR note. Likely patient will refuse. AGree with heparin drip. I spoke with the patient about palliative care and hospice at last admit. Will do again. Maybe if on hospice she will be able to at least get her coumadin and have someone follow up on it regularly. She would be a candidate for CTEPH. 2. Wean bipap as tolerated. Subjective Date of service: 11/10/20 Interval history: patient refused EKOS again. Now on HFNC. Was placed on decadron by IMS yesterday. I stopped this. Objective Vital Signs - 12hr 11/10/20 11/10/20 11/10/20 00:00 00:35 00:40 Temperature 97.4 F L Pulse Rate 99 H 98 H 95 H Pulse Rate [ Bilateral Throughout] Pulse Rate [ 100 H From Monitor] Respiratory 26 H 39 H 32 H Rate Respiratory Rate [Bilateral Throughout] Blood Pressure O2 Sat by Pulse 100 84 90 Oximetry 11/10/20 11/10/20 11/10/20 00:50 01:00 01:10 Temperature Pulse Rate 91 H 91 H 89 Pulse Rate [ Bilateral Throughout] Pulse Rate [ From Monitor] Respiratory 31 H 33 H 56 H Rate Respiratory Rate [Bilateral Throughout] Blood Pressure 92/58 O2 Sat by Pulse 97 93 95 Oximetry 11/10/20 11/10/20 11/10/20 01:20 01:30 01:40 Temperature Pulse Rate 92 H 93 H 91 H Pulse Rate [ Bilateral Throughout] Pulse Rate [ From Monitor] Respiratory 42 H 54 H 52 H Rate Respiratory Rate [Bilateral Throughout] Blood Pressure 92/58 92/58 92/58 O2 Sat by Pulse 97 97 97 Oximetry 11/10/20 11/10/20 11/10/20 01:50 02:00 02:10 Temperature Pulse Rate 92 H 91 H 91 H Pulse Rate [ Bilateral Throughout] Pulse Rate [ From Monitor] Respiratory 53 H 50 H 48 H Rate Respiratory Rate [Bilateral Throughout] Blood Pressure 92/58 111/60 111/60 O2 Sat by Pulse 99 96 96 Oximetry 11/10/20 11/10/20 11/10/20 02:20 02:30 02:40 Temperature Pulse Rate 91 H 91 H 90 Pulse Rate [ Bilateral Throughout] Pulse Rate [ From Monitor] Respiratory 32 H 24 26 H Rate Respiratory Rate [Bilateral Throughout] Blood Pressure 111/60 111/60 111/60 O2 Sat by Pulse 93 97 92 Oximetry 11/10/20 11/10/20 11/10/20 02:50 03:00 03:10 Temperature Pulse Rate 88 90 89 Pulse Rate [ Bilateral Throughout] Pulse Rate [ From Monitor] Respiratory 27 H 25 H 28 H Rate Respiratory Rate [Bilateral Throughout] Blood Pressure 111/60 126/58 126/58 O2 Sat by Pulse 93 94 95 Oximetry 11/10/20 11/10/20 11/10/20 03:20 03:27 03:30 Temperature 98.0 F Pulse Rate 89 88 Pulse Rate [ Bilateral Throughout] Pulse Rate [ From Monitor] Respiratory 26 H 34 H Rate Respiratory Rate [Bilateral Throughout] Blood Pressure 126/58 126/58 O2 Sat by Pulse 91 96 Oximetry 11/10/20 11/10/20 11/10/20 03:40 03:50 04:00 Temperature Pulse Rate 87 87 87 Pulse Rate [ Bilateral Throughout] Pulse Rate [ 89 From Monitor] Respiratory 38 H 38 H 17 Rate Respiratory Rate [Bilateral Throughout] Blood Pressure 126/58 126/58 129/62 O2 Sat by Pulse 98 97 92 Oximetry 11/10/20 11/10/20 11/10/20 04:10 04:20 04:30 Temperature Pulse Rate 88 89 88 Pulse Rate [ Bilateral Throughout] Pulse Rate [ From Monitor] Respiratory 29 H 22 22 Rate Respiratory Rate [Bilateral Throughout] Blood Pressure 129/62 129/62 129/62 O2 Sat by Pulse 91 92 96 Oximetry 11/10/20 11/10/20 11/10/20 04:40 04:50 05:00 Temperature Pulse Rate 89 88 86 Pulse Rate [ Bilateral Throughout] Pulse Rate [ From Monitor] Respiratory 24 23 16 Rate Respiratory Rate [Bilateral Throughout] Blood Pressure 129/62 129/62 129/62 O2 Sat by Pulse 93 94 93 Oximetry 11/10/20 11/10/20 11/10/20 05:10 05:20 05:30 Temperature Pulse Rate 88 88 87 Pulse Rate [ Bilateral Throughout] Pulse Rate [ From Monitor] Respiratory 22 25 H 23 Rate Respiratory Rate [Bilateral Throughout] Blood Pressure 107/62 107/62 107/62 O2 Sat by Pulse 95 93 93 Oximetry 11/10/20 11/10/20 11/10/20 05:40 05:50 06:00 Temperature Pulse Rate 85 87 87 Pulse Rate [ Bilateral Throughout] Pulse Rate [ From Monitor] Respiratory 23 24 29 H Rate Respiratory Rate [Bilateral Throughout] Blood Pressure 107/62 107/62 107/62 O2 Sat by Pulse 93 94 93 Oximetry 11/10/20 11/10/20 11/10/20 06:10 06:20 06:30 Temperature Pulse Rate 89 88 89 Pulse Rate [ Bilateral Throughout] Pulse Rate [ From Monitor] Respiratory 21 28 H 49 H Rate Respiratory Rate [Bilateral Throughout] Blood Pressure 126/79 126/79 O2 Sat by Pulse 95 96 100 Oximetry 11/10/20 11/10/20 11/10/20 06:40 06:50 07:00 Temperature Pulse Rate 88 89 89 Pulse Rate [ Bilateral Throughout] Pulse Rate [ From Monitor] Respiratory 22 26 H 26 H Rate Respiratory Rate [Bilateral Throughout] Blood Pressure 126/79 126/79 111/77 O2 Sat by Pulse 92 93 95 Oximetry 11/10/20 11/10/20 11/10/20 07:10 07:20 07:30 Temperature Pulse Rate 90 90 90 Pulse Rate [ Bilateral Throughout] Pulse Rate [ From Monitor] Respiratory 28 H 28 H 26 H Rate Respiratory Rate [Bilateral Throughout] Blood Pressure 111/77 111/77 111/77 O2 Sat by Pulse Oximetry 11/10/20 11/10/20 11/10/20 07:40 07:50 08:00 Temperature 97.5 F L Pulse Rate 88 92 H 92 H Pulse Rate [ Bilateral Throughout] Pulse Rate [ From Monitor] Respiratory 21 35 H 25 H Rate Respiratory Rate [Bilateral Throughout] Blood Pressure 111/77 111/77 117/72 O2 Sat by Pulse 98 92 92 Oximetry 11/10/20 11/10/20 11/10/20 08:10 08:20 08:30 Temperature Pulse Rate 91 H 92 H 92 H Pulse Rate [ Bilateral Throughout] Pulse Rate [ From Monitor] Respiratory 23 22 31 H Rate Respiratory Rate [Bilateral Throughout] Blood Pressure 117/72 117/72 117/72 O2 Sat by Pulse 90 93 92 Oximetry 11/10/20 11/10/20 11/10/20 08:40 08:50 09:00 Temperature Pulse Rate 94 H 94 H 96 H Pulse Rate [ 94 H Bilateral Throughout] Pulse Rate [ From Monitor] Respiratory 34 H 26 H 27 H Rate Respiratory 20 Rate [Bilateral Throughout] Blood Pressure 117/72 117/72 117/69 O2 Sat by Pulse 94 93 93 Oximetry 11/10/20 11/10/20 11/10/20 09:10 09:20 09:30 Temperature Pulse Rate 97 H 98 H 97 H Pulse Rate [ Bilateral Throughout] Pulse Rate [ From Monitor] Respiratory 21 27 H 26 H Rate Respiratory Rate [Bilateral Throughout] Blood Pressure 117/69 117/69 117/69 O2 Sat by Pulse 94 96 92 Oximetry 11/10/20 11/10/20 11/10/20 09:40 09:50 09:52 Temperature Pulse Rate 96 H 97 H Pulse Rate [ Bilateral Throughout] Pulse Rate [ From Monitor] Respiratory 58 H 46 H Rate Respiratory Rate [Bilateral Throughout] Blood Pressure 117/69 117/69 O2 Sat by Pulse 96 95 96 Oximetry 11/10/20 10:00 Temperature Pulse Rate 97 H Pulse Rate [ Bilateral Throughout] Pulse Rate [ From Monitor] Respiratory 50 H Rate Respiratory Rate [Bilateral Throughout] Blood Pressure 101/65 O2 Sat by Pulse 94 Oximetry Constitutional: other (on bipap, mild respiratory distress) Eyes: non-icteric ENT: other (full face mask bipap) Neck: supple, other (large in circumference) Effort: mildly labored Ascultation: Bilateral: diminished breath sounds Percussion: Bilateral: not dull Cardiovascular: regular rate and rhythm Gastrointestinal: soft, other (obese) CBC and BMP: 11/10/20 03:16 11/09/20 02:55 ABG, PT/INR, D-dimer: PT/INR, D-dimer PT 16.1 Sec. (12.2-14.9) H 11/10/20 03:16 INR 1.23 (0.87-1.13) H 11/10/20 03:16 Abnormal lab findings: Abnormal Labs 11/08/20 11/08/20 11/09/20 17:25 17:25 02:55 WBC 12.2 H 12.2 H RBC 5.09 H MCH 25 L 25 L RDW 19.0 H 19.6 H Lymph % (Auto) 9.7 L Seg Neutrophils % 82.6 H 75.5 H Seg Neutrophils # 10.1 H 9.2 H PT INR Heparin Anti-Xa Level Potassium 5.8 H Carbon Dioxide NT-Pro-B Natriuret Pep 7232 H 11/09/20 11/10/20 11/10/20 02:55 03:16 03:16 WBC RBC MCH RDW Lymph % (Auto) Seg Neutrophils % Seg Neutrophils # PT 16.1 H INR 1.23 H Heparin Anti-Xa Level 0.98 H Potassium Carbon Dioxide 20 L NT-Pro-B Natriuret Pep
--- NOTE | 2020-11-10 14:20 | Progress Note ---
Assessment and Plan Assessment and plan: This is a 45-year-old female with a history of pulmonary embolism s/p EKOS, thrombolysis, thrombectomy for submassive bilateral PE in April 2020, PVD, RA, chronic respiratory failure, pulmonary hypertension, morbid obesity, lymphedema, Antithrombin III deficiency, medical noncompliance who is admitted for bilateral pulmonary emboli, leukocytosis, elevated proBNP, and COVID 19 PUI Saddle submassive pulmonary embolism Right heart strain Acute on chronic respiratory failure with hypoxia Leukocytosis Metabolic acidosis PVD Antithrombin III deficiency Rheumatoid arthritis Morbid obesity Medical noncompliance Lymphedema History of pulmonary embolism s/p EKOS, thrombolysis and thrombectomy in [facility] 2019 Pulmonary hypertension COVID 19 PUI, ruled out Chornic pain syndrome/chornic opiate dependent Reoccurent PE -[facility], vascular surgery consulted -11/08 CTA chest shows significant interval worsening of previously noted pulmonary embolic burden, now subtle submassive pulmonary embolus, evidence of right heart strain with straightening of the intraventricular septum and reflux of contrast into the IVC, interval resolution of previously noted infectious/inflammatory process -11/08 echocardiogram Left ventricle with mild concentric left ventricular hypertrophy. Mid diastolic dysfunction. Right ventricle cannot be well visualized. -11/08 CXR shows no acute pulmonary or pleural abnormality -Heparin drip -Warfarin, PAS to dose -Cardiac diet -Resume home Klonopin, Decadron, diltiazem, Lexapro, respiratory, MS Contin and warfarin DuoNeb -Trend CBC, BMP, INR -Pulmonary hygiene -Stressed medical compliance. Patient is declining thrombectomy at this time. No additional intervention per pulmonology or vascular surgery. DVT/GI prophylaxis: PPI, systemic anticoagulation with heparin drip, SCDs to bilateral actions while in bed Disposition: Transfer to telemetry floor. History Interval history: 11/10/2020: Patient seen and examined, lying in bed comfortably, no respiratory distress. On high flow oxygen. Spoke with critical care, patient stable to be transferred to floor Hospitalist Physical - Physical exam Narrative exam: General appearance: Obese, no acute distress, well-nourished EENT: PERRL, EOM intact, hearing intact, clear oral mucosa Neck: Present: supple, normal ROM Respiratory: High flow nasal cannula oxygen, bilateral CTA, negative: rales, rhonchi, wheezing Cardiovascular: Regular rate/rhythm, Normal S1 & S2. No gallop, rub Extremities: no ischemia, No edema, normal temperature, normal color, Full ROM Abdominal: soft, no tenderness, non-distended, normal bowel sounds Integumentary: Present: clear, warm, dry no wounds, no erythema noted Psychiatric: appropriate mood/affect, intact judgment & insight Neurologic: CNII-XII intact, moves all extremities, no sensory or motor abnormalities - Constitutional Vitals: Temp Pulse Resp BP Pulse Ox 97.5 F L 104 H 38 H 123/60 93 11/10/20 12:00 11/10/20 14:00 11/10/20 14:00 11/10/20 14:00 11/10/20 14:00 HEART Score - HEART Score Troponin: Troponin T 0.018 ng/mL (0.00-0.029) 11/08/20 17:25 Results - Labs CBC & Chem 7: 11/10/20 03:16 11/09/20 02:55 Labs: Laboratory Last Values WBC 12.2 K/mm3 (4.5-11.0) H 11/09/20 02:55 RBC 5.09 M/mm3 (3.65-5.03) H 11/09/20 02:55 Hgb 11.2 gm/dl (10.1-14.3) 11/10/20 03:16 Hct 34.3 % (30.3-42.9) D 11/10/20 03:16 MCV 81 fl (79-97) 11/09/20 02:55 MCH 25 pg (28-32) L 11/09/20 02:55 MCHC 31 % (30-34) 11/09/20 02:55 RDW 19.6 % (13.2-15.2) H 11/09/20 02:55 Plt Count 216 K/mm3 (140-440) 11/10/20 03:16 Lymph % (Auto) 16.9 % (13.4-35.0) 11/09/20 02:55 [place] % (Auto) 6.9 % (0.0-7.3) 11/09/20 02:55 Eos % (Auto) 0.2 % (0.0-4.3) 11/09/20 02:55 Baso % (Auto) 0.5 % (0.0-1.8) 11/09/20 02:55 Lymph # (Auto) 2.1 K/mm3 (1.2-5.4) 11/09/20 02:55 [place] # (Auto) 0.8 K/mm3 (0.0-0.8) 11/09/20 02:55 Eos # (Auto) 0.0 K/mm3 (0.0-0.4) 11/09/20 02:55 Baso # (Auto) 0.1 K/mm3 (0.0-0.1) 11/09/20 02:55 Seg Neutrophils % 75.5 % (40.0-70.0) H 11/09/20 02:55 Seg Neutrophils # 9.2 K/mm3 (1.8-7.7) H 11/09/20 02:55 PT 16.1 Sec. (12.2-14.9) H 11/10/20 03:16 INR 1.23 (0.87-1.13) H 11/10/20 03:16 APTT 32.1 Sec. (24.2-36.6) 11/08/20 17:25 Heparin Anti-Xa Level 0.98 U.I./ml (0.3-0.7) H 11/10/20 03:16 Sodium 140 mmol/L (137-145) 11/09/20 02:55 Potassium 4.8 mmol/L (3.6-5.0) 11/09/20 02:55 Chloride 105.0 mmol/L (98-107) 11/09/20 02:55 Carbon Dioxide 20 mmol/L (22-30) L 11/09/20 02:55 Anion Gap 20 mmol/L 11/09/20 02:55 BUN 11 mg/dL (7-17) 11/09/20 02:55 Creatinine 0.9 mg/dL (0.6-1.2) 11/09/20 02:55 Estimated GFR > 60 ml/min 11/09/20 02:55 BUN/Creatinine Ratio 12 % 11/09/20 02:55 Glucose 87 mg/dL (65-100) 11/09/20 02:55 Calcium 8.7 mg/dL (8.4-10.2) 11/09/20 02:55 Troponin T 0.018 ng/mL (0.00-0.029) 11/08/20 17:25 NT-Pro-B Natriuret Pep 7232 pg/mL (0-450) H 11/08/20 17:25 HCG, Qual Negative (Negative) 11/08/20 17:25 Coronavirus (PCR) Negative (Negative) 11/09/20 Unknown Mak/IV: Voiding Method External Female Catheter Active Medications - Current Medications Current Medications: Generic Name Dose Route Start Last Admin Trade Name Freq PRN Reason Stop Dose Admin Acetaminophen 650 mg 11/08/20 22:32 Acetaminophen 325 Mg Tab PO Q4H PRN Pain MILD(1-3)/Fever >100.5/CARTAGENA Hydrocodone Bitart/Acetaminophen 1 each 11/08/20 22:34 11/09/20 14:07 Hydrocodone/Acetaminophen 5-325 Mg Tab PO 1 each BID PRN Administration Pain, Moderate (4-6) Albuterol 2.5 mg 11/08/20 22:32 Albuterol 2.5 Mg/3 Ml Nebu IH Q4HRT PRN Shortness Of Breath Albuterol/Ipratropium 1 ampul 11/09/20 02:00 11/10/20 08:50 Ipratropium/Albuterol Sulfate 3 Ml Ampul.Neb IH 1 ampul Q6HRT JOSE Administration Clonazepam 1 mg 11/09/20 10:00 11/10/20 10:16 Clonazepam 0.5 Mg Tab PO 1 mg DAILY JOSE Administration Diltiazem HCl 120 mg 11/09/20 10:00 11/10/20 10:08 Diltiazem Cd 120 Mg Cap PO 120 mg QDAY JOSE Administration Escitalopram Oxalate 10 mg 11/09/20 10:00 11/10/20 10:37 Escitalopram 10 Mg Tab PO 10 mg DAILY JOSE Administration Famotidine 20 mg 11/09/20 10:00 11/10/20 10:16 Famotidine 20 Mg Tab PO 20 mg BID JOSE Administration Furosemide 20 mg 11/09/20 10:00 11/10/20 10:15 Furosemide 20 Mg Tab PO 20 mg QDAY JOSE Administration Guaifenesin 600 mg 11/09/20 10:00 11/10/20 10:09 Guaifenesin Er 600 Mg Tab PO 600 mg BID JOSE Administration Heparin Sodium (Porcine) 7,100 unit 11/08/20 17:36 Heparin 10,000 Units/10 Ml Vial 40 unit/kg (7100 unit) IV Q6H PRN Anti-Xa Assay < 0.1 units/ml Hydralazine HCl 10 mg 11/08/20 22:37 Hydralazine 20 Mg/1 Ml Inj IV Q6H PRN htn Heparin Sodium/Sodium Chloride 25,000 unit in 500 mls @ 30 mls/hr 11/08/20 18:00 11/10/20 06:06 Heparin/ 0.45% Nacl-25,000 Unit/500 Ml IV 1,150 units/hr TITR JOSE 23 mls/hr Titration Protocol 1,500 UNITS/HR Morphine Sulfate 30 mg 11/09/20 10:00 11/10/20 10:20 Morphine 30 Mg Er Tab PO 30 mg Q12HR JOSE Administration Ondansetron HCl 4 mg 11/08/20 22:32 Ondansetron 4 Mg/2 Ml Inj IV Q8H PRN Nausea And Vomiting Risperidone 0.5 mg 11/09/20 10:00 11/10/20 10:16 Risperidone 0.25 Mg Tab PO 0.5 mg DAILY JOSE Administration Sodium Chloride 10 ml 11/09/20 10:00 11/10/20 10:16 Sodium Chloride 0.9% 10 Ml Flush Syringe IV 10 ml BID JOSE Administration Sodium Chloride 10 ml 11/08/20 22:32 Sodium Chloride 0.9% 10 Ml Flush Syringe IV PRN PRN LINE FLUSH Warfarin Sodium 10 mg 11/09/20 17:00 11/09/20 20:02 Warfarin 10 Mg Tab PO 10 mg DAILY@1700 JOSE Administration Protocol Nutrition/Malnutrition Assess - Dietary Evaluation Nutrition/Malnutrition Findings: Nutrition Notes Start: 11/09/20 10:00 Freq: Status: Active Protocol: Document 11/10/20 13:41 (Rec: 11/10/20 13:43 [id number]) Nutrition Notes Initial or Follow up Brief Note Current Diagnosis Hypertension,Respiratory Failure Other Pertinent Diagnosis PVD, pulmonary embolism Current Diet Cardiac Subjective/Other Information Pt given Coumadin education handout but she denied education becuase she has gotten it "plenty of times". Pt states she is eating well, no wounds, and no weight loss. Nutrition Intervention Revisit per MD consult or patient Sign Off request:
[2020-11-10] MEDS: HEPARIN/ 0.45% NACL DRIP 25,000 UNIT/500 ML BAG IV SCH (15:45)
[2020-11-10] MEDS: WARFARIN 10 MG TAB PO SCH (18:13)
[2020-11-11] MEDS: IPRATROPIUM/ALBUTEROL SULFATE 3 ML AMPUL.NEB IH SCH ×4 (01:27→21:58)
[2020-11-11] MEDS: HYDROcodone/ACETAMINOPHEN 5-325 MG TAB PO PRN (05:37)
[2020-11-11 06:13] LABS: INR 1.61 (0.87-1.13)
[2020-11-11] MEDS: MORPHINE 30 MG ER TAB PO SCH ×2 (10:26→21:42)
[2020-11-11] MEDS: risperiDONE 0.25 MG TAB PO SCH (10:26)
[2020-11-11] MEDS: guaiFENesin ER 600 MG TAB PO SCH ×2 (10:26→21:42)
[2020-11-11] MEDS: clonazePAM 0.5 MG TAB PO SCH (10:27)
[2020-11-11] MEDS: FAMOTIDINE 20 MG TAB PO SCH ×2 (10:27→21:42)
[2020-11-11] MEDS: ESCITALOPRAM 10 MG TAB PO SCH (10:27)
[2020-11-11] MEDS: FUROSEMIDE 20 MG TAB PO SCH (10:27)
[2020-11-11] MEDS: dilTIAZem CD 120 MG CAP PO SCH (10:28)
--- NOTE | 2020-11-11 11:23 | Progress Note ---
Assessment and Plan Assessment and plan: This is a 45-year-old female with a history of pulmonary embolism s/p EKOS, thrombolysis, thrombectomy for submassive bilateral PE in April 2020, PVD, RA, chronic respiratory failure, pulmonary hypertension, morbid obesity, lymphedema, Antithrombin III deficiency, medical noncompliance who is admitted for bilateral pulmonary emboli, leukocytosis, elevated proBNP, and COVID 19 PUI Saddle submassive pulmonary embolism Right heart strain Acute on chronic respiratory failure with hypoxia Leukocytosis Metabolic acidosis PVD Antithrombin III deficiency Rheumatoid arthritis Morbid obesity Medical noncompliance Lymphedema History of pulmonary embolism s/p EKOS, thrombolysis and thrombectomy in [facility] 2019 Pulmonary hypertension COVID 19 PUI, ruled out Chornic pain syndrome/chornic opiate dependent Reoccurent PE -[facility], vascular surgery consulted -11/08 CTA chest shows significant interval worsening of previously noted pulmonary embolic burden, now subtle submassive pulmonary embolus, evidence of right heart strain with straightening of the intraventricular septum and reflux of contrast into the IVC, interval resolution of previously noted infectious/inflammatory process -11/08 echocardiogram Left ventricle with mild concentric left ventricular hypertrophy. Mid diastolic dysfunction. Right ventricle cannot be well visualized. -11/08 CXR shows no acute pulmonary or pleural abnormality -Heparin drip -Warfarin, PAS to dose -Cardiac diet -Resume home Klonopin, Decadron, diltiazem, Lexapro, respiratory, MS Contin and warfarin DuoNeb -Trend CBC, BMP, INR -Pulmonary hygiene -Stressed medical compliance. Patient is declining thrombectomy at this time. No additional intervention per pulmonology or vascular surgery. DVT/GI prophylaxis: PPI, systemic anticoagulation with heparin drip, SCDs to bilateral actions while in bed Disposition: Continue treatment for Colleen PE. Patient currently on Coumadin, however she states that Xarelto works better. Spoke with case management, will attempt to see if we can put the patient on Xarelto instead of Coumadin since patient states that it is very difficult for her to get to INR appointments and compliance resulting in additional hospitalizations in the future could be an issue. History Interval history: 11/10/2020: Patient seen and examined, lying in bed comfortably, no respiratory distress. On high flow oxygen. Spoke with critical care, patient stable to be transferred to floor 11/11/2020: Patient seen and examined, continues to be on high flow nasal cannula oxygen. Spoke with the patient pertaining to Coumadin, INR is improving however she states that she was therapeutic in the past and continues to have blood clots, this is why she was on Xarelto. Not sure how compliant the patient was with her medications. Hospitalist Physical - Physical exam Narrative exam: General appearance: Obese, no acute distress, well-nourished EENT: PERRL, EOM intact, hearing intact, clear oral mucosa Neck: Present: supple, normal ROM Respiratory: High flow nasal cannula oxygen, bilateral CTA, negative: rales, rhonchi, wheezing Cardiovascular: Regular rate/rhythm, Normal S1 & S2. No gallop, rub Extremities: no ischemia, No edema, normal temperature, normal color, Full ROM Abdominal: soft, no tenderness, non-distended, normal bowel sounds Integumentary: Present: clear, warm, dry no wounds, no erythema noted Psychiatric: appropriate mood/affect, intact judgment & insight Neurologic: CNII-XII intact, moves all extremities, no sensory or motor abnormalities - Constitutional Vitals: Temp Pulse Resp BP Pulse Ox 98.0 F 88 20 124/72 93 11/11/20 07:30 11/11/20 07:30 11/11/20 10:26 11/11/20 10:28 11/11/20 07:30 General appearance: Present: mild distress (On BiPAP) HEART Score - HEART Score Troponin: Troponin T 0.018 ng/mL (0.00-0.029) 11/08/20 17:25 Results - Labs CBC & Chem 7: 11/10/20 03:16 11/09/20 02:55 Labs: Laboratory Last Values WBC 12.2 K/mm3 (4.5-11.0) H 11/09/20 02:55 RBC 5.09 M/mm3 (3.65-5.03) H 11/09/20 02:55 Hgb 11.2 gm/dl (10.1-14.3) 11/10/20 03:16 Hct 34.3 % (30.3-42.9) D 11/10/20 03:16 MCV 81 fl (79-97) 11/09/20 02:55 MCH 25 pg (28-32) L 11/09/20 02:55 MCHC 31 % (30-34) 11/09/20 02:55 RDW 19.6 % (13.2-15.2) H 11/09/20 02:55 Plt Count 216 K/mm3 (140-440) 11/10/20 03:16 Lymph % (Auto) 16.9 % (13.4-35.0) 11/09/20 02:55 [place] % (Auto) 6.9 % (0.0-7.3) 11/09/20 02:55 Eos % (Auto) 0.2 % (0.0-4.3) 11/09/20 02:55 Baso % (Auto) 0.5 % (0.0-1.8) 11/09/20 02:55 Lymph # (Auto) 2.1 K/mm3 (1.2-5.4) 11/09/20 02:55 [place] # (Auto) 0.8 K/mm3 (0.0-0.8) 11/09/20 02:55 Eos # (Auto) 0.0 K/mm3 (0.0-0.4) 11/09/20 02:55 Baso # (Auto) 0.1 K/mm3 (0.0-0.1) 11/09/20 02:55 Seg Neutrophils % 75.5 % (40.0-70.0) H 11/09/20 02:55 Seg Neutrophils # 9.2 K/mm3 (1.8-7.7) H 11/09/20 02:55 PT 19.7 Sec. (12.2-14.9) H 11/11/20 05:04 INR 1.61 (0.87-1.13) H 11/11/20 05:04 APTT 32.1 Sec. (24.2-36.6) 11/08/20 17:25 Heparin Anti-Xa Level 0.36 U.I./ml (0.3-0.7) 11/11/20 05:04 Sodium 140 mmol/L (137-145) 11/09/20 02:55 Potassium 4.8 mmol/L (3.6-5.0) 11/09/20 02:55 Chloride 105.0 mmol/L (98-107) 11/09/20 02:55 Carbon Dioxide 20 mmol/L (22-30) L 11/09/20 02:55 Anion Gap 20 mmol/L 11/09/20 02:55 BUN 11 mg/dL (7-17) 11/09/20 02:55 Creatinine 0.9 mg/dL (0.6-1.2) 11/09/20 02:55 Estimated GFR > 60 ml/min 11/09/20 02:55 BUN/Creatinine Ratio 12 % 11/09/20 02:55 Glucose 87 mg/dL (65-100) 11/09/20 02:55 Calcium 8.7 mg/dL (8.4-10.2) 11/09/20 02:55 Troponin T 0.018 ng/mL (0.00-0.029) 11/08/20 17:25 NT-Pro-B Natriuret Pep 7232 pg/mL (0-450) H 11/08/20 17:25 HCG, Qual Negative (Negative) 11/08/20 17:25 Coronavirus (PCR) Negative (Negative) 11/09/20 Unknown Mak/IV: Voiding Method External Female Catheter Active Medications - Current Medications Current Medications: Generic Name Dose Route Start Last Admin Trade Name Freq PRN Reason Stop Dose Admin Acetaminophen 650 mg 11/08/20 22:32 Acetaminophen 325 Mg Tab PO Q4H PRN Pain MILD(1-3)/Fever >100.5/CARTAGENA Hydrocodone Bitart/Acetaminophen 1 each 11/08/20 22:34 11/11/20 05:37 Hydrocodone/Acetaminophen 5-325 Mg Tab PO 1 each BID PRN Administration Pain, Moderate (4-6) Albuterol 2.5 mg 11/08/20 22:32 Albuterol 2.5 Mg/3 Ml Nebu IH Q4HRT PRN Shortness Of Breath Albuterol/Ipratropium 1 ampul 11/09/20 02:00 11/11/20 10:55 Ipratropium/Albuterol Sulfate 3 Ml Ampul.Neb IH 1 ampul Q6HRT JOSE Administration Clonazepam 1 mg 11/09/20 10:00 11/11/20 10:27 Clonazepam 0.5 Mg Tab PO 1 mg DAILY JOSE Administration Diltiazem HCl 120 mg 11/09/20 10:00 11/11/20 10:28 Diltiazem Cd 120 Mg Cap PO 120 mg QDAY JOSE Administration Escitalopram Oxalate 10 mg 11/09/20 10:00 11/11/20 10:27 Escitalopram 10 Mg Tab PO 10 mg DAILY JOSE Administration Famotidine 20 mg 11/09/20 10:00 11/11/20 10:27 Famotidine 20 Mg Tab PO 20 mg BID JOSE Administration Furosemide 20 mg 11/09/20 10:00 11/11/20 10:27 Furosemide 20 Mg Tab PO 20 mg QDAY JOSE Administration Guaifenesin 600 mg 11/09/20 10:00 11/11/20 10:26 Guaifenesin Er 600 Mg Tab PO 600 mg BID JOSE Administration Heparin Sodium (Porcine) 7,100 unit 11/08/20 17:36 Heparin 10,000 Units/10 Ml Vial 40 unit/kg (7100 unit) IV Q6H PRN Anti-Xa Assay < 0.1 units/ml Hydralazine HCl 10 mg 11/08/20 22:37 Hydralazine 20 Mg/1 Ml Inj IV Q6H PRN htn Heparin Sodium/Sodium Chloride 25,000 unit in 500 mls @ 30 mls/hr 11/08/20 18:00 11/11/20 07:06 Heparin/ 0.45% Nacl-25,000 Unit/500 Ml IV 1,150 units/hr TITR JOSE 23 mls/hr Titration Protocol 1,500 UNITS/HR Morphine Sulfate 30 mg 11/09/20 10:00 11/11/20 10:26 Morphine 30 Mg Er Tab PO 30 mg Q12HR JOSE Administration Ondansetron HCl 4 mg 11/08/20 22:32 Ondansetron 4 Mg/2 Ml Inj IV Q8H PRN Nausea And Vomiting Risperidone 0.5 mg 11/09/20 10:00 11/11/20 10:26 Risperidone 0.25 Mg Tab PO 0.5 mg DAILY JOSE Administration Sodium Chloride 10 ml 11/09/20 10:00 11/10/20 21:07 Sodium Chloride 0.9% 10 Ml Flush Syringe IV 10 ml BID JOSE Administration Sodium Chloride 10 ml 11/08/20 22:32 Sodium Chloride 0.9% 10 Ml Flush Syringe IV PRN PRN LINE FLUSH Warfarin Sodium 10 mg 11/09/20 17:00 11/10/20 18:13 Warfarin 10 Mg Tab PO 10 mg DAILY@1700 JOSE Administration Protocol Nutrition/Malnutrition Assess - Dietary Evaluation Nutrition/Malnutrition Findings: Nutrition Notes Start: 11/09/20 10:00 Freq: Status: Active Protocol: Document 11/10/20 13:41 (Rec: 11/10/20 13:43 [id number]) Nutrition Notes Initial or Follow up Brief Note Current Diagnosis Hypertension,Respiratory Failure Other Pertinent Diagnosis PVD, pulmonary embolism Current Diet Cardiac Subjective/Other Information Pt given Coumadin education handout but she denied education becuase she has gotten it "plenty of times". Pt states she is eating well, no wounds, and no weight loss. Nutrition Intervention Revisit per MD consult or patient Sign Off request:
[2020-11-11] MEDS ORDERED: HEPARIN 10,000 UNITS/10 ML VIAL IV PRN (13:00)
[2020-11-11] MEDS: WARFARIN 10 MG TAB PO SCH (17:50)
[2020-11-11] MEDS: HEPARIN/ 0.45% NACL DRIP 25,000 UNIT/500 ML BAG IV SCH (18:25)
[2020-11-12 02:48] LABS: Hematocrit 34.5 % (30.3-42.9); Hemoglobin 10.9 gm/dl (10.1-14.3)
[2020-11-12] MEDS: IPRATROPIUM/ALBUTEROL SULFATE 3 ML AMPUL.NEB IH SCH ×4 (03:16→19:56)
[2020-11-12 06:48] LABS: INR 1.87 (0.87-1.13)
[2020-11-12] MEDS: FAMOTIDINE 20 MG TAB PO SCH ×2 (11:20→21:50)
[2020-11-12] MEDS: ESCITALOPRAM 10 MG TAB PO SCH (11:20)
[2020-11-12] MEDS: dilTIAZem CD 120 MG CAP PO SCH (11:20)
[2020-11-12] MEDS: risperiDONE 0.25 MG TAB PO SCH (11:20)
[2020-11-12] MEDS: guaiFENesin ER 600 MG TAB PO SCH ×2 (11:20→21:50)
[2020-11-12] MEDS: MORPHINE 30 MG ER TAB PO SCH ×2 (11:20→21:51)
[2020-11-12] MEDS: FUROSEMIDE 20 MG TAB PO SCH (11:20)
[2020-11-12] MEDS: clonazePAM 0.5 MG TAB PO SCH (11:20)
--- NOTE | 2020-11-12 12:08 | Progress Note ---
Assessment and Plan Assessment and plan: This is a 45-year-old female with a history of pulmonary embolism s/p EKOS, thrombolysis, thrombectomy for submassive bilateral PE in April 2020, PVD, RA, chronic respiratory failure, pulmonary hypertension, morbid obesity, lymphedema, Antithrombin III deficiency, medical noncompliance who is admitted for bilateral pulmonary emboli, leukocytosis, elevated proBNP, and COVID 19 PUI Saddle submassive pulmonary embolism Right heart strain Acute on chronic respiratory failure with hypoxia Leukocytosis Metabolic acidosis PVD Antithrombin III deficiency Rheumatoid arthritis Morbid obesity Medical noncompliance Lymphedema History of pulmonary embolism s/p EKOS, thrombolysis and thrombectomy in [facility] 2019 Pulmonary hypertension COVID 19 PUI, ruled out Chornic pain syndrome/chornic opiate dependent Reoccurent PE -[facility], vascular surgery consulted -11/08 CTA chest shows significant interval worsening of previously noted pulmonary embolic burden, now subtle submassive pulmonary embolus, evidence of right heart strain with straightening of the intraventricular septum and reflux of contrast into the IVC, interval resolution of previously noted infectious/inflammatory process -11/08 echocardiogram Left ventricle with mild concentric left ventricular hypertrophy. Mid diastolic dysfunction. Right ventricle cannot be well visualized. -11/08 CXR shows no acute pulmonary or pleural abnormality -Warfarin, PAS to dose, will discuss with pharmacy about transitioning patient over to warfarin and stopping the heparin drip -Cardiac diet -Resume home Klonopin, Decadron, diltiazem, Lexapro, respiratory, MS Contin and warfarin DuoNeb -Trend CBC, BMP, INR -Pulmonary hygiene -Stressed medical compliance. Patient is declining thrombectomy at this time. No additional intervention per pulmonology or vascular surgery. DVT/GI prophylaxis: PPI, systemic anticoagulation with heparin drip, SCDs to bilateral actions while in bed Disposition: Continue to treat patient for saddle PE. DC warfarin and start Xarelto tonight. History Interval history: 11/10/2020: Patient seen and examined, lying in bed comfortably, no respiratory distress. On high flow oxygen. Spoke with critical care, patient stable to be transferred to floor 11/11/2020: Patient seen and examined, continues to be on high flow nasal cannula oxygen. Spoke with the patient pertaining to Coumadin, INR is improving however she states that she was therapeutic in the past and continues to have blood clots, this is why she was on Xarelto. Not sure how compliant the patient was with her medications. 11/12/2020: Patient seen and examined, continues to be on high flow oxygen. States that her breathing is improved but has dyspnea with movement. Hospitalist Physical - Physical exam Narrative exam: General appearance: Obese, no acute distress, well-nourished EENT: PERRL, EOM intact, hearing intact, clear oral mucosa Neck: Present: supple, normal ROM Respiratory: High flow nasal cannula oxygen, bilateral CTA, negative: rales, rhonchi, wheezing Cardiovascular: Regular rate/rhythm, Normal S1 & S2. No gallop, rub Extremities: no ischemia, No edema, normal temperature, normal color, Full ROM Abdominal: soft, no tenderness, non-distended, normal bowel sounds Integumentary: Present: clear, warm, dry no wounds, no erythema noted Psychiatric: appropriate mood/affect, intact judgment & insight Neurologic: CNII-XII intact, moves all extremities, no sensory or motor abnormalities - Constitutional Vitals: Temp Pulse Resp BP Pulse Ox 97.6 F 73 20 94/61 94 11/12/20 05:43 11/12/20 09:00 11/12/20 09:00 11/12/20 05:43 11/12/20 08:59 General appearance: Present: mild distress (On BiPAP) HEART Score - HEART Score Troponin: Troponin T 0.018 ng/mL (0.00-0.029) 11/08/20 17:25 Results - Labs CBC & Chem 7: 11/12/20 02:05 11/09/20 02:55 Labs: Laboratory Last Values WBC 12.2 K/mm3 (4.5-11.0) H 11/09/20 02:55 RBC 5.09 M/mm3 (3.65-5.03) H 11/09/20 02:55 Hgb 10.9 gm/dl (10.1-14.3) 11/12/20 02:05 Hct 34.5 % (30.3-42.9) 11/12/20 02:05 MCV 81 fl (79-97) 11/09/20 02:55 MCH 25 pg (28-32) L 11/09/20 02:55 MCHC 31 % (30-34) 11/09/20 02:55 RDW 19.6 % (13.2-15.2) H 11/09/20 02:55 Plt Count 229 K/mm3 (140-440) 11/12/20 02:05 Lymph % (Auto) 16.9 % (13.4-35.0) 11/09/20 02:55 [place] % (Auto) 6.9 % (0.0-7.3) 11/09/20 02:55 Eos % (Auto) 0.2 % (0.0-4.3) 11/09/20 02:55 Baso % (Auto) 0.5 % (0.0-1.8) 11/09/20 02:55 Lymph # (Auto) 2.1 K/mm3 (1.2-5.4) 11/09/20 02:55 [place] # (Auto) 0.8 K/mm3 (0.0-0.8) 11/09/20 02:55 Eos # (Auto) 0.0 K/mm3 (0.0-0.4) 11/09/20 02:55 Baso # (Auto) 0.1 K/mm3 (0.0-0.1) 11/09/20 02:55 Seg Neutrophils % 75.5 % (40.0-70.0) H 11/09/20 02:55 Seg Neutrophils # 9.2 K/mm3 (1.8-7.7) H 11/09/20 02:55 PT 21.9 Sec. (12.2-14.9) H 11/12/20 05:56 INR 1.87 (0.87-1.13) H 11/12/20 05:56 APTT 32.1 Sec. (24.2-36.6) 11/08/20 17:25 Heparin Anti-Xa Level 0.40 U.I./ml (0.3-0.7) 11/12/20 05:56 Sodium 140 mmol/L (137-145) 11/09/20 02:55 Potassium 4.8 mmol/L (3.6-5.0) 11/09/20 02:55 Chloride 105.0 mmol/L (98-107) 11/09/20 02:55 Carbon Dioxide 20 mmol/L (22-30) L 11/09/20 02:55 Anion Gap 20 mmol/L 11/09/20 02:55 BUN 11 mg/dL (7-17) 11/09/20 02:55 Creatinine 0.9 mg/dL (0.6-1.2) 11/09/20 02:55 Estimated GFR > 60 ml/min 11/09/20 02:55 BUN/Creatinine Ratio 12 % 11/09/20 02:55 Glucose 87 mg/dL (65-100) 11/09/20 02:55 Calcium 8.7 mg/dL (8.4-10.2) 11/09/20 02:55 Troponin T 0.018 ng/mL (0.00-0.029) 11/08/20 17:25 NT-Pro-B Natriuret Pep 7232 pg/mL (0-450) H 11/08/20 17:25 HCG, Qual Negative (Negative) 11/08/20 17:25 Nasal Screen MRSA (PCR) Negative (Negative) 11/10/20 20:18 Coronavirus (PCR) Negative (Negative) 11/09/20 Unknown Mak/IV: Voiding Method External Female Catheter Active Medications - Current Medications Current Medications: Generic Name Dose Route Start Last Admin Trade Name Freq PRN Reason Stop Dose Admin Acetaminophen 650 mg 11/08/20 22:32 Acetaminophen 325 Mg Tab PO Q4H PRN Pain MILD(1-3)/Fever >100.5/CARTAGENA Hydrocodone Bitart/Acetaminophen 1 each 11/08/20 22:34 11/11/20 05:37 Hydrocodone/Acetaminophen 5-325 Mg Tab PO 1 each BID PRN Administration Pain, Moderate (4-6) Albuterol 2.5 mg 11/08/20 22:32 Albuterol 2.5 Mg/3 Ml Nebu IH Q4HRT PRN Shortness Of Breath Albuterol/Ipratropium 1 ampul 11/09/20 02:00 11/12/20 08:56 Ipratropium/Albuterol Sulfate 3 Ml Ampul.Neb IH 1 ampul Q6HRT JOSE Administration Clonazepam 1 mg 11/09/20 10:00 11/11/20 10:27 Clonazepam 0.5 Mg Tab PO 1 mg DAILY JOSE Administration Diltiazem HCl 120 mg 11/09/20 10:00 11/11/20 10:28 Diltiazem Cd 120 Mg Cap PO 120 mg QDAY JOSE Administration Escitalopram Oxalate 10 mg 11/09/20 10:00 11/11/20 10:27 Escitalopram 10 Mg Tab PO 10 mg DAILY JOSE Administration Famotidine 20 mg 11/09/20 10:00 11/11/20 21:42 Famotidine 20 Mg Tab PO 20 mg BID JOSE Administration Furosemide 20 mg 11/09/20 10:00 11/11/20 10:27 Furosemide 20 Mg Tab PO 20 mg QDAY JOSE Administration Guaifenesin 600 mg 11/09/20 10:00 11/11/20 21:42 Guaifenesin Er 600 Mg Tab PO 600 mg BID JOSE Administration Heparin Sodium (Porcine) 5,000 unit 11/11/20 13:00 Heparin 10,000 Units/10 Ml Vial IV Q6H PRN Anti-Xa Assay < 0.1 units/ml Hydralazine HCl 10 mg 11/08/20 22:37 Hydralazine 20 Mg/1 Ml Inj IV Q6H PRN htn Heparin Sodium/Sodium Chloride 25,000 unit in 500 mls @ 30 mls/hr 11/08/20 18:00 11/12/20 01:05 Heparin/ 0.45% Nacl-25,000 Unit/500 Ml IV 1,500 units/hr TITR JOSE 30 mls/hr Titration Protocol 1,500 UNITS/HR Morphine Sulfate 30 mg 11/09/20 10:00 11/11/20 21:42 Morphine 30 Mg Er Tab PO 30 mg Q12HR JOSE Administration Ondansetron HCl 4 mg 11/08/20 22:32 Ondansetron 4 Mg/2 Ml Inj IV Q8H PRN Nausea And Vomiting Risperidone 0.5 mg 11/09/20 10:00 11/11/20 10:26 Risperidone 0.25 Mg Tab PO 0.5 mg DAILY JOSE Administration Sodium Chloride 10 ml 11/09/20 10:00 11/11/20 22:59 Sodium Chloride 0.9% 10 Ml Flush Syringe IV 10 ml BID JOSE Administration Sodium Chloride 10 ml 11/08/20 22:32 11/11/20 22:57 Sodium Chloride 0.9% 10 Ml Flush Syringe IV 10 ml PRN PRN Administration LINE FLUSH Warfarin Sodium 10 mg 11/09/20 17:00 11/11/20 17:50 Warfarin 10 Mg Tab PO 10 mg DAILY@1700 JOSE Administration Protocol Nutrition/Malnutrition Assess - Dietary Evaluation Nutrition/Malnutrition Findings: Nutrition Notes Start: 11/09/20 10:00 Freq: Status: Active Protocol: Document 11/10/20 13:41 (Rec: 11/10/20 13:43 [id number]) Nutrition Notes Initial or Follow up Brief Note Current Diagnosis Hypertension,Respiratory Failure Other Pertinent Diagnosis PVD, pulmonary embolism Current Diet Cardiac Subjective/Other Information Pt given Coumadin education handout but she denied education becuase she has gotten it "plenty of times". Pt states she is eating well, no wounds, and no weight loss. Nutrition Intervention Revisit per MD consult or patient Sign Off request:
[2020-11-12] MEDS: WARFARIN 10 MG TAB PO SCH (17:20)
--- NOTE | 2020-11-12 18:38 | Electrocardiograph Report ---
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 T-wave abnormality no longer present Possible ischemia no longer present ST (T wave) deviation no longer present Electronically Signed On 11-12-2020 18:38:15 EDT by Pastor Hull
[2020-11-13] MEDS: HEPARIN/ 0.45% NACL DRIP 25,000 UNIT/500 ML BAG IV SCH (02:44)
[2020-11-13] MEDS: IPRATROPIUM/ALBUTEROL SULFATE 3 ML AMPUL.NEB IH SCH ×4 (03:59→20:05)
[2020-11-13 08:48] LABS: INR 2.44 (0.87-1.13)
[2020-11-13] MEDS: FAMOTIDINE 20 MG TAB PO SCH ×2 (10:12→21:31)
[2020-11-13] MEDS: clonazePAM 0.5 MG TAB PO SCH (10:12)
[2020-11-13] MEDS: guaiFENesin ER 600 MG TAB PO SCH ×2 (10:12→21:31)
[2020-11-13] MEDS: risperiDONE 0.25 MG TAB PO SCH (10:12)
[2020-11-13] MEDS: ESCITALOPRAM 10 MG TAB PO SCH (10:12)
[2020-11-13 10:14] LABS: Hematocrit 33.9 % (30.3-42.9); Hemoglobin 10.8 gm/dl (10.1-14.3); Mean Corpuscular HGB Conc 32 % (30-34); Mean Corpuscular Volume 80 fl (79-97); Platelet Count 205 K/mm3 (140-440); Red Blood Count 4.21 M/mm3 (3.65-5.03); Red Cell Distribution Width 18.8 % (13.2-15.2)
--- NOTE | 2020-11-13 10:18 | Progress Note ---
Assessment and Plan Assessment and plan: This is a 45-year-old female with a history of pulmonary embolism s/p EKOS, thrombolysis, thrombectomy for submassive bilateral PE in April 2020, PVD, RA, chronic respiratory failure, pulmonary hypertension, morbid obesity, lymphedema, Antithrombin III deficiency, medical noncompliance who is admitted for bilateral pulmonary emboli, leukocytosis, elevated proBNP, and COVID 19 PUI Saddle submassive pulmonary embolism Right heart strain Acute on chronic respiratory failure with hypoxia Leukocytosis Metabolic acidosis PVD Antithrombin III deficiency Rheumatoid arthritis Morbid obesity Medical noncompliance Lymphedema History of pulmonary embolism s/p EKOS, thrombolysis and thrombectomy in [facility] 2019 Pulmonary hypertension COVID 19 PUI, ruled out Chornic pain syndrome/chornic opiate dependent Reoccurent PE -[facility], vascular surgery consulted -11/08 CTA chest shows significant interval worsening of previously noted pulmonary embolic burden, now subtle submassive pulmonary embolus, evidence of right heart strain with straightening of the intraventricular septum and reflux of contrast into the IVC, interval resolution of previously noted infectious/inflammatory process -11/08 echocardiogram Left ventricle with mild concentric left ventricular hypertrophy. Mid diastolic dysfunction. Right ventricle cannot be well visualized. -11/08 CXR shows no acute pulmonary or pleural abnormality -Warfarin, PAS to dose, will discuss with pharmacy about transitioning patient over to warfarin and stopping the heparin drip -Cardiac diet -Resume home Klonopin, Decadron, diltiazem, Lexapro, respiratory, MS Contin and warfarin DuoNeb -Trend CBC, BMP, INR -Pulmonary hygiene -Stressed medical compliance. Patient is declining thrombectomy at this time. No additional intervention per pulmonology or vascular surgery. DVT/GI prophylaxis: PPI, systemic anticoagulation with heparin drip, SCDs to bilateral actions while in bed Disposition: Xarelto will be started tonight. Stop heparin drip at 5 PM. Continue to wean patient off of oxygen. History Interval history: 11/10/2020: Patient seen and examined, lying in bed comfortably, no respiratory distress. On high flow oxygen. Spoke with critical care, patient stable to be transferred to floor 11/11/2020: Patient seen and examined, continues to be on high flow nasal cannula oxygen. Spoke with the patient pertaining to Coumadin, INR is improving however she states that she was therapeutic in the past and continues to have blood clots, this is why she was on Xarelto. Not sure how compliant the patient was with her medications. 11/12/2020: Patient seen and examined, continues to be on high flow oxygen. States that her breathing is improved but has dyspnea with movement. 11/13/2020: Patient seen and examined, explained to the patient respiratory is plan for weaning her off the high flow oxygen. She agrees to it. Also advised her we will be stopping heparin and Coumadin and transitioning over to Xarelto. Patient states that she was getting and going to the bathroom but the oxygen, was doing okay. Hospitalist Physical - Physical exam Narrative exam: General appearance: Obese, no acute distress, well-nourished EENT: PERRL, EOM intact, hearing intact, clear oral mucosa Neck: Present: supple, normal ROM Respiratory: High flow nasal cannula oxygen, bilateral CTA, negative: rales, rhonchi, wheezing Cardiovascular: Regular rate/rhythm, Normal S1 & S2. No gallop, rub Extremities: no ischemia, No edema, normal temperature, normal color, Full ROM Abdominal: soft, no tenderness, non-distended, normal bowel sounds Integumentary: Present: clear, warm, dry no wounds, no erythema noted Psychiatric: appropriate mood/affect, intact judgment & insight Neurologic: CNII-XII intact, moves all extremities, no sensory or motor abnormalities - Constitutional Vitals: Temp Pulse Resp BP Pulse Ox 97.4 F L 77 18 92/47 92 11/13/20 08:46 11/13/20 08:46 11/13/20 08:46 11/13/20 08:46 11/13/20 08:46 General appearance: Present: mild distress (On BiPAP) HEART Score - HEART Score Troponin: Troponin T 0.018 ng/mL (0.00-0.029) 11/08/20 17:25 Results - Labs CBC & Chem 7: 11/12/20 02:05 11/13/20 08:56 Labs: Laboratory Last Values WBC 12.2 K/mm3 (4.5-11.0) H 11/09/20 02:55 RBC 5.09 M/mm3 (3.65-5.03) H 11/09/20 02:55 Hgb 10.9 gm/dl (10.1-14.3) 11/12/20 02:05 Hct 34.5 % (30.3-42.9) 11/12/20 02:05 MCV 81 fl (79-97) 11/09/20 02:55 MCH 25 pg (28-32) L 11/09/20 02:55 MCHC 31 % (30-34) 11/09/20 02:55 RDW 19.6 % (13.2-15.2) H 11/09/20 02:55 Plt Count 229 K/mm3 (140-440) 11/12/20 02:05 Lymph % (Auto) 16.9 % (13.4-35.0) 11/09/20 02:55 [place] % (Auto) 6.9 % (0.0-7.3) 11/09/20 02:55 Eos % (Auto) 0.2 % (0.0-4.3) 11/09/20 02:55 Baso % (Auto) 0.5 % (0.0-1.8) 11/09/20 02:55 Lymph # (Auto) 2.1 K/mm3 (1.2-5.4) 11/09/20 02:55 [place] # (Auto) 0.8 K/mm3 (0.0-0.8) 11/09/20 02:55 Eos # (Auto) 0.0 K/mm3 (0.0-0.4) 11/09/20 02:55 Baso # (Auto) 0.1 K/mm3 (0.0-0.1) 11/09/20 02:55 Seg Neutrophils % 75.5 % (40.0-70.0) H 11/09/20 02:55 Seg Neutrophils # 9.2 K/mm3 (1.8-7.7) H 11/09/20 02:55 PT 26.8 Sec. (12.2-14.9) H 11/13/20 07:05 INR 2.44 (0.87-1.13) H 11/13/20 07:05 APTT 32.1 Sec. (24.2-36.6) 11/08/20 17:25 Heparin Anti-Xa Level 0.65 U.I./ml (0.3-0.7) 11/13/20 07:05 Sodium 140 mmol/L (137-145) 11/09/20 02:55 Potassium 4.8 mmol/L (3.6-5.0) 11/09/20 02:55 Chloride 105.0 mmol/L (98-107) 11/09/20 02:55 Carbon Dioxide 20 mmol/L (22-30) L 11/09/20 02:55 Anion Gap 20 mmol/L 11/09/20 02:55 BUN 11 mg/dL (7-17) 11/09/20 02:55 Creatinine 0.9 mg/dL (0.6-1.2) 11/13/20 08:56 Estimated GFR > 60 ml/min 11/13/20 08:56 BUN/Creatinine Ratio 12 % 11/09/20 02:55 Glucose 87 mg/dL (65-100) 11/09/20 02:55 Calcium 8.7 mg/dL (8.4-10.2) 11/09/20 02:55 Troponin T 0.018 ng/mL (0.00-0.029) 11/08/20 17:25 NT-Pro-B Natriuret Pep 7232 pg/mL (0-450) H 11/08/20 17:25 HCG, Qual Negative (Negative) 11/08/20 17:25 Nasal Screen MRSA (PCR) Negative (Negative) 11/10/20 20:18 Coronavirus (PCR) Negative (Negative) 11/09/20 Unknown Mak/IV: Voiding Method External Female Catheter Active Medications - Current Medications Current Medications: Generic Name Dose Route Start Last Admin Trade Name Freq PRN Reason Stop Dose Admin Acetaminophen 650 mg 11/08/20 22:32 Acetaminophen 325 Mg Tab PO Q4H PRN Pain MILD(1-3)/Fever >100.5/CARTAGENA Hydrocodone Bitart/Acetaminophen 1 each 11/08/20 22:34 11/11/20 05:37 Hydrocodone/Acetaminophen 5-325 Mg Tab PO 1 each BID PRN Administration Pain, Moderate (4-6) Albuterol 2.5 mg 11/08/20 22:32 Albuterol 2.5 Mg/3 Ml Nebu IH Q4HRT PRN Shortness Of Breath Albuterol/Ipratropium 1 ampul 11/09/20 02:00 11/13/20 07:42 Ipratropium/Albuterol Sulfate 3 Ml Ampul.Neb IH 1 ampul Q6HRT JOSE Administration Clonazepam 1 mg 11/09/20 10:00 11/13/20 10:12 Clonazepam 0.5 Mg Tab PO 1 mg DAILY JOSE Administration Diltiazem HCl 120 mg 11/09/20 10:00 11/12/20 11:20 Diltiazem Cd 120 Mg Cap PO 120 mg QDAY JOSE Administration Escitalopram Oxalate 10 mg 11/09/20 10:00 11/13/20 10:12 Escitalopram 10 Mg Tab PO 10 mg DAILY JOSE Administration Famotidine 20 mg 11/09/20 10:00 11/13/20 10:12 Famotidine 20 Mg Tab PO 20 mg BID JOSE Administration Furosemide 20 mg 11/09/20 10:00 11/12/20 11:20 Furosemide 20 Mg Tab PO 20 mg QDAY JOSE Administration Guaifenesin 600 mg 11/09/20 10:00 11/13/20 10:12 Guaifenesin Er 600 Mg Tab PO 600 mg BID JOSE Administration Heparin Sodium (Porcine) 5,000 unit 11/11/20 13:00 Heparin 10,000 Units/10 Ml Vial IV 11/13/20 17:00 Q6H PRN Anti-Xa Assay < 0.1 units/ml Hydralazine HCl 10 mg 11/08/20 22:37 Hydralazine 20 Mg/1 Ml Inj IV Q6H PRN htn Heparin Sodium/Sodium Chloride 25,000 unit in 500 mls @ 30 mls/hr 11/08/20 18:00 11/13/20 02:44 Heparin/ 0.45% Nacl-25,000 Unit/500 Ml IV 11/13/20 17:00 1,650 units/hr TITR JOSE 33 mls/hr Administration Protocol 1,500 UNITS/HR Morphine Sulfate 30 mg 11/09/20 10:00 11/12/20 21:51 Morphine 30 Mg Er Tab PO 30 mg Q12HR JOSE Administration Ondansetron HCl 4 mg 11/08/20 22:32 Ondansetron 4 Mg/2 Ml Inj IV Q8H PRN Nausea And Vomiting Risperidone 0.5 mg 11/09/20 10:00 11/13/20 10:12 Risperidone 0.25 Mg Tab PO 0.5 mg DAILY JOSE Administration Rivaroxaban 15 mg 11/13/20 17:00 Rivaroxaban 15 Mg Tab PO 12/04/20 08:01 BIDDIAB JOSE Protocol Rivaroxaban 20 mg 12/05/20 17:00 Rivaroxaban 20 Mg Tab PO QPMDIAB JOSE Protocol Sodium Chloride 10 ml 11/09/20 10:00 11/13/20 10:12 Sodium Chloride 0.9% 10 Ml Flush Syringe IV 10 ml BID JOSE Administration Sodium Chloride 10 ml 11/08/20 22:32 11/11/20 22:57 Sodium Chloride 0.9% 10 Ml Flush Syringe IV 10 ml PRN PRN Administration LINE FLUSH Nutrition/Malnutrition Assess - Dietary Evaluation Nutrition/Malnutrition Findings: Nutrition Notes Start: 11/09/20 10:00 Freq: Status: Active Protocol: Document 11/10/20 13:41 (Rec: 11/10/20 13:43 [email or web address]) Nutrition Notes Initial or Follow up Brief Note Current Diagnosis Hypertension,Respiratory Failure Other Pertinent Diagnosis PVD, pulmonary embolism Current Diet Cardiac Subjective/Other Information Pt given Coumadin education handout but she denied education becuase she has gotten it "plenty of times". Pt states she is eating well, no wounds, and no weight loss. Nutrition Intervention Revisit per MD consult or patient Sign Off request:
[2020-11-13 11:00] LABS: INR 2.48 (0.87-1.13)
[2020-11-13 11:23] LABS: Partial Thromboplastin Time 222.5 Sec. (24.2-36.6)
[2020-11-13] MEDS: MORPHINE 30 MG ER TAB PO SCH ×2 (11:59→21:31)
[2020-11-13] MEDS: dilTIAZem CD 120 MG CAP PO SCH (12:00)
[2020-11-13] MEDS: FUROSEMIDE 20 MG TAB PO SCH (12:01)
[2020-11-13] MEDS: RIVAROXABAN 15 MG TAB PO SCH (16:07)
[2020-11-14] MEDS: IPRATROPIUM/ALBUTEROL SULFATE 3 ML AMPUL.NEB IH SCH ×4 (04:04→19:36)
[2020-11-14 06:28] LABS: Hematocrit 33.7 % (30.3-42.9); Hemoglobin 11.1 gm/dl (10.1-14.3)
[2020-11-14 06:38] LABS: INR 4.65 (0.87-1.13)
--- NOTE | 2020-11-14 08:33 | Progress Note ---
Assessment and Plan Assessment and plan: This is a 45-year-old female with a history of pulmonary embolism s/p EKOS, thrombolysis, thrombectomy for submassive bilateral PE in April 2020, PVD, RA, chronic respiratory failure, pulmonary hypertension, morbid obesity, lymphedema, Antithrombin III deficiency, medical noncompliance who is admitted for bilateral pulmonary emboli, leukocytosis, elevated proBNP, and COVID 19 PUI Saddle submassive pulmonary embolism Right heart strain Acute on chronic respiratory failure with hypoxia Leukocytosis Metabolic acidosis PVD Antithrombin III deficiency Rheumatoid arthritis Morbid obesity Medical noncompliance Lymphedema History of pulmonary embolism s/p EKOS, thrombolysis and thrombectomy in [facility] 2019 Pulmonary hypertension COVID 19 PUI, ruled out Chornic pain syndrome/chornic opiate dependent Reoccurent PE -[facility], vascular surgery consulted -11/08 CTA chest shows significant interval worsening of previously noted pulmonary embolic burden, now subtle submassive pulmonary embolus, evidence of right heart strain with straightening of the intraventricular septum and reflux of contrast into the IVC, interval resolution of previously noted infectious/inflammatory process -11/08 echocardiogram Left ventricle with mild concentric left ventricular hypertrophy. Mid diastolic dysfunction. Right ventricle cannot be well visualized. -11/08 CXR shows no acute pulmonary or pleural abnormality -Warfarin, PAS to dose, will discuss with pharmacy about transitioning patient over to warfarin and stopping the heparin drip -Cardiac diet -Resume home Klonopin, Decadron, diltiazem, Lexapro, respiratory, MS Contin and warfarin DuoNeb -Trend CBC, BMP, INR -Pulmonary hygiene -Stressed medical compliance. Patient is declining thrombectomy at this time. No additional intervention per pulmonology or vascular surgery. DVT/GI prophylaxis: PPI, systemic anticoagulation with heparin drip, SCDs to bilateral actions while in bed Disposition: Continue to wean patient off of oxygen. History Interval history: 11/10/2020: Patient seen and examined, lying in bed comfortably, no respiratory distress. On high flow oxygen. Spoke with critical care, patient stable to be transferred to floor 11/11/2020: Patient seen and examined, continues to be on high flow nasal cannula oxygen. Spoke with the patient pertaining to Coumadin, INR is improving however she states that she was therapeutic in the past and continues to have blood clots, this is why she was on Xarelto. Not sure how compliant the patient was with her medications. 11/12/2020: Patient seen and examined, continues to be on high flow oxygen. States that her breathing is improved but has dyspnea with movement. 11/13/2020: Patient seen and examined, explained to the patient respiratory is plan for weaning her off the high flow oxygen. She agrees to it. Also advised her we will be stopping heparin and Coumadin and transitioning over to Xarelto. Patient states that she was getting and going to the bathroom but the oxygen, was doing okay. 11/14/2020: Patient in bed, states that her breathing is improving, no nausea vomiting, continues to be weaned off of high flow oxygen. Heparin has been stopped, Xarelto started. Hospitalist Physical - Physical exam Narrative exam: General appearance: Obese, no acute distress, well-nourished EENT: PERRL, EOM intact, hearing intact, clear oral mucosa Neck: Present: supple, normal ROM Respiratory: High flow nasal cannula oxygen, bilateral CTA, negative: rales, rhonchi, wheezing Cardiovascular: Regular rate/rhythm, Normal S1 & S2. No gallop, rub Extremities: no ischemia, No edema, normal temperature, normal color, Full ROM Abdominal: soft, no tenderness, non-distended, normal bowel sounds Integumentary: Present: clear, warm, dry no wounds, no erythema noted Psychiatric: appropriate mood/affect, intact judgment & insight Neurologic: CNII-XII intact, moves all extremities, no sensory or motor abnormalities - Constitutional Vitals: Temp Pulse Resp BP Pulse Ox 98.0 F 84 20 107/59 94 11/14/20 03:35 11/14/20 07:49 11/14/20 07:49 11/14/20 03:35 11/14/20 07:49 General appearance: Present: mild distress (On BiPAP) HEART Score - HEART Score Troponin: Troponin T 0.018 ng/mL (0.00-0.029) 11/08/20 17:25 Results - Labs CBC & Chem 7: 11/14/20 05:57 11/13/20 08:56 Labs: Laboratory Last Values WBC 9.9 K/mm3 (4.5-11.0) 11/13/20 08:56 RBC 4.21 M/mm3 (3.65-5.03) 11/13/20 08:56 Hgb 11.1 gm/dl (10.1-14.3) 11/14/20 05:57 Hct 33.7 % (30.3-42.9) 11/14/20 05:57 MCV 80 fl (79-97) 11/13/20 08:56 MCH 26 pg (28-32) L 11/13/20 08:56 MCHC 32 % (30-34) 11/13/20 08:56 RDW 18.8 % (13.2-15.2) H 11/13/20 08:56 Plt Count 200 K/mm3 (140-440) 11/14/20 05:57 Lymph % (Auto) 16.9 % (13.4-35.0) 11/09/20 02:55 [place] % (Auto) 6.9 % (0.0-7.3) 11/09/20 02:55 Eos % (Auto) 0.2 % (0.0-4.3) 11/09/20 02:55 Baso % (Auto) 0.5 % (0.0-1.8) 11/09/20 02:55 Lymph # (Auto) 2.1 K/mm3 (1.2-5.4) 11/09/20 02:55 [place] # (Auto) 0.8 K/mm3 (0.0-0.8) 11/09/20 02:55 Eos # (Auto) 0.0 K/mm3 (0.0-0.4) 11/09/20 02:55 Baso # (Auto) 0.1 K/mm3 (0.0-0.1) 11/09/20 02:55 Seg Neutrophils % 75.5 % (40.0-70.0) H 11/09/20 02:55 Seg Neutrophils # 9.2 K/mm3 (1.8-7.7) H 11/09/20 02:55 PT 43.5 Sec. (12.2-14.9) H 11/14/20 05:57 INR 4.65 (0.87-1.13) H 11/14/20 05:57 APTT 222.5 Sec. (24.2-36.6) H* 11/13/20 08:56 Heparin Anti-Xa Level 0.65 U.I./ml (0.3-0.7) 11/13/20 07:05 Sodium 140 mmol/L (137-145) 11/09/20 02:55 Potassium 4.8 mmol/L (3.6-5.0) 11/09/20 02:55 Chloride 105.0 mmol/L (98-107) 11/09/20 02:55 Carbon Dioxide 20 mmol/L (22-30) L 11/09/20 02:55 Anion Gap 20 mmol/L 11/09/20 02:55 BUN 11 mg/dL (7-17) 11/09/20 02:55 Creatinine 0.9 mg/dL (0.6-1.2) 11/13/20 08:56 Estimated GFR > 60 ml/min 11/13/20 08:56 BUN/Creatinine Ratio 12 % 11/09/20 02:55 Glucose 87 mg/dL (65-100) 11/09/20 02:55 Calcium 8.7 mg/dL (8.4-10.2) 11/09/20 02:55 Troponin T 0.018 ng/mL (0.00-0.029) 11/08/20 17:25 NT-Pro-B Natriuret Pep 7232 pg/mL (0-450) H 11/08/20 17:25 HCG, Qual Negative (Negative) 11/08/20 17:25 Nasal Screen MRSA (PCR) Negative (Negative) 11/10/20 20:18 Coronavirus (PCR) Negative (Negative) 11/09/20 Unknown Mak/IV: Voiding Method External Female Catheter Active Medications - Current Medications Current Medications: Generic Name Dose Route Start Last Admin Trade Name Freq PRN Reason Stop Dose Admin Acetaminophen 650 mg 11/08/20 22:32 Acetaminophen 325 Mg Tab PO Q4H PRN Pain MILD(1-3)/Fever >100.5/CARTAGENA Hydrocodone Bitart/Acetaminophen 1 each 11/08/20 22:34 11/11/20 05:37 Hydrocodone/Acetaminophen 5-325 Mg Tab PO 1 each BID PRN Administration Pain, Moderate (4-6) Albuterol 2.5 mg 11/08/20 22:32 Albuterol 2.5 Mg/3 Ml Nebu IH Q4HRT PRN Shortness Of Breath Albuterol/Ipratropium 1 ampul 11/09/20 02:00 11/14/20 04:04 Ipratropium/Albuterol Sulfate 3 Ml Ampul.Neb IH Not Given Q6HRT JOSE Clonazepam 1 mg 11/09/20 10:00 11/13/20 10:12 Clonazepam 0.5 Mg Tab PO 1 mg DAILY JOSE Administration Diltiazem HCl 120 mg 11/09/20 10:00 11/13/20 12:00 Diltiazem Cd 120 Mg Cap PO 120 mg QDAY JOSE Administration Escitalopram Oxalate 10 mg 11/09/20 10:00 11/13/20 10:12 Escitalopram 10 Mg Tab PO 10 mg DAILY JOSE Administration Famotidine 20 mg 11/09/20 10:00 11/13/20 21:31 Famotidine 20 Mg Tab PO 20 mg BID JOSE Administration Furosemide 20 mg 11/09/20 10:00 11/13/20 12:01 Furosemide 20 Mg Tab PO 20 mg QDAY JOSE Administration Guaifenesin 600 mg 11/09/20 10:00 11/13/20 21:31 Guaifenesin Er 600 Mg Tab PO 600 mg BID JOSE Administration Hydralazine HCl 10 mg 11/08/20 22:37 Hydralazine 20 Mg/1 Ml Inj IV Q6H PRN htn Morphine Sulfate 30 mg 11/09/20 10:00 11/13/20 21:31 Morphine 30 Mg Er Tab PO 30 mg Q12HR JOSE Administration Ondansetron HCl 4 mg 11/08/20 22:32 Ondansetron 4 Mg/2 Ml Inj IV Q8H PRN Nausea And Vomiting Risperidone 0.5 mg 11/09/20 10:00 11/13/20 10:12 Risperidone 0.25 Mg Tab PO 0.5 mg DAILY JOSE Administration Rivaroxaban 15 mg 11/13/20 17:00 11/13/20 16:07 Rivaroxaban 15 Mg Tab PO 12/04/20 08:01 15 mg BIDDIAB JOSE Administration Protocol Rivaroxaban 20 mg 12/05/20 17:00 Rivaroxaban 20 Mg Tab PO QPMDIAB JOSE Protocol Sodium Chloride 10 ml 11/09/20 10:00 11/13/20 21:32 Sodium Chloride 0.9% 10 Ml Flush Syringe IV 10 ml BID JOSE Administration Sodium Chloride 10 ml 11/08/20 22:32 06/17/21 22:57 Sodium Chloride 0.9% 10 Ml Flush Syringe IV 10 ml PRN PRN Administration LINE FLUSH Nutrition/Malnutrition Assess - Dietary Evaluation Nutrition/Malnutrition Findings: Nutrition Notes Start: 11/09/20 10:00 Freq: Status: Active Protocol: Document 11/10/20 13:41 MK (Rec: 11/10/20 13:43 MK [id number]) Nutrition Notes Initial or Follow up Brief Note Current Diagnosis Hypertension,Respiratory Failure Other Pertinent Diagnosis PVD, pulmonary embolism Current Diet Cardiac Subjective/Other Information Pt given Coumadin education handout but she denied education becuase she has gotten it "plenty of times". Pt states she is eating well, no wounds, and no weight loss. Nutrition Intervention Revisit per MD consult or patient Sign Off request:
[2020-11-14] MEDS: guaiFENesin ER 600 MG TAB PO SCH ×2 (09:22→22:02)
[2020-11-14] MEDS: ESCITALOPRAM 10 MG TAB PO SCH (09:23)
[2020-11-14] MEDS: FAMOTIDINE 20 MG TAB PO SCH ×2 (09:23→22:02)
[2020-11-14] MEDS: MORPHINE 30 MG ER TAB PO SCH ×2 (09:23→22:02)
[2020-11-14] MEDS: risperiDONE 0.25 MG TAB PO SCH (09:23)
[2020-11-14] MEDS: clonazePAM 0.5 MG TAB PO SCH (09:23)
[2020-11-14] MEDS: RIVAROXABAN 15 MG TAB PO SCH ×2 (09:24→16:57)
[2020-11-14] MEDS: dilTIAZem CD 120 MG CAP PO SCH (09:24)
[2020-11-14] MEDS: FUROSEMIDE 20 MG TAB PO SCH (09:24)
[2020-11-15] MEDS: IPRATROPIUM/ALBUTEROL SULFATE 3 ML AMPUL.NEB IH SCH ×4 (04:48→19:45)
[2020-11-15 05:04] LABS: Hematocrit 34.6 % (30.3-42.9); Hemoglobin 11.2 gm/dl (10.1-14.3); Mean Corpuscular HGB Conc 32 % (30-34); Mean Corpuscular Volume 80 fl (79-97); Platelet Count 215 K/mm3 (140-440); Red Blood Count 4.33 M/mm3 (3.65-5.03); Red Cell Distribution Width 18.8 % (13.2-15.2)
[2020-11-15 05:26] LABS: INR 6.26 (0.87-1.13)
--- NOTE | 2020-11-15 10:33 | Hem/Onc Consultation ---
History of Present Illness - Reason for Consult Consult date: 11/15/20 - History of Present Illness 45-year-old female with a PMHX HTN, morbid obesity, on home O2, RA, pulmonary HTN with a prior history of PE 4 years ago who presents with SOB and chest pain worsening in the past week. She does have a history of anti-thrombin 3 deficiency proven by labs in 07/08/2017. She was seen at another hospital ([facility]) 1 week ago diagnosed with PE and placed on Xarelto but she was never able to fill the prescription. Patient has a history of non-compliance with anti-coagulation due to not being able to afford the DOACs. Clotting history dates back to 2018: 07/06/2017 - Acute PE, Dopplers neg for upper or lower DVT, placed on Coumadin, Anti-thrombin 3 def diagnosed (she had borderline AT testing while on anticoagulant in 2017) lupus anticoag testing was indeterminate, not interpretable on heparin in 10/2017 - follow up scans continue to show PE but improved 03/2020 - CTA showed submassive PE 04/2020 - Mechanical thrombolectomy occurred and Eliquis prescripbed 08/30/2020 - CTA +PE, COVID +, on Coumadin 5mg PO daily 10/27/2020 - at [facility], diagnosed with PE and placed on Xarelto, did not take due to finances 11/08/2020 - presents to [facility], CTA with submassive PE, right heart strain placed on heparin IV and Coumadin 10mg started on 11/09, d/c on 11/13 and started on Xarelto 15mg PO BID. INR 6.6 after 2 days of discontinuation of Coumadin 10mg daily and xarelto EXAM: obese AA woman, no resp distress on oxygen NC R leg massivde , c/w lymphedema L leg swollen, ulcer on L calf LABS: DATA reviewed below Creat 1.1 IMP: presumed clotting tendency ("hypercoagulable state"), s/p acute/chronic PE and 2 miscarriages PE is probably mostly chronic SOB and chest symptoms likely due to pulm HTN (obesity and chronic clotting could both cause) High PT INR due to recent coumadin, xarelto, and presumed liver dysfunction r/o sickle cell trait or lupus anticoagulant chronic low MCV, probably has chronic iron defic-->this could be another reason for clotting REC: start aroxtra 10mg daily inpt if possible, OK to take it even with PT INR abn request arixtra 10mg dialy x 1-3 months at home if this is impossible then xarelto 20mg daily eventually long-term xarelto 20mg daily "lifelong" labs to include Hgb electrophoresis, cardiolipin Ab, iron testing stay in hospital until PT INR "stable" Laboratory Last Values WBC 10.2 K/mm3 (4.5-11.0) 11/15/20 04:40 Hgb 11.2 gm/dl (10.1-14.3) 11/15/20 04:40 Hct 34.6 % (30.3-42.9) 11/15/20 04:40 MCV 80 fl (79-97) 11/15/20 04:40 Plt Count 215 K/mm3 (140-440) 11/15/20 04:40 PT 54.4 Sec. (12.2-14.9) H 11/15/20 04:40 INR 6.26 (0.87-1.13) H* 11/15/20 04:40 APTT 222.5 Sec. (24.2-36.6) H* 11/13/20 08:56 Heparin Anti-Xa Level 0.65 U.I./ml (0.3-0.7) 11/13/20 07:05 Coronavirus (PCR) Negative (Negative) 11/09/20 Unknown Past History Past Medical History: arthritis, hypertension (Morbid obesity COVID-19 lymphedema antithrombin 3 deficiency), PVD, pulmonary embolism, other Medications and Allergies Allergies Allergy/AdvReac Type Severity Reaction Status Date / Time aspirin Allergy Mild Rash Verified 11/10/20 20:54 Home Medications Medication Instructions Recorded Confirmed Last Taken Type Escitalopram [Lexapro] 10 mg PO DAILY 04/26/20 11/10/20 11/07/20 History clonazePAM [Klonopin] 1 mg PO DAILY 04/26/20 11/10/20 11/07/20 History risperiDONE [RisperDAL] 0.5 mg PO DAILY 04/26/20 11/10/20 11/07/20 History Furosemide [Lasix TAB] 20 mg PO QDAY #30 tablet 04/29/20 11/10/20 11/07/20 Rx Morphine ER [Ms Contin ER] 30 mg PO Q12HR tablet 09/09/20 11/10/20 11/07/20 Rx Warfarin [Coumadin] 5 mg PO QDAY #30 tablet 09/09/20 11/10/20 11/07/20 Rx guaiFENesin ER [Mucinex ER] 600 mg PO BID #14 tablet 09/09/20 11/10/20 11/07/20 Rx Rivaroxaban [Xarelto] 15 mg PO BID 21 Days #42 tablet 11/11/20 Unknown Rx Rivaroxaban [Xarelto] 20 mg PO QDAY 7 Days #7 tab 11/11/20 Unknown Rx Active Meds: Active Medications Acetaminophen (Acetaminophen 325 Mg Tab) 650 mg PO Q4H PRN PRN Reason: Pain MILD(1-3)/Fever >100.5/CARTAGENA Hydrocodone Bitart/Acetaminophen (Hydrocodone/Acetaminophen 5-325 Mg Tab) 1 each PO BID PRN PRN Reason: Pain, Moderate (4-6) Last Admin: 11/11/20 05:37 Dose: 1 each Documented by: Albuterol (Albuterol 2.5 Mg/3 Ml Nebu) 2.5 mg IH Q4HRT PRN PRN Reason: Shortness Of Breath Albuterol/Ipratropium (Ipratropium/Albuterol Sulfate 3 Ml Ampul.Neb) 1 ampul IH Q6HRT [facility] Last Admin: 11/15/20 08:18 Dose: 1 ampul Documented by: Clonazepam (Clonazepam 0.5 Mg Tab) 1 mg PO DAILY [facility] Last Admin: 11/14/20 09:23 Dose: 1 mg Documented by: Diltiazem HCl (Diltiazem Cd 120 Mg Cap) 120 mg PO QDAY [facility] Last Admin: 11/14/20 09:24 Dose: 120 mg Documented by: Escitalopram Oxalate (Escitalopram 10 Mg Tab) 10 mg PO DAILY [facility] Last Admin: 11/14/20 09:23 Dose: 10 mg Documented by: Famotidine (Famotidine 20 Mg Tab) 20 mg PO BID [facility] Last Admin: 11/14/20 22:02 Dose: 20 mg Documented by: Furosemide (Furosemide 20 Mg Tab) 20 mg PO QDAY [facility] Last Admin: 11/14/20 09:24 Dose: 20 mg Documented by: Guaifenesin (Guaifenesin Er 600 Mg Tab) 600 mg PO BID [facility] Last Admin: 11/14/20 22:02 Dose: 600 mg Documented by: Hydralazine HCl (Hydralazine 20 Mg/1 Ml Inj) 10 mg IV Q6H PRN PRN Reason: htn Morphine Sulfate (Morphine 30 Mg Er Tab) 30 mg PO Q12HR [facility] Last Admin: 11/14/20 22:02 Dose: 30 mg Documented by: Ondansetron HCl (Ondansetron 4 Mg/2 Ml Inj) 4 mg IV Q8H PRN PRN Reason: Nausea And Vomiting Risperidone (Risperidone 0.25 Mg Tab) 0.5 mg PO DAILY [facility] Last Admin: 11/14/20 09:23 Dose: 0.5 mg Documented by: Rivaroxaban (Rivaroxaban 20 Mg Tab) 20 mg PO QPMDIAB [facility]; Protocol Sodium Chloride (Sodium Chloride 0.9% 10 Ml Flush Syringe) 10 ml IV BID [facility] Last Admin: 11/14/20 22:03 Dose: 10 ml Documented by: Sodium Chloride (Sodium Chloride 0.9% 10 Ml Flush Syringe) 10 ml IV PRN PRN PRN Reason: LINE FLUSH Last Admin: 11/11/20 22:57 Dose: 10 ml Documented by: Exam - Constitutional Vitals: Last Vital Signs Temp 96.2 F L 11/15/20 08:03 Pulse 83 11/15/20 08:49 Resp 20 11/15/20 08:49 BP 100/54 11/15/20 08:03 Pulse Ox 96 11/15/20 08:18 Results - Labs lab Results: Laboratory Results - last 24 hr 11/15/20 11/15/20 04:40 04:40 WBC 10.2 RBC 4.33 Hgb 11.2 Hct 34.6 MCV 80 MCH 26 L MCHC 32 RDW 18.8 H Plt Count 215 PT 54.4 H INR 6.26 H*
--- NOTE | 2020-11-15 11:26 | Progress Note ---
Assessment and Plan Assessment and plan: This is a 45-year-old female with a history of pulmonary embolism s/p EKOS, thrombolysis, thrombectomy for submassive bilateral PE in April 2020, PVD, RA, chronic respiratory failure, pulmonary hypertension, morbid obesity, lymphedema, Antithrombin III deficiency, medical noncompliance who is admitted for bilateral pulmonary emboli, leukocytosis, elevated proBNP, and COVID 19 PUI Saddle submassive pulmonary embolism Right heart strain Acute on chronic respiratory failure with hypoxia Leukocytosis Metabolic acidosis PVD Antithrombin III deficiency Rheumatoid arthritis Morbid obesity Medical noncompliance Lymphedema History of pulmonary embolism s/p EKOS, thrombolysis and thrombectomy in April 2020 Pulmonary hypertension COVID 19 PUI, ruled out Chornic pain syndrome/chornic opiate dependent Reoccurent PE Supratherapeutic INR -[facility], vascular surgery consulted -11/08 CTA chest shows significant interval worsening of previously noted pulmonary embolic burden, now subtle submassive pulmonary embolus, evidence of right heart strain with straightening of the intraventricular septum and reflux of contrast into the IVC, interval resolution of previously noted infe ctious/inflammatory process -11/08 echocardiogram Left ventricle with mild concentric left ventricular hypertrophy. Mid diastolic dysfunction. Right ventricle cannot be well visualized. -11/08 CXR shows no acute pulmonary or pleural abnormality -Cardiac diet -Resume home Klonopin, Decadron, diltiazem, Lexapro, respiratory, MS Contin and warfarin DuoNeb -Trend CBC, BMP, INR -Pulmonary hygiene -Stressed medical compliance. Patient is declining thrombectomy at this time. No additional intervention per pulmonology or vascular surgery. Xarelto has been stopped for now, hematology consulted for additional recommendations for equilibrating INR. Need to be careful since patient has Antithrombin III deficiency DVT/GI prophylaxis: PPI, Xarelto being held, SCDs to bilateral actions while in bed Disposition: Continue to wean patient off of oxygen. History Interval history: 11/10/2020: Patient seen and examined, lying in bed comfortably, no respiratory distress. On high flow oxygen. Spoke with critical care, patient stable to be transferred to floor 11/11/2020: Patient seen and examined, continues to be on high flow nasal cannula oxygen. Spoke with the patient pertaining to Coumadin, INR is improving however she states that she was therapeutic in the past and continues to have blood clots, this is why she was on Xarelto. Not sure how compliant the patient was with her medications. 11/12/2020: Patient seen and examined, continues to be on high flow oxygen. States that her breathing is improved but has dyspnea with movement. 11/13/2020: Patient seen and examined, explained to the patient respiratory is plan for weaning her off the high flow oxygen. She agrees to it. Also advised her we will be stopping heparin and Coumadin and transitioning over to Xarelto. Patient states that she was getting and going to the bathroom but the oxygen, was doing okay. 11/14/2020: Patient in bed, states that her breathing is improving, no nausea vomiting, continues to be weaned off of high flow oxygen. Heparin has been stopped, Xarelto started. 11/15/2020: Patient seen and examined, continues to be on high flow oxygen, continue to wean patient off. Patient started Xarelto, but stopped this morning due to supratherapeutic INR Hospitalist Physical - Physical exam Narrative exam: General appearance: Obese, no acute distress, well-nourished EENT: PERRL, EOM intact, hearing intact, clear oral mucosa Neck: Present: supple, normal ROM Respiratory: High flow nasal cannula oxygen, bilateral CTA, negative: rales, rhonchi, wheezing Cardiovascular: Regular rate/rhythm, Normal S1 & S2. No gallop, rub Extremities: no ischemia, No edema, normal temperature, normal color, Full ROM Abdominal: soft, no tenderness, non-distended, normal bowel sounds Integumentary: Present: clear, warm, dry no wounds, no erythema noted Psychiatric: appropriate mood/affect, intact judgment & insight Neurologic: CNII-XII intact, moves all extremities, no sensory or motor abnormalities - Constitutional Vitals: Temp Pulse Resp BP Pulse Ox 96.2 F L 83 20 100/54 96 11/15/20 08:03 11/15/20 08:49 11/15/20 08:49 11/15/20 08:03 11/15/20 08:18 General appearance: Present: mild distress (On BiPAP) HEART Score - HEART Score Troponin: Troponin T 0.018 ng/mL (0.00-0.029) 11/08/20 17:25 Results - Labs CBC & Chem 7: 11/15/20 04:40 11/13/20 08:56 Labs: Laboratory Last Values WBC 10.2 K/mm3 (4.5-11.0) 11/15/20 04:40 RBC 4.33 M/mm3 (3.65-5.03) 11/15/20 04:40 Hgb 11.2 gm/dl (10.1-14.3) 11/15/20 04:40 Hct 34.6 % (30.3-42.9) 11/15/20 04:40 MCV 80 fl (79-97) 11/15/20 04:40 MCH 26 pg (28-32) L 11/15/20 04:40 MCHC 32 % (30-34) 11/15/20 04:40 RDW 18.8 % (13.2-15.2) H 11/15/20 04:40 Plt Count 215 K/mm3 (140-440) 11/15/20 04:40 Lymph % (Auto) 16.9 % (13.4-35.0) 11/09/20 02:55 [place] % (Auto) 6.9 % (0.0-7.3) 11/09/20 02:55 Eos % (Auto) 0.2 % (0.0-4.3) 11/09/20 02:55 Baso % (Auto) 0.5 % (0.0-1.8) 11/09/20 02:55 Lymph # (Auto) 2.1 K/mm3 (1.2-5.4) 11/09/20 02:55 [place] # (Auto) 0.8 K/mm3 (0.0-0.8) 11/09/20 02:55 Eos # (Auto) 0.0 K/mm3 (0.0-0.4) 11/09/20 02:55 Baso # (Auto) 0.1 K/mm3 (0.0-0.1) 11/09/20 02:55 Seg Neutrophils % 75.5 % (40.0-70.0) H 11/09/20 02:55 Seg Neutrophils # 9.2 K/mm3 (1.8-7.7) H 11/09/20 02:55 PT 54.4 Sec. (12.2-14.9) H 11/15/20 04:40 INR 6.26 (0.87-1.13) H* 11/15/20 04:40 APTT 222.5 Sec. (24.2-36.6) H* 11/13/20 08:56 Heparin Anti-Xa Level 0.65 U.I./ml (0.3-0.7) 11/13/20 07:05 Sodium 140 mmol/L (137-145) 11/09/20 02:55 Potassium 4.8 mmol/L (3.6-5.0) 11/09/20 02:55 Chloride 105.0 mmol/L (98-107) 11/09/20 02:55 Carbon Dioxide 20 mmol/L (22-30) L 11/09/20 02:55 Anion Gap 20 mmol/L 11/09/20 02:55 BUN 11 mg/dL (7-17) 11/09/20 02:55 Creatinine 0.9 mg/dL (0.6-1.2) 11/13/20 08:56 Estimated GFR > 60 ml/min 11/13/20 08:56 BUN/Creatinine Ratio 12 % 11/09/20 02:55 Glucose 87 mg/dL (65-100) 11/09/20 02:55 Calcium 8.7 mg/dL (8.4-10.2) 11/09/20 02:55 Troponin T 0.018 ng/mL (0.00-0.029) 11/08/20 17:25 NT-Pro-B Natriuret Pep 7232 pg/mL (0-450) H 11/08/20 17:25 HCG, Qual Negative (Negative) 11/08/20 17:25 Nasal Screen MRSA (PCR) Negative (Negative) 11/10/20 20:18 Coronavirus (PCR) Negative (Negative) 11/09/20 Unknown Mak/IV: Voiding Method External Female Catheter Active Medications - Current Medications Current Medications: Generic Name Dose Route Start Last Admin Trade Name Freq PRN Reason Stop Dose Admin Acetaminophen 650 mg 11/08/20 22:32 Acetaminophen 325 Mg Tab PO Q4H PRN Pain MILD(1-3)/Fever >100.5/CARTAGENA Hydrocodone Bitart/Acetaminophen 1 each 11/08/20 22:34 11/11/20 05:37 Hydrocodone/Acetaminophen 5-325 Mg Tab PO 1 each BID PRN Administration Pain, Moderate (4-6) Albuterol 2.5 mg 11/08/20 22:32 Albuterol 2.5 Mg/3 Ml Nebu IH Q4HRT PRN Shortness Of Breath Albuterol/Ipratropium 1 ampul 11/09/20 02:00 11/15/20 08:18 Ipratropium/Albuterol Sulfate 3 Ml Ampul.Neb IH 1 ampul Q6HRT JOSE Administration Clonazepam 1 mg 11/09/20 10:00 11/14/20 09:23 Clonazepam 0.5 Mg Tab PO 1 mg DAILY JOSE Administration Diltiazem HCl 120 mg 11/09/20 10:00 11/14/20 09:24 Diltiazem Cd 120 Mg Cap PO 120 mg QDAY JOSE Administration Escitalopram Oxalate 10 mg 11/09/20 10:00 11/14/20 09:23 Escitalopram 10 Mg Tab PO 10 mg DAILY JOSE Administration Famotidine 20 mg 11/09/20 10:00 11/14/20 22:02 Famotidine 20 Mg Tab PO 20 mg BID JOSE Administration Furosemide 20 mg 11/09/20 10:00 11/14/20 09:24 Furosemide 20 Mg Tab PO 20 mg QDAY JOSE Administration Guaifenesin 600 mg 11/09/20 10:00 11/14/20 22:02 Guaifenesin Er 600 Mg Tab PO 600 mg BID JOSE Administration Hydralazine HCl 10 mg 11/08/20 22:37 Hydralazine 20 Mg/1 Ml Inj IV Q6H PRN htn Morphine Sulfate 30 mg 11/09/20 10:00 11/14/20 22:02 Morphine 30 Mg Er Tab PO 30 mg Q12HR JOSE Administration Ondansetron HCl 4 mg 11/08/20 22:32 Ondansetron 4 Mg/2 Ml Inj IV Q8H PRN Nausea And Vomiting Risperidone 0.5 mg 11/09/20 10:00 11/14/20 09:23 Risperidone 0.25 Mg Tab PO 0.5 mg DAILY JOSE Administration Sodium Chloride 10 ml 11/09/20 10:00 11/14/20 22:03 Sodium Chloride 0.9% 10 Ml Flush Syringe IV 10 ml BID OJSE Administration Sodium Chloride 10 ml 11/08/20 22:32 11/11/20 22:57 Sodium Chloride 0.9% 10 Ml Flush Syringe IV 10 ml PRN PRN Administration LINE FLUSH Nutrition/Malnutrition Assess - Dietary Evaluation Nutrition/Malnutrition Findings: Nutrition Notes Start: 11/09/20 1 0:00 Freq: Status: Active Protocol: Document 11/10/20 13:41 (Rec: 11/10/20 13:43 [id number]) Nutrition Notes Initial or Follow up Brief Note Current Diagnosis Hypertension,Respiratory Failure Other Pertinent Diagnosis PVD, pulmonary embolism Current Diet Cardiac Subjective/Other Information Pt given Coumadin education handout but she denied education becuase she has gotten it "plenty of times". Pt states she is eating well, no wounds, and no weight loss. Nutrition Intervention Revisit per MD consult or patient Sign Off request:
[2020-11-15] MEDS: clonazePAM 0.5 MG TAB PO SCH (13:04)
[2020-11-15] MEDS: ESCITALOPRAM 10 MG TAB PO SCH (13:04)
[2020-11-15] MEDS: HYDROcodone/ACETAMINOPHEN 5-325 MG TAB PO PRN ×3 (13:05→22:22)
[2020-11-15] MEDS: risperiDONE 0.25 MG TAB PO SCH (13:05)
[2020-11-15] MEDS: dilTIAZem CD 120 MG CAP PO SCH (13:07)
[2020-11-15] MEDS: FUROSEMIDE 20 MG TAB PO SCH (13:07)
[2020-11-15] MEDS: guaiFENesin ER 600 MG TAB PO SCH ×2 (13:13→22:21)
[2020-11-15] MEDS: FAMOTIDINE 20 MG TAB PO SCH ×2 (13:13→22:21)
[2020-11-15] MEDS: FONDAPARINUX 2.5 MG/0.5 ML INJ SUB-Q SCH (14:48)
[2020-11-15] MEDS: FONDAPARINUX 7.5 MG/0.6 ML INJ SUB-Q SCH (14:48)
[2020-11-15] MEDS: MORPHINE 30 MG ER TAB PO SCH ×2 (18:07→22:21)
[2020-11-16] MEDS: IPRATROPIUM/ALBUTEROL SULFATE 3 ML AMPUL.NEB IH SCH ×4 (03:15→20:05)
[2020-11-16 06:03] LABS: INR 2.79 (0.87-1.13)
[2020-11-16 06:04] LABS: Partial Thromboplastin Time 57.1 Sec. (24.2-36.6)
[2020-11-16 06:12] LABS: Iron 31 ug/dL (37-170); Total Iron Binding Capacity 233 mcg/dL (250-450)
[2020-11-16 06:32] LABS: Hematocrit 34.4 % (30.3-42.9); Hemoglobin 11.1 gm/dl (10.1-14.3); Mean Corpuscular HGB Conc 32 % (30-34); Mean Corpuscular Volume 80 fl (79-97); Platelet Count 242 K/mm3 (140-440); Red Blood Count 4.33 M/mm3 (3.65-5.03); Red Cell Distribution Width 18.4 % (13.2-15.2)
[2020-11-16] MEDS: FONDAPARINUX 7.5 MG/0.6 ML INJ SUB-Q SCH (10:13)
[2020-11-16] MEDS: FONDAPARINUX 2.5 MG/0.5 ML INJ SUB-Q SCH (10:13)
[2020-11-16] MEDS: risperiDONE 0.25 MG TAB PO SCH (10:14)
[2020-11-16] MEDS: clonazePAM 0.5 MG TAB PO SCH (10:14)
[2020-11-16] MEDS: dilTIAZem CD 120 MG CAP PO SCH (10:14)
[2020-11-16] MEDS: FUROSEMIDE 20 MG TAB PO SCH (10:14)
[2020-11-16] MEDS: guaiFENesin ER 600 MG TAB PO SCH ×2 (10:14→21:55)
[2020-11-16] MEDS: MORPHINE 30 MG ER TAB PO SCH ×2 (10:14→21:54)
[2020-11-16] MEDS: ESCITALOPRAM 10 MG TAB PO SCH (10:15)
[2020-11-16] MEDS: FAMOTIDINE 20 MG TAB PO SCH ×2 (13:05→21:55)
--- NOTE | 2020-11-16 15:46 | Progress Note ---
Assessment and Plan This is a 45-year-old female with a history of pulmonary embolism s/p EKOS, thrombolysis, thrombectomy for submassive bilateral PE in April 2020, PVD, RA, chronic respiratory failure, pulmonary hypertension, morbid obesity, lymphedema, Antithrombin III deficiency, medical noncompliance who is admitted for bilateral pulmonary emboli, leukocytosis, elevated proBNP, and COVID 19 PUI Saddle submassive pulmonary embolism Right heart strain Acute on chronic respiratory failure with hypoxia Leukocytosis Metabolic acidosis PVD Antithrombin III deficiency Rheumatoid arthritis Morbid obesity Medical noncompliance Lymphedema History of pulmonary embolism s/p EKOS, thrombolysis and thrombectomy in April 2020 Pulmonary hypertension COVID 19 PUI, ruled out Chornic pain syndrome/chornic opiate dependent Reoccurent PE Supratherapeutic INR -[facility], vascular surgery consulted -11/08 CTA chest shows significant interval worsening of previously noted pulmonary embolic burden, now subtle submassive pulmonary embolus, evidence of right heart strain with straightening of the intraventricular septum and reflux of contrast into the IVC, interval resolution of previously noted infectious/inflammatory process -11/08 echocardiogram Left ventricle with mild concentric left ventricular hypertrophy. Mid diastolic dysfunction. Right ventricle cannot be well visualized. -11/08 CXR shows no acute pulmonary or pleural abnormality -Cardiac diet -Resume home Klonopin, Decadron, diltiazem, Lexapro, respiratory, MS Contin and warfarin DuoNeb -Trend CBC, BMP, INR -Pulmonary hygiene -Stressed medical compliance. Patient is declining thrombectomy at this time. No additional intervention per pulmonology or vascular surgery. Xarelto has been stopped for now, hematology consulted for additional recommendations for equilibrating INR. Started on Arixtra. Need to be careful since patient has Antithrombin III deficiency DVT/GI prophylaxis: PPI, Xarelto being held, SCDs to bilateral actions while in bed Disposition: Continue to wean patient off of oxygen. Daily clinical course: 11/10/2020: Patient seen and examined, lying in bed comfortably, no respiratory distress. On high flow oxygen. Spoke with critical care, patient stable to be transferred to floor 11/11/2020: Patient seen and examined, continues to be on high flow nasal cannula oxygen. Spoke with the patient pertaining to Coumadin, INR is improving however she states that she was therapeutic in the past and continues to have blood clots, this is why she was on Xarelto. Not sure how compliant the patient was with her medications. 11/12/2020: Patient seen and examined, continues to be on high flow oxygen. States that her breathing is improved but has dyspnea with movement. 11/13/2020: Patient seen and examined, explained to the patient respiratory is plan for weaning her off the high flow oxygen. She agrees to it. Also advised her we will be stopping heparin and Coumadin and transitioning over to Xarelto. Patient states that she was getting and going to the bathroom but the oxygen, was doing okay. 11/14/2020: Patient in bed, states that her breathing is improving, no nausea vomiting, continues to be weaned off of high flow oxygen. Heparin has been stopped, Xarelto started. 11/15/2020: Patient seen and examined, continues to be on high flow oxygen, continue to wean patient off. Patient started Xarelto, but stopped this morning due to supratherapeutic INR 11/16/20: INR improved. Patient today on 20L high flow. Continue to wean off O2. Wait for hematology recommendation to switch back to Xarelto. Continue Arixtra for now. program manager rn consulted for LTAC placement. Continue supportive care. Subjective Date of service: 11/16/20 Interval history: Patient seen and examined. Medical records and medication list reviewed. No acute event overnight noted by the RN. Patient denies any chest pain . Patient is tolerating diet. Patient remains on high flow O2 Discussed plan of care at bedside with patient. Objective - Exam Narrative Exam: General appearance: Obese, no acute distress, well-nourished EENT: PERRL, EOM intact, hearing intact, clear oral mucosa Neck: Present: supple, normal ROM Respiratory: High flow nasal cannula oxygen, bilateral CTA, negative: rales, rhonchi, wheezing Cardiovascular: Regular rate/rhythm, Normal S1 & S2. No gallop, rub Extremities: no ischemia, No edema, normal temperature, normal color, Full ROM Abdominal: soft, no tenderness, non-distended, normal bowel sounds Integumentary: Present: clear, warm, dry no wounds, no erythema noted Psychiatric: appropriate mood/affect, intact judgment & insight Neurologic: CNII-XII intact, moves all extremities, no sensory or motor abnormalities - Constitutional Vitals: Vital Signs - 12hr 11/16/20 11/16/20 11/16/20 03:52 07:53 09:31 Temperature 97.5 F L 97.9 F Pulse Rate 83 84 Pulse Rate [ Bilateral Throughout] Pulse Rate [ From Monitor] Respiratory 20 19 Rate Respiratory Rate [Bilateral Throughout] Blood Pressure 121/63 117/57 O2 Sat by Pulse 93 95 96 Oximetry 11/16/20 11/16/20 11/16/20 09:32 09:42 10:00 Temperature Pulse Rate Pulse Rate [ 80 Bilateral Throughout] Pulse Rate [ 65 From Monitor] Respiratory 18 Rate Respiratory 20 Rate [Bilateral Throughout] Blood Pressure O2 Sat by Pulse 95 Oximetry 11/16/20 11/16/20 14:00 14:13 Temperature Pulse Rate Pulse Rate [ 91 H Bilateral Throughout] Pulse Rate [ From Monitor] Respiratory Rate Respiratory 18 Rate [Bilateral Throughout] Blood Pressure O2 Sat by Pulse 96 Oximetry - Labs CBC & Chem 7: 11/18/20 04:44 11/17/20 04:59 Labs: Abnormal lab results 11/16/20 11/16/20 11/16/20 Range/Units 04:49 04:49 04:49 MCH 26 L (28-32) pg RDW 18.4 H (13.2-15.2) % PT 29.6 H (12.2-14.9) Sec. INR 2.79 H (0.87-1.13) APTT 57.1 H (24.2-36.6) Sec. D-Dimer 925.43 H (0-234) ng/mlDDU Iron 31 L (37-170) ug/dL TIBC 233 L (250-450) mcg/dL HEART Score - HEART Score Troponin: Troponin T 0.018 ng/mL (0.00-0.029) 11/08/20 17:25
[2020-11-17] MEDS: IPRATROPIUM/ALBUTEROL SULFATE 3 ML AMPUL.NEB IH SCH ×4 (02:00→19:59)
[2020-11-17 05:30] LABS: Hematocrit 33.3 % (30.3-42.9); Hemoglobin 10.8 gm/dl (10.1-14.3); Mean Corpuscular HGB Conc 32 % (30-34); Mean Corpuscular Volume 79 fl (79-97); Platelet Count 247 K/mm3 (140-440); Red Blood Count 4.24 M/mm3 (3.65-5.03); Red Cell Distribution Width 18.5 % (13.2-15.2)
[2020-11-17 05:48] LABS: INR 1.79 (0.87-1.13)
[2020-11-17 06:11] LABS: BUN/Creatinine Ratio 18; Blood Urea Nitrogen 14 mg/dL (7-17); Hemolysis Index 2
[2020-11-17] MEDS: FUROSEMIDE 20 MG TAB PO SCH (10:17)
[2020-11-17] MEDS: MORPHINE 30 MG ER TAB PO SCH ×2 (10:17→21:30)
[2020-11-17] MEDS: ESCITALOPRAM 10 MG TAB PO SCH (10:17)
[2020-11-17] MEDS: FAMOTIDINE 20 MG TAB PO SCH ×2 (10:17→21:30)
[2020-11-17] MEDS: clonazePAM 0.5 MG TAB PO SCH (10:18)
[2020-11-17] MEDS: guaiFENesin ER 600 MG TAB PO SCH ×2 (10:18→21:30)
[2020-11-17] MEDS: dilTIAZem CD 120 MG CAP PO SCH (10:18)
[2020-11-17] MEDS: FONDAPARINUX 7.5 MG/0.6 ML INJ SUB-Q SCH (10:18)
[2020-11-17] MEDS: risperiDONE 0.25 MG TAB PO SCH (10:18)
[2020-11-17] MEDS: FONDAPARINUX 2.5 MG/0.5 ML INJ SUB-Q SCH (10:19)
--- NOTE | 2020-11-17 15:45 | Progress Note ---
Assessment and Plan This is a 45-year-old female with a history of pulmonary embolism s/p EKOS, thrombolysis, thrombectomy for submassive bilateral PE in April 2020, PVD, RA, chronic respiratory failure, pulmonary hypertension, morbid obesity, lymphedema, Antithrombin III deficiency, medical noncompliance who is admitted for bilateral pulmonary emboli, leukocytosis, elevated proBNP, and COVID 19 PUI Saddle submassive pulmonary embolism Right heart strain Acute on chronic respiratory failure with hypoxia Leukocytosis Metabolic acidosis PVD Antithrombin III deficiency Rheumatoid arthritis Morbid obesity Medical noncompliance Lymphedema History of pulmonary embolism s/p EKOS, thrombolysis and thrombectomy in April 2020 Pulmonary hypertension COVID 19 PUI, ruled out Chornic pain syndrome/chornic opiate dependent Reoccurent PE Supratherapeutic INR -[facility], vascular surgery consulted -11/08 CTA chest shows significant interval worsening of previously noted pulmonary embolic burden, now subtle submassive pulmonary embolus, evidence of right heart strain with straightening of the intraventricular septum and reflux of contrast into the IVC, interval resolution of previously noted infectious/inflammatory process -11/08 echocardiogram Left ventricle with mild concentric left ventricular hypertrophy. Mid diastolic dysfunction. Right ventricle cannot be well visualized. -11/08 CXR shows no acute pulmonary or pleural abnormality -Cardiac diet -Resume home Klonopin, Decadron, diltiazem, Lexapro, respiratory, MS Contin and warfarin DuoNeb -Trend CBC, BMP, INR -Pulmonary hygiene -Stressed medical compliance. Patient is declining thrombectomy at this time. No additional intervention per pulmonology or vascular surgery. Xarelto has been stopped for now, hematology consulted for additional recommendations for equilibrating INR. Started on Arixtra. Need to be careful since patient has Antithrombin III deficiency DVT/GI prophylaxis: PPI, Xarelto being held, SCDs to bilateral actions while in bed Disposition: Continue to wean patient off of oxygen. Daily clinical course: 11/10/2020: Patient seen and examined, lying in bed comfortably, no respiratory distress. On high flow oxygen. Spoke with critical care, patient stable to be transferred to floor 11/11/2020: Patient seen and examined, continues to be on high flow nasal cannula oxygen. Spoke with the patient pertaining to Coumadin, INR is improving however she states that she was therapeutic in the past and continues to have blood clots, this is why she was on Xarelto. Not sure how compliant the patient was with her medications. 11/12/2020: Patient seen and examined, continues to be on high flow oxygen. States that her breathing is improved but has dyspnea with movement. 11/13/2020: Patient seen and examined, explained to the patient respiratory is plan for weaning her off the high flow oxygen. She agrees to it. Also advised her we will be stopping heparin and Coumadin and transitioning over to Xarelto. Patient states that she was getting and going to the bathroom but the oxygen, was doing okay. 11/14/2020: Patient in bed, states that her breathing is improving, no nausea vomiting, continues to be weaned off of high flow oxygen. Heparin has been stopped, Xarelto started. 11/15/2020: Patient seen and examined, continues to be on high flow oxygen, continue to wean patient off. Patient started Xarelto, but stopped this morning due to supratherapeutic INR 11/16/20: INR improved. Patient today on 20L high flow. Continue to wean off O2. Wait for hematology recommendation to switch back to Xarelto. Continue Arixtra for now. manager [employer] database consulted for LTAC placement. Continue supportive care. 11/17/20: Patient on 25 L high flow O2. Continue to wean off as tolerated. Continue Arixtra for now, INR improved, patient will be placed on Xarelto on discharge. manager [employer] database working on LTAC placement. Subjective Date of service: 11/17/20 Interval history: Patient seen and examined. Medical records and medication list reviewed. No acute event overnight noted by the RN. Patient denies any chest pain . Patient is tolerating diet. Patient remains on high flow O2 Discussed plan of care at bedside with patient. Objective - Exam Narrative Exam: General appearance: Obese, no acute distress, well-nourished EENT: PERRL, EOM intact, hearing intact, clear oral mucosa Neck: Present: supple, normal ROM Respiratory: High flow nasal cannula oxygen, bilateral CTA, negative: rales, rhonchi, wheezing Cardiovascular: Regular rate/rhythm, Normal S1 & S2. No gallop, rub Extremities: no ischemia, No edema, normal temperature, normal color, Full ROM Abdominal: soft, no tenderness, non-distended, normal bowel sounds Integumentary: Present: clear, warm, dry no wounds, no erythema noted Psychiatric: appropriate mood/affect, intact judgment & insight Neurologic: CNII-XII intact, moves all extremities, no sensory or motor abnormalities - Constitutional Vitals: Vital Signs - 12hr 11/17/20 11/17/20 11/17/20 04:10 08:00 08:19 Temperature 98.4 F 98.4 F Pulse Rate 82 78 79 Pulse Rate [ Bilateral Throughout] Respiratory 20 20 19 Rate Respiratory Rate [Bilateral Throughout] Respiratory Rate [Right Leg ] Blood Pressure 112/51 116/52 O2 Sat by Pulse 91 94 Oximetry 11/17/20 11/17/20 11/17/20 08:45 08:50 10:00 Temperature Pulse Rate Pulse Rate [ 94 H Bilateral Throughout] Respiratory Rate Respiratory 22 Rate [Bilateral Throughout] Respiratory 18 Rate [Right Leg ] Blood Pressure O2 Sat by Pulse 91 Oximetry 11/17/20 11:09 Temperature 98.4 F Pulse Rate 72 Pulse Rate [ Bilateral Throughout] Respiratory 19 Rate Respiratory Rate [Bilateral Throughout] Respiratory Rate [Right Leg ] Blood Pressure 124/101 O2 Sat by Pulse 97 Oximetry - Labs CBC & Chem 7: 11/18/20 04:44 11/17/20 04:59 Labs: Abnormal lab results 11/17/20 11/17/20 11/17/20 Range/Units 04:59 04:59 04:59 MCH 25 L (28-32) pg RDW 18.5 H (13.2-15.2) % PT 21.2 H (12.2-14.9) Sec. INR 1.79 H (0.87-1.13) Chloride 108.3 H (98-107) mmol/L Glucose 106 H (65-100) mg/dL Calcium 8.0 L (8.4-10.2) mg/dL HEART Score - HEART Score Troponin: Troponin T 0.018 ng/mL (0.00-0.029) 11/08/20 17:25
[2020-11-18] MEDS ORDERED: ALPRAZolam 0.5 MG TAB PO ONE (00:48)
[2020-11-18 05:15] LABS: Hematocrit 34.2 % (30.3-42.9); Hemoglobin 11.1 gm/dl (10.1-14.3); Mean Corpuscular HGB Conc 32 % (30-34); Mean Corpuscular Volume 80 fl (79-97); Platelet Count 254 K/mm3 (140-440); Red Blood Count 4.29 M/mm3 (3.65-5.03); Red Cell Distribution Width 18.6 % (13.2-15.2)
[2020-11-18] MEDS: IPRATROPIUM/ALBUTEROL SULFATE 3 ML AMPUL.NEB IH SCH ×3 (07:51→20:51)
[2020-11-18] MEDS: FUROSEMIDE 20 MG TAB PO SCH (09:29)
[2020-11-18] MEDS: MORPHINE 30 MG ER TAB PO SCH ×2 (09:29→21:32)
[2020-11-18] MEDS: risperiDONE 0.25 MG TAB PO SCH (09:30)
[2020-11-18] MEDS: FAMOTIDINE 20 MG TAB PO SCH ×2 (09:30→21:32)
[2020-11-18] MEDS: guaiFENesin ER 600 MG TAB PO SCH ×2 (09:30→21:32)
[2020-11-18] MEDS: dilTIAZem CD 120 MG CAP PO SCH (09:31)
--- NOTE | 2020-11-18 09:41 | Hem/Onc Progress Note ---
Subjective Interval history: heme f/u televisit by jeff 45yo obese woman with PE (since 2018) and RA, R leg lymphedema adm for SOB , chest pain, "submassive" PE-->refused thrombectomy/thrombolysis now s/p 2 weeks IV heparin-->coumadin/xarelto-->changed to arixtra 10mg daily 11/15/20 stable today feels better, breathing better, still on oxygen NC able to walk LABS: DATA reviewed below Creat 1.1 IMP: presumed clotting tendency ("hypercoagulable state"), s/p acute/chronic PE and 2 miscarriages PE is probably mostly chronic SOB and chest symptoms likely due to pulm HTN (obesity and chronic clotting could both cause) High PT INR due to recent coumadin, xarelto, and presumed liver dysfunction r/o sickle cell trait or lupus anticoagulant chronic low MCV, probably has chronic iron defic-->this could be another reason for clotting iron defic REC: cont arixtra 10mg daily inpt --> request arixtra 10mg dialy x 1-3 months at home if this is impossible then xarelto 20mg daily eventually long-term xarelto 20mg daily "lifelong" labs to include Hgb electrophoresis, cardiolipin Ab IV iron infusions stay in hospital until PT INR "stable" Active Medications Acetaminophen (Acetaminophen 325 Mg Tab) 650 mg PO Q4H PRN PRN Reason: Pain MILD(1-3)/Fever >100.5/CARTAGENA Hydrocodone Bitart/Acetaminophen (Hydrocodone/Acetaminophen 5-325 Mg Tab) 1 each PO BID PRN PRN Reason: Pain, Moderate (4-6) Last Admin: 11/15/20 22:22 Dose: 1 each Documented by: Albuterol (Albuterol 2.5 Mg/3 Ml Nebu) 2.5 mg IH Q4HRT PRN PRN Reason: Shortness Of Breath Albuterol/Ipratropium (Ipratropium/Albuterol Sulfate 3 Ml Ampul.Neb) 1 ampul IH TIDRT [facility] Last Admin: 11/18/20 07:51 Dose: 1 ampul Documented by: Clonazepam (Clonazepam 0.5 Mg Tab) 1 mg PO DAILY@2200 JOSE Diltiazem HCl (Diltiazem Cd 120 Mg Cap) 120 mg PO QDAY [facility] Last Admin: 11/18/20 09:31 Dose: Not Given Documented by: Escitalopram Oxalate (Escitalopram 10 Mg Tab) 10 mg PO DAILY [facility] Last Admin: 11/17/20 10:17 Dose: 10 mg Documented by: Famotidine (Famotidine 20 Mg Tab) 20 mg PO BID [facility] Last Admin: 11/18/20 09:30 Dose: 20 mg Documented by: Fondaparinux (Fondaparinux 7.5 Mg/0.6 Ml Inj) 7.5 mg SUB-Q QDAY [facility] Last Admin: 11/17/20 10:18 Dose: 7.5 mg Documented by: Fondaparinux (Fondaparinux 2.5 Mg/0.5 Ml Inj) 2.5 mg SUB-Q DAILY [facility] Last Admin: 11/17/20 10:19 Dose: 2.5 mg Documented by: Furosemide (Furosemide 20 Mg Tab) 20 mg PO QDAY [facility] Last Admin: 11/18/20 09:29 Dose: 20 mg Documented by: Laboratory Last Values WBC 10.3 K/mm3 (4.5-11.0) 11/18/20 04:44 Hgb 11.1 gm/dl (10.1-14.3) 11/18/20 04:44 Hct 34.2 % (30.3-42.9) 11/18/20 04:44 MCV 80 fl (79-97) 11/18/20 04:44 Plt Count 254 K/mm3 (140-440) 11/18/20 04:44 D-Dimer 925.43 ng/mlDDU (0-234) H 11/16/20 04:49 Creatinine 0.8 mg/dL (0.6-1.2) 11/17/20 04:59 Iron 31 ug/dL (37-170) L 11/16/20 04:49 TIBC 233 mcg/dL (250-450) L 11/16/20 04:49 Ferritin 56.2 ng/mL (10.0-200.0) 11/16/20 04:49 Coronavirus (PCR) Negative (Negative) 11/09/20 Unknown Objective - Constitutional Vitals: Last Vital Signs Temp 98.4 F 11/18/20 08:06 Pulse 80 11/18/20 09:31 Resp 22 11/18/20 08:06 BP 94/50 11/18/20 09:31 Pulse Ox 98 11/18/20 09:21 - Labs Lab Results: Laboratory Results - last 24 hr 11/18/20 04:44 WBC 10.3 RBC 4.29 Hgb 11.1 Hct 34.2 MCV 80 MCH 26 L MCHC 32 RDW 18.6 H Plt Count 254 Medications & Allergies - Medications Allergies/Adverse Reactions: Allergies aspirin Allergy (Mild, Verified 11/10/20 20:54) Rash Home Medications: Home Medications Medication Instructions Recorded Confirmed Last Taken Type Escitalopram [Lexapro] 10 mg PO DAILY 04/26/20 11/10/20 11/07/20 History clonazePAM [Klonopin] 1 mg PO DAILY 04/26/20 11/10/20 11/07/20 History risperiDONE [RisperDAL] 0.5 mg PO DAILY 04/26/20 11/10/20 11/07/20 History Furosemide [Lasix TAB] 20 mg PO QDAY #30 tablet 04/29/20 11/10/20 11/07/20 Rx Morphine ER [Ms Contin ER] 30 mg PO Q12HR tablet 09/09/20 11/10/20 11/07/20 Rx Warfarin [Coumadin] 5 mg PO QDAY #30 tablet 09/09/20 11/10/20 11/07/20 Rx guaiFENesin ER [Mucinex ER] 600 mg PO BID #14 tablet 09/09/20 11/10/20 11/07/20 Rx Rivaroxaban [Xarelto] 15 mg PO BID 21 Days #42 tablet 11/11/20 Unknown Rx Rivaroxaban [Xarelto] 20 mg PO QDAY 7 Days #7 tab 11/11/20 Unknown Rx Fondaparinux Sodium [Arixtra] 10 mg SQ DAILY #30 syringe 11/15/20 Unknown Rx Active Medications: Generic Name Dose Route Start Last Admin Trade Name Freq PRN Reason Stop Dose Admin Acetaminophen 650 mg 11/08/20 22:32 Acetaminophen 325 Mg Tab PO Q4H PRN Pain MILD(1-3)/Fever >100.5/CARTAGENA Hydrocodone Bitart/Acetaminophen 1 each 11/08/20 22:34 11/15/20 22:22 Hydrocodone/Acetaminophen 5-325 Mg Tab PO 1 each BID PRN Administration Pain, Moderate (4-6) Albuterol 2.5 mg 11/08/20 22:32 Albuterol 2.5 Mg/3 Ml Nebu IH Q4HRT PRN Shortness Of Breath Albuterol/Ipratropium 1 ampul 11/18/20 08:00 11/18/20 07:51 Ipratropium/Albuterol Sulfate 3 Ml Ampul.Neb IH 1 ampul TIDRT JOSE Administration Clonazepam 1 mg 11/18/20 22:00 Clonazepam 0.5 Mg Tab PO DAILY@2200 JOSE Diltiazem HCl 120 mg 11/09/20 10:00 11/18/20 09:31 Diltiazem Cd 120 Mg Cap PO Not Given QDAY JOSE Escitalopram Oxalate 10 mg 11/09/20 10:00 11/17/20 10:17 Escitalopram 10 Mg Tab PO 10 mg DAILY JOSE Administration Famotidine 20 mg 11/09/20 10:00 11/18/20 09:30 Famotidine 20 Mg Tab PO 20 mg BID JOSE Administration Fondaparinux 7.5 mg 11/15/20 14:00 11/17/20 10:18 Fondaparinux 7.5 Mg/0.6 Ml Inj SUB-Q 7.5 mg QDAY JOSE Administration Fondaparinux 2.5 mg 11/15/20 14:00 11/17/20 10:19 Fondaparinux 2.5 Mg/0.5 Ml Inj SUB-Q 2.5 mg DAILY JOSE Administration Furosemide 20 mg 11/09/20 10:00 11/18/20 09:29 Furosemide 20 Mg Tab PO 20 mg QDAY JOSE Administration Guaifenesin 600 mg 11/09/20 10:00 11/18/20 09:30 Guaifenesin Er 600 Mg Tab PO 600 mg BID JOSE Administration Hydralazine HCl 10 mg 11/08/20 22:37 Hydralazine 20 Mg/1 Ml Inj IV Q6H PRN htn Morphine Sulfate 30 mg 11/09/20 10:00 11/18/20 09:29 Morphine 30 Mg Er Tab PO 30 mg Q12HR JOSE Administration Ondansetron HCl 4 mg 11/08/20 22:32 Ondansetron 4 Mg/2 Ml Inj IV Q8H PRN Nausea And Vomiting Risperidone 0.5 mg 11/09/20 10:00 11/18/20 09:30 Risperidone 0.25 Mg Tab PO 0.5 mg DAILY JOSE Administration Sodium Chloride 10 ml 11/09/20 10:00 11/18/20 09:32 Sodium Chloride 0.9% 10 Ml Flush Syringe IV 10 ml BID JOSE Administration Sodium Chloride 10 ml 11/08/20 22:32 11/11/20 22:57 Sodium Chloride 0.9% 10 Ml Flush Syringe IV 10 ml PRN PRN Administration LINE FLUSH
[2020-11-18] MEDS ORDERED: SODIUM FERRIC GLUCON/SUCRO 125 MG in SODIUM CHLORIDE 0.9% 100 ML IV ONE (10:30)
[2020-11-18 12:17] LABS: Cardiolipin Ab IgA <2.0 APL-U/mL (<20.0); Cardiolipin Ab IgG <2.0 GPL-U/mL (<20.0); Cardiolipin Ab IgM <2.0 MPL-U/mL (<20.0)
--- NOTE | 2020-11-18 14:42 | Progress Note ---
Assessment and Plan This is a 45-year-old female with a history of pulmonary embolism s/p EKOS, thrombolysis, thrombectomy for submassive bilateral PE in April 2020, PVD, RA, chronic respiratory failure, pulmonary hypertension, morbid obesity, lymphedema, Antithrombin III deficiency, medical noncompliance who is admitted for bilateral pulmonary emboli, leukocytosis, elevated proBNP, and COVID 19 PUI Saddle submassive pulmonary embolism Right heart strain Acute on chronic respiratory failure with hypoxia Leukocytosis Metabolic acidosis PVD Antithrombin III deficiency Rheumatoid arthritis Morbid obesity Medical noncompliance Lymphedema History of pulmonary embolism s/p EKOS, thrombolysis and thrombectomy in April 2020 Pulmonary hypertension COVID 19 PUI, ruled out Chornic pain syndrome/chornic opiate dependent Reoccurent PE Supratherapeutic INR -CCM, vascular surgery consulted -11/08 CTA chest shows significant interval worsening of previously noted pulmonary embolic burden, now subtle submassive pulmonary embolus, evidence of right heart strain with straightening of the intraventricular septum and reflux of contrast into the IVC, interval resolution of previously noted infectious/inflammatory process -11/08 echocardiogram Left ventricle with mild concentric left ventricular hypertrophy. Mid diastolic dysfunction. Right ventricle cannot be well visualized. -11/08 CXR shows no acute pulmonary or pleural abnormality -Cardiac diet -Resume home Klonopin, Decadron, diltiazem, Lexapro, respiratory, MS Contin and warfarin DuoNeb -Trend CBC, BMP, INR -Pulmonary hygiene -Stressed medical compliance. Patient is declining thrombectomy at this time. No additional intervention per pulmonology or vascular surgery. Xarelto has been stopped for now, hematology consulted for additional recommendations for equilibrating INR. Started on Arixtra. Need to be careful since patient has Antithrombin III deficiency DVT/GI prophylaxis: PPI, Xarelto being held, SCDs to bilateral actions while in bed Disposition: Continue to wean patient off of oxygen. Daily clinical course: 11/10/2020: Patient seen and examined, lying in bed comfortably, no respiratory distress. On high flow oxygen. Spoke with critical care, patient stable to be transferred to floor 11/11/2020: Patient seen and examined, continues to be on high flow nasal cannula oxygen. Spoke with the patient pertaining to Coumadin, INR is improving however she states that she was therapeutic in the past and continues to have blood clots, this is why she was on Xarelto. Not sure how compliant the patient was with her medications. 11/12/2020: Patient seen and examined, continues to be on high flow oxygen. States that her breathing is improved but has dyspnea with movement. 11/13/2020: Patient seen and examined, explained to the patient respiratory is plan for weaning her off the high flow oxygen. She agrees to it. Also advised her we will be stopping heparin and Coumadin and transitioning over to Xarelto. Patient states that she was getting and going to the bathroom but the oxygen, was doing okay. 11/14/2020: Patient in bed, states that her breathing is improving, no nausea vomiting, continues to be weaned off of high flow oxygen. Heparin has been stopped, Xarelto started. 11/15/2020: Patient seen and examined, continues to be on high flow oxygen, continue to wean patient off. Patient started Xarelto, but stopped this morning due to supratherapeutic INR 11/16/20: INR improved. Patient today on 20L high flow. Continue to wean off O2. Wait for hematology recommendation to switch back to Xarelto. Continue Arixtra for now. protection manager consulted for LTAC placement. Continue supportive care. 11/17/20: Patient on 25 L high flow O2. Continue to wean off as tolerated. Continue Arixtra for now, INR improved, patient will be placed on Xarelto on discharge. protection manager working on LTAC placement. 11/18/20: Patient remains on high flow O2, unable to wean off. Currently on 25 L high flow. Continue Arixtra, pending placement. PT eval. Subjective Date of service: 11/18/20 Interval history: Patient seen and examined. Medical records and medication list reviewed. No acute event overnight noted by the RN. Patient denies any chest pain . Patient is tolerating diet. Patient remains on high flow O2 Discussed plan of care at bedside with patient. Objective - Exam Narrative Exam: General appearance: Obese, no acute distress, well-nourished EENT: PERRL, EOM intact, hearing intact, clear oral mucosa Neck: Present: supple, normal ROM Respiratory: High flow nasal cannula oxygen, bilateral CTA, negative: rales, rhonchi, wheezing Cardiovascular: Regular rate/rhythm, Normal S1 & S2. No gallop, rub Extremities: no ischemia, No edema, normal temperature, normal color, Full ROM Abdominal: soft, no tenderness, non-distended, normal bowel sounds Integumentary: Present: clear, warm, dry no wounds, no erythema noted Psychiatric: appropriate mood/affect, intact judgment & insight Neurologic: CNII-XII intact, moves all extremities, no sensory or motor abnormalities - Constitutional Vitals: Vital Signs - 12hr 11/18/20 11/18/20 11/18/20 03:38 07:52 08:06 Temperature 98.0 F 98.4 F Pulse Rate 80 85 Pulse Rate [ 88 Bilateral Throughout] Respiratory 20 22 Rate Respiratory 20 Rate [Bilateral Throughout] Blood Pressure 102/47 Blood Pressure 128/64 [Right] O2 Sat by Pulse 96 88 91 Oximetry 11/18/20 11/18/20 09:21 09:31 Temperature Pulse Rate 80 80 Pulse Rate [ Bilateral Throughout] Respiratory Rate Respiratory Rate [Bilateral Throughout] Blood Pressure 94/50 94/50 Blood Pressure [Right] O2 Sat by Pulse 98 Oximetry - Labs CBC & Chem 7: 11/18/20 04:44 11/17/20 04:59 Labs: Abnormal lab results 11/18/20 Range/Units 04:44 MCH 26 L (28-32) pg RDW 18.6 H (13.2-15.2) % HEART Score - HEART Score Troponin: Troponin T 0.018 ng/mL (0.00-0.029) 11/08/20 17:25
[2020-11-18] MEDS: ESCITALOPRAM 10 MG TAB PO SCH (15:41)
[2020-11-18] MEDS: FONDAPARINUX 7.5 MG/0.6 ML INJ SUB-Q SCH (15:42)
[2020-11-18] MEDS: FONDAPARINUX 2.5 MG/0.5 ML INJ SUB-Q SCH (15:42)
[2020-11-18] MEDS: clonazePAM 0.5 MG TAB PO SCH (21:32)
[2020-11-19 06:22] LABS: Hematocrit 32.7 % (30.3-42.9); Hemoglobin 10.8 gm/dl (10.1-14.3); Mean Corpuscular HGB Conc 33 % (30-34); Mean Corpuscular Volume 80 fl (79-97); Platelet Count 242 K/mm3 (140-440); Red Cell Distribution Width 18.4 % (13.2-15.2)
[2020-11-19] MEDS: IPRATROPIUM/ALBUTEROL SULFATE 3 ML AMPUL.NEB IH SCH ×3 (08:45→21:00)
[2020-11-19] MEDS ORDERED: SODIUM FERRIC GLUCON/SUCRO 125 MG in SODIUM CHLORIDE 0.9% 100 ML IV ONE (09:00)
[2020-11-19] MEDS: ESCITALOPRAM 10 MG TAB PO SCH (10:52)
[2020-11-19] MEDS: guaiFENesin ER 600 MG TAB PO SCH ×2 (10:52→22:12)
[2020-11-19] MEDS: FAMOTIDINE 20 MG TAB PO SCH ×2 (10:52→22:12)
[2020-11-19] MEDS: risperiDONE 0.25 MG TAB PO SCH (10:52)
[2020-11-19] MEDS: MORPHINE 30 MG ER TAB PO SCH ×2 (10:52→22:11)
[2020-11-19] MEDS: FONDAPARINUX 2.5 MG/0.5 ML INJ SUB-Q SCH (14:12)
[2020-11-19] MEDS: FONDAPARINUX 7.5 MG/0.6 ML INJ SUB-Q SCH (14:12)
[2020-11-19] MEDS: dilTIAZem CD 120 MG CAP PO SCH (14:13)
[2020-11-19] MEDS: FUROSEMIDE 20 MG TAB PO SCH (14:13)
--- NOTE | 2020-11-19 14:44 | Progress Note ---
Assessment and Plan This is a 45-year-old female with a history of pulmonary embolism s/p EKOS, thrombolysis, thrombectomy for submassive bilateral PE in April 2020, PVD, RA, chronic respiratory failure, pulmonary hypertension, morbid obesity, lymphedema, Antithrombin III deficiency, medical noncompliance who is admitted for bilateral pulmonary emboli, leukocytosis, elevated proBNP, and COVID 19 PUI Saddle submassive pulmonary embolism with Right heart strain Acute on chronic respiratory failure with hypoxia Leukocytosis Metabolic acidosis PVD Antithrombin III deficiency Rheumatoid arthritis Morbid obesity Medical noncompliance Lymphedema History of pulmonary embolism s/p EKOS, thrombolysis and thrombectomy in April 2020 Pulmonary hypertension COVID 19 PUI, ruled out Chornic pain syndrome/chornic opiate dependent Recurrent PE Supratherapeutic INR History of COVID-19 pneumonia on August 2020 -[facility], vascular surgery consulted -11/08 CTA chest shows significant interval worsening of previously noted pulmonary embolic burden, now subtle submassive pulmonary embolus, evidence of right heart strain with straightening of the intraventricular septum and reflux of contrast into the IVC, interval resolution of previously noted infectious/inflammatory process -11/08 echocardiogram Left ventricle with mild concentric left ventricular hypertrophy. Mid diastolic dysfunction. Right ventricle cannot be well vi sualized. -11/08 CXR shows no acute pulmonary or pleural abnormality -Cardiac diet -Resume home Klonopin, Decadron, diltiazem, Lexapro, respiratory, MS Contin and warfarin DuoNeb -Trend CBC, BMP, INR -Pulmonary hygiene -Stressed medical compliance. Patient is declining thrombectomy at this time. No additional intervention per pulmonology or vascular surgery. Xarelto has been stopped for now, hematology consulted for additional recommendations for equilibrating INR. Started on Arixtra. Need to be careful since patient has Antithrombin III deficiency DVT/GI prophylaxis: PPI, Xarelto being held, SCDs to bilateral actions while in bed Disposition: Continue to wean patient off of oxygen. Daily clinical course: 11/10/2020: Patient seen and examined, lying in bed comfortably, no respiratory distress. On high flow oxygen. Spoke with critical care, patient stable to be transferred to floor 11/11/2020: Patient seen and examined, continues to be on high flow nasal cannula oxygen. Spoke with the patient pertaining to Coumadin, INR is improving however she states that she was therapeutic in the past and continues to have blood clots, this is why she was on Xarelto. Not sure how compliant the patient was with her medications. 11/12/2020: Patient seen and examined, continues to be on high flow oxygen. States that her breathing is improved but has dyspnea with movement. 11/13/2020: Patient seen and examined, explained to the patient respiratory is plan for weaning her off the high flow oxygen. She agrees to it. Also advised her we will be stopping heparin and Coumadin and transitioning over to Xarelto. Patient states that she was getting and going to the bathroom but the oxygen, was doing okay. 11/14/2020: Patient in bed, states that her breathing is improving, no nausea vomiting, continues to be weaned off of high flow oxygen. Heparin has been stopped, Xarelto started. 11/15/2020: Patient seen and examined, continues to be on high flow oxygen, continue to wean patient off. Patient started Xarelto, but stopped this morning due to supratherapeutic INR 11/16/20: INR improved. Patient today on 20L high flow. Continue to wean off O2. Wait for hematology recommendation to switch back to Xarelto. Continue Arixtra for now. computer operations manager consulted for LTAC placement. Continue supportive care. 11/17/20: Patient on 25 L high flow O2. Continue to wean off as tolerated. Continue Arixtra for now, INR improved, patient will be placed on Xarelto on discharge. computer operations manager working on LTAC placement. 11/18/20: Patient remains on high flow O2, unable to wean off. Currently on 25 L high flow. Continue Arixtra, pending placement. PT eval. 11/19/20: Patient placed on 5 L nasal cannula today. Continue to follow clinically if remains stable possible discharge tomorrow with home O2. Patient was stressed on medication compliance. She verbalized understanding. Subjective Date of service: 11/19/20 Interval history: Patient seen and examined. Medical records and medication list reviewed. No acute event overnight noted by the RN. Patient denies any chest pain . Patient is tolerating diet. Patient placed on 5 L nasal cannula today Discussed plan of care at bedside with patient. Objective - Exam Narrative Exam: General appearance: Obese, no acute distress, well-nourished EENT: PERRL, EOM intact, hearing intact, clear oral mucosa Neck: Present: supple, normal ROM Respiratory: nasal cannula oxygen, bilateral CTA, negative: rales, rhonchi, wheezing Cardiovascular: Regular rate/rhythm, Normal S1 & S2. No gallop, rub Extremities: no ischemia, No edema, normal temperature, normal color, Full ROM Abdominal: soft, no tenderness, non-distended, normal bowel sounds Integumentary: Present: clear, warm, dry no wounds, no erythema noted Psychiatric: appropriate mood/affect, intact judgment & insight Neurologic: CNII-XII intact, moves all extremities, no sensory or motor abnormalities - Constitutional Vitals: Vital Signs - 12hr 11/19/20 11/19/20 11/19/20 04:04 04:10 07:58 Temperature 98.6 F 98.7 F Pulse Rate 82 85 84 Pulse Rate [ Bilateral Throughout] Respiratory 24 18 Rate Respiratory Rate [Bilateral Throughout] Blood Pressure 129/68 97/68 O2 Sat by Pulse 88 92 Oximetry 11/19/20 11/19/20 11/19/20 08:00 08:45 08:50 Temperature Pulse Rate 83 Pulse Rate [ 82 Bilateral Throughout] Respiratory Rate Respiratory 20 Rate [Bilateral Throughout] Blood Pressure O2 Sat by Pulse 96 Oximetry 11/19/20 11/19/20 11/19/20 09:13 09:28 11:19 Temperature 97.7 F Pulse Rate 82 Pulse Rate [ Bilateral Throughout] Respiratory 18 Rate Respiratory Rate [Bilateral Throughout] Blood Pressure 124/70 O2 Sat by Pulse 93 97 91 Oximetry 11/19/20 12:00 Temperature Pulse Rate 82 Pulse Rate [ Bilateral Throughout] Respiratory Rate Respiratory Rate [Bilateral Throughout] Blood Pressure O2 Sat by Pulse Oximetry - Labs CBC & Chem 7: 11/19/20 05:59 11/19/20 05:59 Labs: Abnormal lab results 11/19/20 Range/Units 05:59 MCH 26 L (28-32) pg RDW 18.4 H (13.2-15.2) % HEART Score - HEART Score Troponin: Troponin T 0.018 ng/mL (0.00-0.029) 11/08/20 17:25
[2020-11-19] MEDS: HYDROcodone/ACETAMINOPHEN 5-325 MG TAB PO PRN (17:56)
[2020-11-19] MEDS: clonazePAM 0.5 MG TAB PO SCH (22:11)
[2020-11-20] MEDS: dilTIAZem CD 120 MG CAP PO SCH (10:22)
[2020-11-20] MEDS: guaiFENesin ER 600 MG TAB PO SCH (10:22)
[2020-11-20] MEDS: MORPHINE 30 MG ER TAB PO SCH (10:22)
[2020-11-20] MEDS: risperiDONE 0.25 MG TAB PO SCH (10:22)
[2020-11-20] MEDS: ESCITALOPRAM 10 MG TAB PO SCH (10:22)
[2020-11-20] MEDS: FAMOTIDINE 20 MG TAB PO SCH (10:22)
[2020-11-20] MEDS: FUROSEMIDE 20 MG TAB PO SCH (10:22)
[2020-11-20] MEDS: FONDAPARINUX 7.5 MG/0.6 ML INJ SUB-Q SCH (11:00)
[2020-11-20] MEDS: FONDAPARINUX 2.5 MG/0.5 ML INJ SUB-Q SCH (11:01)
[2020-11-20] MEDS: IPRATROPIUM/ALBUTEROL SULFATE 3 ML AMPUL.NEB IH SCH ×2 (11:18→17:31)
[2020-11-20 14:19] VITALS: BP 128/67
--- NOTE | 2020-11-20 16:23 | Discharge Summary ---
Providers - Providers Date of Admission: 11/08/20 22:17 Date of discharge: 11/20/20 Attending physician: MIKA MATOS 11/08/20 22:04 Consult to Physician [CONS] Stat Comment: Dr. Stanley spoke with Dr. Bass @ [phone] Consulting Provider: ROXY BASS Physician Instructions: Reason For Exam: saddle PE 11/10/20 05:09 Consult to Wound/ET Nurse [CONS] Routine Reason For Exam: wound eval - BLE blisters 11/15/20 07:55 Consult to Physician [CONS] Urgent Comment: Consulting Provider: BG PALOMARES Physician Instructions: pt w/antithrombin deficiency Reason For Exam: supratherapeutic INR 11/15/20 14:01 Consult to Case Management [CONS] Routine Services Needed at Discharge: Home Health Services Notified:: CASE MANAGEMENT Comment:: home arixtra 10mg daily x 3 months 11/17/20 15:08 Physical Therapy Evaluation and Treat [CONS] Urgent Comment: generalized weakness Reason For Exam: PT/OT to eval and treat 11/17/20 15:15 Occupational Therapy Evaluate and Treat [CONS] Urgent Comment: for generalized weakness Reason For Exam: OT to eval and treat for weakness Primary care physician: MEDICINE WORKER Hospitalization Condition: Stable Pertinent studies: -11/08 CTA chest shows significant interval worsening of previously noted pulmonary embolic burden, now subtle submassive pulmonary embolus, evidence of right heart strain with straightening of the intraventricular septum and reflux of contrast into the IVC, interval resolution of previously noted infectious/inflammatory process -11/08 echocardiogram Left ventricle with mild concentric left ventricular hypertrophy. Mid diastolic dysfunction. Right ventricle cannot be well visualized. -11/08 CXR shows no acute pulmonary or pleural abnormality Hospital course: This is a 45-year-old female with a history of pulmonary embolism s/p EKOS, thrombolysis, thrombectomy for submassive bilateral PE in April 2020, PVD, RA, chronic respiratory failure, pulmonary hypertension, morbid obesity, lymphedema, Antithrombin III deficiency, medical noncompliance who is admitted for bilateral pulmonary emboli, leukocytosis, elevated proBNP, and COVID 19 PUI Daily clinical course: 11/10/2020: Patient seen and examined, lying in bed comfortably, no respiratory distress. On high flow oxygen. Spoke with critical care, patient stable to be transferred to floor. COVID test is negative 11/11/2020: Patient seen and examined, continues to be on high flow nasal cannula oxygen. Spoke with the patient pertaining to Coumadin, INR is improving however she states that she was therapeutic in the past and continues to have blood clots, this is why she was on Xarelto. Not sure how compliant the patient was with her medications. 11/12/2020: Patient seen and examined, continues to be on high flow oxygen. States that her breathing is improved but has dyspnea with movement. 11/13/2020: Patient seen and examined, explained to the patient respiratory is plan for weaning her off the high flow oxygen. She agrees to it. Also advised her we will be stopping heparin and Coumadin and transitioning over to Xarelto. Patient states that she was getting and going to the bathroom but the oxygen, was doing okay. 11/14/2020: Patient in bed, states that her breathing is improving, no nausea vomiting, continues to be weaned off of high flow oxygen. Heparin has been stopped, Xarelto started. 11/15/2020: Patient seen and examined, continues to be on high flow oxygen, continue to wean patient off. Patient started Xarelto, but stopped this morning due to supratherapeutic INR 11/16/20: INR improved. Patient today on 20L high flow. Continue to wean off O2. Wait for hematology recommendation to switch back to Xarelto. Continue Arixtra for now. senior risk manager consulted for LTAC placement. Continue supportive care. 11/17/20: Patient on 25 L high flow O2. Continue to wean off as tolerated. Continue Arixtra for now, INR improved, patient will be placed on Xarelto on discharge. senior risk manager working on LTAC placement. 11/18/20: Patient remains on high flow O2, unable to wean off. Currently on 25 L high flow. Continue Arixtra, pending placement. PT eval. 11/19/20: Patient placed on 5 L nasal cannula today. Continue to follow clinically if remains stable possible discharge tomorrow with home O2. Patient was stressed on medication compliance. She verbalized understanding. 11/20/20: patient on 3l n/c O2. has home O2, placed on xarelto. patient will f/u outpt. Discharge home in stable condition. Disposition: [id number] HOME UNDER HOME [facility] Final Discharge Diagnosis (Prints w/discharge instructions): Saddle submassive pulmonary embolism with Right heart strain. Acute on chronic respiratory failure with hypoxia. Leukocytosis. Metabolic acidosis. PVD. Antithrombin III deficiency. Rheumatoid arthritis. Morbid obesity. Medical noncompliance. Lymphedema. History of pulmonary embolism s/p EKOS, thrombolysis and thrombectomy in April 2020. Pulmonary hypertension. COVID 19 PUI, ruled out. Chornic pain syndrome/chornic opiate dependent. Recurrent PE. Supratherapeutic INR. History of COVID-19 pneumonia on August 2020 Time spent for discharge: 36 minutes Core Measure Documentation - Palliative Care Palliative Care/ Comfort Measures: Not Applicable - Core Measures Any of the following diagnoses?: history only Exam - Physical Exam Narrative exam: General appearance: Obese, no acute distress, well-nourished EENT: PERRL, EOM intact, hearing intact, clear oral mucosa Neck: Present: supple, normal ROM Respiratory: nasal cannula oxygen, bilateral CTA, negative: rales, rhonchi, wheezing Cardiovascular: Regular rate/rhythm, Normal S1 & S2. No gallop, rub Extremities: no ischemia, No edema, normal temperature, normal color, Full ROM Abdominal: soft, no tenderness, non-distended, normal bowel sounds Integumentary: Present: clear, warm, dry no wounds, no erythema noted Psychiatric: appropriate mood/affect, intact judgment & insight Neurologic: CNII-XII intact, moves all extremities, no sensory or motor abnormalities - Constitutional Vitals: Temp Pulse Resp BP Pulse Ox 97.8 F 87 18 128/67 95 11/20/20 12:00 11/20/20 12:00 11/20/20 12:00 11/20/20 12:11/20/20 12:00 Plan Activity: advance as tolerated Weight Bearing Status: Weight Bear as Tolerated Diet: low fat, low salt Special Instructions: restrict fluid intake to (1.5L daily), record daily weights, record blood sugar diary, home oxygen via (3L n/c), home health RN Follow up with: PRIMARY MD COCO [Primary Care Provider] - 3-5 Days BOLIVAR SOSA MD [Staff Physician] - 7 Days Forms: Discharge Signature Page Prescriptions: Fondaparinux Sodium [Arixtra] 10 mg SQ DAILY #30 syringe Rivaroxaban [Xarelto] 20 mg PO QDAY #60 tablet Ipratropium/Albuterol Sulfate [DUONEB *Not for PRN Use*] 1 ampul IH TIDRT #30 ampul.neb
[2020-11-20 16:24] LABS: Hematocrit 33.6 % (30.3-42.9); Hemoglobin 10.8 gm/dl (10.1-14.3); Mean Corpuscular HGB Conc 32 % (30-34); Mean Corpuscular Volume 79 fl (79-97); Platelet Count 248 K/mm3 (140-440); Red Blood Count 4.25 M/mm3 (3.65-5.03); Red Cell Distribution Width 18.3 % (13.2-15.2)
[2020-11-20 16:35] LABS: INR 1.25 (0.87-1.13)
[2020-11-20 16:36] LABS: Partial Thromboplastin Time 42.7 Sec. (24.2-36.6)
[2020-11-20] MEDS ORDERED: RIVAROXABAN 20 MG TAB PO SCH (20:00)
[2020-11-20] MEDS ORDERED: RIVAROXABAN 10 MG TAB PO SCH ×2 (20:00)
[2020-11-22 08:48] LABS: Hemoglobin A2 Prime SEE SCANNED RESULT
[2020-11-22 08:49] LABS: Hemoglobin Barts SEE SCANNED RESULT; Hemoglobin E SEE SCANNED RESULT; Hemoglobin G SEE SCANNED RESULT; Hemoglobin Lepore SEE SCANNED RESULT; Hemoglobin O-Arab SEE SCANNED RESULT; IEF Confirm SEE SCANNED RESULT; Interpretation SEE SCANNED RESULT; Sickle Solubility Test SEE SCANNED RESULT
[2020-12-05] MEDS ORDERED: RIVAROXABAN 20 MG TAB PO SCH (17:00)
== END 2020-11-20 18:16 | disposition home health service (06) | DRG 175 ==
LOC: ED 15:35 → CC1 22:17 → IMCU 11-09 17:46 → 4A 11-10 21:20
PROVIDERS: ADMIT Hospitalist; ATTEND Internal Medicine
PROC: 5A09357 Assistance with Respiratory Ventilation, Less than 24 Consecutive Hours, Continuous Positive Airway Pressure (ICD-10-PCS; principal; 2020-11-08)
PROC: 5A0955A Assistance with Respiratory Ventilation, Greater than 96 Consecutive Hours, High Flow/Velocity Cannula (ICD-10-PCS; 2020-11-10)
PROC: 5A09357 Assistance with Respiratory Ventilation, Less than 24 Consecutive Hours, Continuous Positive Airway Pressure (ICD-10-PCS; 2020-11-20)
DX: I26.92 Saddle embolus of pulmonary artery without acute cor pulmonale (principal); J96.21 Acute and chronic respiratory failure with hypoxia; I10 Essential (primary) hypertension; I73.9 Peripheral vascular disease, unspecified; M06.9 Rheumatoid arthritis, unspecified; D68.59 Other primary thrombophilia; E66.01 Morbid (severe) obesity due to excess calories; Z68.44 Body mass index [BMI] 60.0-69.9, adult; Z71.3 Dietary counseling and surveillance; I89.0 Lymphedema, not elsewhere classified; G89.4 Chronic pain syndrome; F11.20 Opioid dependence, uncomplicated; T40.2X5D Adverse effect of other opioids, subsequent encounter; D50.9 Iron deficiency anemia, unspecified; Z20.822 Contact with and (suspected) exposure to COVID-19; Z88.6 Allergy status to analgesic agent; Z86.718 Personal history of other venous thrombosis and embolism; Z91.14 Patient's other noncompliance with medication regimen; I51.89 Other ill-defined heart diseases; D72.829 Elevated white blood cell count, unspecified; E87.2 Acidosis; I27.20 Pulmonary hypertension, unspecified; Z86.711 Personal history of pulmonary embolism; Z79.01 Long term (current) use of anticoagulants
CPT/HCPCS: 36415; 71045; 71275; 80048; 82565; 82728; 82962; 83550; 83880; 84132; 84484; 84703; 85014; 85018; 85025; 85027; 85049; 85379; 85520; 85610; 85730; 86147; 87641; 93005; 93306; 94640; 94660; G0378; J1644; J1652; J2060; J2916; J3010; J7030; J8540; Q9967; U0003

== ENCOUNTER 2021-02-28 16:55 | Inpatient (IN) | payer MEDICAID ==
--- NOTE | 2021-02-28 17:25 | Emergency Department Report ---
ED Shortness of Breath HPI - General Chief Complaint: Dyspnea/Respdistress Stated Complaint: SOB/CP Time Seen by Provider: 02/28/21 17:07 Source: patient Mode of arrival: Ambulatory Limitations: No Limitations - History of Present Illness Initial Comments: Ms. Ortiz is a 46-year-old morbidly obese female with history of recurrent pulmonary embolism and rheumatoid arthritis. Patient presented to the ER complaining of shortness of breath for the last few days. Patient stated that she is out of her Xarelto for approximately 7 days now. Patient denied any chest pain, fever or chills. Patient stated that she had 3 episode of pulmonary embolism in the last year. Patient stated that she is on 2 L oxygen at home. Patient found to have an oxygen saturation of 87% on room air improved to 92% on 3 L. MD Complaint: shortness of breath -: days(s) Severity: moderate Consistency: constant Improves With: oxygen - Related Data Home Medications Medication Instructions Recorded Confirmed Last Taken Escitalopram [Lexapro] 10 mg PO DAILY 04/26/20 11/10/20 11/07/20 clonazePAM [Klonopin] 1 mg PO DAILY 04/26/20 11/10/20 11/07/20 risperiDONE [RisperDAL] 0.5 mg PO DAILY 04/26/20 11/10/20 11/07/20 Previous Rx's Medication Instructions Recorded Last Taken Type Furosemide [Lasix TAB] 20 mg PO QDAY #30 tablet 04/29/20 11/07/20 Rx Morphine ER [Ms Contin ER] 30 mg PO Q12HR tablet 09/09/20 11/07/20 Rx guaiFENesin ER [Mucinex ER] 600 mg PO BID #14 tablet 09/09/20 11/07/20 Rx Fondaparinux Sodium [Arixtra] 10 mg SQ DAILY #30 syringe 11/15/20 Unknown Rx Ipratropium/Albuterol Sulfate 1 ampul IH TIDRT #30 ampul.neb 11/20/20 Unknown Rx [DUONEB *Not for PRN Use*] Rivaroxaban [Xarelto] 20 mg PO QDAY #60 tablet 11/20/20 Unknown Rx Allergies Allergy/AdvReac Type Severity Reaction Status Date / Time aspirin Allergy Mild Rash Verified 02/28/21 16:57 ED Review of Systems ROS: Stated complaint: SOB/CP Other details as noted in HPI Comment: All other systems reviewed and negative Constitutional: denies: chills, fever Respiratory: shortness of breath, SOB with exertion, SOB at rest. denies: cough, wheezing Cardiovascular: denies: chest pain, palpitations Gastrointestinal: denies: abdominal pain, nausea, vomiting Musculoskeletal: denies: back pain Neurological: denies: headache, weakness, numbness, paresthesias, confusion ED Past Medical Hx - Past Medical History Hx Hypertension: No Hx Congestive Heart Failure: No Hx Diabetes: No Hx Deep Vein Thrombosis: Yes (BILATERAL WITH PE 2017,2018) Hx Pulmonary Embolism: Yes Hx Liver Disease: No Hx Renal Disease: No Hx Arthritis: Yes (RA) Hx Seizures: No Hx Asthma: No Hx COPD: No Additional medical history: poor circulation to lower extremities CELLULITIS. anemia, MORBID OBESITY / PE - Surgical History Hx Coronary Stent: Yes (STENTS) Additional Surgical History: stents in legs - Social History Smoking Status: Never Smoker - Medications Home Medications: Home Medications Medication Instructions Recorded Confirmed Last Taken Type Escitalopram [Lexapro] 10 mg PO DAILY 04/26/20 11/10/20 11/07/20 History clonazePAM [Klonopin] 1 mg PO DAILY 04/26/20 11/10/20 11/07/20 History risperiDONE [RisperDAL] 0.5 mg PO DAILY 04/26/20 11/10/20 11/07/20 History Furosemide [Lasix TAB] 20 mg PO QDAY #30 tablet 04/29/20 11/10/20 11/07/20 Rx Morphine ER [Ms Contin ER] 30 mg PO Q12HR tablet 09/09/20 11/10/20 11/07/20 Rx guaiFENesin ER [Mucinex ER] 600 mg PO BID #14 tablet 09/09/20 11/10/20 11/07/20 Rx Fondaparinux Sodium [Arixtra] 10 mg SQ DAILY #30 syringe 11/15/20 Unknown Rx Ipratropium/Albuterol Sulfate 1 ampul IH TIDRT #30 ampul.neb 11/20/20 Unknown Rx [DUONEB *Not for PRN Use*] Rivaroxaban [Xarelto] 20 mg PO QDAY #60 tablet 11/20/20 Unknown Rx ED Physical Exam - General Limitations: No Limitations General appearance: alert, in no apparent distress - Head Head exam: Present: atraumatic, normocephalic, normal inspection - Eye Eye exam: Present: normal appearance - ENT ENT exam: Present: normal exam - Respiratory Respiratory exam: Present: normal lung sounds bilaterally. Absent: respiratory distress, wheezes - Cardiovascular Cardiovascular Exam: Present: regular rate, normal rhythm, normal heart sounds - GI/Abdominal GI/Abdominal exam: Present: soft. Absent: distended, tenderness, guarding, rebound, rigid - Extremities Exam Extremities exam: Present: normal inspection, pedal edema - Back Exam Back exam: Present: normal inspection, full ROM. Absent: CVA tenderness (R), CVA tenderness (L) - Neurological Exam Neurological exam: Present: alert, oriented X3, CN II-XII intact - Psychiatric Psychiatric exam: Present: normal mood - Skin Skin exam: Present: warm, intact, normal color ED Course Vital Signs 02/28/21 16:59 Temperature 98.6 F Pulse Rate 89 Respiratory 32 H Rate Blood Pressure 123/58 [Right] O2 Sat by Pulse 88 Oximetry ED Medical Decision Making - Lab Data Result diagrams: 02/28/21 17:15 02/28/21 17:15 - EKG Data -: EKG Interpreted by De EKG shows normal: sinus rhythm - Radiology Data Radiology results: report reviewed - Medical Decision Making Ms. Ortiz is a 46-year-old morbidly obese female with history of recurrent pulmonary embolism and rheumatoid arthritis. Patient presented to the ER c omplaining of shortness of breath for the last few days. Patient stated that she is out of her Xarelto for approximately 7 days now. Patient denied any chest pain, fever or chills. Patient stated that she had 3 episode of pulmonary embolism in the last year. Patient stated that she is on 2 L oxygen at home. Patient found to have an oxygen saturation of 87% on room air improved to 92% on 3 L. Patient remained stable on oxygen. CTA chest showed no acute pulmonary embolism however showed a chronic thrombus. Labs reviewed and showed elevated BNP of more than 3000. Patient received Lasix 40 mg IV. I discussed the patient with Dr. Sylvester, he agreed to admit the patient to medical service for further management. Critical Care Time: Yes Critical care time in (mins) excluding proc time.: 30 Critical care attestation.: If time is entered above; I have spent that time in minutes in the direct care of this critically ill patient, excluding procedure time. ED Disposition Clinical Impression: Acute respiratory failure with hypoxia, Suspected COVID-19 virus infection, El evated brain natriuretic peptide (BNP) level, CHF exacerbation Disposition: 09 ADMITTED INPATIENT Is pt being admited?: Yes Condition: Stable
[2021-02-28 18:05] LABS: Basophils % (Auto) 0.4 % (0.0-1.8); Eosinophils # (Auto) 0.1 K/mm3 (0.0-0.4); Eosinophils % (Auto) 0.9 % (0.0-4.3); Hematocrit 35.7 % (30.3-42.9); Hemoglobin 11.5 gm/dl (10.1-14.3); Lymphocytes % (Auto) 22.3 % (13.4-35.0); Mean Corpuscular HGB Conc 32 % (30-34); Mean Corpuscular Volume 75 fl (79-97); Monocytes # (Auto) 0.8 K/mm3 (0.0-0.8); Monocytes % (Auto) 8.7 % (0.0-7.3); Platelet Count 274 K/mm3 (140-440); Red Blood Count 4.76 M/mm3 (3.65-5.03); Red Cell Distribution Width 18.8 % (13.2-15.2)
[2021-02-28 18:17] LABS: Alanine Aminotransferase 7 units/L (7-56); Albumin 3.6 g/dL (3.9-5); BUN/Creatinine Ratio 10; Blood Urea Nitrogen 10 mg/dL (7-17); Calcium 9.1 mg/dL (8.4-10.2); Hemolysis Index 1
[2021-02-28 18:36] LABS: INR 1.22 (0.87-1.13)
[2021-02-28 18:37] LABS: Partial Thromboplastin Time 32.4 Sec. (24.2-36.6)
--- NOTE | 2021-02-28 19:45 | Cat Scan Report ---
CTA CHEST WITH CONTRAST INDICATION / CLINICAL INFORMATION: CHEST PAIN WITH SOB, H/O PE. TECHNIQUE: Axial CT images were obtained through the chest after injection of IV contrast. 3 plane WA P and/or 3D reconstructions were produced. All CT scans at this location are performed using CT dose reduction for ALARA by means of automated exposure control. COMPARISON: 11/08/2020 FINDINGS: Pulmonary artery is prominent which could represent mild pulmonary hypertension. The right upper lung pulmonary arteries are not well opacified could represent some chronic thrombus within the right upp er lung pulmonary arterial system. Left pulmonary arteries are patent. Emphysematous changes seen wit hin the lungs. There is increased densities and opacities is some nodular areas within the right uppe r lung. Some minimal groundglass densities bilaterally. Heart is enlarged the main pulmonary arteries are patent. Visualized portions of the upper abdomen appear normal. ADDITIONAL FINDINGS: None. UPPER ABDOMEN: No acute findings. SKELETAL STRUCTURES: No significant osseous abnormality. IMPRESSION: 1. The right upper lung pulmonary arteries are not well opacified. Chronic thrombus within the right upper lung cannot be excluded. Patient had recent large thrombus within the right main pulmonary angie ry. The main pulmonary arteries appear patent at this time. 2. Cardiomegaly Signer Name: Damion Elias MD Signed: 02/28/2021 7:41 PM Workstation Name: [id number]
[2021-02-28] MEDS ORDERED: FUROSEMIDE 40 MG/4 ML INJ IV ONE (20:11)
[2021-02-28] MEDS ORDERED: RIVAROXABAN 20 MG TAB PO ONE (21:00)
[2021-02-28] MEDS ORDERED: ALBUTEROL 2.5 MG/3 ML NEBU IH PRN (22:23)
[2021-02-28] MEDS ORDERED: ONDANSETRON 4 MG/2 ML INJ IV PRN (22:23)
[2021-02-28] MEDS ORDERED: ACETAMINOPHEN 325 MG TAB PO PRN (22:23)
[2021-02-28] MEDS ORDERED: HYDROmorphone 1 MG/1 ML INJ IV PRN (22:23)
[2021-02-28] MEDS ORDERED: oxyCODONE /ACETAMINOPHEN 5-325MG TAB PO PRN (22:23)
[2021-02-28] MEDS ORDERED: NITROGLYCERIN 0.4 MG TAB SUBL SL PRN (22:23)
--- NOTE | 2021-02-28 22:38 | History and Physical Report ---
History of Present Illness Date of examination: 02/28/21 Date of admission: 02/28/21 21:19 Chief complaint: Shortness of breath Respiratory distress History of present illness: 46-year-old morbidly obese female with history of morbid obesity, recurrent pulmonary embolisms on Eliquis (2016,2017,2019 s/p percutaneous mechanical thrombectomy and thrombolysis), pulmonary hypertension, lymphedema, rheumatoid arthritis, Antithrombin III deficiency and medical noncompliance due to finances was brought to the emergency room because of shortness of breath for the last few days. Patient stated that she is out of her Xarelto for approximately 7 days now. Patient denied any chest pain, fever or chills. Patient stated that she had 3 episode of pulmonary embolism in the last year. Patient stated that she is on 2 L oxygen at home. Patient found to have an oxygen saturation of 87% on room air improved to 92% on 3 L. Patient also complained of leg swelling. In the emergency room patient is found to have acute CHF exacerbation. patient proBNP is 2509, lactic acid is 3.30 troponin is 0.010. CTA chest showed no acute pulmonary embolism however showed a chronic thrombus Med rec is done. Advance discharge process is initiated Past History Past Medical History: arthritis, hypertension, pulmonary embolism Medications and Allergies Allergies Allergy/AdvReac Type Severity Reaction Status Date / Time aspirin Allergy Mild Rash Verified 02/28/21 16:57 Home Medications Medication Instructions Recorded Confirmed Last Taken Type Escitalopram [Lexapro] 10 mg PO DAILY 04/26/20 11/10/20 11/07/20 History clonazePAM [Klonopin] 1 mg PO DAILY 04/26/20 11/10/20 11/07/20 History risperiDONE [RisperDAL] 0.5 mg PO DAILY 04/26/20 11/10/20 11/07/20 History Furosemide [Lasix TAB] 20 mg PO QDAY #30 tablet 04/29/20 11/10/20 11/07/20 Rx Morphine ER [Ms Contin ER] 30 mg PO Q12HR tablet 09/09/20 11/10/20 11/07/20 Rx guaiFENesin ER [Mucinex ER] 600 mg PO BID #14 tablet 09/09/20 11/10/20 11/07/20 Rx Fondaparinux Sodium [Arixtra] 10 mg SQ DAILY #30 syringe 11/15/20 Unknown Rx Ipratropium/Albuterol Sulfate 1 ampul IH TIDRT #30 ampul.neb 11/20/20 Unknown Rx [DUONEB *Not for PRN Use*] Rivaroxaban [Xarelto] 20 mg PO QDAY #60 tablet 11/20/20 Unknown Rx Review of Systems All systems: negative Cardiovascular: orthopnea, edema, shortness of breath, dyspnea on exertion Respiratory: shortness of breath, dyspnea on exertion Exam - Constitutional Vitals: Temp Pulse Resp BP Pulse Ox 98.6 F 89 32 H 123/58 88 02/28/21 16:59 02/28/21 16:59 02/28/21 16:59 02/28/21 16:59 02/28/21 16:59 General appearance: Present: no acute distress, well-nourished - EENT Eyes: Present: PERRL ENT: hearing intact, clear oral mucosa - Neck Neck: Present: supple, normal ROM - Respiratory Respiratory effort: normal Respiratory: bilateral: rales - Cardiovascular Heart Sounds: Present: S1 & S2. Absent: rub, click - Extremities Extremities: pulses symmetrical Extremity abnormal: edema Peripheral Pulses: within normal limits - Abdominal General gastrointestinal: Present: soft, non-tender, non-distended, normal bowel sounds Female genitourinary: Present: normal - Integumentary Integumentary: Present: clear, warm, dry - Musculoskeletal Musculoskeletal: gait normal, strength equal bilaterally - Psychiatric Psychiatric: appropriate mood/affect, intact judgment & insight - Neurologic Neurologic: CNII-XII intact, moves all extremities HEART Score - HEART Score Troponin: Troponin T < 0.010 ng/mL (0.00-0.029) 02/28/21 19:44 Results - Labs CBC & Chem 7: 02/28/21 17:15 02/28/21 17:15 Labs: Laboratory Last Values WBC 8.9 K/mm3 (4.5-11.0) 02/28/21 17:15 RBC 4.76 M/mm3 (3.65-5.03) 02/28/21 17:15 Hgb 11.5 gm/dl (10.1-14.3) 02/28/21 17:15 Hct 35.7 % (30.3-42.9) 02/28/21 17:15 MCV 75 fl (79-97) L 02/28/21 17:15 MCH 24 pg (28-32) L 02/28/21 17:15 MCHC 32 % (30-34) 02/28/21 17:15 RDW 18.8 % (13.2-15.2) H 02/28/21 17:15 Plt Count 274 K/mm3 (140-440) 02/28/21 17:15 Lymph % (Auto) 22.3 % (13.4-35.0) 02/28/21 17:15 Dawes % (Auto) 8.7 % (0.0-7.3) H 02/28/21 17:15 Eos % (Auto) 0.9 % (0.0-4.3) 02/28/21 17:15 Baso % (Auto) 0.4 % (0.0-1.8) 02/28/21 17:15 Lymph # (Auto) 2.0 K/mm3 (1.2-5.4) 02/28/21 17:15 Dawes # (Auto) 0.8 K/mm3 (0.0-0.8) 02/28/21 17:15 Eos # (Auto) 0.1 K/mm3 (0.0-0.4) 02/28/21 17:15 Baso # (Auto) 0.0 K/mm3 (0.0-0.1) 02/28/21 17:15 Seg Neutrophils % 67.7 % (40.0-70.0) 02/28/21 17:15 Seg Neutrophils # 6.0 K/mm3 (1.8-7.7) 02/28/21 17:15 PT 15.9 Sec. (12.2-14.9) H 02/28/21 17:15 INR 1.22 (0.87-1.13) H 02/28/21 17:15 APTT 32.4 Sec. (24.2-36.6) 02/28/21 17:15 D-Dimer 258.05 ng/mlDDU (0-234) H 02/28/21 17:15 Sodium 140 mmol/L (137-145) 02/28/21 17:15 Potassium 3.8 mmol/L (3.6-5.0) 02/28/21 17:15 Chloride 106.0 mmol/L (98-107) 02/28/21 17:15 Carbon Dioxide 18 mmol/L (22-30) L 02/28/21 17:15 Anion Gap 20 mmol/L 02/28/21 17:15 BUN 10 mg/dL (7-17) 02/28/21 17:15 Creatinine 1.0 mg/dL (0.6-1.2) 02/28/21 17:15 Estimated GFR > 60 ml/min 02/28/21 17:15 BUN/Creatinine Ratio 10 % 02/28/21 17:15 Glucose 104 mg/dL (65-100) H 02/28/21 17:15 Lactic Acid 3.30 mmol/L (0.7-2.0) H* 02/28/21 17:15 Calcium 9.1 mg/dL (8.4-10.2) 02/28/21 17:15 Total Bilirubin 0.50 mg/dL (0.1-1.2) 02/28/21 17:15 AST 11 units/L (5-40) 02/28/21 17:15 ALT 7 units/L (7-56) 02/28/21 17:15 Alkaline Phosphatase 66 units/L (35-129) 02/28/21 17:15 Troponin T < 0.010 ng/mL (0.00-0.029) 02/28/21 19:44 NT-Pro-B Natriuret Pep 2509 pg/mL (0-450) H 02/28/21 17:15 Total Protein 7.2 g/dL (6.3-8.2) 02/28/21 17:15 Albumin 3.6 g/dL (3.9-5) L 02/28/21 17:15 Albumin/Globulin Ratio 1.0 % 02/28/21 17:15 - Imaging and Cardiology CT scan - chest: report reviewed Assessment and Plan VTE prophylaxis?: Chemical Plan of care discussed with patient/family: Yes - Patient Problems (1) Acute exacerbation of CHF (congestive heart failure) Current Visit: Yes Status: Acute Plan to address problem: Admit the patient to the medical floor. Put the patient on cardiac diet. Fluid restriction. Maintain input output chart. Lasix 40 mg IV every 12 hours. Echocardiogram (2) Lactic acidosis Current Visit: Yes Status: Acute Plan to address problem: Levaquin 750 mg p.o. daily. We do the blood culture. We will recheck the lactic acid. We will hold the fluid because of CHF (3) Acute respiratory failure with hypoxia Current Visit: Yes Status: Acute Plan to address problem: Oxygen per nasal cannula 3 L/min. DuoNeb by nebulizer 3 times daily. Albuterol by nebulizer every 4 hours as needed. We will monitor the patient closely. Lasix 40 mg IV every 12 hours (4) Pulmonary embolism Current Visit: Yes Status: Acute Plan to address problem: Patient has history of pulmonary embolism. We resume Xarelto 20 mg p.o. daily (5) Obesity Current Visit: No Status: Acute Plan to address problem: We counseled the patient regarding weight reduction. (6) DVT prophylaxis Current Visit: No Status: Acute Plan to address problem: Patient is on Xarelto 20 mg p.o. daily for DVT prophylaxis. Pepcid 20 mg p.o. twice daily for GI prophylaxis (7) Full code status Current Visit: No Status: Acute Plan to address problem: Patient is a full code
[2021-03-01 01:01] LABS: Bilirubin,Urine NEG (Negative); Blood,Urine NEG (Negative); Color,Urine Colorless (Yellow); Protein,Urine <15 mg/dL mg/dL (Negative); Urobilinogen,Urine < 2.0 mg/dL (<2.0)
[2021-03-01] MEDS ORDERED: IPRATROPIUM/ALBUTEROL SULFATE 3 ML AMPUL.NEB IH SCH (02:00)
[2021-03-01 05:43] LABS: Basophils # (Auto) 0.1 K/mm3 (0.0-0.1); Basophils % (Auto) 0.9 % (0.0-1.8); Eosinophils # (Auto) 0.1 K/mm3 (0.0-0.4); Eosinophils % (Auto) 1.7 % (0.0-4.3); Hematocrit 33.6 % (30.3-42.9); Hemoglobin 10.9 gm/dl (10.1-14.3); Lymphocytes # (Auto) 1.6 K/mm3 (1.2-5.4); Lymphocytes % (Auto) 23.2 % (13.4-35.0); Mean Corpuscular HGB Conc 32 % (30-34); Mean Corpuscular Volume 74 fl (79-97); Monocytes # (Auto) 0.7 K/mm3 (0.0-0.8); Monocytes % (Auto) 10.4 % (0.0-7.3); Platelet Count 275 K/mm3 (140-440); Red Blood Count 4.54 M/mm3 (3.65-5.03)
[2021-03-01 06:02] LABS: BUN/Creatinine Ratio 9; Blood Urea Nitrogen 9 mg/dL (7-17); Calcium 8.8 mg/dL (8.4-10.2); Hemolysis Index 0
[2021-03-01] MEDS: FUROSEMIDE 40 MG/4 ML INJ IV SCH ×2 (06:43→22:35)
[2021-03-01] MEDS ORDERED: FUROSEMIDE 20 MG TAB PO SCH (10:00)
[2021-03-01] MEDS: levoFLOXacin 750 MG TAB PO SCH (13:05)
[2021-03-01] MEDS: risperiDONE 0.25 MG TAB PO SCH (13:05)
[2021-03-01] MEDS: clonazePAM 0.5 MG TAB PO SCH (13:05)
[2021-03-01] MEDS: FAMOTIDINE 20 MG TAB PO SCH ×2 (13:06→22:34)
[2021-03-01] MEDS: guaiFENesin ER 600 MG TAB PO SCH ×2 (13:06→22:34)
[2021-03-01] MEDS: RIVAROXABAN 20 MG TAB PO SCH (13:52)
[2021-03-01] MEDS: MORPHINE 30 MG ER TAB PO SCH ×2 (13:52→22:34)
[2021-03-01] MEDS: ESCITALOPRAM 10 MG TAB PO SCH (13:52)
[2021-03-01] MEDS: LISINOPRIL 5 MG TAB PO SCH (13:53)
--- NOTE | 2021-03-01 15:19 | Progress Note ---
Assessment and Plan Assessment and plan: #Acute heart failure exacerbation -proBNP approximately 2500 -Likely secondary to longstanding uncontrolled hypertension -Pending TTE -Continue fluid restriction of 1.5 L/day, strict input and output, telemetry, cardiac diet -Continue IV Lasix 40 mg twice daily #Acute on chronic hypoxic respiratory failure -Currently on 4 L nasal cannula (baseline 2 L) -Should improve with further diuresis -Continue DuoNebs 3 times daily and albuterol nebulizer every 4 hours as needed #History of pulmonary embolism -Patient admits to running out of anticoagulant approximately 1 week ago -CT PE protocol negative for pulmonary embolism -Continue Xarelto 20 mg daily #Osteoarthritis of bilateral knees -Likely secondary to morbid obesity -We will manage with analgesics while inpatient; counseled patient on weight loss to reduce symptoms. Patient expressed understanding #Morbid obesity -BMI 61 -Counseled on dietary changes, exercise, and weight reduction. Patient expressed understanding -Consulting nutrition/dietitian -Time: +15 minutes #Lactic acidosis -Pending repeat lactic acid -Started on Levaquin 750 mg daily on admission. Blood cultures pending. #DVT prophylaxis -Continue Xarelto 20 mg daily Disposition Plan: Continue medical management Total Time Spent with Patient (Minutes): 45 History Interval history: No acute events overnight. Hospitalist Physical - Constitutional Vitals: Temp Pulse Resp BP Pulse Ox 98.6 F 79 17 130/63 92 02/28/21 16:59 03/01/21 07:47 03/01/21 07:47 03/01/21 07:47 03/01/21 07:47 General appearance: Present: no acute distress, well-nourished - EENT Eyes: Present: PERRL, EOM intact ENT: hearing intact, clear oral mucosa, dentition normal - Neck Neck: Present: supple, normal ROM - Respiratory Respiratory effort: normal - Cardiovascular Rhythm: regular Heart Sounds: Present: S1 & S2 - Extremities Extremities: no ischemia, pulses intact, pulses symmetrical, normal temperature Extremity abnormal: edema (3+ pitting edema to bilateral knees), erythema (Consistent with chronic venous stasis) Peripheral Pulses: within normal limits - Abdominal General gastrointestinal: soft, non-tender, non-distended, normal bowel sounds - Integumentary Integumentary: Present: dry - Psychiatric Psychiatric: appropriate mood/affect, intact judgment & insight, memory intact, cooperative - Neurologic Neurologic: CNII-XII intact, moves all extremities - Allied Health Allied health notes reviewed: nursing HEART Score - HEART Score Troponin: Troponin T < 0.010 ng/mL (0.00-0.029) 02/28/21 19:44 Results - Labs CBC & Chem 7: 03/01/21 05:24 03/01/21 05:24 Labs: Laboratory Last Values WBC 6.9 K/mm3 (4.5-11.0) 03/01/21 05:24 RBC 4.54 M/mm3 (3.65-5.03) 03/01/21 05:24 Hgb 10.9 gm/dl (10.1-14.3) 03/01/21 05:24 Hct 33.6 % (30.3-42.9) 03/01/21 05:24 MCV 74 fl (79-97) L 03/01/21 05:24 MCH 24 pg (28-32) L 03/01/21 05:24 MCHC 32 % (30-34) 03/01/21 05:24 RDW 19.0 % (13.2-15.2) H 03/01/21 05:24 Plt Count 275 K/mm3 (140-440) 03/01/21 05:24 Lymph % (Auto) 23.2 % (13.4-35.0) 03/01/21 05:24 [place] % (Auto) 10.4 % (0.0-7.3) H 03/01/21 05:24 Eos % (Auto) 1.7 % (0.0-4.3) 03/01/21 05:24 Baso % (Auto) 0.9 % (0.0-1.8) 03/01/21 05:24 Lymph # (Auto) 1.6 K/mm3 (1.2-5.4) 03/01/21 05:24 [place] # (Auto) 0.7 K/mm3 (0.0-0.8) 03/01/21 05:24 Eos # (Auto) 0.1 K/mm3 (0.0-0.4) 03/01/21 05:24 Baso # (Auto) 0.1 K/mm3 (0.0-0.1) 03/01/21 05:24 Seg Neutrophils % 63.8 % (40.0-70.0) 03/01/21 05:24 Seg Neutrophils # 4.4 K/mm3 (1.8-7.7) 03/01/21 05:24 PT 15.9 Sec. (12.2-14.9) H 02/28/21 17:15 INR 1.22 (0.87-1.13) H 02/28/21 17:15 APTT 32.4 Sec. (24.2-36.6) 02/28/21 17:15 D-Dimer 258.05 ng/mlDDU (0-234) H 02/28/21 17:15 Sodium 141 mmol/L (137-145) 03/01/21 05:24 Potassium 3.8 mmol/L (3.6-5.0) 03/01/21 05:24 Chloride 105.2 mmol/L (98-107) 03/01/21 05:24 Carbon Dioxide 23 mmol/L (22-30) 03/01/21 05:24 Anion Gap 17 mmol/L 03/01/21 05:24 BUN 9 mg/dL (7-17) 03/01/21 05:24 Creatinine 1.0 mg/dL (0.6-1.2) 03/01/21 05:24 Estimated GFR > 60 ml/min 03/01/21 05:24 BUN/Creatinine Ratio 9 % 03/01/21 05:24 Glucose 97 mg/dL (65-100) 03/01/21 05:24 Lactic Acid 3.30 mmol/L (0.7-2.0) H* 02/28/21 17:15 Calcium 8.8 mg/dL (8.4-10.2) 03/01/21 05:24 Total Bilirubin 0.50 mg/dL (0.1-1.2) 02/28/21 17:15 AST 11 units/L (5-40) 02/28/21 17:15 ALT 7 units/L (7-56) 02/28/21 17:15 Alkaline Phosphatase 66 units/L (35-129) 02/28/21 17:15 Troponin T < 0.010 ng/mL (0.00-0.029) 02/28/21 19:44 NT-Pro-B Natriuret Pep 2509 pg/mL (0-450) H 02/28/21 17:15 Total Protein 7.2 g/dL (6.3-8.2) 02/28/21 17:15 Albumin 3.6 g/dL (3.9-5) L 02/28/21 17:15 Albumin/Globulin Ratio 1.0 % 02/28/21 17:15 Urine Color Colorless (Yellow) 03/01/21 00:03 Urine Turbidity Clear (Clear) 03/01/21 00:03 Urine pH 5.0 (5.0-7.0) 03/01/21 00:03 Ur Specific [place] 1.008 (1.003-1.030) 03/01/21 00:03 Urine Protein <15 mg/dl mg/dL (Negative) 03/01/21 00:03 Urine Glucose (UA) Neg mg/dL (Negative) 03/01/21 00:03 Urine Ketones Neg mg/dL (Negative) 03/01/21 00:03 Urine Blood Neg (Negative) 03/01/21 00:03 Urine Nitrite Neg (Negative) 03/01/21 00:03 Urine Bilirubin Neg (Negative) 03/01/21 00:03 Urine Urobilinogen < 2.0 mg/dL (<2.0) 03/01/21 00:03 Ur Leukocyte Esterase Neg (Negative) 03/01/21 00:03 Urine WBC (Auto) 1.0 /HPF (0.0-6.0) 03/01/21 00:03 Urine RBC (Auto) 2.0 /HPF (0.0-6.0) 03/01/21 00:03 Coronavirus (PCR) Negative (Negative) 03/01/21 08:13 Active Medications - Current Medications Current Medications: Generic Name Dose Route Start Last Admin Trade Name Freq PRN Reason Stop Dose Admin Acetaminophen 650 mg 02/28/21 22:23 Acetaminophen 325 Mg Tab PO Q4H PRN Pain MILD(1-3)/Fever >100.5/CARTAGENA Albuterol 2.5 mg 02/28/21 22:23 Albuterol 2.5 Mg/3 Ml Nebu IH Q4HRT PRN Shortness Of Breath Albuterol/Ipratropium 1 ampul 03/01/21 08:00 Ipratropium/Albuterol Sulfate 3 Ml Ampul.Neb IH TIDRT JOSE Clonazepam 1 mg 03/01/21 10:00 03/01/21 13:05 Clonazepam 0.5 Mg Tab PO 1 mg DAILY JOSE Administration Escitalopram Oxalate 10 mg 03/01/21 10:00 03/01/21 13:52 Escitalopram 10 Mg Tab PO 10 mg DAILY JOSE Administration Famotidine 20 mg 03/01/21 10:00 03/01/21 13:06 Famotidine 20 Mg Tab PO 20 mg BID JOSE Administration Furosemide 40 mg 03/01/21 06:00 03/01/21 06:43 Furosemide 40 Mg/4 Ml Inj IV 40 mg BID@0600,1800 JOSE Administration Guaifenesin 600 mg 03/01/21 10:00 03/01/21 13:06 Guaifenesin Er 600 Mg Tab PO 600 mg BID JOSE Administration Hydromorphone HCl 0.5 mg 02/28/21 22:23 03/01/21 07:58 Hydromorphone 1 Mg/1 Ml Inj IV 0.5 mg Q3H PRN Administration Pain , Severe (7-10) Levofloxacin 750 mg 03/01/21 10:00 03/01/21 13:05 Levofloxacin 750 Mg Tab PO 03/05/21 10:01 750 mg Q24HR JOSE Administration Protocol Lisinopril 2.5 mg 03/01/21 10:00 03/01/21 13:53 Lisinopril 5 Mg Tab PO 2.5 mg QDAY JOSE Administration Morphine Sulfate 2 mg 02/28/21 22:23 Morphine 2 Mg/1 Ml Inj IV Q5MIN PRN Chest Pain unrelieved by NTG Morphine Sulfate 30 mg 03/01/21 10:00 03/01/21 13:52 Morphine 30 Mg Er Tab PO 30 mg Q12HR JOSE Administration Nitroglycerin 0.4 mg 02/28/21 22:23 Nitroglycerin 0.4 Mg Tab Subl SL .Q5MIN PRN Chest Pain Ondansetron HCl 4 mg 02/28/21 22:23 Ondansetron 4 Mg/2 Ml Inj IV Q8H PRN Nausea And Vomiting Oxycodone/Acetaminophen 1 tab 02/28/21 22:23 Oxycodone /Acetaminophen 5-325mg Tab PO Q6H PRN Pain, Moderate (4-6) Risperidone 0.5 mg 03/01/21 10:00 03/01/21 13:05 Risperidone 0.25 Mg Tab PO 0.5 mg DAILY JOSE Administration Rivaroxaban 20 mg 03/01/21 10:00 03/01/21 13:52 Rivaroxaban 20 Mg Tab PO 20 mg QDAY JOSE Administration Sodium Chloride 10 ml 03/01/21 10:00 03/01/21 13:06 Sodium Chloride 0.9% 10 Ml Flush Syringe IV 10 ml BID JOSE Administration Sodium Chloride 10 ml 02/28/21 22:23 Sodium Chloride 0.9% 10 Ml Flush Syringe IV PRN PRN LINE FLUSH
[2021-03-01] MEDS: IPRATROPIUM/ALBUTEROL SULFATE 3 ML AMPUL.NEB IH SCH ×2 (18:40→20:21)
[2021-03-02 06:29] LABS: Basophils % (Auto) 0.5 % (0.0-1.8); Eosinophils # (Auto) 0.1 K/mm3 (0.0-0.4); Eosinophils % (Auto) 2.1 % (0.0-4.3); Hematocrit 33.9 % (30.3-42.9); Hemoglobin 10.7 gm/dl (10.1-14.3); Lymphocytes # (Auto) 1.7 K/mm3 (1.2-5.4); Mean Corpuscular HGB Conc 32 % (30-34); Mean Corpuscular Volume 74 fl (79-97); Monocytes # (Auto) 0.7 K/mm3 (0.0-0.8); Monocytes % (Auto) 10.1 % (0.0-7.3); Platelet Count 284 K/mm3 (140-440); Red Cell Distribution Width 18.9 % (13.2-15.2)
[2021-03-02] MEDS: FUROSEMIDE 40 MG/4 ML INJ IV SCH ×2 (06:44→19:07)
[2021-03-02 06:58] LABS: BUN/Creatinine Ratio 9; Blood Urea Nitrogen 9 mg/dL (7-17); Calcium 8.6 mg/dL (8.4-10.2); Hemolysis Index 38
[2021-03-02] MEDS: IPRATROPIUM/ALBUTEROL SULFATE 3 ML AMPUL.NEB IH SCH ×3 (09:17→22:24)
[2021-03-02] MEDS: risperiDONE 0.25 MG TAB PO SCH (11:05)
[2021-03-02] MEDS: FAMOTIDINE 20 MG TAB PO SCH ×2 (11:06→22:56)
[2021-03-02] MEDS: clonazePAM 0.5 MG TAB PO SCH (11:06)
[2021-03-02] MEDS: guaiFENesin ER 600 MG TAB PO SCH ×2 (11:06→22:56)
[2021-03-02] MEDS: levoFLOXacin 750 MG TAB PO SCH (11:07)
[2021-03-02] MEDS: MORPHINE 30 MG ER TAB PO SCH ×2 (11:07→22:56)
[2021-03-02] MEDS: ESCITALOPRAM 10 MG TAB PO SCH (11:07)
--- NOTE | 2021-03-02 11:46 | Electrocardiograph Report ---
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
[2021-03-02] MEDS: RIVAROXABAN 20 MG TAB PO SCH (12:58)
[2021-03-02] MEDS: LISINOPRIL 5 MG TAB PO SCH (13:01)
--- NOTE | 2021-03-02 15:25 | Progress Note ---
Assessment and Plan Assessment and plan: #Acute diastolic heart failure exacerbation-improving -proBNP approximately 2500 -Likely secondary to longstanding uncontrolled hypertension -TTE (10/2020) revealed mild diastolic heart failure with impaired relaxation. Due to recent TTE, no repeat echo will be performed during this encounter -Continue fluid restriction of 1.5 L/day, strict input and output, telemetry, cardiac diet -Continue IV Lasix 40 mg twice daily; consider transitioning to p.o. Lasix tomorrow if patient can lie supine #Acute on chronic hypoxic respiratory failure -Currently on 4 L nasal cannula (baseline 2 L) -Should improve with further diuresis -Continue DuoNebs 3 times daily and albuterol nebulizer every 4 hours as needed #History of pulmonary embolism -Patient admits to running out of anticoagulant approximately 1 week ago -CT PE protocol negative for pulmonary embolism -Continue Xarelto 20 mg daily #Osteoarthritis of bilateral knees -Likely secondary to morbid obesity -We will manage with analgesics while inpatient; counseled patient on weight loss to reduce symptoms. Patient expressed understanding #Morbid obesity -BMI 61 -Counseled on dietary changes, exercise, and weight reduction. Patient expressed understanding -Consulting nutrition/dietitian -Time: +15 minutes #Lactic acidosis -Pending repeat lactic acid -Started on Levaquin 750 mg daily on admission. Blood cultures pending. #DVT prophylaxis -Continue Xarelto 20 mg daily Disposition Plan: Continue medical management; possible discharge in 1 to 2 days Total Time Spent with Patient (Minutes): 30 History Interval history: No acute events overnight. Hospitalist Physical - Constitutional Vitals: Temp Pulse Resp BP Pulse Ox 97.7 F 75 20 109/58 94 03/02/21 12:30 03/02/21 13:01 03/02/21 12:30 03/02/21 13:01 03/02/21 13:25 General appearance: Present: no acute distress, well-nourished, obese - EENT Eyes: Present: PERRL, EOM intact ENT: hearing intact, clear oral mucosa, dentition normal - Neck Neck: Present: supple, normal ROM - Respiratory Respiratory effort: normal - Cardiovascular Rhythm: regular Heart Sounds: Present: S1 & S2 - Extremities Extremities: no ischemia, pulses intact, pulses symmetrical, normal temperature, normal color Extremity abnormal: edema (1+ pitting edema to bilateral lower) Peripheral Pulses: within normal limits - Abdominal General gastrointestinal: soft, non-tender, non-distended, other (Difficult to auscultate bowel sounds given body habitus) - Integumentary Integumentary: Present: clear, warm, rash (Fungal rash under pannus and the creases of lower legs) - Psychiatric Psychiatric: appropriate mood/affect, intact judgment & insight, memory intact, cooperative - Neurologic Neurologic: CNII-XII intact, moves all extremities - Allied Health Allied health notes reviewed: nursing HEART Score - HEART Score History: Moderately suspicious EKG: Non-specific Age: 45-65 Risk factors: 1-2 risk factors Troponin: Troponin T < 0.010 ng/mL (0.00-0.029) 02/28/21 19:44 - Critical Actions Critical Actions: 4-6 pts:12-16.6% risk of adverse cardiac event. Should be admitted Results - Labs CBC & Chem 7: 03/02/21 06:02 03/02/21 06:02 Labs: Laboratory Last Values WBC 6.7 K/mm3 (4.5-11.0) 03/02/21 06:02 RBC 4.60 M/mm3 (3.65-5.03) 03/02/21 06:02 Hgb 10.7 gm/dl (10.1-14.3) 03/02/21 06:02 Hct 33.9 % (30.3-42.9) 03/02/21 06:02 MCV 74 fl (79-97) L 03/02/21 06:02 MCH 23 pg (28-32) L 03/02/21 06:02 MCHC 32 % (30-34) 03/02/21 06:02 RDW 18.9 % (13.2-15.2) H 03/02/21 06:02 Plt Count 284 K/mm3 (140-440) 03/02/21 06:02 Lymph % (Auto) 25.0 % (13.4-35.0) 03/02/21 06:02 [place] % (Auto) 10.1 % (0.0-7.3) H 03/02/21 06:02 Eos % (Auto) 2.1 % (0.0-4.3) 03/02/21 06:02 Baso % (Auto) 0.5 % (0.0-1.8) 03/02/21 06:02 Lymph # (Auto) 1.7 K/mm3 (1.2-5.4) 03/02/21 06:02 [place] # (Auto) 0.7 K/mm3 (0.0-0.8) 03/02/21 06:02 Eos # (Auto) 0.1 K/mm3 (0.0-0.4) 03/02/21 06:02 Baso # (Auto) 0.0 K/mm3 (0.0-0.1) 03/02/21 06:02 Seg Neutrophils % 62.3 % (40.0-70.0) 03/02/21 06:02 Seg Neutrophils # 4.2 K/mm3 (1.8-7.7) 03/02/21 06:02 PT 15.9 Sec. (12.2-14.9) H 02/28/21 17:15 INR 1.22 (0.87-1.13) H 02/28/21 17:15 APTT 32.4 Sec. (24.2-36.6) 02/28/21 17:15 D-Dimer 258.05 ng/mlDDU (0-234) H 02/28/21 17:15 Sodium 143 mmol/L (137-145) 03/02/21 06:02 Potassium 3.9 mmol/L (3.6-5.0) 03/02/21 06:02 Chloride 105.7 mmol/L (98-107) 03/02/21 06:02 Carbon Dioxide 23 mmol/L (22-30) 03/02/21 06:02 Anion Gap 18 mmol/L 03/02/21 06:02 BUN 9 mg/dL (7-17) 03/02/21 06:02 Creatinine 1.0 mg/dL (0.6-1.2) 03/02/21 06:02 Estimated GFR > 60 ml/min 03/02/21 06:02 BUN/Creatinine Ratio 9 % 03/02/21 06:02 Glucose 95 mg/dL (65-100) 03/02/21 06:02 Lactic Acid 3.30 mmol/L (0.7-2.0) H* 02/28/21 17:15 Calcium 8.6 mg/dL (8.4-10.2) 03/02/21 06:02 Phosphorus 4.70 mg/dL (2.5-4.5) H 03/02/21 06:02 Magnesium 2.20 mg/dL (1.7-2.3) 03/02/21 06:02 Total Bilirubin 0.50 mg/dL (0.1-1.2) 02/28/21 17:15 AST 11 units/L (5-40) 02/28/21 17:15 ALT 7 units/L (7-56) 02/28/21 17:15 Alkaline Phosphatase 66 units/L (35-129) 02/28/21 17:15 Troponin T < 0.010 ng/mL (0.00-0.029) 02/28/21 19:44 NT-Pro-B Natriuret Pep 2509 pg/mL (0-450) H 02/28/21 17:15 Total Protein 7.2 g/dL (6.3-8.2) 02/28/21 17:15 Albumin 3.6 g/dL (3.9-5) L 02/28/21 17:15 Albumin/Globulin Ratio 1.0 % 02/28/21 17:15 Urine Color Colorless (Yellow) 03/01/21 00:03 Urine Turbidity Clear (Clear) 03/01/21 00:03 Urine pH 5.0 (5.0-7.0) 03/01/21 00:03 Ur Specific [place] 1.008 (1.003-1.030) 03/01/21 00:03 Urine Protein <15 mg/dl mg/dL (Negative) 03/01/21 00:03 Urine Glucose (UA) Neg mg/dL (Negative) 03/01/21 00:03 Urine Ketones Neg mg/dL (Negative) 03/01/21 00:03 Urine Blood Neg (Negative) 03/01/21 00:03 Urine Nitrite Neg (Negative) 03/01/21 00:03 Urine Bilirubin Neg (Negative) 03/01/21 00:03 Urine Urobilinogen < 2.0 mg/dL (<2.0) 03/01/21 00:03 Ur Leukocyte Esterase Neg (Negative) 03/01/21 00:03 Urine WBC (Auto) 1.0 /HPF (0.0-6.0) 03/01/21 00:03 Urine RBC (Auto) 2.0 /HPF (0.0-6.0) 03/01/21 00:03 Coronavirus (PCR) Negative (Negative) 03/01/21 08:13 Mak/IV: Voiding Method External Female Catheter Active Medications - Current Medications Current Medications: Generic Name Dose Route Start Last Admin Trade Name Freq PRN Reason Stop Dose Admin Acetaminophen 650 mg 02/28/21 22:23 Acetaminophen 325 Mg Tab PO Q4H PRN Pain MILD(1-3)/Fever >100.5/CARTAGENA Albuterol 2.5 mg 02/28/21 22:23 Albuterol 2.5 Mg/3 Ml Nebu IH Q4HRT PRN Shortness Of Breath Albuterol/Ipratropium 1 ampul 03/01/21 08:00 03/02/21 14:04 Ipratropium/Albuterol Sulfate 3 Ml Ampul.Neb IH 1 ampul TIDRT JOSE Administration Clonazepam 1 mg 03/01/21 10:00 03/02/21 11:06 Clonazepam 0.5 Mg Tab PO 1 mg DAILY JOSE Administration Escitalopram Oxalate 10 mg 03/01/21 10:00 03/02/21 11:07 Escitalopram 10 Mg Tab PO 10 mg DAILY JOSE Administration Famotidine 20 mg 03/01/21 10:00 03/02/21 11:06 Famotidine 20 Mg Tab PO 20 mg BID JOSE Administration Furosemide 40 mg 03/01/21 06:00 03/02/21 06:44 Furosemide 40 Mg/4 Ml Inj IV Not Given BID@0600,1800 [facility] Guaifenesin 600 mg 03/01/21 10:00 03/02/21 11:06 Guaifenesin Er 600 Mg Tab PO 600 mg BID JOSE Administration Hydromorphone HCl 0.5 mg 02/28/21 22:23 03/01/21 07:58 Hydromorphone 1 Mg/1 Ml Inj IV 0.5 mg Q3H PRN Administration Pain , Severe (7-10) Ketoconazole 1 applic 03/02/21 12:00 Ketoconazole 2% Cream 15 Gm TP BID JOSE Levofloxacin 750 mg 03/01/21 10:00 03/02/21 11:07 Levofloxacin 750 Mg Tab PO 03/05/21 10:01 750 mg Q24HR JOSE Administration Protocol Lisinopril 2.5 mg 03/01/21 10:00 03/02/21 13:01 Lisinopril 5 Mg Tab PO Not Given QDAY JOSE Morphine Sulfate 2 mg 02/28/21 22:23 Morphine 2 Mg/1 Ml Inj IV Q5MIN PRN Chest Pain unrelieved by NTG Morphine Sulfate 30 mg 03/01/21 10:00 03/02/21 11:07 Morphine 30 Mg Er Tab PO 30 mg Q12HR JOSE Administration Nitroglycerin 0.4 mg 02/28/21 22:23 Nitroglycerin 0.4 Mg Tab Subl SL .Q5MIN PRN Chest Pain Ondansetron HCl 4 mg 02/28/21 22:23 Ondansetron 4 Mg/2 Ml Inj IV Q8H PRN Nausea And Vomiting Oxycodone/Acetaminophen 1 tab 02/28/21 22:23 Oxycodone /Acetaminophen 5-325mg Tab PO Q6H PRN Pain, Moderate (4-6) Risperidone 0.5 mg 03/01/21 10:00 03/02/21 11:05 Risperidone 0.25 Mg Tab PO 0.5 mg DAILY JOSE Administration Rivaroxaban 20 mg 03/01/21 10:00 03/02/21 12:58 Rivaroxaban 20 Mg Tab PO 20 mg QDAY JOSE Administration Sodium Chloride 10 ml 03/01/21 10:00 03/02/21 11:08 Sodium Chloride 0.9% 10 Ml Flush Syringe IV 10 ml BID JOSE Administration Sodium Chloride 10 ml 02/28/21 22:23 Sodium Chloride 0.9% 10 Ml Flush Syringe IV PRN PRN LINE FLUSH Nutrition/Malnutrition Assess - Dietary Evaluation Nutrition/Malnutrition Findings: Nutrition Notes Start: 03/02/21 09:17 Freq: Status: Active Protocol: Document 03/02/21 09:17 HUMAIRA (Rec: 03/02/21 09:26 HUMAIRA [id number]) Nutrition Notes Need for Assessment generated from: MD Order Initial or Follow up Assessment Current Diagnosis Heart Failure,Respiratory Failure Other Pertinent Diagnosis Morbid obesity Current Diet Cardiac Diet ( since B 02/28) Labs/Tests 03/02: Within range Pertinent Medications 03/02: Reviewed. Height 5 ft 7 in Weight 191.507 kg [place] Body Weight (kg) 61.36 BMI 66.1 Weight Status Morbidly Obese Percent of energy/protein needs met: Prescribed [place] Diet provides for energy/protein needs (2230 Kcal/85 g/) during LOS. Burn Absent Trauma Absent GI Symptoms None Food Allergy No Skin Integrity/Comment Integumentary; clear warm, dry . Minimum of two criteria No physical signs of malnutrition #1 Nutrition Diagnosis Food and nutrition-related knowledge deficit Etiology Pt has several cronic metabolic comorbidities As Evidenced by Signs and Symptoms Diagnosis by MD documented in progress notes Is patient on ventilator? No Is Patient Ambulatory and/or Out of Bed Yes REE-(Page-St. Jeor-ambulatory/OOB) [ 3364.010 [id number]] Kcal/Kg value to use for calculation 12 Approximate Energy Requirements Using 2298 kcal/Kg Calculation Used for Recommendations Kcal/kg Additional Notes Protein: 1.0-1.2 g/Kg/day; 61- 73 g/day; 244-292 Kcal/day ( from IBW). Fluids: 1.0 ml/Kcal/day, or as per MD. Nutrition Intervention Change Diet Order: Continue Cardiac Diet as prescribed during LOS. Teaching Recipient Patient Learning Readiness Good Teaching Methods Handout Response to Teaching Verbalize understanding Education Handouts Provided AND: [employer] Consistent Carbohydrate Nutrition Therapy. Barriers to Learning No Barriers RD phone number provided Yes Patient aware of follow up options Yes Goal #1 Provide Pt with educational tools to elicit behavioral change towards a healthy lifestyle. Goal #2 Maintain body weight within +/ -3% of actual BWt during LOS. Goal #3 Maintain acceptable chemistry lab values during LOS. Follow-Up By: 03/09/21 Additional Comments Continue monitoring acceptance of food, % PO intake of meals , and BM. - Attestation Statement I have reviewed and agreed w/ Malnutrition eval & tx plan: Yes
[2021-03-02] MEDS: KETOCONAZOLE 2% CREAM 15 GM TP SCH ×2 (17:52→22:03)
[2021-03-03 03:14] LABS: Basophils % (Auto) 0.2 % (0.0-1.8); Eosinophils # (Auto) 0.1 K/mm3 (0.0-0.4); Eosinophils % (Auto) 1.9 % (0.0-4.3); Hematocrit 31.8 % (30.3-42.9); Hemoglobin 10.1 gm/dl (10.1-14.3); Lymphocytes # (Auto) 1.5 K/mm3 (1.2-5.4); Lymphocytes % (Auto) 21.2 % (13.4-35.0); Mean Corpuscular HGB Conc 32 % (30-34); Mean Corpuscular Volume 74 fl (79-97); Monocytes # (Auto) 0.6 K/mm3 (0.0-0.8); Monocytes % (Auto) 8.7 % (0.0-7.3); Platelet Count 275 K/mm3 (140-440); Red Blood Count 4.32 M/mm3 (3.65-5.03); Red Cell Distribution Width 18.6 % (13.2-15.2)
[2021-03-03 04:02] LABS: BUN/Creatinine Ratio 10; Blood Urea Nitrogen 9 mg/dL (7-17); Calcium 8.5 mg/dL (8.4-10.2); Hemolysis Index 0
[2021-03-03] MEDS: FUROSEMIDE 40 MG/4 ML INJ IV SCH (07:33)
[2021-03-03] MEDS: IPRATROPIUM/ALBUTEROL SULFATE 3 ML AMPUL.NEB IH SCH ×3 (08:02→21:12)
[2021-03-03] MEDS: ESCITALOPRAM 10 MG TAB PO SCH (09:48)
[2021-03-03] MEDS: FAMOTIDINE 20 MG TAB PO SCH ×2 (09:48→22:08)
[2021-03-03] MEDS: guaiFENesin ER 600 MG TAB PO SCH ×2 (09:48→22:08)
[2021-03-03] MEDS: clonazePAM 0.5 MG TAB PO SCH (09:48)
[2021-03-03] MEDS: LISINOPRIL 5 MG TAB PO SCH (09:49)
[2021-03-03] MEDS: levoFLOXacin 750 MG TAB PO SCH (09:49)
[2021-03-03] MEDS: MORPHINE 30 MG ER TAB PO SCH ×2 (09:50→22:08)
[2021-03-03] MEDS: risperiDONE 0.25 MG TAB PO SCH (09:50)
[2021-03-03] MEDS: KETOCONAZOLE 2% CREAM 15 GM TP SCH ×2 (09:51→22:10)
[2021-03-03] MEDS: RIVAROXABAN 20 MG TAB PO SCH (10:30)
--- NOTE | 2021-03-03 12:53 | Discharge Summary ---
Providers - Providers Date of Admission: 02/28/21 21:19 Date of discharge: 03/03/21 Attending physician: JEREL LYONS MD 03/01/21 09:13 Physical Therapy Evaluation and Treat [CONS] Routine Comment: Reason For Exam: Assess mobility Primary care physician: CONTRACT ASSOCIATE Hospitalization Reason for admission: Shortness of breath Condition: Stable Pertinent studies: Reviewed. Procedures: None. Hospital course: The patient is a 46-year-old female with past medical history of chronic hypoxic respiratory failure requiring 2 L nasal cannula at home, history of pulmonary embolism, bilateral osteoarthritis of knees, and morbid obesity who presented with worsening shortness of breath and was found to have acute diastolic heart failure exacerbation requiring IV diuresis. The patient was weaned down to her baseline home oxygen requirements and endorses clinical improvement. Patient was evaluated by physical therapy and recommended home health with physical therapy; however, the patient declined home health. The patient will be dischar ge with a rolling walker. The patient will also be scheduled with PCP follow- up. Disposition: 01 HOME / SELF CARE / HOMELESS Final Discharge Diagnosis (Prints w/discharge instructions): Acute on chronic hypoxic respiratory failure; acute on chronic diastolic heart failure exacerbation; morbid obesity Time spent for discharge: 40 Core Measure Documentation - Palliative Care Palliative Care/ Comfort Measures: Not Applicable - Core Measures Any of the following diagnoses?: heart failure - VTE Discharge Requirements Deep Vein Thrombosis/Pulmonary Embolism Present on Admission: No Has pt received <5 days of overlap therapy or INR<2.0: No Anticoagulant overlap therapy prescribed at discharge: No Contraindication No Overlap Therapy order at DC: Not Indicated - Acute NM Discharge Requirements Aspirin at discharge: No Reason for no aspirin on DC: Medical contraindication (Medically needed) PETER/ARB for LVSD if EF <40%: Not Applicable Reason for no PETER/ARB: Medical contraindication (Not medically necessary) Beta nasir at discharge: No Reason for no beta nasir on DC: Medical contraindication (Not applicable) Statin for LDL = or >100 mg/dl on DC: Not Applicable Reason for no statin on DC: Medical contraindication (Not applicable) - Heart Failure Discharge Requirements PETER/ARB for LVSD if EF <40%: Not Applicable Reason for no PETER/ARB: Medical contraindication (Not applicable) Beta nasir at discharge: No Reason for no beta nasir on DC: Medical contraindication (Not applicable) - Stroke Discharge Requirements Statin for LDL = or >70 mg/dl on DC: Not Applicable Reason for no statin on DC: Not Indicated Anticoag for atrial fib/atrial flutter: Not Applicable Reason for no anticoag for AF/F on DC: Not Indicated Antithrombotic for ischemic stroke: No Reason for no antithrombotic on DC: Not Indicated Exam - Constitutional Vitals: Temp Pulse Resp BP Pulse Ox 98.3 F 74 18 113/66 92 03/03/21 07:13 03/03/21 08:15 03/03/21 08:15 03/03/21 09:49 03/03/21 12:42 General appearance: Present: no acute distress - EENT Eyes: Present: PERRL, EOM intact ENT: hearing intact, clear oral mucosa, dentition normal - Neck Neck: Present: supple, normal ROM - Respiratory Respiratory effort: normal (Currently on 2 L nasal cannula) - Cardiovascular Rhythm: regular Heart Sounds: Present: S1 & S2 - Extremities Extremities: no ischemia, pulses intact, pulses symmetrical, normal temperature Extremity abnormal: edema (1+ pitting edema to bilateral knees), erythema (Chronic venous stasis) Peripheral Pulses: within normal limits - Abdominal General gastrointestinal: Present: soft, non-tender, non-distended, normal bowel sounds Female genitourinary: Present: deferred - Rectal Rectal Exam: deferred - Integumentary Integumentary: Present: clear, warm, dry - Musculoskeletal Musculoskeletal: strength equal bilaterally - Psychiatric Psychiatric: appropriate mood/affect, intact judgment & insight, memory intact, cooperative - Neurologic Neurologic: CNII-XII intact, moves all extremities - Allied Health Allied health notes reviewed: nursing Plan Health Concerns: Patient should return back to emergency room if they experience any of the following: Worsening shortness of breath, chest pain/pressure, inability to tolerate p.o. intake, weakness, confusion. Assessment: Patient discharging home with rolling walker. Follow up with: PRIMARY CAREMD [Primary Care Provider] - 3-5 Days DONNY CHILD MD [Staff Physician] - 7 Days (Post hospitalization follow-up acute on chronic diastolic heart failure. Recommend dietitian/civil engineer in training consult.) Prescriptions: Furosemide [Lasix TAB] 40 mg PO 0600,1800 #60 tablet Ketoconazole 2% [Nizoral] 1 applic TP BID #1 tube
[2021-03-03] MEDS: MORPHINE 2 MG/1 ML INJ IV PRN ×2 (14:29→23:38)
[2021-03-03] MEDS: FUROSEMIDE 40 MG TAB PO SCH (17:02)
[2021-03-04 08:35] LABS: Basophils % (Auto) 0.5 % (0.0-1.8); Eosinophils # (Auto) 0.2 K/mm3 (0.0-0.4); Eosinophils % (Auto) 2.4 % (0.0-4.3); Hemoglobin 10.7 gm/dl (10.1-14.3); Lymphocytes # (Auto) 1.4 K/mm3 (1.2-5.4); Lymphocytes % (Auto) 21.2 % (13.4-35.0); Mean Corpuscular HGB Conc 31 % (30-34); Mean Corpuscular Volume 74 fl (79-97); Monocytes # (Auto) 0.7 K/mm3 (0.0-0.8); Monocytes % (Auto) 10.1 % (0.0-7.3); Platelet Count 292 K/mm3 (140-440); Red Blood Count 4.61 M/mm3 (3.65-5.03); Red Cell Distribution Width 18.7 % (13.2-15.2)
[2021-03-04 08:43] LABS: BUN/Creatinine Ratio 9; Blood Urea Nitrogen 8 mg/dL (7-17); Calcium 8.9 mg/dL (8.4-10.2); Hemolysis Index 0
[2021-03-04] MEDS: levoFLOXacin 750 MG TAB PO SCH (09:21)
[2021-03-04] MEDS: clonazePAM 0.5 MG TAB PO SCH (09:21)
[2021-03-04] MEDS: guaiFENesin ER 600 MG TAB PO SCH (09:22)
[2021-03-04] MEDS: ESCITALOPRAM 10 MG TAB PO SCH (09:22)
[2021-03-04] MEDS: MORPHINE 30 MG ER TAB PO SCH (09:22)
[2021-03-04] MEDS: risperiDONE 0.25 MG TAB PO SCH (09:22)
[2021-03-04] MEDS: LISINOPRIL 5 MG TAB PO SCH (09:23)
[2021-03-04] MEDS: RIVAROXABAN 20 MG TAB PO SCH (09:27)
[2021-03-04] MEDS: FAMOTIDINE 20 MG TAB PO SCH (09:32)
[2021-03-04] MEDS: KETOCONAZOLE 2% CREAM 15 GM TP SCH (09:32)
[2021-03-04] MEDS: FUROSEMIDE 40 MG TAB PO SCH (09:33)
[2021-03-04 13:48] VITALS: BP 125/76
[2021-03-05] MEDS: IPRATROPIUM/ALBUTEROL SULFATE 3 ML AMPUL.NEB IH SCH (09:33)
== END 2021-03-04 13:25 | disposition home or self-care (01) | DRG 189 ==
LOC: ED 16:55 → 3A 21:19
PROVIDERS: ADMIT Hospitalist; ATTEND Student in an Organized Health Care Education/Training Program
DX: J96.21 Acute and chronic respiratory failure with hypoxia (principal); I11.0 Hypertensive heart disease with heart failure; E87.2 Acidosis; Z68.44 Body mass index [BMI] 60.0-69.9, adult; E66.01 Morbid (severe) obesity due to excess calories; Z71.3 Dietary counseling and surveillance; Z88.6 Allergy status to analgesic agent; Z20.822 Contact with and (suspected) exposure to COVID-19; I50.33 Acute on chronic diastolic (congestive) heart failure; Z86.711 Personal history of pulmonary embolism; M06.9 Rheumatoid arthritis, unspecified; M17.0 Bilateral primary osteoarthritis of knee
CPT/HCPCS: 36415; 71275; 80048; 80053; 81001; 82140; 83735; 83880; 84100; 84484; 85025; 85379; 85610; 85730; 93005; 94640; 94760; G0378; J1170; J1940; J2270; Q9967; U0003

== ENCOUNTER 2021-11-04 12:48 | Inpatient (IN) | payer MEDICAID ==
[2021-11-04 14:46] LABS: Basophils % (Auto) 0.3 % (0.0-1.8); Eosinophils # (Auto) 0.1 K/mm3 (0.0-0.4); Eosinophils % (Auto) 0.8 % (0.0-4.3); Hematocrit 38.4 % (30.3-42.9); Mean Corpuscular HGB Conc 31 % (30-34); Mean Corpuscular Volume 78 fl (79-97); Monocytes # (Auto) 0.9 K/mm3 (0.0-0.8); Platelet Count 221 K/mm3 (140-440); Red Blood Count 4.92 M/mm3 (3.65-5.03)
[2021-11-04 14:55] LABS: BUN/Creatinine Ratio 13; Blood Urea Nitrogen 13 mg/dL (7-17); Calcium 8.7 mg/dL (8.4-10.2); Hemolysis Index 4
[2021-11-04 14:56] LABS: INR 1.23 (0.87-1.13)
--- NOTE | 2021-11-04 17:15 | Emergency Department Report ---
ED Shortness of Breath HPI - General Chief Complaint: Dyspnea/Respdistress Stated Complaint: HEART FAILURE/DIFFICULTY BREATHING/WALKING Time Seen by Provider: 11/04/21 16:59 Source: patient, family Mode of arrival: Stretcher Limitations: Physical Limitation - History of Present Illness Initial Comments: Patient is a 46-year-old female that presents emergency room for shortness of breath, weakness, leg pain.. Patient says her shortness of breath A week and is worsening. Patient also complaining of generalized weakness. Patient states she had multiple falls due to the weakness. Patient denies hitting her head. Patient states that shortness of breath is worse with exertion and better with rest. Patient states that her leg pain is a 10 out of 10. Patient states that she is on treatment for blood clots on Xarelto. Patient states she is compliant with her medications. Patient states that she got bilateral lower extremity redness and a foul discharge from her skin. Patient denies fever and chills. Patient denies recent travel. Patient denies recent international travel. Patient denies exposure to the novel coronavirus. Patient denies sick contacts. Patient denies fever and chills. Patient denies cough. Patient denies diarrhea. Patient denies coming in contact with anybody with symptoms of the novel coronavirus. MD Complaint: shortness of breath -: Gradual Pain Scale: 10 Quality: throbbing Consistency: constant Improves With: rest Worsens With: movement Known History Of: congestive heart failure Associated Symptoms: lower extremity pain Treatments Prior to Arrival: oxygen - Related Data Home Oxygen Therapy: Yes Home Oxygen Amount: 2 Liters Home Medications Medication Instructions Recorded Confirmed Last Taken Escitalopram [Lexapro] 10 mg PO DAILY 04/26/20 03/02/21 02/28/21 clonazePAM [Klonopin] 1 mg PO DAILY 04/26/20 03/02/21 02/28/21 risperiDONE [RisperDAL] 0.5 mg PO DAILY 04/26/20 03/02/21 03/01/21 Previous Rx's Medication Instructions Recorded Last Taken Type Morphine ER [Ms Contin ER] 30 mg PO Q12HR tablet 09/09/20 03/01/21 Rx guaiFENesin ER [Mucinex ER] 600 mg PO BID #14 tablet 09/09/20 03/01/21 Rx Fondaparinux Sodium [Arixtra] 10 mg SQ DAILY #30 syringe 11/15/20 03/01/21 Rx ALBUTEROL NEB's [Proventil 0.083% 2.5 mg IH Q4HRT PRN nebu 03/03/21 Unknown Rx NEBS] Furosemide [Lasix TAB] 40 mg PO 0600,1800 #60 tablet 03/03/21 Unknown Rx Ketoconazole 2% [Nizoral] 1 applic TP BID #1 tube 03/03/21 Unknown Rx Rivaroxaban [Xarelto] 20 mg PO QDAY tablet 03/03/21 Unknown Rx lisinopriL [Zestril TAB] 2.5 mg PO QDAY tablet 03/03/21 Unknown Rx Allergies Allergy/AdvReac Type Severity Reaction Status Date / Time aspirin Allergy Mild Rash Verified 02/28/21 16:57 ED Review of Systems ROS: Stated complaint: HEART FAILURE/DIFFICULTY BREATHING/WALKING Other details as noted in HPI Constitutional: denies: chills, fever Eyes: denies: eye pain, eye discharge, vision change ENT: denies: ear pain, throat pain Respiratory: shortness of breath, SOB with exertion, SOB at rest. denies: cough, wheezing Cardiovascular: denies: chest pain, palpitations Endocrine: no symptoms reported Gastrointestinal: denies: abdominal pain, nausea, vomiting, diarrhea Genitourinary: denies: urgency, dysuria, discharge Musculoskeletal: as per HPI. denies: back pain, joint swelling, arthralgia Skin: denies: rash, lesions Neurological: denies: headache, weakness, paresthesias Psychiatric: denies: anxiety, depression Hematological/Lymphatic: denies: easy bleeding, easy bruising ED Past Medical Hx - Past Medical History Previous Medical History?: Yes Hx Hypertension: No Hx Congestive Heart Failure: No Hx Diabetes: No Hx Deep Vein Thrombosis: Yes (BILATERAL WITH PE 2017,2018) Hx Pulmonary Embolism: Yes Hx Liver Disease: No Hx Renal Disease: No Hx Arthritis: Yes (RA) Hx Seizures: No Hx Asthma: No Hx COPD: No Additional medical history: poor circulation to lower extremities CELLULITIS. anemia, MORBID OBESITY / PE - Surgical History Past Surgical History?: Yes Hx Coronary Stent: Yes (STENTS) Additional Surgical History: stents in legs - Family History Family history: no significant - Social History Smoking Status: Unknown if ever smoked Substance Use Type: None - Medications Home Medications: Home Medications Medication Instructions Recorded Confirmed Last Taken Type Escitalopram [Lexapro] 10 mg PO DAILY 04/26/20 03/02/21 02/28/21 History clonazePAM [Klonopin] 1 mg PO DAILY 04/26/20 03/02/21 02/28/21 History risperiDONE [RisperDAL] 0.5 mg PO DAILY 04/26/20 03/02/21 03/01/21 History Morphine ER [Ms Contin ER] 30 mg PO Q12HR tablet 09/09/20 03/02/21 03/01/21 Rx guaiFENesin ER [Mucinex ER] 600 mg PO BID #14 tablet 09/09/20 03/02/21 03/01/21 Rx Fondaparinux Sodium [Arixtra] 10 mg SQ DAILY #30 syringe 11/15/20 03/02/21 03/01/21 Rx ALBUTEROL NEB's [Proventil 0.083% 2.5 mg IH Q4HRT PRN nebu 03/03/21 Unknown Rx NEBS] Furosemide [Lasix TAB] 40 mg PO 0600,1800 #60 tablet 03/03/21 Unknown Rx Ketoconazole 2% [Nizoral] 1 applic TP BID #1 tube 03/03/21 Unknown Rx Rivaroxaban [Xarelto] 20 mg PO QDAY tablet 03/03/21 Unknown Rx lisinopriL [Zestril TAB] 2.5 mg PO QDAY tablet 03/03/21 Unknown Rx ED Physical Exam - General Limitations: Physical Limitation General appearance: alert, in no apparent distress - Head Head exam: Present: atraumatic, normocephalic - Eye Eye exam: Present: normal appearance - ENT ENT exam: Present: mucous membranes moist - Neck Neck exam: Present: normal inspection - Respiratory Respiratory exam: Present: respiratory distress, accessory muscle use - Cardiovascular Cardiovascular Exam: Present: regular rate, normal rhythm. Absent: systolic murmur, diastolic murmur, rubs, gallop - GI/Abdominal GI/Abdominal exam: Present: soft, normal bowel sounds - Extremities Exam Extremities exam: Present: tenderness, pedal edema, other. Absent: calf te nderness - Back Exam Back exam: Present: normal inspection - Neurological Exam Neurological exam: Present: alert, oriented X3 - Psychiatric Psychiatric exam: Present: normal affect, normal mood - Skin Skin exam: Present: warm, dry, erythema (To the bilateral lower extremities. Multiple areas of excoriation and a purulent discharge from her folds of her lower extremities.). Absent: rash ED Course Vital Signs 11/04/21 12:55 Temperature 98.1 F Pulse Rate 86 Respiratory 20 Rate Blood Pressure 107/50 O2 Sat by Pulse 83 L Oximetry - Reevaluation(s) Reevaluation #1: Patient states shortness of breath is slightly better. Patient already received IV Lasix. I discussed all results with patient. I discussed plan of care with patient. Patient agrees with plan of care and admission. Patient to be admitted to the hospitalist service. 11/04/21 18:45 - Consultations Consultation #1: Hospitalist consulted for admission. Hospitalist to admit patient. 11/04/21 18:35 ED Medical Decision Making - Lab Data Result diagrams: 11/04/21 13:58 11/04/21 13:58 - EKG Data -: EKG Interpreted by Me EKG shows normal: sinus rhythm, axis, intervals, QRS complexes, ST-T waves Rate: normal - Radiology Data Radiology results: report reviewed, image reviewed interpreted by me: Chest x-ray: No pneumonia, no pneumothorax, no foreign body, no osseous findings, pulmonary edema noted. CHEST 1 VIEW 11/04/2021 5:09 PM INDICATION / CLINICAL INFORMATION: Dyspnea. COMPARISON: 11/08/20 FINDINGS: SUPPORT DEVICES: None. HEART / MEDIASTINUM: Heart is moderately enlarged but unchanged. Mild pulmonary venous congestion. LUNGS / PLEURA: No significant pulmonary or pleural abnormality. No pneumothorax. ADDITIONAL FINDINGS: No significant additional findings. IMPRESSION: 1. Cardiomegaly with pulmonary venous congestion but no acute airspace disease. - Medical Decision Making Patient is a 46-year-old female who presents emergency room with complaints of weakness, shortness of breath, bilateral lower extremity swelling and pain and redness. Patient does of breath secondary to CHF exacerbation. Patient's BNP is elevated. Patient has pulmonary edema on chest x-ray. Patient's labs are essentially markable except for elevated BNP. Patient's lower extremity pain and swelling secondary to a local cellulitis. Patient given IV antibiotics in the ER. Patient given IV Lasix in the ER. Patient had an EKG which was negative for ST changes. I personally reviewed the EKG and chest x-ray. Patient admitted to the hospital service for further evaluation treatment. Critical care time documented due to the multiple reassessments, prolonged time at the bedside, interpretation of diagnostics and labs. - Differential Diagnosis Shortness of breath, CHF, electrolyte imbalance, volume overload Critical Care Time: Yes Critical care time in (mins) excluding proc time.: 35 Critical care attestation.: If time is entered above; I have spent that time in minutes in the direct care of this critically ill patient, excluding procedure time. Critical Care Time: 35 minutes ED Disposition Clinical Impression: Shortness of breath, Elevated brain natriuretic peptide (BNP) level CHF exacerbation Qualifiers: Heart failure type: unspecified Qualified Code(s): I50.9 - Heart failure, unspecified Cellulitis Qualifiers: Site of cellulitis: extremity Site of cellulitis of extremity: lower extremity Laterality: right Qualified Code(s): L03.115 - Cellulitis of right lower limb Disposition: ADMITTED INPATIENT Is pt being admited?: Yes Does the pt Need Aspirin: No Condition: Critical Time of Disposition: 18:47
[2021-11-04] MEDS ORDERED: FUROSEMIDE 40 MG/4 ML INJ IV ONE (17:25)
--- NOTE | 2021-11-04 18:19 | XRay Report ---
CHEST 1 VIEW 11/04/2021 5:09 PM INDICATION / CLINICAL INFORMATION: Dyspnea. COMPARISON: 11/08/20 FINDINGS: SUPPORT DEVICES: None. HEART / MEDIASTINUM: Heart is moderately enlarged but unchanged. Mild pulmonary venous congestion. LUNGS / PLEURA: No significant pulmonary or pleural abnormality. No pneumothorax. ADDITIONAL FINDINGS: No significant additional findings. IMPRESSION: 1. Cardiomegaly with pulmonary venous congestion but no acute airspace disease. Signer Name: Edy Horne MD Signed: 11/04/2021 6:14 PM Workstation Name: [id number]
[2021-11-04] MEDS ORDERED: HYDROmorphone 1 MG/1 ML INJ IV ONE (18:34)
[2021-11-04] MEDS ORDERED: ONDANSETRON 4 MG/2 ML INJ IV ONE (18:34)
--- NOTE | 2021-11-04 18:39 | History and Physical Report ---
History of Present Illness Chief complaint: I am short of breath History of present illness: 46 YO Female with Obesity Hypoventilation syndrome, Thromboembolic Disease on therapeutic anticoagulation, Pulmonary HTN, Lymphedema, PVD, Antithrombin 3 Deficiency, Noncompliance, CHF presents ED for evaluation. Patient reports "I am short of breath" patient states that over the past week she has experienced worsening shortness of breath complicated by weakness resulting in multiple falls. Patient transported to [facility] via private vehicle for further care and evaluation of the aforementioned symptoms. The patient was seen and evaluated in the emergency department. All lab and imaging studies reviewed. Patient found to have a pulse oximetry of 87% on room air which is consistent with acute hypoxemic respiratory failure. Patient also found to have clinical symptoms consistent with CHF decompensation. Patient admitted to telemetry and initiated on CHF protocol. Patient treated with supplemental oxygen with mild improvement in symptoms. Patient subsequent initiated on noninvasive positive pressure ventilation. Patient also found to have bilateral lower extremity cellulitis. Patient initiated on IV antibiotic therapy. Wound care team consulted. Patient denies fever, chills, chest pain, palpitations, chest pain with deep breathing, skin rash, recent contact, known exposure to COVID-19. Prior admission on 02/28/2021 reviewed. All medication listed at time of admission has been reconciled. Advanced care planning conducted in ED. Past History Past Medical History: DVT, heart failure, pulmonary embolism, other (See HPI) Past Surgical History: Other (Vascular stents) Social history: single. denies: smoking Family history: diabetes, hypertension Medications and Allergies Allergies Allergy/AdvReac Type Severity Reaction Status Date / Time aspirin Allergy Mild Rash Verified 02/28/21 16:57 Home Medications Medication Instructions Recorded Confirmed Last Taken Type Escitalopram [Lexapro] 10 mg PO DAILY 04/26/20 03/02/21 02/28/21 History clonazePAM [Klonopin] 1 mg PO DAILY 04/26/20 03/02/21 02/28/21 History risperiDONE [RisperDAL] 0.5 mg PO DAILY 04/26/20 03/02/21 03/01/21 History Morphine ER [Ms Contin ER] 30 mg PO Q12HR tablet 09/09/20 03/02/21 03/01/21 Rx guaiFENesin ER [Mucinex ER] 600 mg PO BID #14 tablet 09/09/20 03/02/21 03/01/21 Rx Fondaparinux Sodium [Arixtra] 10 mg SQ DAILY #30 syringe 11/15/20 03/02/21 03/01/21 Rx ALBUTEROL NEB's [Proventil 0.083% 2.5 mg IH Q4HRT PRN nebu 03/03/21 Unknown Rx NEBS] Furosemide [Lasix TAB] 40 mg PO 0600,1800 #60 tablet 03/03/21 Unknown Rx Ketoconazole 2% [Nizoral] 1 applic TP BID #1 tube 03/03/21 Unknown Rx Rivaroxaban [Xarelto] 20 mg PO QDAY tablet 03/03/21 Unknown Rx lisinopriL [Zestril TAB] 2.5 mg PO QDAY tablet 03/03/21 Unknown Rx Review of Systems Constitutional: weakness, no weight loss, no fever, no chills Ears, nose, mouth and throat: no ear pain, no tinnitis, no decreased hearing, no nasal congestion Cardiovascular: shortness of breath, dyspnea on exertion, decreased exercise tolerance, no chest pain Respiratory: no cough, no cough with sputum, no hemoptysis Gastrointestinal: no abdominal pain, no vomiting, no constipation, no change in bowel habits, no hematemesis Genitourinary Female: no pelvic pain, no flank pain, no dysuria, no urinary frequency, no urgency Rectal: no pain, no incontinence, no bleeding Musculoskeletal: no neck stiffness, no shooting arm pain, no low back pain, no leg numbness/tingling Integumentary: no rash, no pruritis, no wounds, no jaundice Neurological: no parathesias, no seizures Psychiatric: no anxiety, no insomnia Endocrine: no cold intolerance, no polyphagia, no polyuria, no nocturia Hematologic/Lymphatic: no easy bruising, no easy bleeding, no lymphedema Exam - Constitutional Vitals: Temp Pulse Resp BP Pulse Ox 98.1 F 86 20 107/50 83 L 11/04/21 12:55 11/04/21 12:55 11/04/21 12:55 11/04/21 12:55 11/04/21 12:55 General appearance: Present: mild distress, obese - Respiratory Respiratory: bilateral: diminished - Extremities Extremity abnormal: ulceration, erythema Peripheral Pulses: within normal limits - Abdominal General gastrointestinal: Present: soft, non-tender, non-distended, normal bowel sounds Female genitourinary: Present: normal - Integumentary Integumentary: Present: clear, dry - Musculoskeletal Musculoskeletal: generalized weakness - Psychiatric Psychiatric: appropriate mood/affect, cooperative - Neurologic Neurologic: CNII-XII intact Results - Labs CBC & Chem 7: 11/04/21 13:58 11/04/21 13:58 Labs: Abnormal lab results 11/04/21 11/04/21 11/04/21 Range/Units 13:58 13:58 13:58 MCV 78 L (79-97) fl MCH 25 L (28-32) pg RDW 20.0 H (13.2-15.2) % Lymph % (Auto) 11.0 L (13.4-35.0) % [place] % (Auto) 10.0 H (0.0-7.3) % Lymph # (Auto) 1.0 L (1.2-5.4) K/mm3 [place] # (Auto) 0.9 H (0.0-0.8) K/mm3 Seg Neutrophils % 77.9 H (40.0-70.0) % PT 16.9 H (12.2-14.9) Sec. INR 1.23 H (0.87-1.13) Chloride 109.3 H (98-107) mmol/L NT-Pro-B Natriuret Pep (0-450) pg/mL 11/04/21 Range/Units 13:58 MCV (79-97) fl MCH (28-32) pg RDW (13.2-15.2) % Lymph % (Auto) (13.4-35.0) % [place] % (Auto) (0.0-7.3) % Lymph # (Auto) (1.2-5.4) K/mm3 [place]kin # (Auto) (0.0-0.8) K/mm3 Seg Neutrophils % (40.0-70.0) % PT (12.2-14.9) Sec. INR (0.87-1.13) Chloride (98-107) mmol/L NT-Pro-B Natriuret Pep 1961 H (0-450) pg/mL Assessment and Plan - Patient Problems (1) Acute on chronic respiratory failure with hypoxia Current Visit: No Status: Acute Plan to address problem: Chest x-ray, supplemental oxygen, pulse oximetry, nebulizer therapy, noninvasive positive pressure ventilation, arterial blood gas. (2) Acute exacerbation of CHF (congestive heart failure) Current Visit: Yes Status: Acute Qualifiers: Heart failure type: unspecified Qualified Code(s): I50.9 - Heart failure, unspecified Plan to address problem: Strict I's/O, monitoring output every shift, daily weight, afterload reduction, blood pressure control, diuretic therapy, monitor fluid balance. (3) Antithrombin III deficiency Current Visit: No Status: Acute Plan to address problem: Continue therapeutic anticoagulation, supportive care. (4) PVD (peripheral vascular disease) Current Visit: No Status: Chronic Plan to address problem: Continue medical management, supportive care. (5) Pulmonary hypertension Current Visit: No Status: Chronic Plan to address problem: Continue medical management, supportive care, noninvasive positive pressure ventilation, (6) Cellulitis Current Visit: Yes Status: Acute Qualifiers: Site of cellulitis: extremity Site of cellulitis of extremity: lower extremity Laterality: right Qualified Code(s): L03.115 - Cellulitis of right lower limb Plan to address problem: CBC, IV antibiotic therapy, wound care, supportive care (7) DVT prophylaxis Current Visit: No Status: Acute Plan to address problem: SCD to bilateral lower extremities while in bed, continue therapeutic anticoagulation (8) Advance care planning Current Visit: Yes Status: Acute Plan to address problem: Disease education done, care plan discussed, diagnoses discussed and prognosis discussed, patient is full code. Patient acknowledges understanding agree with care plan, +30 minutes. (9) Preventative health care Current Visit: Yes Status: Acute Plan to address problem: Patient counseled regarding balanced diet, increase physical activity at discharge, meal planning, risk factor reduction. Outpatient follow-up with primary care physician for all age and risk factor appropriate screening test. +30 minutes.
[2021-11-04] MEDS ORDERED: ACETAMINOPHEN 325 MG TAB PO PRN (18:40)
[2021-11-04] MEDS ORDERED: ALBUTEROL 2.5 MG/3 ML NEBU IH PRN (18:40)
[2021-11-04 20:38] LABS: ABG Base Excess -1.6 mmol/L (-2.0-3.0); ABG HCO3 23.6 mmol/L (20.0-26.0); ABG Methemoglobin 0.7 % (0.0-1.5); ABG PCO2 41.8 mm Hg; ABG PH 7.371 pH Units (7.350-7.450)
[2021-11-04 20:55] LABS: ABG PO2 35.8 mm Hg (80.0-90.0)
[2021-11-04 21:59] LABS: Bilirubin,Urine NEG (Negative); Blood,Urine NEG (Negative); Color,Urine Yellow (Yellow); Protein,Urine <15 mg/dL mg/dL (Negative); Urobilinogen,Urine < 2.0 mg/dL (<2.0); WBC,Urine < 1.0 /HPF (0.0-6.0)
[2021-11-04] MEDS: CLINDAMYCIN 300 MG/50 mL 300 MG/50 ML BAG IV ONE (22:47)
[2021-11-04] MEDS: CLINDAMYCIN 300 MG/50 mL 300 MG/50 ML BAG IV SCH (22:49)
[2021-11-04] MEDS: guaiFENesin ER 600 MG TAB PO SCH (22:49)
[2021-11-05] MEDS: HYDROmorphone 0.5 MG/0.5 ML INJ IV PRN (00:46)
[2021-11-05 03:35] LABS: Calcium 8.5 mg/dL (8.4-10.2)
[2021-11-05] MEDS: CLINDAMYCIN 300 MG/50 mL 300 MG/50 ML BAG IV SCH ×3 (06:15→17:00)
[2021-11-05] MEDS: oxyCODONE /ACETAMINOPHEN 5-325MG TAB PO PRN ×2 (07:48→17:58)
[2021-11-05] MEDS: FUROSEMIDE 20 MG/2 ML INJ IV SCH ×2 (07:58→17:59)
--- NOTE | 2021-11-05 09:35 | Consultation ---
History of Present Illness Consult date: 11/05/21 Requesting physician: KIAN BARR Consult reason: congestive heart failure History of present illness: 46-year-old female with morbid obesity history of recurrent pulmonary embolism on oral anticoagulation sleep apnea chronic respiratory failure on 2 L of oxygen baseline. Patient baseline is able to walk within the house for a few minutes. Patient for the last 1 month has been having ulcers in her bilateral lower extremities. Saw her primary care doctor a month ago was placed on sulfazime cream. Patient denies fever but has chills no nausea no vomiting. Increasing shortness of breath. Patient was treated with IV Lasix. Is on a 30% nonrebreather. Denies any chest pain palpitations or syncope. Patient has a history of anxiety and depression. And chronic pain. Denies any PND or orthopnea Past History Past Medical History: DVT, heart failure, pulmonary embolism, other (anxiety, depression and chronic pain ) Past Surgical History: Other (Vascular stents) Social history: single. denies: smoking Family history: diabetes, hypertension Medications and Allergies Allergies Allergy/AdvReac Type Severity Reaction Status Date / Time aspirin Allergy Mild Rash Verified 02/28/21 16:57 Home Medications Medication Instructions Recorded Confirmed Last Taken Type Escitalopram [Lexapro] 10 mg PO DAILY 04/26/20 03/02/21 02/28/21 History clonazePAM [Klonopin] 1 mg PO DAILY 04/26/20 03/02/21 02/28/21 History risperiDONE [RisperDAL] 0.5 mg PO DAILY 04/26/20 03/02/21 03/01/21 History Morphine ER [Ms Contin ER] 30 mg PO Q12HR tablet 09/09/20 03/02/21 03/01/21 Rx guaiFENesin ER [Mucinex ER] 600 mg PO BID #14 tablet 09/09/20 03/02/21 03/01/21 Rx Fondaparinux Sodium [Arixtra] 10 mg SQ DAILY #30 syringe 11/15/20 03/02/21 03/01/21 Rx ALBUTEROL NEB's [Proventil 0.083% 2.5 mg IH Q4HRT PRN nebu 03/03/21 Unknown Rx NEBS] Furosemide [Lasix TAB] 40 mg PO 0600,1800 #60 tablet 03/03/21 Unknown Rx Ketoconazole 2% [Nizoral] 1 applic TP BID #1 tube 03/03/21 Unknown Rx Rivaroxaban [Xarelto] 20 mg PO QDAY tablet 03/03/21 Unknown Rx lisinopriL [Zestril TAB] 2.5 mg PO QDAY tablet 03/03/21 Unknown Rx Active Meds: Active Medications Acetaminophen (Acetaminophen 325 Mg Tab) 650 mg PO Q4H PRN PRN Reason: Pain MILD(1-3)/Fever >100.5/CARTAGENA Albuterol (Albuterol 2.5 Mg/3 Ml Nebu) 2.5 mg IH Q4HRT PRN PRN Reason: Shortness Of Breath Clonazepam (Clonazepam 0.5 Mg Tab) 1 mg PO QDAY [facility] Escitalopram Oxalate (Escitalopram 10 Mg/10 Ml Oral Liqd) 10 mg PO DAILY [facility] Furosemide (Furosemide 20 Mg/2 Ml Inj) 20 mg IV BID@0600,1800 [facility] Last Admin: 11/05/21 07:58 Dose: 20 mg Guaifenesin (Guaifenesin Er 600 Mg Tab) 600 mg PO BID [facility] Last Admin: 11/04/21 22:49 Dose: 600 mg Hydromorphone HCl (Hydromorphone 0.5 Mg/0.5 Ml Inj) 0.5 mg IV Q23H PRN PRN Reason: Pain , Severe (7-10) Last Admin: 11/05/21 00:46 Dose: 0.5 mg Clindamycin HCl (Cleocin 300 Mg/50 Ml) 300 mg in 50 mls @ 100 mls/hr IV Q6H [facility]; Protocol Last Admin: 11/05/21 06:15 Dose: 100 mls/hr Lisinopril (Lisinopril 5 Mg Tab) 2.5 mg PO QDAY [facility] Miscellaneous Medication (Rivaroxaban) 20 mg PO QDAY [facility] Ondansetron HCl (Ondansetron 4 Mg/2 Ml Inj) 4 mg IV Q8H PRN PRN Reason: Nausea And Vomiting Oxycodone/Acetaminophen (Oxycodone /Acetaminophen 5-325mg Tab) 1 tab PO Q6H PRN PRN Reason: Pain, Moderate (4-6) Last Admin: 11/05/21 07:48 Dose: 1 tab Risperidone (Risperidone 0.25 Mg Tab) 0.5 mg PO QDAY JOSE Sodium Chloride (Sodium Chloride 0.9% 10 Ml Flush Syringe) 10 ml IV BID JOSE Last Admin: 11/04/21 22:49 Dose: 10 ml Sodium Chloride (Sodium Chloride 0.9% 10 Ml Flush Syringe) 10 ml IV PRN PRN PRN Reason: LINE FLUSH Review of Systems All systems: negative (as per hpi) Physical Examination Vital Signs Temp Pulse Resp BP Pulse Ox 98.1 F 86 20 107/50 83 L 11/04/21 12:55 11/04/21 12:55 11/04/21 12:55 11/04/21 12:55 11/04/21 12:55 General appearance: no acute distress HEENT: Positive: PERRL, EOMI Neck: Positive: neck supple Cardiac: Positive: Reg Rate and Rhythm Lungs: Positive: clear to auscultation Neuro: Positive: Grossly Intact Abdomen: Positive: Soft Extremities: Present: +1 Edema (bilateral shins banaged) Results 11/04/21 13:58 11/05/21 02:57 Cardiac Enzymes 11/04/21 Range/Units 18:53 CK-MB (CK-2) 4.0 (0.0-4.0) ng/mL Coagulation 11/04/21 Range/Units 13:58 PT 16.9 H (12.2-14.9) Sec. INR 1.23 H (0.87-1.13) APTT 32.0 (24.2-36.6) Sec. CBC 11/04/21 Range/Units 13:58 WBC 8.9 (4.5-11.0) K/mm3 RBC 4.92 (3.65-5.03) M/mm3 Hgb 12.0 (10.1-14.3) gm/dl Hct 38.4 (30.3-42.9) % Plt Count 221 (140-440) K/mm3 Lymph # (Auto) 1.0 L (1.2-5.4) K/mm3 [place] # (Auto) 0.9 H (0.0-0.8) K/mm3 Eos # (Auto) 0.1 (0.0-0.4) K/mm3 Baso # (Auto) 0.0 (0.0-0.1) K/mm3 Comprehensive Metabolic Panel 11/04/21 11/05/21 Range/Units 13:58 02:57 Sodium 144 144 (137-145) mmol/L Potassium 3.8 4.8 D (3.6-5.0) mmol/L Chloride 109.3 H 108.8 H (98-107) mmol/L Carbon Dioxide 22 21 L (22-30) mmol/L BUN 13 13 (7-17) mg/dL Creatinine 1.0 1.1 (0.6-1.2) mg/dL Glucose 99 101 H (65-100) mg/dL Calcium 8.7 8.5 (8.4-10.2) mg/dL EKG interpretations - Telemetry EKG Rhythm: Sinus Rhythm (nsr non specific st-t) Assessment and Plan 46-year-old female morbid obesity chronic history of pulmonary hypertension chronic respiratory failure exaggerated requiring 30% nonrebreather bilateral questionable cellulitis. Continue low-dose diuretics. Check echocardiogram for pulm hypertension. And right-sided cor pulmonale. Continue oral anticoagulation. Follow lab work. Wound care. - Patient Problems (1) Cellulitis Current Visit: Yes Status: Acute Qualifiers: Site of cellulitis: extremity Site of cellulitis of extremity: lower extremity Laterality: unspecified laterality Qualified Code(s): L03.119 - Cellulitis of unspecified part of limb (2) Elevated brain natriuretic peptide (BNP) level Current Visit: Yes Status: Acute (3) Shortness of breath Current Visit: Yes Status: Acute (4) Acute on chronic respiratory failure with hypoxia Current Visit: No Status: Acute (5) Antithrombin III deficiency Current Visit: No Status: Acute (6) Morbid obesity Current Visit: No Status: Chronic (7) Pulmonary hypertension Current Visit: No Status: Chronic
[2021-11-05] MEDS ORDERED: NON-FORMULARY EACH (Clonazepam [Klonopin] 1 MG Tablet) PO SCH (10:00)
[2021-11-05] MEDS ORDERED: NON-FORMULARY EACH (Rivaroxaban 20 MG Tablet) PO SCH (10:00)
[2021-11-05] MEDS ORDERED: NON-FORMULARY EACH (Risperidone [Risperdal] 0.5 MG Tablet) PO SCH (10:00)
[2021-11-05] MEDS: risperiDONE 0.25 MG TAB PO SCH (11:06)
[2021-11-05] MEDS: clonazePAM 0.5 MG TAB PO SCH (11:07)
[2021-11-05] MEDS: LISINOPRIL 5 MG TAB PO SCH (11:10)
--- NOTE | 2021-11-05 11:11 | Progress Note ---
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 Continue IV lasix BID, check echo to evaluate pulmonary pressures. Cardiology is consulted. Continue O2 supplementation wean as tolerated for SPO2 above 92%, Bipap at night. Pulmonary was also consulted. Continue current IV abx for BLE cellutis. Check BLE doppler to r/o DVT. Resume home Xarelto. Assessment and Plan #Acute on Chronic Hypocix Respiratory Failure 2/2 #Pulmonary Edema #O2 Dependent - Presented with SOB and hypoxia, requiring continuous Bipap - CXR reveals cardiomegaly with pulmonary venous congestion but no acute airspace disease - IV lasix BID - repeat ABG pending - Patient currently stable on 50% venti-mask - Continue O2 supplementation and Bipap at night - Wean O2 supplementation as tolerated for SPO2 above 92% - 2D Echo pending - Pulmonary consulted - F/U outpatient for sleep apnea eval/ Sleep study #Acute Congestive Heart Failure(CHF) Exacerbation - CXR reveals cardiomegaly with pulmonary venous congestion but no acute airspace disease - BNP 1960 - Echo from 2020 reviewed, normal EF then - IV Lasix BID - Cardiology on consult, appreciated recommendations - Echo pending - Strict intake and output - Daily weight #BLE Cellulitis #PVD (Peripheral Vascular Disease) #BLE Lymphedema - BLE swelling and cellutis - Patient is afebrile, normal wbcs - Continue IV abx- Clinda - BLE dopple to R/o DVT #Antithrombin III deficiency #H/o Pulmonary Embolism - Resume home Xarelto #Bilateral Osteoarthritis of Knees #Chronic Pain #Generalize weakness #Multiple falls at home - Continue supportive measures - Resume home meds once list is available - PRN analgesia for pain control - Fall precautions - PT/OT consulted #Morbid Obesity - Weight Loss advised - Patient counseled regarding balanced diet, increase physical activity at discharge, meal planning, risk factor reduction - Nutrition consulted - DONNY evaluation outpatient #GI/DVT Prophylaxis - PPI- Pepcid - On Xarelto #Advance Care Planning - Disease education done, care plan, diagnoses, and prognosis discussed with the patient at the bedside. Patient is a FULL code. Patient acknowledged understandi ng and agreed with current care plan. The high probability of a clinically significant, sudden or life threatening deterioration of the [multiple] system(s) required my full and direct attention, intervention and personal management. The aggregate critical care time was [40] minutes. This time is in addition to time spent performing reported procedures but includes the following: [x] Data Review and interpretation [x] Patient assessment and monitoring of vital signs [x] Documentation [x] Medication orders and management Disposition Plan: ICU Total Time Spent with Patient (Minutes): 40 History Interval history: Patient seen and examined at the bedside. Fully AAO, on 50% Venti mask. Patient voiced she is feeling a lot better this morning, denied an SOB nor any difficulty breathing, VSS. Hospitalist Physical - Constitutional Vitals: Temp Pulse Resp BP Pulse Ox 98.4 F 91 H 18 108/59 96 11/05/21 07:48 11/05/21 06:00 11/05/21 06:00 11/05/21 06:00 11/05/21 09:35 General appearance: Present: no acute distress, well-nourished, obese - EENT Eyes: Present: PERRL, EOM intact ENT: hearing intact - Neck Neck: Present: normal ROM - Respiratory Respiratory effort: normal Respiratory: bilateral: diminished - Cardiovascular Rhythm: regular Heart Sounds: Present: S1 & S2 - Extremities Extremities: no ischemia, pulses intact, pulses symmetrical, abnormal (BLE swelling/discoloration/Cellulitis) Extremity abnormal: edema - Peripheral Assessment Bilateral Lower Extremity Edema Type: Non-pitting Edema Degree: 4+ Capillary Refill: < 3 seconds Skin Temperature: Warm Generalized Edema Type: Non-pitting Edema Degree: 3+ Capillary Refill: < 3 seconds Skin Temperature: Warm Peripheral Pulses: within normal limits - Abdominal General gastrointestinal: soft, non-distended, normal bowel sounds - Integumentary Integumentary: Present: warm, erythema (BLE cellulitis) - Psychiatric Psychiatric: appropriate mood/affect, cooperative - Neurologic Neurologic: moves all extremities - Allied Health Allied health notes reviewed: nursing HEART Score - HEART Score Troponin: Troponin T < 0.010 ng/mL (0.00-0.029) 11/04/21 18:53 Results - Labs CBC & Chem 7: 11/04/21 13:58 11/05/21 02:57 Labs: Laboratory Last Values WBC 8.9 K/mm3 (4.5-11.0) 11/04/21 13:58 RBC 4.92 M/mm3 (3.65-5.03) 11/04/21 13:58 Hgb 12.0 gm/dl (10.1-14.3) 11/04/21 13:58 Hct 38.4 % (30.3-42.9) 11/04/21 13:58 MCV 78 fl (79-97) L 11/04/21 13:58 MCH 25 pg (28-32) L 11/04/21 13:58 MCHC 31 % (30-34) 11/04/21 13:58 RDW 20.0 % (13.2-15.2) H 11/04/21 13:58 Plt Count 221 K/mm3 (140-440) 11/04/21 13:58 Lymph % (Auto) 11.0 % (13.4-35.0) L 11/04/21 13:58 [place] % (Auto) 10.0 % (0.0-7.3) H 11/04/21 13:58 Eos % (Auto) 0.8 % (0.0-4.3) 11/04/21 13:58 Baso % (Auto) 0.3 % (0.0-1.8) 11/04/21 13:58 Lymph # (Auto) 1.0 K/mm3 (1.2-5.4) L 11/04/21 13:58 [place] # (Auto) 0.9 K/mm3 (0.0-0.8) H 11/04/21 13:58 Eos # (Auto) 0.1 K/mm3 (0.0-0.4) 11/04/21 13:58 Baso # (Auto) 0.0 K/mm3 (0.0-0.1) 11/04/21 13:58 Seg Neutrophils % 77.9 % (40.0-70.0) H 11/04/21 13:58 Seg Neutrophils # 7.0 K/mm3 (1.8-7.7) 11/04/21 13:58 PT 16.9 Sec. (12.2-14.9) H 11/04/21 13:58 INR 1.23 (0.87-1.13) H 11/04/21 13:58 APTT 32.0 Sec. (24.2-36.6) 11/04/21 13:58 ABG pH 7.371 pH Units (7.350-7.450) 11/04/21 20:19 ABG pCO2 41.8 mm Hg 11/04/21 20:19 ABG pO2 35.8 mm Hg (80.0-90.0) L* 11/04/21 20:19 ABG HCO3 23.6 mmol/L (20.0-26.0) 11/04/21 20:19 ABG O2 Saturation 65.0 % (95.0-99.0) L 11/04/21 20:19 ABG O2 Content 11.2 (0.0-44) 11/04/21 20:19 ABG Base Excess -1.6 mmol/L (-2.0-3.0) 11/04/21 20:19 ABG Hemoglobin 12.6 gm/dl (12.0-16.0) 11/04/21 20:19 ABG Carboxyhemoglobin 1.6 % (0.0-5.0) 11/04/21 20:19 ABG Methemoglobin 0.7 % (0.0-1.5) 11/04/21 20:19 Oxyhemoglobin 63.5 % (95.0-99.0) L 11/04/21 20:19 FiO2 21 % 11/04/21 20:19 Sodium 144 mmol/L (137-145) 11/05/21 02:57 Potassium 4.8 mmol/L (3.6-5.0) D 11/05/21 02:57 Chloride 108.8 mmol/L (98-107) H 11/05/21 02:57 Carbon Dioxide 21 mmol/L (22-30) L 11/05/21 02:57 Anion Gap 19 mmol/L 11/05/21 02:57 BUN 13 mg/dL (7-17) 11/05/21 02:57 Creatinine 1.1 mg/dL (0.6-1.2) 11/05/21 02:57 Estimated GFR 53 ml/min 11/05/21 02:57 BUN/Creatinine Ratio 12 % 11/05/21 02:57 Glucose 101 mg/dL (65-100) H 11/05/21 02:57 Calcium 8.5 mg/dL (8.4-10.2) 11/05/21 02:57 Total Creatine Kinase 196 units/L (30-135) H 11/04/21 18:53 CK-MB (CK-2) 4.0 ng/mL (0.0-4.0) 11/04/21 18:53 CK-MB (CK-2) Rel Index 2.0 (0-4) 11/04/21 18:53 Troponin T < 0.010 ng/mL (0.00-0.029) 11/04/21 18:53 NT-Pro-B Natriuret Pep 1961 pg/mL (0-450) H 11/04/21 13:58 Urine Color Yellow (Yellow) 11/04/21 21:44 Urine Turbidity Clear (Clear) 11/04/21 21:44 Urine pH 5.0 (5.0-7.0) 11/04/21 21:44 Ur Specific [place] 1.012 (1.003-1.030) 11/04/21 21:44 Urine Protein <15 mg/dl mg/dL (Negative) 11/04/21 21:44 Urine Glucose (UA) Neg mg/dL (Negative) 11/04/21 21:44 Urine Ketones Neg mg/dL (Negative) 11/04/21 21:44 Urine Blood Neg (Negative) 11/04/21 21:44 Urine Nitrite Neg (Negative) 11/04/21 21:44 Urine Bilirubin Neg (Negative) 11/04/21 21:44 Urine Urobilinogen < 2.0 mg/dL (<2.0) 11/04/21 21:44 Ur Leukocyte Esterase Neg (Negative) 11/04/21 21:44 Urine WBC (Auto) < 1.0 /HPF (0.0-6.0) 11/04/21 21:44 Urine RBC (Auto) 3.0 /HPF (0.0-6.0) 11/04/21 21:44 U Epithel Cells (Auto) 2.0 /HPF (0-13.0) 11/04/21 21:44 Active Medications - Current Medications Current Medications: Generic Name Dose Route Start Last Admin Trade Name Freq PRN Reason Stop Dose Admin Acetaminophen 650 mg 11/04/21 18:40 Acetaminophen 325 Mg Tab PO Q4H PRN Pain MILD(1-3)/Fever >100.5/CARTAGENA Albuterol 2.5 mg 11/04/21 18:40 Albuterol 2.5 Mg/3 Ml Nebu IH Q4HRT PRN Shortness Of Breath Clonazepam 1 mg 11/05/21 10:00 Clonazepam 0.5 Mg Tab PO QDAY [facility] Escitalopram Oxalate 10 mg 11/05/21 10:00 Escitalopram 10 Mg/10 Ml Oral Liqd PO DAILY [facility] Furosemide 20 mg 11/05/21 06:00 11/05/21 07:58 Furosemide 20 Mg/2 Ml Inj IV 20 mg BID@0600,1800 JOSE Administration Guaifenesin 600 mg 11/04/21 22:00 11/04/21 22:49 Guaifenesin Er 600 Mg Tab PO 600 mg BID JOSE Administration Hydromorphone HCl 0.5 mg 11/04/21 18:40 11/05/21 00:46 Hydromorphone 0.5 Mg/0.5 Ml Inj IV 0.5 mg Q23H PRN Administration Pain , Severe (7-10) Clindamycin HCl 300 mg in 50 mls @ 100 mls/hr 11/04/21 22:00 11/05/21 06:15 Cleocin 300 Mg/50 Ml IV 100 mls/hr Q6H JOSE Administration Protocol Lisinopril 2.5 mg 11/05/21 10:00 Lisinopril 5 Mg Tab PO QDAY [facility] Miscellaneous Medication 20 mg 11/05/21 10:00 Rivaroxaban PO QDAY [facility] Ondansetron HCl 4 mg 11/04/21 18:40 Ondansetron 4 Mg/2 Ml Inj IV Q8H PRN Nausea And Vomiting Oxycodone/Acetaminophen 1 tab 11/04/21 18:40 11/05/21 07:48 Oxycodone /Acetaminophen 5-325mg Tab PO 1 tab Q6H PRN Administration Pain, Moderate (4-6) Risperidone 0.5 mg 11/05/21 10:00 Risperidone 0.25 Mg Tab PO QDAY JOSE Sodium Chloride 10 ml 11/04/21 22:00 11/04/21 22:49 Sodium Chloride 0.9% 10 Ml Flush Syringe IV 10 ml BID JOSE Administration Sodium Chloride 10 ml 11/04/21 18:40 Sodium Chloride 0.9% 10 Ml Flush Syringe IV PRN PRN LINE FLUSH <MAYRA SANTANA Evita - Last Filed: 11/06/21 07:24> Assessment and Plan Assessment and plan: I saw and evaluated the patient. I agree with the findings and the plan of care as documented in the Nurse Practitioner's~note, with the following corrections and additions. Hospitalist Physical - Constitutional Vitals: Temp Pulse Resp BP Pulse Ox 98.2 F 68 24 102/66 100 11/06/21 04:00 11/06/21 04:45 11/06/21 04:45 11/06/21 04:45 11/06/21 04:45 HEART Score - HEART Score Troponin: Troponin T < 0.010 ng/mL (0.00-0.029) 11/04/21 18:53 Results - Labs CBC & Chem 7: 11/06/21 04:10 11/06/21 04:10 Labs: Laboratory Last Values WBC 6.9 K/mm3 (4.5-11.0) 11/06/21 04:10 RBC 4.84 M/mm3 (3.65-5.03) 11/06/21 04:10 Hgb 11.7 gm/dl (10.1-14.3) 11/06/21 04:10 Hct 38.9 % (30.3-42.9) 11/06/21 04:10 MCV 80 fl (79-97) 11/06/21 04:10 MCH 24 pg (28-32) L 11/06/21 04:10 MCHC 30 % (30-34) 11/06/21 04:10 RDW 19.9 % (13.2-15.2) H 11/06/21 04:10 Plt Count 206 K/mm3 (140-440) 11/06/21 04:10 Lymph % (Auto) 11.0 % (13.4-35.0) L 11/04/21 13:58 [place] % (Auto) 10.0 % (0.0-7.3) H 11/04/21 13:58 Eos % (Auto) 0.8 % (0.0-4.3) 11/04/21 13:58 Baso % (Auto) 0.3 % (0.0-1.8) 11/04/21 13:58 Lymph # (Auto) 1.0 K/mm3 (1.2-5.4) L 11/04/21 13:58 [place] # (Auto) 0.9 K/mm3 (0.0-0.8) H 11/04/21 13:58 Eos # (Auto) 0.1 K/mm3 (0.0-0.4) 11/04/21 13:58 Baso # (Auto) 0.0 K/mm3 (0.0-0.1) 11/04/21 13:58 Seg Neutrophils % 77.9 % (40.0-70.0) H 11/04/21 13:58 Seg Neutrophils # 7.0 K/mm3 (1.8-7.7) 11/04/21 13:58 PT 16.9 Sec. (12.2-14.9) H 11/04/21 13:58 INR 1.23 (0.87-1.13) H 11/04/21 13:58 APTT 32.0 Sec. (24.2-36.6) 11/04/21 13:58 ABG pH 7.331 pH Units (7.350-7.450) L 11/05/21 11:10 ABG pCO2 50.7 mm Hg 11/05/21 11:10 ABG pO2 61.1 mm Hg (80.0-90.0) L 11/05/21 11:10 ABG HCO3 26.2 mmol/L (20.0-26.0) H 11/05/21 11:10 ABG O2 Saturation 89.4 % (95.0-99.0) L 11/05/21 11:10 ABG O2 Content 14.0 (0.0-44) 11/05/21 11:10 ABG Base Excess -0.2 mmol/L (-2.0-3.0) 11/05/21 11:10 ABG Hemoglobin 11.4 gm/dl (12.0-16.0) L 11/05/21 11:10 ABG Carboxyhemoglobin 1.4 % (0.0-5.0) 11/05/21 11:10 ABG Methemoglobin 0.7 % (0.0-1.5) 11/05/21 11:10 Oxyhemoglobin 87.5 % (95.0-99.0) L 11/05/21 11:10 FiO2 50 % 11/05/21 11:10 Sodium 141 mmol/L (137-145) 11/06/21 04:10 Potassium 4.0 mmol/L (3.6-5.0) 11/06/21 04:10 Chloride 108.9 mmol/L (98-107) H 11/06/21 04:10 Carbon Dioxide 23 mmol/L (22-30) 11/06/21 04:10 Anion Gap 13 mmol/L 11/06/21 04:10 BUN 11 mg/dL (7-17) 11/06/21 04:10 Creatinine 0.9 mg/dL (0.6-1.2) 11/06/21 04:10 Estimated GFR > 60 ml/min 11/06/21 04:10 BUN/Creatinine Ratio 12 % 11/06/21 04:10 Glucose 97 mg/dL (65-100) 11/06/21 04:10 Calcium 8.4 mg/dL (8.4-10.2) 11/06/21 04:10 Total Creatine Kinase 196 units/L (30-135) H 11/04/21 18:53 CK-MB (CK-2) 4.0 ng/mL (0.0-4.0) 11/04/21 18:53 CK-MB (CK-2) Rel Index 2.0 (0-4) 11/04/21 18:53 Troponin T < 0.010 ng/mL (0.00-0.029) 11/04/21 18:53 NT-Pro-B Natriuret Pep 1961 pg/mL (0-450) H 11/04/21 13:58 Urine Color Yellow (Yellow) 11/04/21 21:44 Urine Turbidity Clear (Clear) 11/04/21 21:44 Urine pH 5.0 (5.0-7.0) 11/04/21 21:44 Ur Specific [place] 1.012 (1.003-1.030) 11/04/21 21:44 Urine Protein <15 mg/dl mg/dL (Negative) 11/04/21 21:44 Urine Glucose (UA) Neg mg/dL (Negative) 11/04/21 21:44 Urine Ketones Neg mg/dL (Negative) 11/04/21 21:44 Urine Blood Neg (Negative) 11/04/21 21:44 Urine Nitrite Neg (Negative) 11/04/21 21:44 Urine Bilirubin Neg (Negative) 11/04/21 21:44 Urine Urobilinogen < 2.0 mg/dL (<2.0) 11/04/21 21:44 Ur Leukocyte Esterase Neg (Negative) 11/04/21 21:44 Urine WBC (Auto) < 1.0 /HPF (0.0-6.0) 11/04/21 21:44 Urine RBC (Auto) 3.0 /HPF (0.0-6.0) 11/04/21 21:44 U Epithel Cells (Auto) 2.0 /HPF (0-13.0) 11/04/21 21:44 Mak/IV: Voiding Method External Female Catheter Active Medications - Current Medications Current Medications: Generic Name Dose Route Start Last Admin Trade Name Freq PRN Reason Stop Dose Admin Acetaminophen 650 mg 11/04/21 18:40 Acetaminophen 325 Mg Tab PO Q4H PRN Pain MILD(1-3)/Fever >100.5/CARTAGENA Albuterol 2.5 mg 11/04/21 18:40 Albuterol 2.5 Mg/3 Ml Nebu IH Q4HRT PRN Shortness Of Breath Clonazepam 1 mg 11/05/21 10:00 11/05/21 11:07 Clonazepam 0.5 Mg Tab PO 1 mg QDAY JOSE Administration Escitalopram Oxalate 10 mg 11/05/21 10:00 11/05/21 11:50 Escitalopram 10 Mg/10 Ml Oral Liqd PO 10 mg DAILY JOSE Administration Famotidine 20 mg 11/05/21 22:00 11/05/21 22:54 Famotidine 20 Mg Tab PO 20 mg BID JOSE Administration Furosemide 20 mg 11/05/21 06:00 11/06/21 06:00 Furosemide 20 Mg/2 Ml Inj IV 20 mg BID@0600,1800 JOSE Administration Guaifenesin 600 mg 11/04/21 22:00 11/05/21 22:54 Guaifenesin Er 600 Mg Tab PO 600 mg BID JOSE Administration Hydromorphone HCl 0.5 mg 11/04/21 18:40 11/06/21 03:06 Hydromorphone 0.5 Mg/0.5 Ml Inj IV 0.5 mg Q23H PRN Administration Pain , Severe (7-10) Clindamycin HCl 300 mg in 50 mls @ 100 mls/hr 11/04/21 22:00 11/06/21 06:00 Cleocin 300 Mg/50 Ml IV 100 mls/hr Q6H JOSE Administration Protocol Lisinopril 2.5 mg 11/05/21 10:00 11/05/21 11:10 Lisinopril 5 Mg Tab PO Not Given QDAY [facility] Ondansetron HCl 4 mg 11/04/21 18:40 Ondansetron 4 Mg/2 Ml Inj IV Q8H PRN Nausea And Vomiting Oxycodone/Acetaminophen 1 tab 11/04/21 18:40 11/06/21 06:05 Oxycodone /Acetaminophen 5-325mg Tab PO 1 tab Q6H PRN Administration Pain, Moderate (4-6) Risperidone 0.5 mg 11/05/21 10:00 11/05/21 11:06 Risperidone 0.25 Mg Tab PO 0.5 mg QDAY JOSE Administration Rivaroxaban 20 mg 11/05/21 11:00 11/05/21 11:50 Rivaroxaban 20 Mg Tab PO 20 mg QDAY JOSE Administration Sodium Chloride 10 ml 11/04/21 22:00 11/05/21 11:11 Sodium Chloride 0.9% 10 Ml Flush Syringe IV 10 ml BID JOSE Administration Sodium Chloride 10 ml 11/04/21 18:40 Sodium Chloride 0.9% 10 Ml Flush Syringe IV PRN PRN LINE FLUSH
[2021-11-05 11:29] LABS: ABG Base Excess -0.2 mmol/L (-2.0-3.0); ABG HCO3 26.2 mmol/L (20.0-26.0); ABG Methemoglobin 0.7 % (0.0-1.5); ABG Oxygen Saturation 89.4 % (95.0-99.0); ABG PCO2 50.7 mm Hg; ABG PH 7.331 pH Units (7.350-7.450); ABG PO2 61.1 mm Hg (80.0-90.0)
[2021-11-05] MEDS: RIVAROXABAN 20 MG TAB PO SCH (11:50)
[2021-11-05] MEDS: ESCITALOPRAM 10 MG/10 ML ORAL LIQD PO SCH (11:50)
[2021-11-05] MEDS: guaiFENesin ER 600 MG TAB PO SCH ×2 (11:51→22:54)
--- NOTE | 2021-11-05 18:13 | Consultation ---
History of Present Illness Reason for consult: dyspnea, other (OHS) History of present illness: This is a female with a history of pulmonary emboli, OHS, pulmonary HTN who has been not feeling well for about 6 mths with le cellulitis. She has been feeling more short of breath for the past few days has been becoming more short of breath. She was seen in er found to be hypoxic. She was placed on Bipap. She also recd diuresis. She has had improvement. Now on fio2 80% Past History Past Medical History: DVT, heart failure, pulmonary embolism, other (anxiety, depression and chronic pain ) Past Surgical History: Other (Vascular stents) Social history: single. denies: smoking Family history: diabetes, hypertension Medications and Allergies Allergies Allergy/AdvReac Type Severity Reaction Status Date / Time aspirin Allergy Mild Rash Verified 02/28/21 16:57 Home Medications Medication Instructions Recorded Confirmed Last Taken Type Escitalopram [Lexapro] 10 mg PO DAILY 04/26/20 03/02/21 02/28/21 History clonazePAM [Klonopin] 1 mg PO DAILY 04/26/20 03/02/21 02/28/21 History risperiDONE [RisperDAL] 0.5 mg PO DAILY 04/26/20 03/02/21 03/01/21 History Morphine ER [Ms Contin ER] 30 mg PO Q12HR tablet 09/09/20 03/02/21 03/01/21 Rx guaiFENesin ER [Mucinex ER] 600 mg PO BID #14 tablet 09/09/20 03/02/21 03/01/21 Rx Fondaparinux Sodium [Arixtra] 10 mg SQ DAILY #30 syringe 11/15/20 03/02/21 03/01/21 Rx ALBUTEROL NEB's [Proventil 0.083% 2.5 mg IH Q4HRT PRN nebu 03/03/21 Unknown Rx NEBS] Furosemide [Lasix TAB] 40 mg PO 0600,1800 #60 tablet 03/03/21 Unknown Rx Ketoconazole 2% [Nizoral] 1 applic TP BID #1 tube 03/03/21 Unknown Rx Rivaroxaban [Xarelto] 20 mg PO QDAY tablet 03/03/21 11/05/21 1 Day Ago Rx ~11/04/21 lisinopriL [Zestril TAB] 2.5 mg PO QDAY tablet 03/03/21 Unknown Rx Active Meds: Active Medications Acetaminophen (Acetaminophen 325 Mg Tab) 650 mg PO Q4H PRN PRN Reason: Pain MILD(1-3)/Fever >100.5/CARTAGENA Albuterol (Albuterol 2.5 Mg/3 Ml Nebu) 2.5 mg IH Q4HRT PRN PRN Reason: Shortness Of Breath Clonazepam (Clonazepam 0.5 Mg Tab) 1 mg PO QDAY [facility] Last Admin: 11/05/21 11:07 Dose: 1 mg Escitalopram Oxalate (Escitalopram 10 Mg/10 Ml Oral Liqd) 10 mg PO DAILY [facility] Last Admin: 11/05/21 11:50 Dose: 10 mg Famotidine (Famotidine 20 Mg Tab) 20 mg PO BID [facility] Furosemide (Furosemide 20 Mg/2 Ml Inj) 20 mg IV BID@0600,1800 [facility] Last Admin: 11/05/21 17:59 Dose: 20 mg Guaifenesin (Guaifenesin Er 600 Mg Tab) 600 mg PO BID [facility] Last Admin: 11/05/21 11:51 Dose: 600 mg Hydromorphone HCl (Hydromorphone 0.5 Mg/0.5 Ml Inj) 0.5 mg IV Q23H PRN PRN Reason: Pain , Severe (7-10) Last Admin: 11/05/21 00:46 Dose: 0.5 mg Clindamycin HCl (Cleocin 300 Mg/50 Ml) 300 mg in 50 mls @ 100 mls/hr IV Q6H [facility]; Protocol Last Admin: 11/05/21 17:00 Dose: 100 mls/hr Lisinopril (Lisinopril 5 Mg Tab) 2.5 mg PO QDAY [facility] Last Admin: 11/05/21 11:10 Dose: Not Given Ondansetron HCl (Ondansetron 4 Mg/2 Ml Inj) 4 mg IV Q8H PRN PRN Reason: Nausea And Vomiting Oxycodone/Acetaminophen (Oxycodone /Acetaminophen 5-325mg Tab) 1 tab PO Q6H PRN PRN Reason: Pain, Moderate (4-6) Last Admin: 11/05/21 17:58 Dose: 1 tab Risperidone (Risperidone 0.25 Mg Tab) 0.5 mg PO QDAY [facility] Last Admin: 11/05/21 11:06 Dose: 0.5 mg Rivaroxaban (Rivaroxaban 20 Mg Tab) 20 mg PO QDAY [facility] Last Admin: 11/05/21 11:50 Dose: 20 mg Sodium Chloride (Sodium Chloride 0.9% 10 Ml Flush Syringe) 10 ml IV BID [facility] Last Admin: 11/05/21 11:11 Dose: 10 ml Sodium Chloride (Sodium Chloride 0.9% 10 Ml Flush Syringe) 10 ml IV PRN PRN PRN Reason: LINE FLUSH Review of Systems Cardiovascular: edema Physical Examination Vital signs: Vital Signs Temp Pulse Resp BP Pulse Ox 98.1 F 86 20 107/50 83 L 11/04/21 12:55 11/04/21 12:55 11/04/21 12:55 11/04/21 12:55 11/04/21 12:55 General appearance: no acute distress, alert Eyes: non-icteric ENT: oropharynx moist Ascultation: Bilateral: diminished breath sounds Cardiovascular: regular rate and rhythm Gastrointestinal: normoactive bowel sounds, soft, non-tender, other (obese) Results - Laboratory Findings CBC and BMP: 11/04/21 13:58 11/05/21 02:57 ABG ABG pH 7.331 pH Units (7.350-7.450) L 11/05/21 11:10 ABG pCO2 50.7 mm Hg 11/05/21 11:10 ABG pO2 61.1 mm Hg (80.0-90.0) L 11/05/21 11:10 ABG O2 Saturation 89.4 % (95.0-99.0) L 11/05/21 11:10 PT/INR, D-dimer PT 16.9 Sec. (12.2-14.9) H 11/04/21 13:58 INR 1.23 (0.87-1.13) H 11/04/21 13:58 Abnormal lab findings: Abnormal Labs 11/04/21 11/04/21 11/04/21 13:58 13:58 13:58 MCV 78 L MCH 25 L RDW 20.0 H Lymph % (Auto) 11.0 L [place] % (Auto) 10.0 H Lymph # (Auto) 1.0 L [place] # (Auto) 0.9 H Seg Neutrophils % 77.9 H PT 16.9 H INR 1.23 H ABG pH ABG pO2 ABG HCO3 ABG O2 Saturation ABG Hemoglobin Oxyhemoglobin Chloride 109.3 H Carbon Dioxide Glucose Total Creatine Kinase NT-Pro-B Natriuret Pep 11/04/21 11/04/21 11/04/21 13:58 18:53 20:19 MCV MCH RDW Lymph % (Auto) [place] % (Auto) Lymph # (Auto) [place] # (Auto) Seg Neutrophils % PT INR ABG pH ABG pO2 35.8 L* ABG HCO3 ABG O2 Saturation 65.0 L ABG Hemoglobin Oxyhemoglobin 63.5 L Chloride Carbon Dioxide Glucose Total Creatine Kinase 196 H NT-Pro-B Natriuret Pep 1961 H 11/05/21 11/05/21 02:57 11:10 MCV MCH RDW Lymph % (Auto) [place] % (Auto) Lymph # (Auto) [place] # (Auto) Seg Neutrophils % PT INR ABG pH 7.331 L ABG pO2 61.1 L ABG HCO3 26.2 H ABG O2 Saturation 89.4 L ABG Hemoglobin 11.4 L Oxyhemoglobin 87.5 L Chloride 108.8 H Carbon Dioxide 21 L Glucose 101 H Total Creatine Kinase NT-Pro-B Natriuret Pep - Diagnostic Findings Chest x-ray: report reviewed, image reviewed Assessment and Plan - Patient Problems (1) Obesity hypoventilation syndrome Current Visit: Yes Status: Acute (2) Cellulitis Current Visit: Yes Status: Acute Qualifiers: Site of cellulitis: extremity Site of cellulitis of extremity: lower extremity Laterality: unspecified laterality Qualified Code(s): L03.119 - Cellulitis of unspecified part of limb (3) Acute on chronic respiratory failure with hypoxia Current Visit: No Status: Acute (4) CHF exacerbation Current Visit: No Status: Acute (5) Obesity Current Visit: No Status: Acute
[2021-11-05] MEDS: CLINDAMYCIN 300 MG/50 mL 300 MG/50 ML BAG IV ONE (22:53)
[2021-11-05] MEDS: FAMOTIDINE 20 MG TAB PO SCH (22:54)
[2021-11-06] MEDS: HYDROmorphone 0.5 MG/0.5 ML INJ IV PRN (03:06)
[2021-11-06] MEDS ORDERED: LOPERAMIDE 2 MG CAP PO ONE (03:30)
[2021-11-06 04:51] LABS: Mean Corpuscular HGB Conc 30 % (30-34); Mean Corpuscular Volume 80 fl (79-97); Platelet Count 206 K/mm3 (140-440); Red Blood Count 4.84 M/mm3 (3.65-5.03); Red Cell Distribution Width 19.9 % (13.2-15.2)
[2021-11-06 04:56] LABS: Hematocrit 38.9 % (30.3-42.9); Hemoglobin 11.7 gm/dl (10.1-14.3)
[2021-11-06 05:10] LABS: BUN/Creatinine Ratio 12; Blood Urea Nitrogen 11 mg/dL (7-17); Calcium 8.4 mg/dL (8.4-10.2); Hemolysis Index 4
[2021-11-06] MEDS: FUROSEMIDE 20 MG/2 ML INJ IV SCH ×2 (06:00→18:29)
[2021-11-06] MEDS: CLINDAMYCIN 300 MG/50 mL 300 MG/50 ML BAG IV SCH ×3 (06:00→12:06)
[2021-11-06] MEDS: oxyCODONE /ACETAMINOPHEN 5-325MG TAB PO PRN ×2 (06:05→22:02)
--- NOTE | 2021-11-06 10:32 | Progress Note ---
Assessment and Plan - Patient Problems (1) Obesity hypoventilation syndrome Current Visit: Yes Status: Acute (2) Cellulitis Current Visit: Yes Status: Acute Qualifiers: Site of cellulitis: extremity Site of cellulitis of extremity: lower extremity Laterality: unspecified laterality Qualified Code(s): L03.119 - Cellulitis of unspecified part of limb (3) Acute on chronic respiratory failure with hypoxia Current Visit: No Status: Acute (4) CHF exacerbation Current Visit: No Status: Acute (5) Obesity Current Visit: No Status: Acute (6) Pulmonary hypertension Current Visit: Yes Status: Acute (7) Acute exacerbation of CHF (congestive heart failure) Current Visit: Yes Status: Acute Qualifiers: Heart failure type: unspecified Qualified Code(s): I50.9 - Heart failure, unspecified (8) Morbid obesity Current Visit: No Status: Chronic (9) PVD (peripheral vascular disease) Current Visit: No Status: Chronic (10) Rheumatoid arthritis Current Visit: No Status: Chronic Subjective Interval history: pt awake on bipap 14/5 70% Objective Vital Signs - 12hr 11/06/21 11/06/21 11/06/21 00:00 04:00 04:45 Temperature 98.2 F Pulse Rate 70 68 Pulse Rate [ 70 From Monitor] Pulse Rate [ 76 Right Radial] Respiratory 21 24 Rate Blood Pressure 102/66 O2 Sat by Pulse 91 100 Oximetry Constitutional: no acute distress, alert, other (obese) Eyes: non-icteric ENT: oropharynx moist Ascultation: Bilateral: diminished breath sounds Cardiovascular: regular rate and rhythm Gastrointestinal: normoactive bowel sounds, soft, non-tender, other (obese) Integumentary: other (chronic venous stasis changes bilat le) Neurologic: normal mental status, non-focal exam CBC and BMP: 11/06/21 04:10 11/06/21 04:10 ABG, PT/INR, D-dimer: ABG ABG pH 7.331 pH Units (7.350-7.450) L 11/05/21 11:10 ABG pCO2 50.7 mm Hg 11/05/21 11:10 ABG pO2 61.1 mm Hg (80.0-90.0) L 11/05/21 11:10 ABG O2 Saturation 89.4 % (95.0-99.0) L 11/05/21 11:10 PT/INR, D-dimer PT 16.9 Sec. (12.2-14.9) H 11/04/21 13:58 INR 1.23 (0.87-1.13) H 11/04/21 13:58 Abnormal lab findings: Abnormal Labs 11/04/21 11/04/21 11/04/21 13:58 13:58 13:58 MCV 78 L MCH 25 L RDW 20.0 H Lymph % (Auto) 11.0 L [place] % (Auto) 10.0 H Lymph # (Auto) 1.0 L [place] # (Auto) 0.9 H Seg Neutrophils % 77.9 H PT 16.9 H INR 1.23 H ABG pH ABG pO2 ABG HCO3 ABG O2 Saturation ABG Hemoglobin Oxyhemoglobin Chloride 109.3 H Carbon Dioxide Glucose Total Creatine Kinase NT-Pro-B Natriuret Pep 11/04/21 11/04/21 11/04/21 13:58 18:53 20:19 MCV MCH RDW Lymph % (Auto) [place] % (Auto) Lymph # (Auto) [place] # (Auto) Seg Neutrophils % PT INR ABG pH ABG pO2 35.8 L* ABG HCO3 ABG O2 Saturation 65.0 L ABG Hemoglobin Oxyhemoglobin 63.5 L Chloride Carbon Dioxide Glucose Total Creatine Kinase 196 H NT-Pro-B Natriuret Pep 1961 H 11/05/21 11/05/21 11/06/21 02:57 11:10 04:10 MCV MCH 24 L RDW 19.9 H Lymph % (Auto) [place] % (Auto) Lymph # (Auto) [place] # (Auto) Seg Neutrophils % PT INR ABG pH 7.331 L ABG pO2 61.1 L ABG HCO3 26.2 H ABG O2 Saturation 89.4 L ABG Hemoglobin 11.4 L Oxyhemoglobin 87.5 L Chloride 108.8 H Carbon Dioxide 21 L Glucose 101 H Total Creatine Kinase NT-Pro-B Natriuret Pep 11/06/21 04:10 MCV MCH RDW Lymph % (Auto) [place] % (Auto) Lymph # (Auto) [place] # (Auto) Seg Neutrophils % PT INR ABG pH ABG pO2 ABG HCO3 ABG O2 Saturation ABG Hemoglobin Oxyhemoglobin Chloride 108.9 H Carbon Dioxide Glucose Total Creatine Kinase NT-Pro-B Natriuret Pep
--- NOTE | 2021-11-06 10:40 | Progress Note ---
Assessment and Plan 46-year-old female morbid obesity acute on chronic respiratory failure has severe pulmonary hypertension with cor pulmonale. Low-dose Lasix. Consider pulmonary hypertension medications such as sildnafil, if agreed upon by pulmonary. Discussed with patient in detail about prognosis. Reviewed echocardiogram with the patient. - Patient Problems (1) Cellulitis Current Visit: Yes Status: Acute Qualifiers: Site of cellulitis: extremity Site of cellulitis of extremity: lower extremity Laterality: unspecified laterality Qualified Code(s): L03.119 - Cellulitis of unspecified part of limb (2) Elevated brain natriuretic peptide (BNP) level Current Visit: Yes Status: Acute (3) Shortness of breath Current Visit: Yes Status: Acute (4) Acute on chronic respiratory failure with hypoxia Current Visit: No Status: Acute (5) Antithrombin III deficiency Current Visit: No Status: Acute (6) Morbid obesity Current Visit: No Status: Chronic (7) Pulmonary hypertension Current Visit: No Status: Chronic (8) COR (chronic cor pulmonale) Current Visit: Yes Status: Chronic Subjective Date of service: 11/06/21 Principal diagnosis: sob Interval history: pt on bipap sob is stable Objective Vital Signs Temp Pulse Pulse Pulse Resp Resp BP 11/06/21 04:45 68 24 102/66 11/06/21 04:00 98.2 F 11/06/21 00:00 70 70 76 21 11/05/21 22:00 15 11/05/21 21:45 73 23 11/05/21 20:50 11/05/21 20:00 76 76 21 11/05/21 19:00 11/05/21 17:58 18 11/05/21 16:00 16 11/05/21 15:16 72 24 99/55 11/05/21 12:00 24 11/05/21 11:58 76 26 H 119/63 11/05/21 11:10 77 92/45 Pulse Ox 11/06/21 04:45 100 11/06/21 04:00 11/06/21 00:00 91 11/05/21 22:00 11/05/21 21:45 97 11/05/21 20:50 96 11/05/21 20:00 91 11/05/21 19:00 97 11/05/21 17:58 11/05/21 16:00 96 11/05/21 15:16 95 11/05/21 12:00 96 11/05/21 11:58 96 11/05/21 11:10 - Physical Examination General: No Apparent Distress HEENT: Positive: PERRL, EOMI Neck: Positive: neck supple Cardiac: Positive: Reg Rate and Rhythm Lungs: Positive: Decreased Breath Sounds Neuro: Positive: Grossly Intact Abdomen: Positive: Soft Extremities: Present: +1 Edema (bilateral shins banaged) - Labs and Meds CBC 11/06/21 Range/Units 04:10 WBC 6.9 (4.5-11.0) K/mm3 RBC 4.84 (3.65-5.03) M/mm3 Hgb 11.7 (10.1-14.3) gm/dl Hct 38.9 (30.3-42.9) % Plt Count 206 (140-440) K/mm3 Comprehensive Metabolic Panel 11/06/21 Range/Units 04:10 Sodium 141 (137-145) mmol/L Potassium 4.0 (3.6-5.0) mmol/L Chloride 108.9 H (98-107) mmol/L Carbon Dioxide 23 (22-30) mmol/L BUN 11 (7-17) mg/dL Creatinine 0.9 (0.6-1.2) mg/dL Glucose 97 (65-100) mg/dL Calcium 8.4 (8.4-10.2) mg/dL - Imaging and Cardiology Echo: report reviewed (normal lv function, rv dilated and mild dsyfunction with rv pressure over load and severe pulmonary htn) - Telemetry EKG Rhythm: Sinus Rhythm
[2021-11-06] MEDS: FAMOTIDINE 20 MG TAB PO SCH ×2 (10:43→22:02)
[2021-11-06] MEDS: risperiDONE 0.25 MG TAB PO SCH (10:44)
[2021-11-06] MEDS: RIVAROXABAN 20 MG TAB PO SCH (10:44)
[2021-11-06] MEDS: clonazePAM 0.5 MG TAB PO SCH (10:45)
[2021-11-06] MEDS: LISINOPRIL 5 MG TAB PO SCH (10:46)
[2021-11-06] MEDS: ESCITALOPRAM 10 MG/10 ML ORAL LIQD PO SCH (10:53)
[2021-11-06] MEDS: guaiFENesin ER 600 MG TAB PO SCH ×2 (10:53→22:02)
--- NOTE | 2021-11-06 11:08 | Progress Note ---
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 Continue IV lasix BID, check echo to evaluate pulmonary pressures. Cardiology is consulted. Continue O2 supplementation wean as tolerated for SPO2 above 92%, Bipap at night. Pulmonary was also consulted. Continue current IV abx for BLE cellutis. Check BLE doppler to r/o DVT. Resume home Xarelto. 11/06: Echo revealed severe pulmnary hypertension and RV dysfunction. Continue IV lasix BID. Plan to initiate pulmo HTN therapy, Sildenafil, per pulmo. Cardio is also following. Continue O2 supplementation and wean as tolerated. Assessment and Plan #Acute on Chronic Hypocix Respiratory Failure 2/2 #Severe Pulmonary Hypertension/Cor Pulmonale #O2 Dependent - Presented with SOB and hypoxia, requiring continuous Bipap - CXR reveals cardiomegaly with pulmonary venous congestion but no acute airspace disease - On Bipap- 705, 08/11, back up rate of 20 - Continue IV Lasix - Continue O2 supplementation and Bipap at night - Wean O2 supplementation as tolerated for SPO2 above 92% - Pulmonary consulted, appreciate recommendations - Plan to initiate pulmo HTN therapy, Sildenafil, today per pulmo - F/U outpatient for sleep apnea eval/ Sleep study - F/U with pulmonary and cardio output for RHC and further pulmo HTN w/up and treatment #Severe Pulmonary Hypertension/Cor Pulmonale #Acute Congestive Heart Failure(CHF) Exacerbation - CXR reveals cardiomegaly with pulmonary venous congestion but no acute airspace disease - BNP 1960 - Echo from 2020 reviewed, normal EF then - Cardiology is following, Appreciate recommendations - 11/05 Echo- The right atrial pressure is estimated at 15 mmHg. Right ventricular systolic pressure is estimated at 85 mmHg. There is moderate-severe pulmonary hypertension. See report for detail - Continude IV Lasix BID - Pulmonary also following, appreciated recommendations - Plan to initiate pulmo HTN therapy, Sildenafil, today per pulmo - Strict intake and output - Daily weight - F/U with pulmonary and cardio output for RHC and further pulmo HTN w/up and treatment #BLE Cellulitis #PVD (Peripheral Vascular Disease) #BLE Lymphedema - BLE swelling and cellutis - Patient is afebrile, normal wbcs - Continue IV abx- Clinda - BLE doppler to R/o DVT pending #Antithrombin III deficiency #H/o Pulmonary Embolism - Resume home Xarelto #Bilateral Osteoarthritis of Knees #Chronic Pain #Generalize weakness #Multiple falls at home - Continue supportive measures - Resume home meds once list is available - PRN analgesia for pain control - Fall precautions - PT/OT consulted #Morbid Obesity - Weight Loss advised - Patient counseled regarding balanced diet, increase physical activity at discharge, meal planning, risk factor reduction - Nutrition consulted - DONNY evaluation outpatient #GI/DVT Prophylaxis - PPI- Pepcid - On Xarelto #Advance Care Planning - Disease education done, care plan, diagnoses, and prognosis discussed with the patient at the bedside. Patient is a FULL code. Patient acknowledged understanding and agreed with current care plan. The high probability of a clinically significant, sudden or life threatening deterioration of the [multiple] system(s) required my full and direct attention, intervention and personal management. The aggregate critical care time was [35] minutes. This time is in addition to time spent performing reported procedures but includes the following: [x] Data Review and interpretation [x] Patient assessment and monitoring of vital signs [x] Documentation [x] Medication orders and management Disposition Plan: ICU Total Time Spent with Patient (Minutes): 35 History Interval history: Patient seen and examined at the bedside. Stable on Bipap this am, BP marginal this am. AKIRA overnight Hospitalist Physical - Physical exam Narrative exam: General appearance: Present: no acute distress, well-nourished, obese - EENT Eyes: Present: PERRL, EOM intact ENT: hearing intact - Neck Neck: Present: normal ROM - Respiratory Respiratory effort: normal Respiratory: bilateral: diminished - Cardiovascular Rhythm: regular Heart Sounds: Present: S1 & S2 - Extremities Extremities: no ischemia, pulses intact, pulses symmetrical, abnormal (BLE swelling/discoloration/Cellulitis) Extremity abnormal: edema - Peripheral Assessment Bilateral Lower Extremity Edema Type: Non-pitting Edema Degree: 4+ Capillary Refill: < 3 seconds Skin Temperature: Warm Generalized Edema Type: Non-pitting Edema Degree: 3+ Capillary Refill: < 3 seconds Skin Temperature: Warm Peripheral Pulses: within normal limits - Abdominal General gastrointestinal: soft, non-distended, normal bowel sounds - Integumentary Integumentary: Present: warm, erythema (BLE cellulitis) - Psychiatric Psychiatric: appropriate mood/affect, cooperative - Neurologic Neurologic: moves all extremities - Allied Health Allied health notes reviewed: nursing, Case management - Constitutional Vitals: Temp Pulse Resp BP Pulse Ox 98.2 F 68 24 102/66 100 11/06/21 04:00 11/06/21 04:45 11/06/21 04:45 11/06/21 04:45 11/06/21 04:45 HEART Score - HEART Score Troponin: Troponin T < 0.010 ng/mL (0.00-0.029) 11/04/21 18:53 Results - Labs CBC & Chem 7: 11/06/21 04:10 11/06/21 04:10 Labs: Laboratory Last Values WBC 6.9 K/mm3 (4.5-11.0) 11/06/21 04:10 RBC 4.84 M/mm3 (3.65-5.03) 11/06/21 04:10 Hgb 11.7 gm/dl (10.1-14.3) 11/06/21 04:10 Hct 38.9 % (30.3-42.9) 11/06/21 04:10 MCV 80 fl (79-97) 11/06/21 04:10 MCH 24 pg (28-32) L 11/06/21 04:10 MCHC 30 % (30-34) 11/06/21 04:10 RDW 19.9 % (13.2-15.2) H 11/06/21 04:10 Plt Count 206 K/mm3 (140-440) 11/06/21 04:10 Lymph % (Auto) 11.0 % (13.4-35.0) L 11/04/21 13:58 [place] % (Auto) 10.0 % (0.0-7.3) H 11/04/21 13:58 Eos % (Auto) 0.8 % (0.0-4.3) 11/04/21 13:58 Baso % (Auto) 0.3 % (0.0-1.8) 11/04/21 13:58 Lymph # (Auto) 1.0 K/mm3 (1.2-5.4) L 11/04/21 13:58 [place] # (Auto) 0.9 K/mm3 (0.0-0.8) H 11/04/21 13:58 Eos # (Auto) 0.1 K/mm3 (0.0-0.4) 11/04/21 13:58 Baso # (Auto) 0.0 K/mm3 (0.0-0.1) 11/04/21 13:58 Seg Neutrophils % 77.9 % (40.0-70.0) H 11/04/21 13:58 Seg Neutrophils # 7.0 K/mm3 (1.8-7.7) 11/04/21 13:58 PT 16.9 Sec. (12.2-14.9) H 11/04/21 13:58 INR 1.23 (0.87-1.13) H 11/04/21 13:58 APTT 32.0 Sec. (24.2-36.6) 11/04/21 13:58 ABG pH 7.331 pH Units (7.350-7.450) L 11/05/21 11:10 ABG pCO2 50.7 mm Hg 11/05/21 11:10 ABG pO2 61.1 mm Hg (80.0-90.0) L 11/05/21 11:10 ABG HCO3 26.2 mmol/L (20.0-26.0) H 11/05/21 11:10 ABG O2 Saturation 89.4 % (95.0-99.0) L 11/05/21 11:10 ABG O2 Content 14.0 (0.0-44) 11/05/21 11:10 ABG Base Excess -0.2 mmol/L (-2.0-3.0) 11/05/21 11:10 ABG Hemoglobin 11.4 gm/dl (12.0-16.0) L 11/05/21 11:10 ABG Carboxyhemoglobin 1.4 % (0.0-5.0) 11/05/21 11:10 ABG Methemoglobin 0.7 % (0.0-1.5) 11/05/21 11:10 Oxyhemoglobin 87.5 % (95.0-99.0) L 11/05/21 11:10 FiO2 50 % 11/05/21 11:10 Sodium 141 mmol/L (137-145) 11/06/21 04:10 Potassium 4.0 mmol/L (3.6-5.0) 11/06/21 04:10 Chloride 108.9 mmol/L (98-107) H 11/06/21 04:10 Carbon Dioxide 23 mmol/L (22-30) 11/06/21 04:10 Anion Gap 13 mmol/L 11/06/21 04:10 BUN 11 mg/dL (7-17) 11/06/21 04:10 Creatinine 0.9 mg/dL (0.6-1.2) 11/06/21 04:10 Estimated GFR > 60 ml/min 11/06/21 04:10 BUN/Creatinine Ratio 12 % 11/06/21 04:10 Glucose 97 mg/dL (65-100) 11/06/21 04:10 Calcium 8.4 mg/dL (8.4-10.2) 11/06/21 04:10 Total Creatine Kinase 196 units/L (30-135) H 11/04/21 18:53 CK-MB (CK-2) 4.0 ng/mL (0.0-4.0) 11/04/21 18:53 CK-MB (CK-2) Rel Index 2.0 (0-4) 11/04/21 18:53 Troponin T < 0.010 ng/mL (0.00-0.029) 11/04/21 18:53 NT-Pro-B Natriuret Pep 1961 pg/mL (0-450) H 11/04/21 13:58 Urine Color Yellow (Yellow) 11/04/21 21:44 Urine Turbidity Clear (Clear) 11/04/21 21:44 Urine pH 5.0 (5.0-7.0) 11/04/21 21:44 Ur Specific [place] 1.012 (1.003-1.030) 11/04/21 21:44 Urine Protein <15 mg/dl mg/dL (Negative) 11/04/21 21:44 Urine Glucose (UA) Neg mg/dL (Negative) 11/04/21 21:44 Urine Ketones Neg mg/dL (Negative) 11/04/21 21:44 Urine Blood Neg (Negative) 11/04/21 21:44 Urine Nitrite Neg (Negative) 11/04/21 21:44 Urine Bilirubin Neg (Negative) 11/04/21 21:44 Urine Urobilinogen < 2.0 mg/dL (<2.0) 11/04/21 21:44 Ur Leukocyte Esterase Neg (Negative) 11/04/21 21:44 Urine WBC (Auto) < 1.0 /HPF (0.0-6.0) 11/04/21 21:44 Urine RBC (Auto) 3.0 /HPF (0.0-6.0) 11/04/21 21:44 U Epithel Cells (Auto) 2.0 /HPF (0-13.0) 11/04/21 21:44 Mak/IV: Voiding Method External Female Catheter Active Medications - Current Medications Current Medications: Generic Name Dose Route Start Last Admin Trade Name Freq PRN Reason Stop Dose Admin Acetaminophen 650 mg 11/04/21 18:40 Acetaminophen 325 Mg Tab PO Q4H PRN Pain MILD(1-3)/Fever >100.5/CARTAGENA Albuterol 2.5 mg 11/04/21 18:40 Albuterol 2.5 Mg/3 Ml Nebu IH Q4HRT PRN Shortness Of Breath Clonazepam 1 mg 11/05/21 10:00 11/06/21 10:45 Clonazepam 0.5 Mg Tab PO 1 mg QDAY JOSE Administration Escitalopram Oxalate 10 mg 11/05/21 10:00 11/06/21 10:53 Escitalopram 10 Mg/10 Ml Oral Liqd PO 10 mg DAILY JOSE Administration Famotidine 20 mg 11/05/21 22:00 11/06/21 10:43 Famotidine 20 Mg Tab PO 20 mg BID JOSE Administration Furosemide 20 mg 11/05/21 06:00 11/06/21 06:00 Furosemide 20 Mg/2 Ml Inj IV 20 mg BID@0600,1800 JOSE Administration Guaifenesin 600 mg 11/04/21 22:00 11/06/21 10:53 Guaifenesin Er 600 Mg Tab PO 600 mg BID JOSE Administration Clindamycin HCl 300 mg in 50 mls @ 100 mls/hr 11/04/21 22:00 11/06/21 06:00 Cleocin 300 Mg/50 Ml IV 100 mls/hr Q6H JOSE Administration Protocol Lisinopril 2.5 mg 11/05/21 10:00 11/05/21 11:10 Lisinopril 5 Mg Tab PO Not Given QDAY JOSE Melatonin 10 mg 11/06/21 22:00 Melatonin 5 Mg Tab PO QHS JOSE Ondansetron HCl 4 mg 11/04/21 18:40 Ondansetron 4 Mg/2 Ml Inj IV Q8H PRN Nausea And Vomiting Oxycodone/Acetaminophen 1 tab 11/04/21 18:40 11/06/21 06:05 Oxycodone /Acetaminophen 5-325mg Tab PO 1 tab Q6H PRN Administration Pain, Moderate (4-6) Risperidone 0.5 mg 11/05/21 10:00 11/06/21 10:44 Risperidone 0.25 Mg Tab PO 0.5 mg QDAY JSOE Administration Rivaroxaban 20 mg 11/05/21 11:00 11/06/21 10:44 Rivaroxaban 20 Mg Tab PO 20 mg QDAY JOSE Administration Sildenafil Citrate 10 mg 11/06/21 14:00 Sildenafil 20 Mg Tab PO TID JOSE Sodium Chloride 10 ml 11/04/21 22:00 11/06/21 10:45 Sodium Chloride 0.9% 10 Ml Flush Syringe IV 10 ml BID JOSE Administration Sodium Chloride 10 ml 11/04/21 18:40 Sodium Chloride 0.9% 10 Ml Flush Syringe IV PRN PRN LINE FLUSH <MAYRA SANTANA - Last Filed: 11/07/21 07:14> Assessment and Plan Assessment and plan: I saw and evaluated the patient. I agree with the findings and the plan of care as documented in the Nurse Practitioner's~note, with the following corrections and additions. Hospitalist Physical - Constitutional Vitals: Temp Pulse Resp BP Pulse Ox 97.8 F 61 19 110/60 100 11/06/21 23:00 11/07/21 04:33 11/07/21 05:18 11/07/21 04:33 11/07/21 04:33 HEART Score - HEART Score Troponin: Troponin T < 0.010 ng/mL (0.00-0.029) 11/04/21 18:53 Results - Labs CBC & Chem 7: 11/06/21 04:10 11/07/21 04:21 Labs: Laboratory Last Values WBC 6.9 K/mm3 (4.5-11.0) 11/06/21 04:10 RBC 4.84 M/mm3 (3.65-5.03) 11/06/21 04:10 Hgb 11.7 gm/dl (10.1-14.3) 11/06/21 04:10 Hct 38.9 % (30.3-42.9) 11/06/21 04:10 MCV 80 fl (79-97) 11/06/21 04:10 MCH 24 pg (28-32) L 11/06/21 04:10 MCHC 30 % (30-34) 11/06/21 04:10 RDW 19.9 % (13.2-15.2) H 11/06/21 04:10 Plt Count 206 K/mm3 (140-440) 11/06/21 04:10 Lymph % (Auto) 11.0 % (13.4-35.0) L 11/04/21 13:58 [place] % (Auto) 10.0 % (0.0-7.3) H 11/04/21 13:58 Eos % (Auto) 0.8 % (0.0-4.3) 11/04/21 13:58 Baso % (Auto) 0.3 % (0.0-1.8) 11/04/21 13:58 Lymph # (Auto) 1.0 K/mm3 (1.2-5.4) L 11/04/21 13:58 [place] # (Auto) 0.9 K/mm3 (0.0-0.8) H 11/04/21 13:58 Eos # (Auto) 0.1 K/mm3 (0.0-0.4) 11/04/21 13:58 Baso # (Auto) 0.0 K/mm3 (0.0-0.1) 11/04/21 13:58 Seg Neutrophils % 77.9 % (40.0-70.0) H 11/04/21 13:58 Seg Neutrophils # 7.0 K/mm3 (1.8-7.7) 11/04/21 13:58 PT 16.9 Sec. (12.2-14.9) H 11/04/21 13:58 INR 1.23 (0.87-1.13) H 11/04/21 13:58 APTT 32.0 Sec. (24.2-36.6) 11/04/21 13:58 ABG pH 7.331 pH Units (7.350-7.450) L 11/05/21 11:10 ABG pCO2 50.7 mm Hg 11/05/21 11:10 ABG pO2 61.1 mm Hg (80.0-90.0) L 11/05/21 11:10 ABG HCO3 26.2 mmol/L (20.0-26.0) H 11/05/21 11:10 ABG O2 Saturation 89.4 % (95.0-99.0) L 11/05/21 11:10 ABG O2 Content 14.0 (0.0-44) 11/05/21 11:10 ABG Base Excess -0.2 mmol/L (-2.0-3.0) 11/05/21 11:10 ABG Hemoglobin 11.4 gm/dl (12.0-16.0) L 11/05/21 11:10 ABG Carboxyhemoglobin 1.4 % (0.0-5.0) 11/05/21 11:10 ABG Methemoglobin 0.7 % (0.0-1.5) 11/05/21 11:10 Oxyhemoglobin 87.5 % (95.0-99.0) L 11/05/21 11:10 FiO2 50 % 11/05/21 11:10 Sodium 141 mmol/L (137-145) 11/07/21 04:21 Potassium 3.8 mmol/L (3.6-5.0) 11/07/21 04:21 Chloride 106.1 mmol/L (98-107) 11/07/21 04:21 Carbon Dioxide 27 mmol/L (22-30) 11/07/21 04:21 Anion Gap 12 mmol/L 11/07/21 04:21 BUN 11 mg/dL (7-17) 11/07/21 04:21 Creatinine 0.9 mg/dL (0.6-1.2) 11/07/21 04:21 Estimated GFR > 60 ml/min 11/07/21 04:21 BUN/Creatinine Ratio 12 % 11/07/21 04:21 Glucose 101 mg/dL (65-100) H 11/07/21 04:21 Calcium 8.4 mg/dL (8.4-10.2) 11/07/21 04:21 Phosphorus 3.30 mg/dL (2.5-4.5) 11/07/21 04:21 Magnesium 2.20 mg/dL (1.7-2.3) 11/07/21 04:21 Total Creatine Kinase 196 units/L (30-135) H 11/04/21 18:53 CK-MB (CK-2) 4.0 ng/mL (0.0-4.0) 11/04/21 18:53 CK-MB (CK-2) Rel Index 2.0 (0-4) 11/04/21 18:53 Troponin T < 0.010 ng/mL (0.00-0.029) 11/04/21 18:53 NT-Pro-B Natriuret Pep 1961 pg/mL (0-450) H 11/04/21 13:58 Urine Color Yellow (Yellow) 11/04/21 21:44 Urine Turbidity Clear (Clear) 11/04/21 21:44 Urine pH 5.0 (5.0-7.0) 11/04/21 21:44 Ur Specific [place] 1.012 (1.003-1.030) 11/04/21 21:44 Urine Protein <15 mg/dl mg/dL (Negative) 11/04/21 21:44 Urine Glucose (UA) Neg mg/dL (Negative) 11/04/21 21:44 Urine Ketones Neg mg/dL (Negative) 11/04/21 21:44 Urine Blood Neg (Negative) 11/04/21 21:44 Urine Nitrite Neg (Negative) 11/04/21 21:44 Urine Bilirubin Neg (Negative) 11/04/21 21:44 Urine Urobilinogen < 2.0 mg/dL (<2.0) 11/04/21 21:44 Ur Leukocyte Esterase Neg (Negative) 11/04/21 21:44 Urine WBC (Auto) < 1.0 /HPF (0.0-6.0) 11/04/21 21:44 Urine RBC (Auto) 3.0 /HPF (0.0-6.0) 11/04/21 21:44 U Epithel Cells (Auto) 2.0 /HPF (0-13.0) 11/04/21 21:44 Mak/IV: Voiding Method External Female Catheter Active Medications - Current Medications Current Medications: Generic Name Dose Route Start Last Admin Trade Name Freq PRN Reason Stop Dose Admin Acetaminophen 650 mg 11/04/21 18:40 11/06/21 22:04 Acetaminophen 325 Mg Tab PO 650 mg Q4H PRN Administration Pain MILD(1-3)/Fever >100.5/CARTAGENA Albuterol 2.5 mg 11/04/21 18:40 Albuterol 2.5 Mg/3 Ml Nebu IH Q4HRT PRN Shortness Of Breath Clonazepam 1 mg 11/05/21 10:00 11/06/21 10:45 Clonazepam 0.5 Mg Tab PO 1 mg QDAY JOSE Administration Escitalopram Oxalate 10 mg 11/05/21 10:00 11/06/21 10:53 Escitalopram 10 Mg/10 Ml Oral Liqd PO 10 mg DAILY JOSE Administration Famotidine 20 mg 11/05/21 22:00 11/06/21 22:02 Famotidine 20 Mg Tab PO 20 mg BID JOSE Administration Furosemide 20 mg 11/05/21 06:00 11/06/21 18:29 Furosemide 20 Mg/2 Ml Inj IV 20 mg BID@0600,1800 JOSE Administration Guaifenesin 600 mg 11/04/21 22:00 11/06/21 22:02 Guaifenesin Er 600 Mg Tab PO 600 mg BID JOSE Administration Clindamycin HCl 300 mg/ 52 mls @ 104 mls/hr 11/06/21 18:00 11/07/21 05:18 Dextrose IM 104 mls/hr Q6H JOSE Administration Lisinopril 2.5 mg 11/05/21 10:00 11/06/21 10:46 Lisinopril 5 Mg Tab PO Not Given QDAY JOSE Melatonin 10 mg 11/06/21 22:00 11/06/21 22:01 Melatonin 5 Mg Tab PO 10 mg QHS JOSE Administration Ondansetron HCl 4 mg 11/04/21 18:40 Ondansetron 4 Mg/2 Ml Inj IV Q8H PRN Nausea And Vomiting Oxycodone/Acetaminophen 1 tab 11/04/21 18:40 11/07/21 05:18 Oxycodone /Acetaminophen 5-325mg Tab PO 1 tab Q6H PRN Administration Pain, Moderate (4-6) Risperidone 0.5 mg 11/05/21 10:00 11/06/21 10:44 Risperidone 0.25 Mg Tab PO 0.5 mg QDAY JOSE Administration Rivaroxaban 20 mg 11/05/21 11:00 11/06/21 10:44 Rivaroxaban 20 Mg Tab PO 20 mg QDAY JOSE Administration Sildenafil Citrate 10 mg 11/06/21 14:00 11/06/21 22:02 Sildenafil 20 Mg Tab PO 10 mg TID JOSE Administration Sodium Chloride 10 ml 11/04/21 22:00 11/06/21 23:44 Sodium Chloride 0.9% 10 Ml Flush Syringe IV Not Given BID JOSE Sodium Chloride 10 ml 11/04/21 18:40 Sodium Chloride 0.9% 10 Ml Flush Syringe IV PRN PRN LINE FLUSH Nutrition/Malnutrition Assess - Dietary Evaluation Nutrition/Malnutrition Findings: Nutrition Notes Start: 11/06/21 12:02 Freq: Status: Active Protocol: Document 11/06/21 12:02 FREDDY (Rec: 11/06/21 12:06 FREDDY [id number]) Nutrition Notes Need for Assessment generated from: manager statistical Initial or Follow up Brief Note Current Diagnosis Heart Failure Other Pertinent Diagnosis CHF exacerbation Current Diet Cardiac Labs/Tests reviewed Pertinent Medications Lasix Height 5 ft 7 in Weight 190.5 kg [place] Body Weight (kg) 61.36 BMI 65.7 Weight Status Morbidly Obese Subjective/Other Information Pt screened for skin risk ( Sonny score: 16). PMHx includes obesity hypoventilation syndrome, pulmonary HTN, lymphedema, peripheral vascular dz. Burn Absent Trauma Absent Minimum of two criteria No Fluid Accumulation Moderate to Severe (severe) Is patient on ventilator? No Is Patient Ambulatory and/or Out of Bed No [facility] 3095.280 Kcal/Kg value to use for calculation 9 Approximate Energy Requirements Using 1715 kcal/Kg Calculation Used for Recommendations Kcal/kg Additional Notes Pro needs 0.8-1g/kg adjBW: 101 -126g/day Fluid needs per MD. Nutrition Intervention Follow-Up By: 11/11/21 Additional Comments F/U: intakes
[2021-11-06] MEDS: SILDENAFIL 20 MG TAB PO SCH ×2 (15:53→22:02)
[2021-11-06] MEDS ORDERED: CLINDAMYCIN 300 MG/50 mL 300 MG/50 ML BAG IV SCH (16:00)
[2021-11-06] MEDS: CLINDAMYCIN IM SCH ×2 (19:24→23:41)
[2021-11-06] MEDS: DEXTROSE 5% IM SCH ×2 (19:24→23:41)
[2021-11-06] MEDS: WATER IM SCH ×2 (19:24→23:41)
--- NOTE | 2021-11-06 21:28 | Electrocardiograph Report ---
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
[2021-11-06] MEDS: MELATONIN 5 MG TAB PO SCH (22:01)
[2021-11-07 04:52] LABS: BUN/Creatinine Ratio 12; Blood Urea Nitrogen 11 mg/dL (7-17); Calcium 8.4 mg/dL (8.4-10.2); Hemolysis Index 10
[2021-11-07] MEDS: CLINDAMYCIN IM SCH (05:18)
[2021-11-07] MEDS: DEXTROSE 5% IM SCH (05:18)
[2021-11-07] MEDS: WATER IM SCH (05:18)
[2021-11-07] MEDS: oxyCODONE /ACETAMINOPHEN 5-325MG TAB PO PRN ×3 (05:18→21:08)
[2021-11-07] MEDS: FUROSEMIDE 20 MG/2 ML INJ IV SCH ×2 (06:00→17:07)
[2021-11-07] MEDS: ONDANSETRON 4 MG/2 ML INJ IV PRN ×2 (09:18→21:09)
--- NOTE | 2021-11-07 09:53 | Progress Note ---
Assessment and Plan 46 y/o morbidly obese female with known VTE and Factor V Deficiency admitted with acute on chronic hypoxic respiratory failure. Patient does not have primary pulmonary HTN. 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 Using Primary Pulmonary HTN medication therapy in those who do not have primary pulmonary htn can worsen V/Q mismatch and make hypoxemia worse. Given her history, I would suggest that she need to be evaluated again for VTE. IMS has ordered dopplers but if negative would consider repeat CTA. Patient also could benefit from outpatient pSG but given her noncompliance, the likelihood of her going is low. Subjective Date of service: 11/07/21 Principal diagnosis: sob Interval history: Sleepy right now. Per patient just had emesis and was given zofran. Still on HFNC with sats in the mid 80's. In no distress. Remains obese Objective Vital Signs - 12hr 11/06/21 11/06/21 11/06/21 22:00 22:02 22:04 Temperature Pulse Rate 70 Pulse Rate [ From Monitor] Respiratory 20 17 18 Rate Blood Pressure 123/75 O2 Sat by Pulse 93 Oximetry 11/06/21 11/06/21 11/06/21 23:00 23:02 23:04 Temperature 97.8 F Pulse Rate 69 Pulse Rate [ From Monitor] Respiratory 24 18 18 Rate Blood Pressure 104/58 O2 Sat by Pulse 89 Oximetry 11/06/21 11/06/21 11/07/21 23:18 23:51 00:00 Temperature Pulse Rate 67 63 64 Pulse Rate [ From Monitor] Respiratory 21 18 18 Rate Blood Pressure 104/58 104/58 100/54 O2 Sat by Pulse 99 99 97 Oximetry 11/07/21 11/07/21 11/07/21 00:30 01:00 02:00 Temperature Pulse Rate 62 58 L 60 Pulse Rate [ From Monitor] Respiratory 16 17 Rate Blood Pressure 105/64 103/58 O2 Sat by Pulse 96 97 Oximetry 11/07/21 11/07/21 11/07/21 03:00 03:54 04:00 Temperature 98.2 F Pulse Rate 61 62 Pulse Rate [ 62 From Monitor] Respiratory 19 17 Rate Blood Pressure 105/60 110/60 O2 Sat by Pulse 98 99 Oximetry 11/07/21 11/07/21 11/07/21 04:33 05:01 05:18 Temperature Pulse Rate 61 65 Pulse Rate [ From Monitor] Respiratory 23 21 19 Rate Blood Pressure 110/60 110/60 O2 Sat by Pulse 100 100 Oximetry 11/07/21 11/07/21 11/07/21 06:00 06:18 07:00 Temperature 98.3 F Pulse Rate 65 60 Pulse Rate [ From Monitor] Respiratory 11 L 16 17 Rate Blood Pressure 127/77 114/59 O2 Sat by Pulse 100 100 Oximetry 11/07/21 11/07/21 08:00 09:00 Temperature Pulse Rate 63 80 Pulse Rate [ 63 From Monitor] Respiratory 20 36 H Rate Blood Pressure 114/59 119/69 O2 Sat by Pulse 98 91 Oximetry Constitutional: no acute distress, alert, other (obese) Eyes: non-icteric ENT: oropharynx moist Ascultation: Bilateral: diminished breath sounds Cardiovascular: regular rate and rhythm Gastrointestinal: normoactive bowel sounds, soft, non-tender, other (obese) Integumentary: other (chronic venous stasis changes bilat le) Neurologic: normal mental status, non-focal exam CBC and BMP: 11/06/21 04:10 11/07/21 04:21 ABG, PT/INR, D-dimer: ABG ABG pH 7.331 pH Units (7.350-7.450) L 11/05/21 11:10 ABG pCO2 50.7 mm Hg 11/05/21 11:10 ABG pO2 61.1 mm Hg (80.0-90.0) L 11/05/21 11:10 ABG O2 Saturation 89.4 % (95.0-99.0) L 11/05/21 11:10 PT/INR, D-dimer PT 16.9 Sec. (12.2-14.9) H 11/04/21 13:58 INR 1.23 (0.87-1.13) H 11/04/21 13:58 Abnormal lab findings: Abnormal Labs 11/04/21 11/04/21 11/04/21 13:58 13:58 13:58 MCV 78 L MCH 25 L RDW 20.0 H Lymph % (Auto) 11.0 L [place] % (Auto) 10.0 H Lymph # (Auto) 1.0 L [place] # (Auto) 0.9 H Seg Neutrophils % 77.9 H PT 16.9 H INR 1.23 H ABG pH ABG pO2 ABG HCO3 ABG O2 Saturation ABG Hemoglobin Oxyhemoglobin Chloride 109.3 H Carbon Dioxide Glucose Total Creatine Kinase NT-Pro-B Natriuret Pep 11/04/21 11/04/21 11/04/21 13:58 18:53 20:19 MCV MCH RDW Lymph % (Auto) [place] % (Auto) Lymph # (Auto) [place] # (Auto) Seg Neutrophils % PT INR ABG pH ABG pO2 35.8 L* ABG HCO3 ABG O2 Saturation 65.0 L ABG Hemoglobin Oxyhemoglobin 63.5 L Chloride Carbon Dioxide Glucose Total Creatine Kinase 196 H NT-Pro-B Natriuret Pep 1961 H 11/05/21 11/05/21 11/06/21 02:57 11:10 04:10 MCV MCH 24 L RDW 19.9 H Lymph % (Auto) [place] % (Auto) Lymph # (Auto) [place] # (Auto) Seg Neutrophils % PT INR ABG pH 7.331 L ABG pO2 61.1 L ABG HCO3 26.2 H ABG O2 Saturation 89.4 L ABG Hemoglobin 11.4 L Oxyhemoglobin 87.5 L Chloride 108.8 H Carbon Dioxide 21 L Glucose 101 H Total Creatine Kinase NT-Pro-B Natriuret Pep 11/06/21 11/07/21 04:10 04:21 MCV MCH RDW Lymph % (Auto) [place] % (Auto) Lymph # (Auto) [place] # (Auto) Seg Neutrophils % PT INR ABG pH ABG pO2 ABG HCO3 ABG O2 Saturation ABG Hemoglobin Oxyhemoglobin Chloride 108.9 H Carbon Dioxide Glucose 101 H Total Creatine Kinase NT-Pro-B Natriuret Pep
[2021-11-07] MEDS: FAMOTIDINE 20 MG TAB PO SCH ×2 (10:31→21:09)
[2021-11-07] MEDS: LISINOPRIL 5 MG TAB PO SCH (10:32)
[2021-11-07] MEDS: RIVAROXABAN 20 MG TAB PO SCH (10:32)
[2021-11-07] MEDS: risperiDONE 0.25 MG TAB PO SCH (10:32)
[2021-11-07] MEDS: guaiFENesin ER 600 MG TAB PO SCH ×2 (10:32→21:09)
[2021-11-07] MEDS: clonazePAM 0.5 MG TAB PO SCH (10:32)
[2021-11-07] MEDS: ESCITALOPRAM 10 MG/10 ML ORAL LIQD PO SCH (10:33)
--- NOTE | 2021-11-07 10:41 | Progress Note ---
Assessment and Plan 46-year-old female with morbid obesity history of recurrent pulmonary embolism on oral anticoagulation sleep apnea chronic respiratory failure on 2 L of oxygen baseline who came in with complaint of SOB Acute on Chronic respiratory failure-Pulmonology following Pulmonary hypertension Antithrombin III deficiency Morbid obesity Cellulitis PVD Echo 11/05/2021-EF 55 to 60%. Flattened septum consistent with right ventricular pressure overload. Right ventricle is mildly hypokinetic. Right ventricle is mildly dilated. Left atrium is mildly dilated. No aortic regurgitation is present. Moderate tricuspid regurgitation. Right atrial pressure is estimated at 50 mmHg. Right ventricular systolic pressure is estimated at 85 mmHg. Moderate to severe pulmonary hypertension Plan: Continue lisinopril 2.5 mg p.o. daily Patient anticoagulated on Xarelto Echo results noted above Per conversation with patient and staff patient still having good urine output. Continue diuresis with Lasix IV with close monitoring of renal function and strict I&O's. Repeat BMP in the a.m. Patient seen in conjunction with Dr. Sanchez who agrees with this plan of care - Patient Problems (1) Cellulitis Current Visit: Yes Status: Acute Qualifiers: Site of cellulitis: extremity Site of cellulitis of extremity: lower extremity Laterality: unspecified laterality Qualified Code(s): L03.119 - Cellulitis of unspecified part of limb (2) Elevated brain natriuretic peptide (BNP) level Current Visit: Yes Status: Acute (3) Obesity hypoventilation syndrome Current Visit: Yes Status: Acute (4) Pulmonary hypertension Current Visit: Yes Status: Acute (5) Acute on chronic respiratory failure with hypoxia Current Visit: No Status: Acute (6) Antithrombin III deficiency Current Visit: No Status: Acute (7) Cor pulmonale Current Visit: No Status: Acute (8) Morbid obesity Current Visit: No Status: Chronic (9) PVD (peripheral vascular disease) Current Visit: No Status: Chronic (10) Rheumatoid arthritis Current Visit: No Status: Chronic Subjective Date of service: 11/07/21 Principal diagnosis: sob Interval history: Patient resting in bed. Patient reports improvement in breathing however she reports feeling nauseous this a.m. Sinus 70s to 80s on monitor Objective Vital Signs Temp Pulse Pulse Resp BP Pulse Ox 11/07/21 10:32 65 106/64 11/07/21 09:00 80 63 36 H 119/69 91 11/07/21 08:00 63 20 114/59 98 11/07/21 07:00 98.3 F 60 17 114/59 100 11/07/21 06:18 16 11/07/21 06:00 65 11 L 127/77 100 11/07/21 05:18 19 11/07/21 05:01 65 21 110/60 100 11/07/21 04:33 61 23 110/60 100 11/07/21 04:00 62 62 17 110/60 99 11/07/21 03:54 98.2 F 11/07/21 03:00 61 19 105/60 98 11/07/21 02:00 60 17 103/58 97 11/07/21 01:00 58 L 16 105/64 96 11/07/21 00:30 62 11/07/21 00:00 64 18 100/54 97 11/06/21 23:51 63 18 104/58 99 11/06/21 23:18 67 21 104/58 99 11/06/21 23:04 18 11/06/21 23:02 18 11/06/21 23:00 97.8 F 69 24 104/58 89 11/06/21 22:04 18 11/06/21 22:02 17 11/06/21 22:00 70 20 123/75 93 11/06/21 21:00 68 22 104/70 11/06/21 20:20 66 11/06/21 20:00 70 21 109/69 11/06/21 19:00 93 11/06/21 17:00 76 25 H 94 11/06/21 16:00 77 11/06/21 13:00 83 23 89 11/06/21 12:00 83 - Physical Examination General: No Apparent Distress HEENT: Positive: PERRL, EOMI Neck: Positive: neck supple Cardiac: Positive: Reg Rate and Rhythm Lungs: Positive: Decreased Breath Sounds Neuro: Positive: Grossly Intact Abdomen: Positive: Soft Extremities: Present: +1 Edema (bilateral shins banaged) - Labs and Meds Comprehensive Metabolic Panel 11/07/21 Range/Units 04:21 Sodium 141 (137-145) mmol/L Potassium 3.8 (3.6-5.0) mmol/L Chloride 106.1 (98-107) mmol/L Carbon Dioxide 27 (22-30) mmol/L BUN 11 (7-17) mg/dL Creatinine 0.9 (0.6-1.2) mg/dL Glucose 101 H (65-100) mg/dL Calcium 8.4 (8.4-10.2) mg/dL - Imaging and Cardiology Echo: report reviewed (normal lv function, rv dilated and mild dsyfunction with rv pressure over load and severe pulmonary htn) - Telemetry EKG Rhythm: Sinus Rhythm - EKG Sinus rhythms and dysrhythmias: sinus rhythm
[2021-11-07] MEDS: CLINDAMYCIN IV SCH ×2 (13:37→21:09)
--- NOTE | 2021-11-07 16:15 | Progress Note ---
<ALEKSANDREdyENIDLinda - Last Filed: 11/07/21 16:22> Assessment and Plan Assessment and plan: This is 46 year old female with chronic respiratory failure on home oxygen, anti thrombin 3 deficiency and PE s/p EKOs on xarelto, noncompliance, OA, diastolic heart failure, MO, and anxiety and depression admitted with acute on chronic repository failure and pulmonary edema Neuro: h/o depression and anxiety, noncompliance, chronic pain, multiple falls at home -Reorientation as needed -Maintain sleep-wake cycle -As needed analgesia -PT/OT consulted, appreciate recommendations -Continue home Lexapro, risperidone Cardiac: h/o Diastolic heart failure, PVD -Cardiology consulted, appreciate recommendations -Blood pressure monitoring per protocol -Admit BNP 1960 -IV lasix -11/05 Echo- The right atrial pressure is estimated at 15 mmHg. Right ventricular systolic pressure is estimated at 85 mmHg. There is moderate-severe pulmonary hypertension. See report for detail Respiratory: Acute on chronic hypoxic respiratory failure, severe pulm htn, h/o multiple PE s/p EKOS -Pulmonology consulted, appreciate recommendations -Bipap q hs, Optiflow AM -VAP bundle -SPO2 monitoring -F/U outpatient for sleep apnea eval/ Sleep study -F/U with pulmonary and cardio output for RHC and further pulmo HTN w/up and treatment GI: MO -24 hours + 862 mL -PPI -Cardiac diet -BR: colace : NAD -Record intake and output -Renally dose medications -Avoid nephrotoxic medications -Trend BMP ID: BLE cellulitis -Antibiotic therapy with clindamycin -f/u blood culture -Monitor WBC and temperature curve Endo: NAD -Avoid hypoglycemia Heme: h/o antithrombin III deficiency, multiple PE -Continue home xarelto -Trend CBC -Transfuse hemoglobin less than 7 -BLE Doppler US pending -SCDs to BLE while in bed The high probability of a clinically significant, sudden or life threatening deterioration of the [pulm/cardiac] system(s) required my full and direct attention, intervention and personal management. The aggregate critical care time was [60] minutes. This time is in addition to time spent performing reported procedures but includes the following: [x] Data Review and interpretation [x] Patient assessment and monitoring of vital signs [x] Documentation [x] Medication orders and management Disposition Plan: imcu Total Time Spent with Patient (Minutes): 60 History Interval history: This is a 46-year-old female with OHS, Antithrombin III deficiency s/p pulm embolism s/p EKOS on Xarelto, noncompliance, osteoarthritis, pulmonary hypertens ion, anxiety, depression lymphedema, peripheral vascular disease, noncompliance, diastolic heart failure who presented to emergency department on 11/04 with complaints of shortness of breath over the past week with worsening symptoms over the past week complicated by weakness resulting in multiple falls. In the emergency room patient was found to have a SPO2 of 87% on room air and clinical symptoms consistent with CHF as compensation. Patient was admitted to telemetry and initiated on CHF protocol. Patient was also initiated on BiPAP and started on antibiotic therapy. Patient was admitted to the hospital service with acute exacerbation of CHF, acute on chronic respiratory failure with hypoxia and cellulitis with consults to cardiology and pulmonology. Hospital Course to Date: 11/05: Respiratory status improved, now stable on 50% Venti-mask, repeat ABG pending. Continue IV lasix BID, check echo to evaluate pulmonary pressures. Cardiology is consulted. Continue O2 supplementation wean as tolerated for SPO2 above 92%, Bipap at night. Pulmonary was also consulted. Continue current IV abx for BLE cellutis. Check BLE doppler to r/o DVT. Resume home Xarelto. 11/06: Echo revealed severe pulmnary hypertension and RV dysfunction. Continue IV lasix BID. Plan to initiate pulmo HTN therapy, Sildenafil, per pulmo. Cardio is also following. Continue O2 supplementation and wean as tolerated. 11/07: Bilateral lower extremity ultrasound pending, family is requesting PT/OT evaluation. However patient refused PT and OT today and lower extremity Doppler ultrasound. [facility] would like to repeat CTA chest if Dopplers are negative. Cardiology would like to continue diuresis with Lasix. Hospitalist Physical - Constitutional Vitals: Temp Pulse Resp BP Pulse Ox 98.2 F 65 20 97/57 87 11/07/21 11:00 11/07/21 15:00 11/07/21 15:00 11/07/21 15:00 11/07/21 15:00 General appearance: Present: no acute distress, well-nourished, obese - EENT Eyes: Present: PERRL, EOM intact ENT: clear oral mucosa, dentition normal - Neck Neck: Present: normal ROM - Respiratory Respiratory effort: normal Respiratory: bilateral: diminished - Cardiovascular Rhythm: regular Heart Sounds: Present: S1 & S2. Absent: systolic murmur, diastolic murmur - Extremities Extremities: no ischemia, pulses intact, pulses symmetrical Extremity abnormal: edema, erythema Peripheral Pulses: within normal limits - Abdominal General gastrointestinal: soft, non-tender, non-distended, normal bowel sounds - Integumentary Integumentary: Present: warm, dry - Psychiatric Psychiatric: cooperative - Neurologic Neurologic: CNII-XII intact, no focal deficits, moves all extremities - Allied Health Allied health notes reviewed: nursing, RT, social work HEART Score - HEART Score Troponin: Troponin T < 0.010 ng/mL (0.00-0.029) 11/04/21 18:53 Results - Labs CBC & Chem 7: 11/06/21 04:10 11/07/21 04:21 Labs: Laboratory Last Values WBC 6.9 K/mm3 (4.5-11.0) 11/06/21 04:10 RBC 4.84 M/mm3 (3.65-5.03) 11/06/21 04:10 Hgb 11.7 gm/dl (10.1-14.3) 11/06/21 04:10 Hct 38.9 % (30.3-42.9) 11/06/21 04:10 MCV 80 fl (79-97) 11/06/21 04:10 MCH 24 pg (28-32) L 11/06/21 04:10 MCHC 30 % (30-34) 11/06/21 04:10 RDW 19.9 % (13.2-15.2) H 11/06/21 04:10 Plt Count 206 K/mm3 (140-440) 11/06/21 04:10 Lymph % (Auto) 11.0 % (13.4-35.0) L 11/04/21 13:58 [place] % (Auto) 10.0 % (0.0-7.3) H 11/04/21 13:58 Eos % (Auto) 0.8 % (0.0-4.3) 11/04/21 13:58 Baso % (Auto) 0.3 % (0.0-1.8) 11/04/21 13:58 Lymph # (Auto) 1.0 K/mm3 (1.2-5.4) L 11/04/21 13:58 [place] # (Auto) 0.9 K/mm3 (0.0-0.8) H 11/04/21 13:58 Eos # (Auto) 0.1 K/mm3 (0.0-0.4) 11/04/21 13:58 Baso # (Auto) 0.0 K/mm3 (0.0-0.1) 11/04/21 13:58 Seg Neutrophils % 77.9 % (40.0-70.0) H 11/04/21 13:58 Seg Neutrophils # 7.0 K/mm3 (1.8-7.7) 11/04/21 13:58 PT 16.9 Sec. (12.2-14.9) H 11/04/21 13:58 INR 1.23 (0.87-1.13) H 11/04/21 13:58 APTT 32.0 Sec. (24.2-36.6) 11/04/21 13:58 ABG pH 7.331 pH Units (7.350-7.450) L 11/05/21 11:10 ABG pCO2 50.7 mm Hg 11/05/21 11:10 ABG pO2 61.1 mm Hg (80.0-90.0) L 11/05/21 11:10 ABG HCO3 26.2 mmol/L (20.0-26.0) H 11/05/21 11:10 ABG O2 Saturation 89.4 % (95.0-99.0) L 11/05/21 11:10 ABG O2 Content 14.0 (0.0-44) 11/05/21 11:10 ABG Base Excess -0.2 mmol/L (-2.0-3.0) 11/05/21 11:10 ABG Hemoglobin 11.4 gm/dl (12.0-16.0) L 11/05/21 11:10 ABG Carboxyhemoglobin 1.4 % (0.0-5.0) 11/05/21 11:10 ABG Methemoglobin 0.7 % (0.0-1.5) 11/05/21 11:10 Oxyhemoglobin 87.5 % (95.0-99.0) L 11/05/21 11:10 FiO2 50 % 11/05/21 11:10 Sodium 141 mmol/L (137-145) 11/07/21 04:21 Potassium 3.8 mmol/L (3.6-5.0) 11/07/21 04:21 Chloride 106.1 mmol/L (98-107) 11/07/21 04:21 Carbon Dioxide 27 mmol/L (22-30) 11/07/21 04:21 Anion Gap 12 mmol/L 11/07/21 04:21 BUN 11 mg/dL (7-17) 11/07/21 04:21 Creatinine 0.9 mg/dL (0.6-1.2) 11/07/21 04:21 Estimated GFR > 60 ml/min 11/07/21 04:21 BUN/Creatinine Ratio 12 % 11/07/21 04:21 Glucose 101 mg/dL (65-100) H 11/07/21 04:21 Calcium 8.4 mg/dL (8.4-10.2) 11/07/21 04:21 Phosphorus 3.30 mg/dL (2.5-4.5) 11/07/21 04:21 Magnesium 2.20 mg/dL (1.7-2.3) 11/07/21 04:21 Total Creatine Kinase 196 units/L (30-135) H 11/04/21 18:53 CK-MB (CK-2) 4.0 ng/mL (0.0-4.0) 11/04/21 18:53 CK-MB (CK-2) Rel Index 2.0 (0-4) 11/04/21 18:53 Troponin T < 0.010 ng/mL (0.00-0.029) 11/04/21 18:53 NT-Pro-B Natriuret Pep 1961 pg/mL (0-450) H 11/04/21 13:58 Urine Color Yellow (Yellow) 11/04/21 21:44 Urine Turbidity Clear (Clear) 11/04/21 21:44 Urine pH 5.0 (5.0-7.0) 11/04/21 21:44 Ur Specific [place] 1.012 (1.003-1.030) 11/04/21 21:44 Urine Protein <15 mg/dl mg/dL (Negative) 11/04/21 21:44 Urine Glucose (UA) Neg mg/dL (Negative) 11/04/21 21:44 Urine Ketones Neg mg/dL (Negative) 11/04/21 21:44 Urine Blood Neg (Negative) 11/04/21 21:44 Urine Nitrite Neg (Negative) 11/04/21 21:44 Urine Bilirubin Neg (Negative) 11/04/21 21:44 Urine Urobilinogen < 2.0 mg/dL (<2.0) 11/04/21 21:44 Ur Leukocyte Esterase Neg (Negative) 11/04/21 21:44 Urine WBC (Auto) < 1.0 /HPF (0.0-6.0) 11/04/21 21:44 Urine RBC (Auto) 3.0 /HPF (0.0-6.0) 11/04/21 21:44 U Epithel Cells (Auto) 2.0 /HPF (0-13.0) 11/04/21 21:44 Nasal Screen MRSA (PCR) Negative (Negative) 11/07/21 05:20 Mak/IV: Voiding Method External Female Catheter Active Medications - Current Medications Current Medications: Generic Name Dose Route Start Last Admin Trade Name Freq PRN Reason Stop Dose Admin Acetaminophen 650 mg 11/04/21 18:40 11/06/21 22:04 Acetaminophen 325 Mg Tab PO 650 mg Q4H PRN Administration Pain MILD(1-3)/Fever >100.5/CARTAGENA Albuterol 2.5 mg 11/04/21 18:40 Albuterol 2.5 Mg/3 Ml Nebu IH Q4HRT PRN Shortness Of Breath Clonazepam 1 mg 11/05/21 10:00 11/07/21 10:32 Clonazepam 0.5 Mg Tab PO 1 mg QDAY JOSE Administration Escitalopram Oxalate 10 mg 11/05/21 10:00 11/07/21 10:33 Escitalopram 10 Mg/10 Ml Oral Liqd PO 10 mg DAILY JOSE Administration Famotidine 20 mg 11/05/21 22:00 11/07/21 10:31 Famotidine 20 Mg Tab PO 20 mg BID JOSE Administration Furosemide 20 mg 11/05/21 06:00 11/07/21 06:00 Furosemide 20 Mg/2 Ml Inj IV 20 mg BID@0600,1800 JOSE Administration Guaifenesin 600 mg 11/04/21 22:00 11/07/21 10:32 Guaifenesin Er 600 Mg Tab PO 600 mg BID JOSE Administration Clindamycin HCl 600 mg in 50 mls @ 100 mls/hr 11/07/21 14:00 11/07/21 13:37 Cleocin 600 Mg/50 Ml IV 11/09/21 06:29 100 mls/hr Q8H JOSE Administration Protocol Lisinopril 2.5 mg 11/05/21 10:00 11/07/21 10:32 Lisinopril 5 Mg Tab PO 2.5 mg QDAY JOSE Administration Melatonin 10 mg 11/06/21 22:00 11/06/21 22:01 Melatonin 5 Mg Tab PO 10 mg QHS JOSE Administration Ondansetron HCl 4 mg 11/04/21 18:40 11/07/21 09:18 Ondansetron 4 Mg/2 Ml Inj IV 4 mg Q8H PRN Administration Nausea And Vomiting Oxycodone/Acetaminophen 1 tab 11/04/21 18:40 11/07/21 13:44 Oxycodone /Acetaminophen 5-325mg Tab PO 1 tab Q6H PRN Administration Pain, Moderate (4-6) Risperidone 0.5 mg 11/05/21 10:00 11/07/21 10:32 Risperidone 0.25 Mg Tab PO 0.5 mg QDAY JOSE Administration Rivaroxaban 20 mg 11/05/21 11:00 11/07/21 10:32 Rivaroxaban 20 Mg Tab PO 20 mg QDAY JOSE Administration Sodium Chloride 10 ml 11/04/21 22:00 11/07/21 09:19 Sodium Chloride 0.9% 10 Ml Flush Syringe IV 10 ml BID JOSE Administration Sodium Chloride 10 ml 11/04/21 18:40 Sodium Chloride 0.9% 10 Ml Flush Syringe IV PRN PRN LINE FLUSH Nutrition/Malnutrition Assess - Dietary Evaluation Nutrition/Malnutrition Findings: Nutrition Notes Start: 11/06/21 12:02 Freq: Status: Active Protocol: Document 11/06/21 12:02 FREDDY (Rec: 11/06/21 12:06 FREDDY [email or web address]) 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 PMHx includes obesity hypoventilation syndrome, pulmonary HTN, lymphedema, peripheral vascular dz. Burn Absent Trauma Absent Minimum of two criteria No Fluid Accumulation Moderate to Severe (severe) Is patient on ventilator? No Is Patient Ambulatory and/or Out of Bed No REE-([place]-[facility]-confined to bed) 3095.280 Kcal/Kg value to use for calculation 9 Approximate Energy Requirements Using 1715 kcal/Kg Calculation Used for Recommendations Kcal/kg Additional Notes Pro needs 0.8-1g/kg adjBW: 101 -126g/day Fluid needs per MD. Nutrition Intervention Follow-Up By: 11/11/21 Additional Comments F/U: intakes <MAYRA SANTANA E - Last Filed: 11/08/21 06:01> Assessment and Plan Assessment and plan: I saw and evaluated the patient. I agree with the findings and the plan of care as documented in the Nurse Practitioner's~note, with the following corrections and additions. Hospitalist Physical - Constitutional Vitals: Temp Pulse Resp BP Pulse Ox 97.8 F 66 16 103/65 95 11/08/21 04:00 11/08/21 05:00 11/08/21 05:00 11/08/21 05:00 11/08/21 05:00 HEART Score - HEART Score Troponin: Troponin T < 0.010 ng/mL (0.00-0.029) 11/04/21 18:53 Results - Labs CBC & Chem 7: 11/06/21 04:10 11/08/21 04:40 Labs: Laboratory Last Values WBC 6.9 K/mm3 (4.5-11.0) 11/06/21 04:10 RBC 4.84 M/mm3 (3.65-5.03) 11/06/21 04:10 Hgb 11.7 gm/dl (10.1-14.3) 11/06/21 04:10 Hct 38.9 % (30.3-42.9) 11/06/21 04:10 MCV 80 fl (79-97) 11/06/21 04:10 MCH 24 pg (28-32) L 11/06/21 04:10 MCHC 30 % (30-34) 11/06/21 04:10 RDW 19.9 % (13.2-15.2) H 11/06/21 04:10 Plt Count 206 K/mm3 (140-440) 11/06/21 04:10 Lymph % (Auto) 11.0 % (13.4-35.0) L 11/04/21 13:58 [place] % (Auto) 10.0 % (0.0-7.3) H 11/04/21 13:58 Eos % (Auto) 0.8 % (0.0-4.3) 11/04/21 13:58 Baso % (Auto) 0.3 % (0.0-1.8) 11/04/21 13:58 Lymph # (Auto) 1.0 K/mm3 (1.2-5.4) L 11/04/21 13:58 [place] # (Auto) 0.9 K/mm3 (0.0-0.8) H 11/04/21 13:58 Eos # (Auto) 0.1 K/mm3 (0.0-0.4) 11/04/21 13:58 Baso # (Auto) 0.0 K/mm3 (0.0-0.1) 11/04/21 13:58 Seg Neutrophils % 77.9 % (40.0-70.0) H 11/04/21 13:58 Seg Neutrophils # 7.0 K/mm3 (1.8-7.7) 11/04/21 13:58 PT 16.9 Sec. (12.2-14.9) H 11/04/21 13:58 INR 1.23 (0.87-1.13) H 11/04/21 13:58 APTT 32.0 Sec. (24.2-36.6) 11/04/21 13:58 ABG pH 7.331 pH Units (7.350-7.450) L 11/05/21 11:10 ABG pCO2 50.7 mm Hg 11/05/21 11:10 ABG pO2 61.1 mm Hg (80.0-90.0) L 11/05/21 11:10 ABG HCO3 26.2 mmol/L (20.0-26.0) H 11/05/21 11:10 ABG O2 Saturation 89.4 % (95.0-99.0) L 11/05/21 11:10 ABG O2 Content 14.0 (0.0-44) 11/05/21 11:10 ABG Base Excess -0.2 mmol/L (-2.0-3.0) 11/05/21 11:10 ABG Hemoglobin 11.4 gm/dl (12.0-16.0) L 11/05/21 11:10 ABG Carboxyhemoglobin 1.4 % (0.0-5.0) 11/05/21 11:10 ABG Methemoglobin 0.7 % (0.0-1.5) 11/05/21 11:10 Oxyhemoglobin 87.5 % (95.0-99.0) L 11/05/21 11:10 FiO2 50 % 11/05/21 11:10 Sodium 140 mmol/L (137-145) 11/08/21 04:40 Potassium 4.2 mmol/L (3.6-5.0) 11/08/21 04:40 Chloride 104.2 mmol/L (98-107) 11/08/21 04:40 Carbon Dioxide 27 mmol/L (22-30) 11/08/21 04:40 Anion Gap 13 mmol/L 11/08/21 04:40 BUN 11 mg/dL (7-17) 11/08/21 04:40 Creatinine 0.9 mg/dL (0.6-1.2) 11/08/21 04:40 Estimated GFR > 60 ml/min 11/08/21 04:40 BUN/Creatinine Ratio 12 % 11/08/21 04:40 Glucose 100 mg/dL (65-100) 11/08/21 04:40 Calcium 8.5 mg/dL (8.4-10.2) 11/08/21 04:40 Phosphorus 3.30 mg/dL (2.5-4.5) 11/07/21 04:21 Magnesium 2.20 mg/dL (1.7-2.3) 11/07/21 04:21 Total Creatine Kinase 196 units/L (30-135) H 11/04/21 18:53 CK-MB (CK-2) 4.0 ng/mL (0.0-4.0) 11/04/21 18:53 CK-MB (CK-2) Rel Index 2.0 (0-4) 11/04/21 18:53 Troponin T < 0.010 ng/mL (0.00-0.029) 11/04/21 18:53 NT-Pro-B Natriuret Pep 1961 pg/mL (0-450) H 11/04/21 13:58 Albumin 3.1 g/dL (3.9-5) L 11/08/21 04:40 Urine Color Yellow (Yellow) 11/04/21 21:44 Urine Turbidity Clear (Clear) 11/04/21 21:44 Urine pH 5.0 (5.0-7.0) 11/04/21 21:44 Ur Specific [place] 1.012 (1.003-1.030) 11/04/21 21:44 Urine Protein <15 mg/dl mg/dL (Negative) 11/04/21 21:44 Urine Glucose (UA) Neg mg/dL (Negative) 11/04/21 21:44 Urine Ketones Neg mg/dL (Negative) 11/04/21 21:44 Urine Blood Neg (Negative) 11/04/21 21:44 Urine Nitrite Neg (Negative) 11/04/21 21:44 Urine Bilirubin Neg (Negative) 11/04/21 21:44 Urine Urobilinogen < 2.0 mg/dL (<2.0) 11/04/21 21:44 Ur Leukocyte Esterase Neg (Negative) 11/04/21 21:44 Urine WBC (Auto) < 1.0 /HPF (0.0-6.0) 11/04/21 21:44 Urine RBC (Auto) 3.0 /HPF (0.0-6.0) 11/04/21 21:44 U Epithel Cells (Auto) 2.0 /HPF (0-13.0) 11/04/21 21:44 Nasal Screen MRSA (PCR) Negative (Negative) 11/07/21 05:20 Mak/IV: Voiding Method External Female Catheter Active Medications - Current Medications Current Medications: Generic Name Dose Route Start Last Admin Trade Name Freq PRN Reason Stop Dose Admin Acetaminophen 650 mg 11/04/21 18:40 11/06/21 22:04 Acetaminophen 325 Mg Tab PO 650 mg Q4H PRN Administration Pain MILD(1-3)/Fever >100.5/CARTAGENA Albuterol 2.5 mg 11/04/21 18:40 Albuterol 2.5 Mg/3 Ml Nebu IH Q4HRT PRN Shortness Of Breath Clonazepam 1 mg 11/05/21 10:00 11/07/21 10:32 Clonazepam 0.5 Mg Tab PO 1 mg QDAY JOSE Administration Escitalopram Oxalate 10 mg 11/05/21 10:00 11/07/21 10:33 Escitalopram 10 Mg/10 Ml Oral Liqd PO 10 mg DAILY JOSE Administration Famotidine 20 mg 11/05/21 22:00 11/07/21 21:09 Famotidine 20 Mg Tab PO 20 mg BID JOSE Administration Furosemide 20 mg 11/05/21 06:00 11/08/21 05:17 Furosemide 20 Mg/2 Ml Inj IV 20 mg BID@0600,1800 JOSE Administration Guaifenesin 600 mg 11/04/21 22:00 11/07/21 21:09 Guaifenesin Er 600 Mg Tab PO 600 mg BID JOSE Administration Clindamycin HCl 600 mg in 50 mls @ 100 mls/hr 11/07/21 14:00 11/08/21 05:17 Cleocin 600 Mg/50 Ml IV 11/09/21 06:29 100 mls/hr Q8H JOSE Administration Protocol Lisinopril 2.5 mg 11/05/21 10:00 11/07/21 10:32 Lisinopril 5 Mg Tab PO 2.5 mg QDAY JOSE Administration Melatonin 10 mg 11/06/21 22:00 11/07/21 21:09 Melatonin 5 Mg Tab PO 10 mg QHS JOSE Administration Ondansetron HCl 4 mg 11/04/21 18:40 11/08/21 05:17 Ondansetron 4 Mg/2 Ml Inj IV 4 mg Q8H PRN Administration Nausea And Vomiting Oxycodone/Acetaminophen 1 tab 11/04/21 18:40 11/08/21 05:17 Oxycodone /Acetaminophen 5-325mg Tab PO 1 tab Q6H PRN Administration Pain, Moderate (4-6) Risperidone 0.5 mg 11/05/21 10:00 11/07/21 10:32 Risperidone 0.25 Mg Tab PO 0.5 mg QDAY JOSE Administration Rivaroxaban 20 mg 11/05/21 11:00 11/07/21 10:32 Rivaroxaban 20 Mg Tab PO 20 mg QDAY JOSE Administration Sodium Chloride 10 ml 11/04/21 22:00 11/07/21 21:09 Sodium Chloride 0.9% 10 Ml Flush Syringe IV 10 ml BID JOSE Administration Sodium Chloride 10 ml 11/04/21 18:40 Sodium Chloride 0.9% 10 Ml Flush Syringe IV PRN PRN LINE FLUSH Nutrition/Malnutrition Assess - Dietary Evaluation Nutrition/Malnutrition Findings: Nutrition Notes Start: 11/06/21 12:02 Freq: Status: Active Protocol: Document 11/06/21 12:02 FREDDY (Rec: 11/06/21 12:06 FREDDY [email or web address]) 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 PMHx includes obesity hypoventilation syndrome, pulmonary HTN, lymphedema, peripheral vascular dz. Burn Absent Trauma Absent Minimum of two criteria No Fluid Accumulation Moderate to Severe (severe) Is patient on ventilator? No Is Patient Ambulatory and/or Out of Bed No REE-([facility]-confined to bed) 3095.280 Kcal/Kg value to use for calculation 9 Approximate Energy Requirements Using 1715 kcal/Kg Calculation Used for Recommendations Kcal/kg Additional Notes Pro needs 0.8-1g/kg adjBW: 101 -126g/day Fluid needs per MD. Nutrition Intervention Follow-Up By: 11/11/21 Additional Comments F/U: intakes
--- NOTE | 2021-11-07 17:34 | Vascular Lab Report ---
Bilateral lower extremity Doppler venous ultrasound INDICATION: Evaluate for DVT FINDINGS: Bilateral common femoral veins, superficial femoral veins and popliteal veins have normal c ompressibility and phasic flow. IMPRESSION: No evidence for DVT in bilateral lower extremities. Signer Name: Damion Elias MD Signed: 11/07/2021 5:30 PM Workstation Name: [id number]
[2021-11-07] MEDS: MELATONIN 5 MG TAB PO SCH (21:09)
[2021-11-08] MEDS: oxyCODONE /ACETAMINOPHEN 5-325MG TAB PO PRN ×2 (05:17→10:49)
[2021-11-08] MEDS: FUROSEMIDE 20 MG/2 ML INJ IV SCH (05:17)
[2021-11-08] MEDS: CLINDAMYCIN IV SCH ×3 (05:17→21:37)
[2021-11-08] MEDS: ONDANSETRON 4 MG/2 ML INJ IV PRN ×3 (05:17→21:37)
[2021-11-08 05:43] LABS: Albumin 3.1 g/dL (3.9-5); BUN/Creatinine Ratio 12; Blood Urea Nitrogen 11 mg/dL (7-17); Calcium 8.5 mg/dL (8.4-10.2); Hemolysis Index 19
--- NOTE | 2021-11-08 09:40 | Progress Note ---
Assessment and Plan 46 y/o morbidly obese female with known VTE and Factor V Deficiency admitted with acute on chronic hypoxic respiratory failure. 11/08/21: Now not able to asses if Pulm Emboli are present. Back on anticoagulation now but without imaging, not able to see if patient is in need for repeat EKOS. Given her stability would not take change of giving systemic TPA. Will continue to wean FiO2 as tolerated. Hopeful patient can return from this. NO palliative care available here but she is a good candidate for this, especially given her noncompliance. Guarded prognosis. Patient does not have primary pulmonary HTN. 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 Using Primary Pulmonary HTN medication therapy in those who do not have primary pulmonary htn can worsen V/Q mismatch and make hypoxemia worse. Given her history, I would suggest that she need to be evaluated again for VTE. [facility] has ordered dopplers but if negative would consider repeat CTA. Patient also could benefit from outpatient pSG but given her noncompliance, the likelihood of her going is low. Subjective Date of service: 11/08/21 Principal diagnosis: sob Interval history: In the last year, patient has gained weight to the point now where she exceeds the limit for the scanner. Unable to assess if she has recurrent Pulm Embolism. Dopplers were negative. Oxygen requirement remains high Objective Vital Signs - 12hr 11/07/21 11/07/21 11/07/21 22:00 22:31 22:39 Temperature Pulse Rate 63 62 64 Pulse Rate [ From Monitor] Respiratory 21 16 21 Rate Blood Pressure 117/83 117/83 117/83 O2 Sat by Pulse 91 91 Oximetry 11/07/21 11/07/21 11/08/21 23:00 23:31 00:00 Temperature 98.0 F Pulse Rate 66 63 60 Pulse Rate [ From Monitor] Respiratory 22 12 19 Rate Blood Pressure 118/81 117/83 122/80 O2 Sat by Pulse 95 97 Oximetry 11/08/21 11/08/21 11/08/21 00:31 01:00 01:31 Temperature Pulse Rate 58 L 77 68 Pulse Rate [ 62 From Monitor] Respiratory 13 14 20 Rate Blood Pressure 122/80 112/77 112/77 O2 Sat by Pulse 98 97 91 Oximetry 11/08/21 11/08/21 11/08/21 02:00 02:31 03:00 Temperature Pulse Rate 69 68 65 Pulse Rate [ From Monitor] Respiratory 21 19 17 Rate Blood Pressure 108/64 108/64 114/63 O2 Sat by Pulse 90 92 93 Oximetry 11/08/21 11/08/21 11/08/21 03:31 04:00 04:31 Temperature 97.8 F Pulse Rate 66 67 65 Pulse Rate [ 67 From Monitor] Respiratory 20 19 19 Rate Blood Pressure 108/64 103/65 103/65 O2 Sat by Pulse 91 95 92 Oximetry 11/08/21 11/08/21 11/08/21 05:00 05:31 06:00 Temperature Pulse Rate 66 67 62 Pulse Rate [ From Monitor] Respiratory 16 16 15 Rate Blood Pressure 103/65 126/81 125/71 O2 Sat by Pulse 95 97 97 Oximetry 11/08/21 11/08/21 11/08/21 06:31 07:00 07:31 Temperature Pulse Rate 64 69 68 Pulse Rate [ From Monitor] Respiratory 16 19 18 Rate Blood Pressure 125/71 106/69 106/69 O2 Sat by Pulse 98 95 93 Oximetry 11/08/21 11/08/21 11/08/21 08:00 08:31 08:47 Temperature 97.7 F Pulse Rate 67 66 Pulse Rate [ From Monitor] Respiratory 19 18 Rate Blood Pressure 104/55 104/55 O2 Sat by Pulse 92 95 94 Oximetry 11/08/21 09:00 Temperature Pulse Rate 67 Pulse Rate [ From Monitor] Respiratory 15 Rate Blood Pressure 104/55 O2 Sat by Pulse 94 Oximetry Constitutional: no acute distress, alert, other (obese) Eyes: non-icteric ENT: oropharynx moist Ascultation: Bilateral: diminished breath sounds Cardiovascular: regular rate and rhythm Gastrointestinal: normoactive bowel sounds, soft, non-tender, other (obese) Integumentary: other (chronic venous stasis changes bilat le) Neurologic: normal mental status, non-focal exam CBC and BMP: 11/06/21 04:10 11/08/21 04:40 ABG, PT/INR, D-dimer: ABG ABG pH 7.331 pH Units (7.350-7.450) L 11/05/21 11:10 ABG pCO2 50.7 mm Hg 11/05/21 11:10 ABG pO2 61.1 mm Hg (80.0-90.0) L 11/05/21 11:10 ABG O2 Saturation 89.4 % (95.0-99.0) L 11/05/21 11:10 PT/INR, D-dimer PT 16.9 Sec. (12.2-14.9) H 11/04/21 13:58 INR 1.23 (0.87-1.13) H 11/04/21 13:58 Abnormal lab findings: Abnormal Labs 11/04/21 11/04/21 11/04/21 13:58 13:58 13:58 MCV 78 L MCH 25 L RDW 20.0 H Lymph % (Auto) 11.0 L Hale % (Auto) 10.0 H Lymph # (Auto) 1.0 L Hale # (Auto) 0.9 H Seg Neutrophils % 77.9 H PT 16.9 H INR 1.23 H ABG pH ABG pO2 ABG HCO3 ABG O2 Saturation ABG Hemoglobin Oxyhemoglobin Chloride 109.3 H Carbon Dioxide Glucose Total Creatine Kinase NT-Pro-B Natriuret Pep Albumin 11/04/21 11/04/21 11/04/21 13:58 18:53 20:19 MCV MCH RDW Lymph % (Auto) Hale % (Auto) Lymph # (Auto) Hale # (Auto) Seg Neutrophils % PT INR ABG pH ABG pO2 35.8 L* ABG HCO3 ABG O2 Saturation 65.0 L ABG Hemoglobin Oxyhemoglobin 63.5 L Chloride Carbon Dioxide Glucose Total Creatine Kinase 196 H NT-Pro-B Natriuret Pep 1961 H Albumin 11/05/21 11/05/21 11/06/21 02:57 11:10 04:10 MCV MCH 24 L RDW 19.9 H Lymph % (Auto) Hale % (Auto) Lymph # (Auto) Hale # (Auto) Seg Neutrophils % PT INR ABG pH 7.331 L ABG pO2 61.1 L ABG HCO3 26.2 H ABG O2 Saturation 89.4 L ABG Hemoglobin 11.4 L Oxyhemoglobin 87.5 L Chloride 108.8 H Carbon Dioxide 21 L Glucose 101 H Total Creatine Kinase NT-Pro-B Natriuret Pep Albumin 11/06/21 11/07/2122 04:10 04:21 04:40 MCV MCH RDW Lymph % (Auto) Hale % (Auto) Lymph # (Auto) Hale # (Auto) Seg Neutrophils % PT INR ABG pH ABG pO2 ABG HCO3 ABG O2 Saturation ABG Hemoglobin Oxyhemoglobin Chloride 108.9 H Carbon Dioxide Glucose 101 H Total Creatine Kinase NT-Pro-B Natriuret Pep Albumin 3.1 L
--- NOTE | 2021-11-08 09:58 | Progress Note ---
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 Flattened septum consistent with right ventricular pressure overload. Right ventricle is mildly hypokinetic. Right ventricle is mildly dilated. Left atrium is mildly dilated. No aortic regurgitation is present. Moderate tricuspid regurgitation. Right atrial pressure is estimated at 50 mmHg. Right ventricular systolic pressure is estimated at 85 mmHg. Moderate to severe pulmonary hypertension Plan: UOP has slowed at this point; however, patient still with BLE pitting edema. Repeat CXR per primary team. Extra 20mg IV Lasix this am (for total of 40mg IV), then transition to 20mg PO this afternoon Continue lisinopril 2.5 mg p.o. daily Patient anticoagulated on Xarelto- unable to obtain CT due to body habitus to reassess for PE. BLE dopplers negative for DVT. Continue close monitoring of renal function and strict I&O's. Repeat BMP in the a.m. Other management per primary team Patient seen in conjunction with Dr. Mague Sanchez who agrees with this plan of care - Patient Problems (1) Cellulitis Current Visit: Yes Status: Acute Qualifiers: Site of cellulitis: extremity Site of cellulitis of extremity: lower extrem ity Laterality: unspecified laterality Qualified Code(s): L03.119 - Cellulitis of unspecified part of limb (2) Obesity hypoventilation syndrome Current Visit: Yes Status: Acute (3) Pulmonary hypertension Current Visit: Yes Status: Acute (4) Shortness of breath Current Visit: Yes Status: Acute (5) COR (chronic cor pulmonale) Current Visit: Yes Status: Chronic (6) Acute on chronic respiratory failure with hypoxia Current Visit: No Status: Acute (7) Antithrombin III deficiency Current Visit: No Status: Acute Subjective Date of service: 11/08/21 Principal diagnosis: sob Interval history: Patient seen today in the [facility]. She is asleep, resting comfortably in the bed on high flow nasal cannula/Vapotherm. She denies chest pain or shortness of breath this morning. No acute distress. Telemetry: Sinus rhythm 60s and 70s. Noted to be bradycardic overnight. Asymptomatic Intake & Output 11/05/21 11/06/21 11/07/21 11/08/21 23:59 23:59 23:59 23:59 Intake Total 650 862 972 20 Output Total 500 950 150 Balance 150 862 22 -130 Weight 190.5 kg 190.5 kg Objective Vital Signs Temp Pulse Pulse Resp BP Pulse Ox 11/08/21 09:00 67 15 104/55 94 11/08/21 08:47 94 11/08/21 08:31 66 18 104/55 95 11/08/21 08:00 97.7 F 67 19 104/55 92 11/08/21 07:31 68 18 106/69 93 11/08/21 07:00 69 19 106/69 95 11/08/21 06:31 64 16 125/71 98 11/08/21 06:00 62 15 125/71 97 11/08/21 05:31 67 16 126/81 97 11/08/21 05:00 66 16 103/65 95 11/08/21 04:31 65 19 103/65 92 11/08/21 04:00 97.8 F 67 67 19 103/65 95 11/08/21 03:31 66 20 108/64 91 11/08/21 03:00 65 17 114/63 93 11/08/21 02:31 68 19 108/64 92 11/08/21 02:00 69 21 108/64 90 11/08/21 01:31 68 20 112/77 91 11/08/21 01:00 77 62 14 112/77 97 11/08/21 00:31 58 L 13 122/80 98 11/08/21 00:00 98.0 F 60 19 122/80 97 11/07/21 23:31 63 12 117/83 95 11/07/21 23:00 66 22 118/81 11/07/21 22:39 64 21 117/83 91 11/07/21 22:31 62 16 117/83 91 11/07/21 22:00 63 21 117/83 11/07/21 21:31 65 26 H 119/79 93 11/07/21 21:00 65 62 18 119/79 97 11/07/21 20:31 33 L 11 L 115/72 97 11/07/21 20:29 97 11/07/21 20:00 98.5 F 63 12 115/72 98 11/07/21 19:31 59 L 12 100/59 97 11/07/21 19:00 64 11 L 100/59 91 11/07/21 18:31 64 17 99/59 90 11/07/21 18:15 67 18 99/59 92 11/07/21 18:00 68 12 99/59 90 11/07/21 17:45 69 21 104/63 91 11/07/21 17:33 95 11/07/21 17:31 67 21 104/63 95 11/07/21 17:15 61 17 104/63 99 11/07/21 17:00 64 11 L 104/63 11/07/21 16:45 65 18 94/53 94 11/07/21 16:31 65 20 94/53 97 11/07/21 16:22 67 18 91 11/07/21 16:00 98 F 65 94/53 92 11/07/21 15:00 65 20 97/57 87 11/07/21 14:00 65 22 100/56 89 11/07/21 13:00 64 64 13 101/59 90 11/07/21 12:00 62 19 106/63 94 11/07/21 11:00 98.2 F 63 22 104/57 89 11/07/21 10:32 65 106/64 11/07/21 10:00 65 5 L 106/64 84 - Physical Examination General: No Apparent Distress HEENT: Positive: PERRL, EOMI Neck: Positive: neck supple Cardiac: Positive: Reg Rate and Rhythm, S1/S2. Negative: Audible Murmur Lungs: Positive: clear to auscultation, Other (diminished- anterior breath sounds) Neuro: Positive: Grossly Intact Abdomen: Positive: Soft Skin: Positive: Other (LLE weeping; covered with dressing) Extremities: Present: +2 Edema (BLE; pitting) - Labs and Meds Comprehensive Metabolic Panel 11/08/21 Range/Units 04:40 Sodium 140 (137-145) mmol/L Potassium 4.2 (3.6-5.0) mmol/L Chloride 104.2 (98-107) mmol/L Carbon Dioxide 27 (22-30) mmol/L BUN 11 (7-17) mg/dL Creatinine 0.9 (0.6-1.2) mg/dL Glucose 100 (65-100) mg/dL Calcium 8.5 (8.4-10.2) mg/dL Albumin 3.1 L (3.9-5) g/dL - Imaging and Cardiology Echo: report reviewed (normal lv function, rv dilated and mild dsyfunction with rv pressure over load and severe pulmonary htn) - Telemetry EKG Rhythm: Sinus Rhythm - EKG Sinus rhythms and dysrhythmias: sinus rhythm
[2021-11-08] MEDS ORDERED: FUROSEMIDE 20 MG/2 ML INJ IV SCH (10:00)
--- NOTE | 2021-11-08 10:00 | XRay Report ---
CHEST 1 VIEW 11/08/2021 8:54 AM INDICATION / CLINICAL INFORMATION: pulm htn. COMPARISON: 11/04/2021 FINDINGS: SUPPORT DEVICES: None. HEART / MEDIASTINUM: Stable mild to moderate cardiomegaly. LUNGS / PLEURA: Stable mild central pulmonary congestion. No evidence for pneumonia, pleural effusion or pneumothorax. ADDITIONAL FINDINGS: No significant additional findings. IMPRESSION: 1. Cardiomegaly and central pulmonary venous congestion unchanged since 11/04/2021. Signer Name: Moises Santos Jr, MD Signed: 11/08/2021 9:55 AM Workstation Name: [id number]
[2021-11-08] MEDS: guaiFENesin ER 600 MG TAB PO SCH ×2 (10:50→21:37)
[2021-11-08] MEDS: risperiDONE 0.25 MG TAB PO SCH (10:51)
[2021-11-08] MEDS: FAMOTIDINE 20 MG TAB PO SCH ×2 (10:51→21:37)
[2021-11-08] MEDS: ESCITALOPRAM 10 MG/10 ML ORAL LIQD PO SCH (10:51)
[2021-11-08] MEDS: LISINOPRIL 5 MG TAB PO SCH (10:51)
[2021-11-08] MEDS: clonazePAM 0.5 MG TAB PO SCH (10:52)
[2021-11-08] MEDS: RIVAROXABAN 20 MG TAB PO SCH (10:53)
--- NOTE | 2021-11-08 15:05 | Progress Note ---
Assessment and Plan Assessment and plan: History Interval history: This is a 46-year-old female with OHS, Antithrombin III deficiency s/p pulm embolism s/p EKOS on Xarelto, noncompliance, osteoarthritis, pulmonary hype rtension, anxiety, depression lymphedema, peripheral vascular disease, noncompliance, diastolic heart failure who presented to emergency department on 11/04 with complaints of shortness of breath over the past week with worsening symptoms over the past week complicated by weakness resulting in multiple falls. In the emergency room patient was found to have a SPO2 of 87% on room air and clinical symptoms consistent with CHF as compensation. Patient was admitted to telemetry and initiated on CHF protocol. Patient was also initiated on BiPAP and started on antibiotic therapy. Patient was admitted to the hospital service with acute exacerbation of CHF, acute on chronic respiratory failure with hypoxia and cellulitis with consults to cardiology and pulmonology. Hospital Course to Date: 11/05: Respiratory status improved, now stable on 50% Venti-mask, repeat ABG pending. Continue IV lasix BID, check echo to evaluate pulmonary pressures. Cardiology is consulted. Continue O2 supplementation wean as tolerated for SPO2 above 92%, Bipap at night. Pulmonary was also consulted. Continue current IV abx for BLE cellutis. Check BLE doppler to r/o DVT. Resume home Xarelto. 11/06: Echo revealed severe pulmnary hypertension and RV dysfunction. Continue IV lasix BID. Plan to initiate pulmo HTN therapy, Sildenafil, per pulmo. Cardio is also following. Continue O2 supplementation and wean as tolerated. 11/07: Bilateral lower extremity ultrasound pending, family is requesting PT/OT evaluation. However patient refused PT and OT today and lower extremity Doppler ultrasound. CCM would like to repeat CTA chest if Dopplers are negative. Cardiology would like to continue diuresis with Lasix. 11/08: Lasix changed to p.o. Chest x-ray ordered this a.m. stable. No signif icant worsening of pulmonary venous congestion. Patient has multifactorial issues between recurrent VTE, PE, diastolic heart failure, severe pulmonary hypertension, obstructive sleep apnea which in combination explain her current clinical presentation. I explained to the patient that from a medical standpoint she would be best served by remaining compliant on her home anticoagulation, pulmonary rehabilitation, and close follow-up with pulmonology. She would also benefit from hospice services. Patient was agreeable to hospice consultation. CM notified. Discussed case with pulmonology Dr. Ding as well as cardiology [employer]. Assessment and plan: Neuro: h/o depression and anxiety, noncompliance, chronic pain, multiple falls at home -Reorientation as needed -Maintain sleep-wake cycle -As needed analgesia -PT/OT consulted, appreciate recommendations -Continue home Lexapro, risperidone Cardiac: h/o Diastolic heart failure, PVD -Cardiology consulted, appreciate recommendations -Blood pressure monitoring per protocol -Admit BNP 1960 -IV lasix -11/05 Echo- The right atrial pressure is estimated at 15 mmHg. Right ventricular systolic pressure is estimated at 85 mmHg. There is moderate-severe pulmonary hypertension. See report for detail Respiratory: Acute on chronic hypoxic respiratory failure, severe pulm htn, h/o multiple PE s/p EKOS -Pulmonology consulted, appreciate recommendations -Bipap q hs, Optiflow AM -VAP bundle -SPO2 monitoring -F/U outpatient for sleep apnea eval/ Sleep study -F/U with pulmonary and cardio output for RHC and further pulmo HTN w/up and treatment GI: MO -24 hours + 862 mL -PPI -Cardiac diet -BR: colace : NAD -Record intake and output -Renally dose medications -Avoid nephrotoxic medications -Trend BMP ID: BLE cellulitis -Antibiotic therapy with clindamycin -f/u blood culture -Monitor WBC and temperature curve Endo: NAD -Avoid hypoglycemia Heme: h/o antithrombin III deficiency, multiple PE -Continue home xarelto -Trend CBC -Transfuse hemoglobin less than 7 -BLE Doppler US pending -SCDs to BLE while in bed - Bilateral lower extremity ultrasound negative for DVT The high probability of a clinically significant, sudden or life threatening deterioration of the [pulm/cardiac] system(s) required my full and direct attention, intervention and personal management. The aggregate critical care time was [60] minutes. This time is in addition to time spent performing reported procedures but includes the following: [x] Data Review and interpretation [x] Patient assessment and monitoring of vital signs [x] Documentation [x] Medication orders and management Disposition Plan: imcu Total Time Spent with Patient (Minutes): 60 History Interval history: Patient seen and evaluated on bedside encounter. No acute complaints. Hospitalist Physical - Physical exam Narrative exam: Constitutional: no acute distress, alert, other (obese) Eyes: non-icteric ENT: oropharynx moist Ascultation: Bilateral: diminished breath sounds Cardiovascular: regular rate and rhythm Gastrointestinal: normoactive bowel sounds, soft, non-tender, other (obese) Integumentary: other (chronic venous stasis changes bilat le) Neurologic: normal mental status, non-focal exam - Constitutional Vitals: Temp Pulse Resp BP Pulse Ox 97.9 F 67 18 110/60 93 11/08/21 12:00 11/08/21 12:00 11/08/21 12:00 11/08/21 12:00 11/08/21 13:44 General appearance: Present: no acute distress, well-nourished, obese HEART Score - HEART Score Troponin: Troponin T < 0.010 ng/mL (0.00-0.029) 11/04/21 18:53 Results - Labs CBC & Chem 7: 11/06/21 04:10 11/09/21 04:23 Labs: Laboratory Last Values WBC 6.9 K/mm3 (4.5-11.0) 11/06/21 04:10 RBC 4.84 M/mm3 (3.65-5.03) 11/06/21 04:10 Hgb 11.7 gm/dl (10.1-14.3) 11/06/21 04:10 Hct 38.9 % (30.3-42.9) 11/06/21 04:10 MCV 80 fl (79-97) 11/06/21 04:10 MCH 24 pg (28-32) L 11/06/21 04:10 MCHC 30 % (30-34) 11/06/21 04:10 RDW 19.9 % (13.2-15.2) H 11/06/21 04:10 Plt Count 206 K/mm3 (140-440) 11/06/21 04:10 Lymph % (Auto) 11.0 % (13.4-35.0) L 11/04/21 13:58 Carbon % (Auto) 10.0 % (0.0-7.3) H 11/04/21 13:58 Eos % (Auto) 0.8 % (0.0-4.3) 11/04/21 13:58 Baso % (Auto) 0.3 % (0.0-1.8) 11/04/21 13:58 Lymph # (Auto) 1.0 K/mm3 (1.2-5.4) L 11/04/21 13:58 Carbon # (Auto) 0.9 K/mm3 (0.0-0.8) H 11/04/21 13:58 Eos # (Auto) 0.1 K/mm3 (0.0-0.4) 11/04/21 13:58 Baso # (Auto) 0.0 K/mm3 (0.0-0.1) 11/04/21 13:58 Seg Neutrophils % 77.9 % (40.0-70.0) H 11/04/21 13:58 Seg Neutrophils # 7.0 K/mm3 (1.8-7.7) 11/04/21 13:58 PT 16.9 Sec. (12.2-14.9) H 11/04/21 13:58 INR 1.23 (0.87-1.13) H 11/04/21 13:58 APTT 32.0 Sec. (24.2-36.6) 11/04/21 13:58 ABG pH 7.331 pH Units (7.350-7.450) L 11/05/21 11:10 ABG pCO2 50.7 mm Hg 11/05/21 11:10 ABG pO2 61.1 mm Hg (80.0-90.0) L 11/05/21 11:10 ABG HCO3 26.2 mmol/L (20.0-26.0) H 11/05/21 11:10 ABG O2 Saturation 89.4 % (95.0-99.0) L 11/05/21 11:10 ABG O2 Content 14.0 (0.0-44) 11/05/21 11:10 ABG Base Excess -0.2 mmol/L (-2.0-3.0) 11/05/21 11:10 ABG Hemoglobin 11.4 gm/dl (12.0-16.0) L 11/05/21 11:10 ABG Carboxyhemoglobin 1.4 % (0.0-5.0) 11/05/21 11:10 ABG Methemoglobin 0.7 % (0.0-1.5) 11/05/21 11:10 Oxyhemoglobin 87.5 % (95.0-99.0) L 11/05/21 11:10 FiO2 50 % 11/05/21 11:10 Sodium 140 mmol/L (137-145) 11/08/21 04:40 Potassium 4.2 mmol/L (3.6-5.0) 11/08/21 04:40 Chloride 104.2 mmol/L (98-107) 11/08/21 04:40 Carbon Dioxide 27 mmol/L (22-30) 11/08/21 04:40 Anion Gap 13 mmol/L 11/08/21 04:40 BUN 11 mg/dL (7-17) 11/08/21 04:40 Creatinine 0.9 mg/dL (0.6-1.2) 11/08/21 04:40 Estimated GFR > 60 ml/min 11/08/21 04:40 BUN/Creatinine Ratio 12 % 11/08/21 04:40 Glucose 100 mg/dL (65-100) 11/08/21 04:40 Calcium 8.5 mg/dL (8.4-10.2) 11/08/21 04:40 Phosphorus 3.30 mg/dL (2.5-4.5) 11/07/21 04:21 Magnesium 2.20 mg/dL (1.7-2.3) 11/07/21 04:21 Total Creatine Kinase 196 units/L (30-135) H 11/04/21 18:53 CK-MB (CK-2) 4.0 ng/mL (0.0-4.0) 11/04/21 18:53 CK-MB (CK-2) Rel Index 2.0 (0-4) 11/04/21 18:53 Troponin T < 0.010 ng/mL (0.00-0.029) 11/04/21 18:53 NT-Pro-B Natriuret Pep 1961 pg/mL (0-450) H 11/04/21 13:58 Albumin 3.1 g/dL (3.9-5) L 11/08/21 04:40 Urine Color Yellow (Yellow) 11/04/21 21:44 Urine Turbidity Clear (Clear) 11/04/21 21:44 Urine pH 5.0 (5.0-7.0) 11/04/21 21:44 Ur Specific [place] 1.012 (1.003-1.030) 11/04/21 21:44 Urine Protein <15 mg/dl mg/dL (Negative) 11/04/21 21:44 Urine Glucose (UA) Neg mg/dL (Negative) 11/04/21 21:44 Urine Ketones Neg mg/dL (Negative) 11/04/21 21:44 Urine Blood Neg (Negative) 11/04/21 21:44 Urine Nitrite Neg (Negative) 11/04/21 21:44 Urine Bilirubin Neg (Negative) 11/04/21 21:44 Urine Urobilinogen < 2.0 mg/dL (<2.0) 11/04/21 21:44 Ur Leukocyte Esterase Neg (Negative) 11/04/21 21:44 Urine WBC (Auto) < 1.0 /HPF (0.0-6.0) 11/04/21 21:44 Urine RBC (Auto) 3.0 /HPF (0.0-6.0) 11/04/21 21:44 U Epithel Cells (Auto) 2.0 /HPF (0-13.0) 11/04/21 21:44 Nasal Screen MRSA (PCR) Negative (Negative) 11/07/21 05:20 Mak/IV: Voiding Method External Female Catheter Active Medications - Current Medications Current Medications: Generic Name Dose Route Start Last Admin Trade Name Freq PRN Reason Stop Dose Admin Acetaminophen 650 mg 11/04/21 18:40 11/06/21 22:04 Acetaminophen 325 Mg Tab PO 650 mg Q4H PRN Administration Pain MILD(1-3)/Fever >100.5/CARTAGENA Albuterol 2.5 mg 11/04/21 18:40 Albuterol 2.5 Mg/3 Ml Nebu IH Q4HRT PRN Shortness Of Breath Clonazepam 1 mg 11/05/21 10:00 11/08/21 10:52 Clonazepam 0.5 Mg Tab PO 1 mg QDAY JOSE Administration Escitalopram Oxalate 10 mg 11/05/21 10:00 11/08/21 10:51 Escitalopram 10 Mg/10 Ml Oral Liqd PO 10 mg DAILY JOSE Administration Famotidine 20 mg 11/05/21 22:00 11/08/21 10:51 Famotidine 20 Mg Tab PO 20 mg BID JOSE Administration Furosemide 20 mg 11/08/21 18:00 Furosemide 20 Mg Tab PO 0600,1800 JOSE Guaifenesin 600 mg 11/04/21 22:00 11/08/21 10:50 Guaifenesin Er 600 Mg Tab PO 600 mg BID JOSE Administration Clindamycin HCl 600 mg in 50 mls @ 100 mls/hr 11/07/21 14:00 11/08/21 05:17 Cleocin 600 Mg/50 Ml IV 11/09/21 06:29 100 mls/hr Q8H JOSE Administration Protocol Lisinopril 2.5 mg 11/05/21 10:00 11/08/21 10:51 Lisinopril 5 Mg Tab PO 2.5 mg QDAY JOSE Administration Melatonin 10 mg 11/06/21 22:00 11/07/21 21:09 Melatonin 5 Mg Tab PO 10 mg QHS JOSE Administration Morphine Sulfate 15 mg 11/08/21 15:00 Morphine 15 Mg Er Tab PO Q12HR JOSE Ondansetron HCl 4 mg 11/04/21 18:40 11/08/21 12:45 Ondansetron 4 Mg/2 Ml Inj IV 4 mg Q8H PRN Administration Nausea And Vomiting Risperidone 0.5 mg 11/05/21 10:00 11/08/21 10:51 Risperidone 0.25 Mg Tab PO 0.5 mg QDAY JOSE Administration Rivaroxaban 20 mg 11/05/21 11:00 11/08/21 10:53 Rivaroxaban 20 Mg Tab PO 20 mg QDAY JOSE Administration Sodium Chloride 10 ml 11/04/21 22:00 11/08/21 10:52 Sodium Chloride 0.9% 10 Ml Flush Syringe IV 10 ml BID JOSE Administration Sodium Chloride 10 ml 11/04/21 18:40 Sodium Chloride 0.9% 10 Ml Flush Syringe IV PRN PRN LINE FLUSH Nutrition/Malnutrition Assess - Dietary Evaluation Nutrition/Malnutrition Findings: Nutrition Notes Start: 11/06/21 12:02 Freq: Status: Active Protocol: Document 11/06/21 12:02 FREDDY (Rec: 11/06/21 12:06 FREDDY [id number]) Nutrition Notes 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 PMHx includes obesity hypoventilation syndrome, pulmonary HTN, lymphedema, peripheral vascular dz. Burn Absent Trauma Absent Minimum of two criteria No Fluid Accumulation Moderate to Severe (severe) Is patient on ventilator? No Is Patient Ambulatory and/or Out of Bed No REE-([place]-[facility] [facility]ect-confined to bed) 3095.280 Kcal/Kg value to use for calculation 9 Approximate Energy Requirements Using 1715 kcal/Kg Calculation Used for Recommendations Kcal/kg Additional Notes Pro needs 0.8-1g/kg adjBW: 101 -126g/day Fluid needs per MD. Nutrition Intervention Follow-Up By: 11/11/21 Additional Comments F/U: intakes
[2021-11-08] MEDS: MORPHINE 15 MG ER TAB PO SCH ×2 (15:10→21:37)
[2021-11-08] MEDS: FUROSEMIDE 20 MG TAB PO SCH (17:43)
[2021-11-08] MEDS: MELATONIN 5 MG TAB PO SCH (21:37)
[2021-11-09 05:11] LABS: Calcium 8.6 mg/dL (8.4-10.2)
[2021-11-09] MEDS: CLINDAMYCIN IV SCH (06:21)
[2021-11-09] MEDS: FUROSEMIDE 20 MG TAB PO SCH ×2 (06:21→19:20)
--- NOTE | 2021-11-09 08:41 | Discharge Summary ---
Providers - Providers Date of Admission: 11/04/21 18:41 Date of discharge: 11/09/21 Attending physician: LILIYA GRUBER MD 11/04/21 18:40 Consult to Physician [CONS] Routine Comment: Consulting Provider: HANK CONTEH Physician Instructions: Reason For Exam: chf 11/04/21 21:45 Consult to Wound/ET Nurse [CONS] Routine Reason For Exam: wound eval 11/05/21 10:57 Consult to Physician [CONS] Routine Comment: Consulting Provider: ANDREEA FRIEDMAN Physician Instructions: spoke with answering service/ mic Reason For Exam: Hypoxic Respiratory Failure 11/05/21 15:47 Occupational Therapy Evaluate and Treat [CONS] Routine Comment: Reason For Exam: debility Physical Therapy Evaluation and Treat [CONS] Routine Comment: Reason For Exam: debility Primary care physician: ATMOSPHERIC TECHNICIAN Hospitalization Reason for admission: shortness of breath Condition: Critical Hospital course: Interval history: This is a 46-year-old female with OHS, 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 In the emergency room patient was found to have a SPO2 of 87% on room air and clinical symptoms consistent with CHF as compensation. Patient was admitted to telemetry and initiated on CHF protocol. Patient was also initiated on BiPAP and started on antibiotic therapy. Patient was admitted to the hospital service with acute exacerbation of CHF, acute on chronic respiratory failure with hypoxia and cellulitis with consults to cardiology and pulmonology. Hospital Course to Date: 11/05: Respiratory status improved, now stable on 50% Venti-mask, repeat ABG pending. Continue IV lasix BID, check echo to evaluate pulmonary pressures. Cardiology is consulted. Continue O2 supplementation wean as tolerated for SPO2 above 92%, Bipap at night. Pulmonary was also consulted. Continue current IV abx for BLE cellutis. Check BLE doppler to r/o DVT. Resume home Xarelto. 11/06: Echo revealed severe pulmnary hypertension and RV dysfunction. Continue IV lasix BID. Plan to initiate pulmo HTN therapy, Sildenafil, per pulmo. Cardio is also following. Continue O2 supplementation and wean as tolerated. 11/07: Bilateral lower extremity ultrasound pending, family is requesting PT/OT evaluation. However patient refused PT and OT today and lower extremity Doppler ultrasound. CCM would like to repeat CTA chest if Dopplers are negative. Cardiology would like to continue diuresis with Lasix. 11/08: Lasix changed to p.o. Chest x-ray ordered this a.m. stable. No significant worsening of pulmonary venous congestion. Patient has multifactorial issues between recurrent VTE, PE, diastolic heart failure, severe pulmonary hypertension, obstructive sleep apnea which in combination explain her current clinical presentation. I explained to the patient that from a medical standpoint she would be best served by remaining compliant on her home anticoagulation, pulmonary rehabilitation, and close follow-up with pulmonology. She would also benefit from hospice services. Patient was agreeable to hospice consultation. CM notified. Discussed case with pulmonology Dr. Ding as well as cardiology [employer]'s. Assessment and plan: Neuro: h/o depression and anxiety, noncompliance, chronic pain, multiple falls at home -Reorientation as needed -Maintain sleep-wake cycle -As needed analgesia -PT/OT consulted, appreciate recommendations -Continue home Lexapro, risperidone Cardiac: h/o Diastolic heart failure, PVD -Cardiology consulted, appreciate recommendations -Blood pressure monitoring per protocol -Admit BNP 1960 -IV lasix -11/05 Echo- The right atrial pressure is estimated at 15 mmHg. Right ventricular systolic pressure is estimated at 85 mmHg. There is moderate-severe pulmonary hypertension. See report for detail Respiratory: Acute on chronic hypoxic respiratory failure, severe pulm htn, h/o multiple PE s/p EKOS -Pulmonology consulted, appreciate recommendations -Bipap q hs, Optiflow AM -VAP bundle -SPO2 monitoring -F/U outpatient for sleep apnea eval/ Sleep study -F/U with pulmonary and cardio output for RHC and further pulmo HTN w/up and treatment GI: MO -24 hours + 862 mL -PPI -Cardiac diet -BR: colace : NAD -Record intake and output -Renally dose medications -Avoid nephrotoxic medications -Trend BMP ID: BLE cellulitis -Antibiotic therapy with clindamycin -f/u blood culture -Monitor WBC and temperature curve Endo: NAD -Avoid hypoglycemia Heme: h/o antithrombin III deficiency, multiple PE -Continue home xarelto -Trend CBC -Transfuse hemoglobin less than 7 -BLE Doppler US pending -SCDs to BLE while in bed - Bilateral lower extremity ultrasound negative for DVT Disposition: 30 STILL A PATIENT Final Discharge Diagnosis (Prints w/discharge instructions): acute on chronic respiratory failure, diastolic heart failure, pulmonary hypertension Time spent for discharge: 35 Core Measure Documentation - Palliative Care Palliative Care/ Comfort Measures: Not Applicable - Core Measures Any of the following diagnoses?: none Exam - Physical Exam Narrative exam: Constitutional: no acute distress, alert, other (obese) Eyes: non-icteric ENT: oropharynx moist Ascultation: Bilateral: diminished breath sounds Cardiovascular: regular rate and rhythm Gastrointestinal: normoactive bowel sounds, soft, non-tender, other (obese) Integumentary: other (chronic venous stasis changes bilat le) Neurologic: normal mental status, non-focal exam - Constitutional Vitals: Temp Pulse Resp BP Pulse Ox 97.8 F 82 15 112/62 96 11/08/21 20:00 11/09/21 06:00 11/09/21 06:00 11/09/21 06:00 11/09/21 08:21 Plan Follow up with: PRIMARY CARE, [Primary Care Provider] - 3-5 Days Prescriptions: Melatonin [Melatonin 5MG TAB] 10 mg PO QHS 30 Days #30 tablet Furosemide [Lasix TAB] 20 mg PO 0600,1800 30 Days #60 tablet guaiFENesin ER [Mucinex ER] 600 mg PO BID 30 Days #60 tablet Rivaroxaban [Xarelto] 20 mg PO QDAY 30 Days #30 tablet lisinopriL [Zestril TAB] 2.5 mg PO QDAY 30 Days #30 tablet
[2021-11-09] MEDS: FAMOTIDINE 20 MG TAB PO SCH ×2 (09:37→21:33)
[2021-11-09] MEDS: clonazePAM 0.5 MG TAB PO SCH (09:37)
[2021-11-09] MEDS: risperiDONE 0.25 MG TAB PO SCH (09:37)
[2021-11-09] MEDS: guaiFENesin ER 600 MG TAB PO SCH ×2 (09:37→21:33)
[2021-11-09] MEDS: MORPHINE 15 MG ER TAB PO SCH ×2 (09:37→21:32)
[2021-11-09] MEDS: ESCITALOPRAM 10 MG/10 ML ORAL LIQD PO SCH (09:38)
[2021-11-09] MEDS: RIVAROXABAN 20 MG TAB PO SCH (09:38)
--- NOTE | 2021-11-09 11:38 | Progress Note ---
Assessment and Plan 46-year-old female with morbid obesity history of recurrent pulmonary embolism on oral anticoagulation sleep apnea chronic respiratory failure on 2 L of oxygen baseline who came in with complaint of SOB Acute on Chronic respiratory failure-Pulmonology following Pulmonary hypertension Antithrombin III deficiency Morbid obesity Cellulitis PVD Echo 11/05/2021-EF 55 to 60%. Flattened septum consistent with right ventricular pressure overload. Right ventricle is mildly hypokinetic. Right ventricle is mildly dilated. Left atrium is mildly dilated. No aortic regurgitation is present. Moderate tricuspid regurgitation. Right atrial pressure is estimated at 50 mmHg. Right ventricular systolic pressure is estimated at 85 mmHg. Moderate to severe pulmonary hypertension Plan: Continue lisinopril 2.5 mg p.o. daily Patient anticoagulated on Xarelto. Unable to do CT chest due to body habitus Echo results noted above Continue Lasix 20 mg p.o. Cardiac status otherwise stable. Will see as needed Patient seen in conjunction with Dr. Sanchez who agrees with this plan of care - Patient Problems (1) Cellulitis Current Visit: Yes Status: Acute Qualifiers: Site of cellulitis: extremity Site of cellulitis of extremity: lower extremity Laterality: unspecified laterality Qualified Code(s): L03.119 - Cellulitis of unspecified part of limb (2) Elevated brain natriuretic peptide (BNP) level Current Visit: Yes Status: Acute (3) Obesity hypoventilation syndrome Current Visit: Yes Status: Acute (4) Pulmonary hypertension Current Visit: Yes Status: Acute (5) Acute on chronic respiratory failure with hypoxia Current Visit: No Status: Acute (6) Antithrombin III deficiency Current Visit: No Status: Acute (7) Cor pulmonale Current Visit: No Status: Acute (8) Morbid obesity Current Visit: No Status: Chronic (9) PVD (peripheral vascular disease) Current Visit: No Status: Chronic (10) Rheumatoid arthritis Current Visit: No Status: Chronic Subjective Date of service: 11/09/21 Principal diagnosis: sob Interval history: Patient resting in bed. Patient reports feeling well today Sinus 70s to 80s on monitor Objective Vital Signs Temp Pulse Pulse Resp BP Pulse Ox 11/09/21 10:31 58 L 17 90/58 92 11/09/21 10:00 57 L 12 90/58 11/09/21 09:31 67 19 108/61 94 11/09/21 09:00 69 20 101/45 94 11/09/21 08:31 66 19 91/43 94 11/09/21 08:21 96 11/09/21 08:00 62 17 108/61 96 11/09/21 07:31 69 18 91/43 91 11/09/21 07:00 75 21 91/43 90 11/09/21 06:31 67 19 112/62 96 11/09/21 06:00 82 15 112/62 99 11/09/21 05:31 65 20 118/67 97 11/09/21 05:00 12 118/67 100 11/09/21 04:31 66 14 129/74 90 11/09/21 04:00 82 68 14 129/74 100 11/09/21 03:31 59 L 15 113/72 99 11/09/21 03:00 64 18 113/72 11/09/21 02:31 65 27 H 114/65 94 11/09/21 02:00 63 21 114/65 95 11/09/21 01:31 62 19 109/60 95 11/09/21 01:00 63 23 109/60 93 11/09/21 00:31 64 21 111/65 93 11/09/21 00:00 64 64 16 111/65 91 11/08/21 23:37 23 111/69 91 11/08/21 23:31 65 17 111/69 93 11/08/21 23:00 62 18 111/69 91 11/08/21 22:31 65 16 122/68 93 11/08/21 22:00 19 122/68 11/08/21 21:39 92 11/08/21 21:31 66 10 L 117/96 98 11/08/21 21:01 65 17 117/96 87 11/08/21 20:31 64 20 104/61 98 11/08/21 20:00 97.8 F 67 63 15 104/61 97 11/08/21 19:31 53 L 19 117/77 100 11/08/21 19:00 59 L 14 117/77 100 11/08/21 18:31 66 99/58 100 11/08/21 18:00 74 20 99/58 87 11/08/21 17:31 64 14 109/60 94 11/08/21 17:00 66 18 109/65 92 11/08/21 16:35 92 11/08/21 16:31 70 21 109/60 83 L 11/08/21 16:00 97.8 F 67 69 22 109/60 95 11/08/21 15:31 66 23 102/62 91 11/08/21 15:00 72 21 102/62 87 11/08/21 14:31 71 23 108/62 83 L 11/08/21 14:00 68 19 108/62 85 11/08/21 13:44 93 11/08/21 13:31 72 22 107/64 84 11/08/21 13:01 72 14 107/64 83 L 11/08/21 12:54 95 11/08/21 12:31 73 19 110/60 98 11/08/21 12:00 97.9 F 69 67 21 110/60 97 11/08/21 11:43 97 - Physical Examination General: No Apparent Distress HEENT: Positive: PERRL, EOMI Neck: Positive: neck supple Cardiac: Positive: Reg Rate and Rhythm Lungs: Positive: Decreased Breath Sounds Neuro: Positive: Grossly Intact Abdomen: Positive: Soft Skin: Positive: Other (LLE weeping; covered with dressing) Extremities: Present: +2 Edema (BLE; pitting) - Labs and Meds Comprehensive Metabolic Panel 11/09/21 Range/Units 04:23 Sodium 139 (137-145) mmol/L Potassium 3.8 (3.6-5.0) mmol/L Chloride 102.1 (98-107) mmol/L Carbon Dioxide 26 (22-30) mmol/L BUN 12 (7-17) mg/dL Creatinine 1.0 (0.6-1.2) mg/dL Glucose 90 (65-100) mg/dL Calcium 8.6 (8.4-10.2) mg/dL - Imaging and Cardiology Echo: report reviewed (normal lv function, rv dilated and mild dsyfunction with rv pressure over load and severe pulmonary htn) - Telemetry EKG Rhythm: Sinus Rhythm - EKG Sinus rhythms and dysrhythmias: sinus rhythm
--- NOTE | 2021-11-09 12:02 | Progress Note ---
Assessment and Plan 46 y/o morbidly obese female with known VTE and Factor V Deficiency admitted with acute on chronic hypoxic respiratory failure. 11/09/21: Wean FiO2 as tolerated. Continue anticoagulation. 11/08/21: Now not able to asses if Pulm Emboli are present. Back on anticoagulation now but without imaging, not able to see if patient is in need f or repeat EKOS. Given her stability would not take chance of giving systemic TPA. Will continue to wean FiO2 as tolerated. Hopeful patient can return from this. NO palliative care available here but she is a good candidate for this, especially given her noncompliance. Guarded prognosis. Patient does not have primary pulmonary HTN. 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 Using Primary Pulmonary HTN medication therapy in those who do not have primary pulmonary htn can worsen V/Q mismatch and make hypoxemia worse. Given her history, I would suggest that she need to be evaluated again for VTE. [facility] has ordered dopplers but if negative would consider repeat CTA. Patient also could benefit from outpatient pSG but given her noncompliance, the likelihood of her going is low. Subjective Date of service: 11/09/21 Principal diagnosis: sob Interval history: On 20 Liters and 50%. Sats are not accurate and leads are not picking up correctly. Sister at bedside. Patient awake and alert, in no distress. Objective Vital Signs - 12hr 11/09/21 11/09/21 11/09/21 00:31 01:00 01:31 Pulse Rate 64 63 62 Pulse Rate [ From Monitor] Respiratory 21 23 19 Rate Blood Pressure 111/65 109/60 109/60 O2 Sat by Pulse 93 93 95 Oximetry 11/09/21 11/09/21 11/09/21 02:00 02:31 03:00 Pulse Rate 63 65 64 Pulse Rate [ From Monitor] Respiratory 21 27 H 18 Rate Blood Pressure 114/65 114/65 113/72 O2 Sat by Pulse 95 94 Oximetry 11/09/21 11/09/21 11/09/21 03:31 04:00 04:31 Pulse Rate 59 L 82 66 Pulse Rate [ 68 From Monitor] Respiratory 15 14 14 Rate Blood Pressure 113/72 129/74 129/74 O2 Sat by Pulse 99 100 90 Oximetry 11/09/21 11/09/21 11/09/21 05:00 05:31 06:00 Pulse Rate 65 82 Pulse Rate [ From Monitor] Respiratory 12 20 15 Rate Blood Pressure 118/67 118/67 112/62 O2 Sat by Pulse 100 97 99 Oximetry 11/09/21 11/09/21 11/09/21 06:31 07:00 07:31 Pulse Rate 67 75 69 Pulse Rate [ From Monitor] Respiratory 19 21 18 Rate Blood Pressure 112/62 91/43 91/43 O2 Sat by Pulse 96 90 91 Oximetry 11/09/21 11/09/21 11/09/21 08:00 08:21 08:31 Pulse Rate 62 66 Pulse Rate [ From Monitor] Respiratory 17 19 Rate Blood Pressure 108/61 91/43 O2 Sat by Pulse 96 96 94 Oximetry 11/09/21 11/09/21 11/09/21 08:35 09:00 09:31 Pulse Rate 69 67 Pulse Rate [ From Monitor] Respiratory 20 19 Rate Blood Pressure 101/45 108/61 O2 Sat by Pulse 97 94 94 Oximetry 11/09/21 11/09/21 11/09/21 10:00 10:31 11:50 Pulse Rate 57 L 58 L Pulse Rate [ From Monitor] Respiratory 12 17 Rate Blood Pressure 90/58 90/58 O2 Sat by Pulse 92 95 Oximetry Constitutional: no acute distress, alert, other (obese) Eyes: non-icteric ENT: oropharynx moist Ascultation: Bilateral: diminished breath sounds Cardiovascular: regular rate and rhythm Gastrointestinal: normoactive bowel sounds, soft, non-tender, other (obese) Integumentary: other (chronic venous stasis changes bilat le) Neurologic: normal mental status, non-focal exam CBC and BMP: 11/06/21 04:10 11/09/21 04:23 ABG, PT/INR, D-dimer: ABG ABG pH 7.331 pH Units (7.350-7.450) L 11/05/21 11:10 ABG pCO2 50.7 mm Hg 11/05/21 11:10 ABG pO2 61.1 mm Hg (80.0-90.0) L 11/05/21 11:10 ABG O2 Saturation 89.4 % (95.0-99.0) L 11/05/21 11:10 PT/INR, D-dimer PT 16.9 Sec. (12.2-14.9) H 11/04/21 13:58 INR 1.23 (0.87-1.13) H 11/04/21 13:58 Abnormal lab findings: Abnormal Labs 11/04/21 11/04/21 11/04/21 13:58 13:58 13:58 MCV 78 L MCH 25 L RDW 20.0 H Lymph % (Auto) 11.0 L Eddy % (Auto) 10.0 H Lymph # (Auto) 1.0 L Eddy # (Auto) 0.9 H Seg Neutrophils % 77.9 H PT 16.9 H INR 1.23 H ABG pH ABG pO2 ABG HCO3 ABG O2 Saturation ABG Hemoglobin Oxyhemoglobin Chloride 109.3 H Carbon Dioxide Glucose Total Creatine Kinase NT-Pro-B Natriuret Pep Albumin 11/04/21 11/04/21 11/04/21 13:58 18:53 20:19 MCV MCH RDW Lymph % (Auto) Eddy % (Auto) Lymph # (Auto) Eddy # (Auto) Seg Neutrophils % PT INR ABG pH ABG pO2 35.8 L* ABG HCO3 ABG O2 Saturation 65.0 L ABG Hemoglobin Oxyhemoglobin 63.5 L Chloride Carbon Dioxide Glucose Total Creatine Kinase 196 H NT-Pro-B Natriuret Pep 1961 H Albumin 11/05/21 11/05/21 11/06/21 02:57 11:10 04:10 MCV MCH 24 L RDW 19.9 H Lymph % (Auto) Eddy % (Auto) Lymph # (Auto) Eddy # (Auto) Seg Neutrophils % PT INR ABG pH 7.331 L ABG pO2 61.1 L ABG HCO3 26.2 H ABG O2 Saturation 89.4 L ABG Hemoglobin 11.4 L Oxyhemoglobin 87.5 L Chloride 108.8 H Carbon Dioxide 21 L Glucose 101 H Total Creatine Kinase NT-Pro-B Natriuret Pep Albumin 11/06/21 11/07/21 11/08/21 04:10 04:21 04:40 MCV MCH RDW Lymph % (Auto) Eddy % (Auto) Lymph # (Auto) Eddy # (Auto) Seg Neutrophils % PT INR ABG pH ABG pO2 ABG HCO3 ABG O2 Saturation ABG Hemoglobin Oxyhemoglobin Chloride 108.9 H Carbon Dioxide Glucose 101 H Total Creatine Kinase NT-Pro-B Natriuret Pep Albumin 3.1 L
[2021-11-09] MEDS: LISINOPRIL 5 MG TAB PO SCH (17:25)
[2021-11-09] MEDS: MELATONIN 5 MG TAB PO SCH (21:33)
[2021-11-09] MEDS: SILDENAFIL 20 MG TAB PO SCH (21:40)
[2021-11-10] MEDS: FUROSEMIDE 20 MG TAB PO SCH (06:39)
[2021-11-10 07:06] VITALS: BP 114/62
--- NOTE | 2021-11-10 08:27 | Progress Note ---
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 In the emergency room patient was found to have a SPO2 of 87% on room air and clinical symptoms consistent with CHF as compensation. Patient was admitted to telemetry and initiated on CHF protocol. Patient was also initiated on BiPAP and started on antibiotic therapy. Patient was admitted to the hospital service with acute exacerbation of CHF, acute on chronic respiratory failure with hypoxia and cellulitis with consults to cardiology and pulmonology. Hospital Course to Date: 11/05: Respiratory status improved, now stable on 50% Venti-mask, repeat ABG pending. Continue IV lasix BID, check echo to evaluate pulmonary pressures. Cardiology is consulted. Continue O2 supplementation wean as tolerated for SPO2 above 92%, Bipap at night. Pulmonary was also consulted. Continue current IV abx for BLE cellutis. Check BLE doppler to r/o DVT. Resume home Xarelto. 11/06: Echo revealed severe pulmnary hypertension and RV dysfunction. Continue IV lasix BID. Plan to initiate pulmo HTN therapy, Sildenafil, per pulmo. Cardio is also following. Continue O2 supplementation and wean as tolerated. 11/07: Bilateral lower extremity ultrasound pending, family is requesting PT/OT evaluation. However patient refused PT and OT today and lower extremity Doppler ultrasound. CCM would like to repeat CTA chest if Dopplers are negative. Cardiology would like to continue diuresis with Lasix. 11/08: Lasix changed to p.o. Chest x-ray ordered this a.m. stable. No significant worsening of pulmonary venous congestion. Patient has multifactorial issues between recurrent VTE, PE, diastolic heart failure, severe pulmonary hypertension, obstructive sleep apnea which in combination explain her current clinical presentation. I explained to the patient that from a medical standpoint she would be best served by remaining compliant on her home anticoagulation, pulmonary rehabilitation, and close follow-up with pulmonology. She would also benefit from hospice services. Patient was agreeable to hospice consultation. CM notified. Discussed case with pulmonology Dr. Ding as well as cardiology [employer]. 11/10: discharged with hospice. awaiting transportation. Assessment and plan: Neuro: h/o depression and anxiety, noncompliance, chronic pain, multiple falls at home -Reorientation as needed -Maintain sleep-wake cycle -As needed analgesia -PT/OT consulted, appreciate recommendations -Continue home Lexapro, risperidone Cardiac: h/o Diastolic heart failure, PVD -Cardiology consulted, appreciate recommendations -Blood pressure monitoring per protocol -Admit BNP 1960 -IV lasix -11/05 Echo- The right atrial pressure is estimated at 15 mmHg. Right ventricular systolic pressure is estimated at 85 mmHg. There is moderate-severe pulmonary hypertension. See report for detail Respiratory: Acute on chronic hypoxic respiratory failure, severe pulm htn, h/o multiple PE s/p EKOS -Pulmonology consulted, appreciate recommendations -Bipap q hs, Optiflow AM -VAP bundle -SPO2 monitoring -F/U outpatient for sleep apnea eval/ Sleep study -F/U with pulmonary and cardio output for RHC and further pulmo HTN w/up and treatment GI: MO -24 hours + 862 mL -PPI -Cardiac diet -BR: colace : NAD -Record intake and output -Renally dose medications -Avoid nephrotoxic medications -Trend BMP ID: BLE cellulitis -Antibiotic therapy with clindamycin -f/u blood culture -Monitor WBC and temperature curve Endo: NAD -Avoid hypoglycemia Heme: h/o antithrombin III deficiency, multiple PE -Continue home xarelto -Trend CBC -Transfuse hemoglobin less than 7 -BLE Doppler US pending -SCDs to BLE while in bed - Bilateral lower extremity ultrasound negative for DVT History Interval history: Patient seen and evaluated on bedside encounter. No acute complaints. Hospitalist Physical - Physical exam Narrative exam: Constitutional: no acute distress, alert, other (obese) Eyes: non-icteric ENT: oropharynx moist Ascultation: Bilateral: diminished breath sounds Cardiovascular: regular rate and rhythm Gastrointestinal: normoactive bowel sounds, soft, non-tender, other (obese) Integumentary: other (chronic venous stasis changes bilat le) Neurologic: normal mental status, non-focal exam - Constitutional Vitals: Temp Pulse Resp BP Pulse Ox 97.6 F 63 17 114/62 90 11/10/21 04:00 06/16/22 07:00 11/10/21 07:00 11/10/21 07:00 11/10/21 08:22 General appearance: Present: no acute distress, well-nourished, obese HEART Score - HEART Score Troponin: Troponin T < 0.010 ng/mL (0.00-0.029) 11/04/21 18:53 Results - Labs CBC & Chem 7: 11/06/21 04:10 11/09/21 04:23 Labs: Laboratory Last Values WBC 6.9 K/mm3 (4.5-11.0) 11/06/21 04:10 RBC 4.84 M/mm3 (3.65-5.03) 11/06/21 04:10 Hgb 11.7 gm/dl (10.1-14.3) 11/06/21 04:10 Hct 38.9 % (30.3-42.9) 11/06/21 04:10 MCV 80 fl (79-97) 11/06/21 04:10 MCH 24 pg (28-32) L 11/06/21 04:10 MCHC 30 % (30-34) 11/06/21 04:10 RDW 19.9 % (13.2-15.2) H 11/06/21 04:10 Plt Count 206 K/mm3 (140-440) 11/06/21 04:10 Lymph % (Auto) 11.0 % (13.4-35.0) L 11/04/21 13:58 [place] % (Auto) 10.0 % (0.0-7.3) H 11/04/21 13:58 Eos % (Auto) 0.8 % (0.0-4.3) 11/04/21 13:58 Baso % (Auto) 0.3 % (0.0-1.8) 11/04/21 13:58 Lymph # (Auto) 1.0 K/mm3 (1.2-5.4) L 11/04/21 13:58 [place] # (Auto) 0.9 K/mm3 (0.0-0.8) H 11/04/21 13:58 Eos # (Auto) 0.1 K/mm3 (0.0-0.4) 11/04/21 13:58 Baso # (Auto) 0.0 K/mm3 (0.0-0.1) 11/04/21 13:58 Seg Neutrophils % 77.9 % (40.0-70.0) H 11/04/21 13:58 Seg Neutrophils # 7.0 K/mm3 (1.8-7.7) 11/04/21 13:58 PT 16.9 Sec. (12.2-14.9) H 11/04/21 13:58 INR 1.23 (0.87-1.13) H 11/04/21 13:58 APTT 32.0 Sec. (24.2-36.6) 11/04/21 13:58 ABG pH 7.331 pH Units (7.350-7.450) L 11/05/21 11:10 ABG pCO2 50.7 mm Hg 11/05/21 11:10 ABG pO2 61.1 mm Hg (80.0-90.0) L 11/05/21 11:10 ABG HCO3 26.2 mmol/L (20.0-26.0) H 11/05/21 11:10 ABG O2 Saturation 89.4 % (95.0-99.0) L 11/05/21 11:10 ABG O2 Content 14.0 (0.0-44) 11/05/21 11:10 ABG Base Excess -0.2 mmol/L (-2.0-3.0) 11/05/21 11:10 ABG Hemoglobin 11.4 gm/dl (12.0-16.0) L 11/05/21 11:10 ABG Carboxyhemoglobin 1.4 % (0.0-5.0) 11/05/21 11:10 ABG Methemoglobin 0.7 % (0.0-1.5) 11/05/21 11:10 Oxyhemoglobin 87.5 % (95.0-99.0) L 11/05/21 11:10 FiO2 50 % 11/05/21 11:10 Sodium 139 mmol/L (137-145) 11/09/21 04:23 Potassium 3.8 mmol/L (3.6-5.0) 11/09/21 04:23 Chloride 102.1 mmol/L (98-107) 11/09/21 04:23 Carbon Dioxide 26 mmol/L (22-30) 11/09/21 04:23 Anion Gap 15 mmol/L 11/09/21 04:23 BUN 12 mg/dL (7-17) 11/09/21 04:23 Creatinine 1.0 mg/dL (0.6-1.2) 11/09/21 04:23 Estimated GFR 60 ml/min 11/09/21 04:23 BUN/Creatinine Ratio 12 % 11/09/21 04:23 Glucose 90 mg/dL (65-100) 11/09/21 04:23 Calcium 8.6 mg/dL (8.4-10.2) 11/09/21 04:23 Phosphorus 3.30 mg/dL (2.5-4.5) 11/07/21 04:21 Magnesium 2.20 mg/dL (1.7-2.3) 11/07/21 04:21 Total Creatine Kinase 196 units/L (30-135) H 11/04/21 18:53 CK-MB (CK-2) 4.0 ng/mL (0.0-4.0) 11/04/21 18:53 CK-MB (CK-2) Rel Index 2.0 (0-4) 11/04/21 18:53 Troponin T < 0.010 ng/mL (0.00-0.029) 11/04/21 18:53 NT-Pro-B Natriuret Pep 1961 pg/mL (0-450) H 11/04/21 13:58 Albumin 3.1 g/dL (3.9-5) L 11/08/21 04:40 Urine Color Yellow (Yellow) 11/04/21 21:44 Urine Turbidity Clear (Clear) 11/04/21 21:44 Urine pH 5.0 (5.0-7.0) 11/04/21 21:44 Ur Specific [place] 1.012 (1.003-1.030) 11/04/21 21:44 Urine Protein <15 mg/dl mg/dL (Negative) 11/04/21 21:44 Urine Glucose (UA) Neg mg/dL (Negative) 11/04/21 21:44 Urine Ketones Neg mg/dL (Negative) 11/04/21 21:44 Urine Blood Neg (Negative) 11/04/21 21:44 Urine Nitrite Neg (Negative) 11/04/21 21:44 Urine Bilirubin Neg (Negative) 11/04/21 21:44 Urine Urobilinogen < 2.0 mg/dL (<2.0) 11/04/21 21:44 Ur Leukocyte Esterase Neg (Negative) 11/04/21 21:44 Urine WBC (Auto) < 1.0 /HPF (0.0-6.0) 11/04/21 21:44 Urine RBC (Auto) 3.0 /HPF (0.0-6.0) 11/04/21 21:44 U Epithel Cells (Auto) 2.0 /HPF (0-13.0) 11/04/21 21:44 Nasal Screen MRSA (PCR) Negative (Negative) 11/07/21 05:20 SARS-CoV-2 (PCR) Negative (Negative) 11/08/21 15:17 Mak/IV: Voiding Method External Female Catheter Active Medications - Current Medications Current Medications: Generic Name Dose Route Start Last Admin Trade Name Freq PRN Reason Stop Dose Admin Acetaminophen 650 mg 11/04/21 18:40 11/06/21 22:04 Acetaminophen 325 Mg Tab PO 650 mg Q4H PRN Administration Pain MILD(1-3)/Fever >100.5/CARTAGENA Albuterol 2.5 mg 11/04/21 18:40 Albuterol 2.5 Mg/3 Ml Nebu IH Q4HRT PRN Shortness Of Breath Clonazepam 1 mg 11/05/21 10:00 11/09/21 09:37 Clonazepam 0.5 Mg Tab PO 1 mg QDAY JOSE Administration Escitalopram Oxalate 10 mg 11/05/21 10:00 11/09/21 09:38 Escitalopram 10 Mg/10 Ml Oral Liqd PO 10 mg DAILY JOSE Administration Famotidine 20 mg 11/05/21 22:00 11/09/21 21:33 Famotidine 20 Mg Tab PO 20 mg BID JOSE Administration Furosemide 20 mg 11/08/21 18:00 11/10/21 06:39 Furosemide 20 Mg Tab PO Not Given 0600,1800 JOSE Guaifenesin 600 mg 11/04/21 22:00 11/09/21 21:33 Guaifenesin Er 600 Mg Tab PO 600 mg BID JOSE Administration Lisinopril 2.5 mg 11/05/21 10:00 11/09/21 17:25 Lisinopril 5 Mg Tab PO Not Given QDAY JOSE Melatonin 10 mg 11/06/21 22:00 11/09/21 21:33 Melatonin 5 Mg Tab PO 10 mg QHS JOSE Administration Morphine Sulfate 15 mg 11/08/21 15:00 11/09/21 21:32 Morphine 15 Mg Er Tab PO 15 mg Q12HR JOSE Administration Ondansetron HCl 4 mg 11/04/21 18:40 11/08/21 21:37 Ondansetron 4 Mg/2 Ml Inj IV 4 mg Q8H PRN Administration Nausea And Vomiting Risperidone 0.5 mg 11/05/21 10:00 11/09/21 09:37 Risperidone 0.25 Mg Tab PO 0.5 mg QDAY JOSE Administration Rivaroxaban 20 mg 11/05/21 11:00 11/09/21 09:38 Rivaroxaban 20 Mg Tab PO 20 mg QDAY JOSE Administration Sodium Chloride 10 ml 11/04/21 22:00 11/09/21 21:33 Sodium Chloride 0.9% 10 Ml Flush Syringe IV 10 ml BID JOSE Administration Sodium Chloride 10 ml 11/04/21 18:40 Sodium Chloride 0.9% 10 Ml Flush Syringe IV PRN PRN LINE FLUSH Nutrition/Malnutrition Assess - Dietary Evaluation Nutrition/Malnutrition Findings: Nutrition Notes Start: 11/06/21 12:02 Freq: Status: Active Protocol: Document 11/06/21 12:02 FREDDY (Rec: 11/06/21 12:06 FREDDY [id number]) Nutrition Notes Need for Assessment generated from: new grad rn Initial or Follow up Brief Note Current Diagnosis Heart Failure Other Pertinent Diagnosis CHF exacerbation Current Diet Cardiac Labs/Tests reviewed Pertinent Medications Lasix Height 5 ft 7 in Weight 190.5 kg [place] Body Weight (kg) 61.36 BMI 65.7 Weight Status Morbidly Obese Subjective/Other Information Pt screened for skin risk ( Sonny score: 16). PMHx includes obesity hypoventilation syndrome, pulmonary HTN, lymphedema, peripheral vascular dz. Burn Absent Trauma Absent Minimum of two criteria No Fluid Accumulation Moderate to Severe (severe) Is patient on ventilator? No Is Patient Ambulatory and/or Out of Bed No REE-([place]-confined to bed) 3095.280 Kcal/Kg value to use for calculation 9 Approximate Energy Requirements Using 1715 kcal/Kg Calculation Used for Recommendations Kcal/kg Additional Notes Pro needs 0.8-1g/kg adjBW: 101 -126g/day Fluid needs per MD. Nutrition Intervention Follow-Up By: 11/11/21 Additional Comments F/U: intakes
--- NOTE | 2021-11-10 12:16 | Progress Note ---
Assessment and Plan 46 y/o morbidly obese female with known VTE and Factor V Deficiency admitted with acute on chronic hypoxic respiratory failure. 11/10/21: Continue to wean FiO2 as tolerated. Anticoagulation 11/09/21: Wean FiO2 as tolerated. Continue anticoagulation. 11/08/21: Now not able to asses if Pulm Emboli are present. Back on anticoagulation now but without imaging, not able to see if patient is in need for repeat EKOS. Given her stability would not take chance of giving systemic TPA. Will continue to wean FiO2 as tolerated. Hopeful patient can return from this. NO palliative care available here but she is a good candidate for this, especially given her noncompliance. Guarded prognosis. Patient does not have primary pulmonary HTN. 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 Using Primary Pulmonary HTN medication therapy in those who do not have primary pulmonary htn can worsen V/Q mismatch and make hypoxemia worse. Given her history, I would suggest that she need to be evaluated again for VTE. IMS has ordered dopplers but if negative would consider repeat CTA. Patient also could benefit from outpatient pSG but given her noncompliance, the likelihood of her going is low. Subjective Date of service: 11/10/21 Principal diagnosis: sob Interval history: No acute events. Being discharged this morning. Objective Vital Signs - 12hr 11/10/21 11/10/21 11/10/21 00:11 00:21 00:31 Temperature Pulse Rate 73 76 71 Pulse Rate [ From Monitor] Respiratory 25 H 25 H 17 Rate Blood Pressure 81/42 81/42 81/42 O2 Sat by Pulse 91 90 93 Oximetry 11/10/21 11/10/21 11/10/21 00:41 00:51 01:41 Temperature Pulse Rate 71 77 72 Pulse Rate [ From Monitor] Respiratory 21 26 H 14 Rate Blood Pressure 86/47 86/47 91/52 O2 Sat by Pulse 93 91 95 Oximetry 11/10/21 11/10/21 11/10/21 02:00 03:00 04:00 Temperature 97.6 F Pulse Rate 77 68 66 Pulse Rate [ From Monitor] Respiratory 26 H 22 16 Rate Blood Pressure 92/46 97/53 110/45 O2 Sat by Pulse 88 89 88 Oximetry 11/10/21 11/10/21 11/10/21 04:50 05:00 06:00 Temperature Pulse Rate 66 67 Pulse Rate [ 67 From Monitor] Respiratory 17 19 Rate Blood Pressure 110/45 96/43 O2 Sat by Pulse 92 91 92 Oximetry 11/10/21 11/10/21 07:00 08:22 Temperature Pulse Rate 61 Pulse Rate [ From Monitor] Respiratory 17 Rate Blood Pressure 114/62 O2 Sat by Pulse 96 90 Oximetry Constitutional: no acute distress, alert, other (obese) Eyes: non-icteric ENT: oropharynx moist Ascultation: Bilateral: diminished breath sounds Cardiovascular: regular rate and rhythm Gastrointestinal: normoactive bowel sounds, soft, non-tender, other (obese) Integumentary: other (chronic venous stasis changes bilat le) Neurologic: normal mental status, non-focal exam CBC and BMP: 11/06/21 04:10 11/09/21 04:23 ABG, PT/INR, D-dimer: ABG ABG pH 7.331 pH Units (7.350-7.450) L 11/05/21 11:10 ABG pCO2 50.7 mm Hg 11/05/21 11:10 ABG pO2 61.1 mm Hg (80.0-90.0) L 11/05/21 11:10 ABG O2 Saturation 89.4 % (95.0-99.0) L 11/05/21 11:10 PT/INR, D-dimer PT 16.9 Sec. (12.2-14.9) H 11/04/21 13:58 INR 1.23 (0.87-1.13) H 11/04/21 13:58 Abnormal lab findings: Abnormal Labs 11/04/21 11/04/21 11/04/21 13:58 13:58 13:58 MCV 78 L MCH 25 L RDW 20.0 H Lymph % (Auto) 11.0 L [place] % (Auto) 10.0 H Lymph # (Auto) 1.0 L [place] # (Auto) 0.9 H Seg Neutrophils % 77.9 H PT 16.9 H INR 1.23 H ABG pH ABG pO2 ABG HCO3 ABG O2 Saturation ABG Hemoglobin Oxyhemoglobin Chloride 109.3 H Carbon Dioxide Glucose Total Creatine Kinase NT-Pro-B Natriuret Pep Albumin 11/04/21 11/04/21 11/04/21 13:58 18:53 20:19 MCV MCH RDW Lymph % (Auto) [place] % (Auto) Lymph # (Auto) [place] # (Auto) Seg Neutrophils % PT INR ABG pH ABG pO2 35.8 L* ABG HCO3 ABG O2 Saturation 65.0 L ABG Hemoglobin Oxyhemoglobin 63.5 L Chloride Carbon Dioxide Glucose Total Creatine Kinase 196 H NT-Pro-B Natriuret Pep 1961 H Albumin 11/05/21 11/05/21 11/06/21 02:57 11:10 04:10 MCV MCH 24 L RDW 19.9 H Lymph % (Auto) [place] % (Auto) Lymph # (Auto) [place] # (Auto) Seg Neutrophils % PT INR ABG pH 7.331 L ABG pO2 61.1 L ABG HCO3 26.2 H ABG O2 Saturation 89.4 L ABG Hemoglobin 11.4 L Oxyhemoglobin 87.5 L Chloride 108.8 H Carbon Dioxide 21 L Glucose 101 H Total Creatine Kinase NT-Pro-B Natriuret Pep Albumin 11/06/21 11/07/21 11/08/21 04:10 04:21 04:40 MCV MCH RDW Lymph % (Auto) [place] % (Auto) Lymph # (Auto) [place] # (Auto) Seg Neutrophils % PT INR ABG pH ABG pO2 ABG HCO3 ABG O2 Saturation ABG Hemoglobin Oxyhemoglobin Chloride 108.9 H Carbon Dioxide Glucose 101 H Total Creatine Kinase NT-Pro-B Natriuret Pep Albumin 3.1 L
== END 2021-11-10 10:00 | disposition hospice, inpatient (51) | DRG 189 ==
LOC: ED 12:48 → 4A 18:41 → IMCU 11-05 06:12 → CC1 11-05 06:35 → IMCU 11-06 06:36
PROVIDERS: ADMIT Internal Medicine; ATTEND Internal Medicine
PROC: 4A033R1 Measurement of Arterial Saturation, Peripheral, Percutaneous Approach (ICD-10-PCS; 2021-11-04)
PROC: 5A09457 Assistance with Respiratory Ventilation, 24-96 Consecutive Hours, Continuous Positive Airway Pressure (ICD-10-PCS; principal; 2021-11-05)
DX: J96.21 Acute and chronic respiratory failure with hypoxia (principal); I50.33 Acute on chronic diastolic (congestive) heart failure; I27.20 Pulmonary hypertension, unspecified; E66.01 Morbid (severe) obesity due to excess calories; L03.115 Cellulitis of right lower limb; M06.9 Rheumatoid arthritis, unspecified; I73.9 Peripheral vascular disease, unspecified; Z86.718 Personal history of other venous thrombosis and embolism; Z82.49 Family history of ischemic heart disease and other diseases of the circulatory system; Z68.44 Body mass index [BMI] 60.0-69.9, adult; Z83.3 Family history of diabetes mellitus
CPT/HCPCS: 36415; 36600; 71045; 80048; 81001; 82040; 82550; 82553; 82803; 83735; 83880; 84100; 84484; 85025; 85027; 85610; 85730; 87641; 93005; 93306; 93970; 94760; G0378; J3490; J7502; C8929; J1170; J1940; J2405; U0003